=== PATIENT | female | born 2000 | race African-American/Black ===

== ENCOUNTER 2024-12-09 20:29 | Emergency (ER) | payer OTHER, SELFPAY ==
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
--- OUTSIDE RECORDS SUMMARY | 2024-12-09 20:25 | XMS_ITS | Patient Health Summary ---
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,non-owned Affiliates and Associated Physician Practices is amultiple site organization consisting of ambulatory clinics and hospital sitesin [place], [place], [place] and [place]. This disclosure is being madepursuant to the Care Everywhere program and may not contain all information available regarding this patient. Last updated 18.[facility] Allergies * Nickel(Urticaria) -Medium Criticality Medications * Be aware that medications may not be up to date on this document. Alwaysverify current medications with the patient. * albuterol HFA (PROVENTIL;VENTOLIN;PROAIR) 108 (90 BASE) MCG/ACT inhaler Inhale 2 (two) puffs by mouth every 6 hours as needed * montelukast (SINGULAIR) 10 MG tablet(Started 07/21/2019) Take 1 (one) tablet by mouth every evening 11 refills left * buPROPion XL 24hr (WELLBUTRIN-XL) 300 MG tablet(Started 05/07/2021) Take 1 (one) tablet by mouth once daily * divalproex ER 24hr (DEPAKOTE ER) 250 MG tablet(Started 05/07/2021) Take 3 (three) tablets by mouth at bedtime * medroxyPROGESTERone (DEPO-PROVERA) 150 MG/ML vial(Started 11/22/2020) Inject 1 mL into muscle Every 90 days * cyclobenzaprine (FLEXERIL) 5 MG tablet(Started 06/02/2021) TAKE 1 TABLET BY MOUTH THREE TIMES DAILY NEEDED FOR BACK PAIN. * lithium CR (Eskalith CR) 450 MG tablet(Started 08/30/2023) Take 1 (one) tablet by mouth once daily * omeprazole (PriLOSEC) 20 MG capsule(Started 02/07/2023) TAKE 1 CAPSULE BY MOUTH EVERY DAY BEFORE A MEAL * propranolol (Inderal) 10 MG tablet(Started 08/02/2023) Take 1 (one) tablet by mouth 2 times daily with morning and evening meal * vitamin D, ergocalciferol, (Drisdol) 1.25 MG (82658 UT) capsule(Started 11/21/2023) Take 1 (one) capsule by mouth every 7 days * QUEtiapine (SEROquel) 200 MG tablet(Started 11/12/2023) Take 1 (one) tablet by mouth at bedtime * meloxicam (Mobic) 15 MG tablet(Started 12/07/2023) Take 1 (one) tablet by mouth once daily 3 refills by 12/06/2024 Active Problems Problem Noted Date Diagnosed Date Arthralgia 12/26/2018 Chronic bilateral low back pain without sciatica 12/26/2018 Hypermobile joints 12/26/2018 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 Hypovitaminosis D 12/26/2018 Low TSH level 12/26/2018 Intentional lithium overdose 07/26/2018 Suicidal ideation 07/26/2018 Routine screening for STI (sexually transmitted infection) 07/18/2018 DUB (dysfunctional uterine bleeding) 12/07/2016 Social History Tobacco Use Types Packs/Day Years Used Date Smoking Tobacco: Smoker, Current Status Unknown Smokeless Tobacco: Never Tobacco Cessation:Ready to Q uit: Not Asked; Counseling Given: Not Answered Alcohol Use Standard Drinks/Week Comments Yes 0 (1 standard drink = 0.6 oz pur e alcohol) occaisional PHQ-2 Answer Date Recorded PHQ2 TOTAL SCORE 3 10/13/2021 Sex and Gender Information Value Date Recorded Sex Assigned at Not on file Gender Identity Not on file Sexual Orientation Not on file Last Filed Vital Signs Vital Sign Reading Time Taken Comments Blood Pressure 118/60 12/07/2023 3:34 PM TEST TECHNICIAN Pulse 86 12/07/2023 3:34 PM TEST TECHNICIAN Temperature 37.1 ??C (98.8 ??F) 12/07/2023 3:34 PM CS T Respiratory Rate 18 03/18/2020 4:25 PM CDT Oxygen Saturation 96% 09/20/2023 1:40 PM TEST TECHNICIAN Inhaled Oxygen Concentration - - Weight 60.2 kg (132 lb 12.8 oz) 12/07/2023 3:34 PM TEST TECHNICIAN Height 162.6 cm (5' 4 ) 12/07/2023 3:34 PM TEST TECHNICIAN Body Mass Index 22.8 12/07/2023 3:34 PM TEST TECHNICIAN Procedures * URINALYSIS REFLEX TO MICROSCOPIC NO CULTURE(Performed 09/20/2023) Performed for Arthralgia, unspecified joint * COMPLEMENT ACTIVITY TOTAL (CH50)(Performed 09/20/2023) Performed for Arthralgia, unspecified joint * SS-B (SJOGREN'S) ANTIBODY(Performed 09/20/2023) Performed for Arthralgia, unspecified joint * SS-A (SJOGREN'S) 52+60 ANTIBODIES(Performed 09/20/2023) Performed for Arthralgia, unspecified joint * THOMAS/FINGERNAIL SCULPTURER (FLACO) ANTIBODY IGG(Performed 09/20/2023) Performed for Arthralgia, unspecified joint * DNA ANTIBODY DS CRITHIDIA TITER(Performed 09/20/2023) Performed for Arthralgia, unspecified joint * DNA ANTIBODY DOUBLE STRANDED(Performed 09/20/2023) Performed for Arthralgia, unspecified joint * MAGALY BLOOD SCREEN W/REFLEX TITER(Performed 09/20/2023) Performed for Arthralgia, unspecified joint * SCLERODERMA COMPREHENSIVE AB PANEL(Performed 09/20/2023) Performed for Arthralgia, unspecified joint * MYOSITIS ANTIBODY PANEL COMPREHENSIVE(Performed 09/20/2023) Performed for Arthralgia, unspecified joint * COMPLEMENT C4(Performed 09/20/2023) Performed for Arthralgia, unspecified joint * COMPLEMENT C3(Performed 09/20/2023) Performed for Arthralgia, unspecified joint * THOMAS (SM) ANTIBODY FLACO(Performed 09/20/2023) Performed for Arthralgia, unspecified joint * VITAMIN D 25-HYDROXY(Performed 09/20/2023) Performed for Arthralgia, unspecified joint * ERYTHROCYTE SEDIMENTATION RATE(Performed 09/20/2023) Performed for Arthralgia, unspecified joint * C-REACTIVE PROTEIN(Performed 09/20/2023) Performed for Arthralgia, unspecified joint * COMPREHENSIVE METABOLIC PANEL(Performed 09/20/2023) Performed for Arthralgia, unspecified joint * CK BLOOD(Performed 09/20/2023) Performed for Arthralgia, unspecified joint * CBC W AUTO DIFFERENTIAL(Performed 09/20/2023) Performed for Arthralgia, unspecified joint * ALDOLASE(Performed 09/20/2023) Performed for Arthralgia, unspecified joint * XR SHOULDER LEFT 2VW OR MORE(Performed 09/20/2023) Performed for Hypermobile joints, Arthralgia, unspecified joint * XR KNEE LEFT 2VW OR LESS(Performed 09/20/2023) Performed for Hypermobile joints, Arthralgia, unspecified joint * XR SHOULDER RIGHT 2VW OR MORE(Performed 09/20/2023) Performed for Hypermobile joints, Arthralgia, unspecified joint * XR KNEE RIGHT 2VW OR LESS(Performed 09/20/2023) Performed for Hypermobile joints, Arthralgia, unspecified joint * MYOSITIS ANTIBODY PANEL COMPREHENSIVE(Performed 10/13/2021) Performed for Hypermobile joints * VITAMIN D 25-HYDROXY D2+D3(Performed 10/13/2021) Performed for Hypermobile joints, Encounter for therapeutic drug monitoring * URINALYSIS W/MICROSCOPIC NO CULTURE(Performed 10/13/2021) Performed for Hypermobile joints, Encounter for therapeutic drug monitoring * ERYTHROCYTE SEDIMENTATION RATE(Performed 10/13/2021) Performed for Hypermobile joints, Encounter for therapeutic drug monitoring * C-REACTIVE PROTEIN(Performed 10/13/2021) Performed for Hypermobile joints, Encounter for therapeutic drug monitoring * COMPREHENSIVE METABOLIC PANEL(Performed 10/13/2021) Performed for Hypermobile joints, Encounter for therapeutic drug monitoring * CK BLOOD(Performed 10/13/2021) Performed for Hypermobile joints, Encounter for therapeutic drug monitoring * CBC W AUTO DIFFERENTIAL(Performed 10/13/2021) Performed for Hypermobile joints, Encounter for therapeutic drug monitoring * ALDOLASE(Performed 10/13/2021) Performed for Hypermobile joints, Encounter for therapeutic drug monitoring * XR FOREARM LEFT 2VW OR MORE(Performed 10/13/2021) Performed for Closed fracture of left upper extremity, initial encounter * XR ELBOW LEFT 2VW(Performed 10/13/2021) Performed for Closed fracture of left upper extremity, initial encounter * XR HUMERUS LEFT 2VW OR MORE(Performed 10/13/2021) Performed for Closed fracture of left upper extremity, initial encounter * URINALYSIS W/MICROSCOPIC NO CULTURE(Performed 05/27/2021) Performed for Hypermobile joints, Encounter for therapeutic drug monitoring * VITAMIN D 25-HYDROXY D2+D3(Performed 05/27/2021) Performed for Hypermobile joints, Encounter for therapeutic drug monitoring * T4 FREE(Performed 05/27/2021) Performed for Hypermobile joints, Encounter for therapeutic drug monitoring * TSH(Performed 05/27/2021) Performed for Hypermobile joints, Encounter for therapeutic drug monitoring * ERYTHROCYTE SEDIMENTATION RATE(Performed 05/27/2021) Performed for Hypermobile joints, Encounter for therapeutic drug monitoring * C-REACTIVE PROTEIN(Performed 05/27/2021) Performed for Hypermobile joints, Encounter for therapeutic drug monitoring * CK BLOOD(Performed 05/27/2021) Performed for Hypermobile joints, Encounter for therapeutic drug monitoring * COMPREHENSIVE METABOLIC PANEL(Performed 05/27/2021) Performed for Hypermobile joints, Encounter for therapeutic drug monitoring * CBC W AUTO DIFFERENTIAL(Performed 05/27/2021) Performed for Hypermobile joints, Encounter for therapeutic drug monitoring * ALDOLASE(Performed 05/27/2021) Performed for Hypermobile joints, Encounter for therapeutic drug monitoring * TRICHOMONAS VAGINALIS AMPLIFIED PROBE(Performed 05/06/2020) Performed for DUB (dysfunctional uterine bleeding), Routine screening for STI (sexually transmittedinfection) * CHLAMYDIA + GC AMPLIFIED PROBE(Performed 05/06/2020) Performed for DUB (dysfunctional uterine bleeding), Routine screening for STI (sexually transmittedinfection) * XR PELVIS 1 OR 2VW(Performed 03/18/2020) Performed for Pain of right hip joint * HCG URINE QUAL POCT NOTIFICATION(Performed 03/18/2020) * HCG URINE QUALITATIVE - POCT (IP) INTERFACED(Performed 03/18/2020) * URINALYSIS W/MICROSCOPIC NO CULTURE(Performed 03/18/2020) * CHLAMYDIA + GC AMPLIFIED PROBE(Performed 03/18/2020) * BASIC METABOLIC PANEL (CALCIUM TOTAL)(Performed 03/18/2020) * C-REACTIVE PROTEIN(Performed 03/18/2020) * ERYTHROCYTE SEDIMENTATION RATE(Performed 03/18/2020) * CBC W AUTO DIFFERENTIAL(Performed 03/18/2020) * TRICHOMONAS VAGINALIS AMPLIFIED PROBE(Performed 02/22/2020) Performed for Routine screening for STI (sexually transmitted infection) * CHLAMYDIA + GC AMPLIFIED PROBE(Performed 02/22/2020) Performed for Routine screening for STI (sexually transmitted infection) * URINALYSIS W/MICROSCOPIC REFLEX TO CULTURE(Performed 01/25/2020) Performed for Hypermobile joints, Arthralgia, unspecified joint, Chronic bilateral low back pain without sciatica, Histone antibody positive, Patellar tracking disorder, unspecified laterality, Hypovitaminosis D, Low TSH level * CULTURE URINE(Performed 01/25/2020) Performed for Hypermobile joints, Arthralgia, unspecified joint, Chronic bilateral low back pain without sciatica, Histone antibody positive, Patellar tracking disorder, unspecified laterality, Hypovitaminosis D, Low TSH level * ERYTHROCYTE SEDIMENTATION RATE(Performed 01/25/2020) Performed for Hypermobile joints, Arthralgia, unspecified joint, Chronic bilateral low back pain without sciatica, Histone antibody positive, Patellar tracking disorder, unspecified laterality, Hypovitaminosis D, Low TSH level * C-REACTIVE PROTEIN(Performed 01/25/2020) Performed for Hypermobile joints, Arthralgia, unspecified joint, Chronic bilateral low back pain without sciatica, Histone antibody positive, Patellar tracking disorder, unspecified laterality, Hypovitaminosis D, Low TSH level * COMPREHENSIVE METABOLIC PANEL(Performed 01/25/2020) Performed for Hypermobile joints, Arthralgia, unspecified joint, Chronic bilateral low back pain without sciatica, Histone antibody positive, Patellar tracking disorder, unspecified laterality, Hypovitaminosis D, Low TSH level * CBC W AUTO DIFFERENTIAL(Performed 01/25/2020) Performed for Hypermobile joints, Arthralgia, unspecified joint, Chronic bilateral low back pain without sciatica, Histone antibody positive, Patellar tracking disorder, unspecified laterality, Hypovitaminosis D, Low TSH level * TRICHOMONAS VAGINALIS AMPLIFIED PROBE(Performed 12/14/2019) Performed for DUB (dysfunctional uterine bleeding) * CHLAMYDIA + GC AMPLIFIED PROBE(Performed 12/14/2019) Performed for DUB (dysfunctional uterine bleeding) * MAGALY BLOOD SCREEN W/REFLEX TITER(Performed 09/21/2019) Performed for Encounter for therapeutic drug monitoring, Arthralgia of left knee, Hypermobile joints, Hypovitaminosis D * DNA ANTIBODY DOUBLE STRANDED(Performed 09/21/2019) Performed for Encounter for therapeutic drug monitoring, Arthralgia of left knee, Hypermobile joints, Hypovitaminosis D * THOMAS (SM) ANTIBODY FLACO(Performed 09/21/2019) Performed for Encounter for therapeutic drug monitoring, Arthralgia of left knee, Hypermobile joints, Hypovitaminosis D * SS-A (SJOGREN'S) ANTIBODY(Performed 09/21/2019) Performed for Encounter for therapeutic drug monitoring, Arthralgia of left knee, Hypermobile joints, Hypovitaminosis D * SS-B (SJOGREN'S) ANTIBODY(Performed 09/21/2019) Performed for Encounter for therapeutic drug monitoring, Arthralgia of left knee, Hypermobile joints, Hypovitaminosis D * FINGERNAIL SCULPTURER ANTIBODY(Performed 09/21/2019) Performed for Encounter for therapeutic drug monitoring, Arthralgia of left knee, Hypermobile joints, Hypovitaminosis D * CHROMATIN ANTIBODY(Performed 09/21/2019) Performed for Encounter for therapeutic drug monitoring, Arthralgia of left knee, Hypermobile joints, Hypovitaminosis D * HISTONE ANTIBODY(Performed 09/21/2019) Performed for Encounter for therapeutic drug monitoring, Arthralgia of left knee, Hypermobile joints, Hypovitaminosis D * CBC W AUTO DIFFERENTIAL(Performed 09/21/2019) Performed for Encounter for therapeutic drug monitoring, Arthralgia of left knee, Hypermobile joints, Hypovitaminosis D * COMPREHENSIVE METABOLIC PANEL(Performed 09/21/2019) Performed for Encounter for therapeutic drug monitoring, Arthralgia of left knee, Hypermobile joints, Hypovitaminosis D * C-REACTIVE PROTEIN(Performed 09/21/2019) Performed for Encounter for therapeutic drug monitoring, Arthralgia of left knee, Hypermobile joints, Hypovitaminosis D * ERYTHROCYTE SEDIMENTATION RATE(Performed 09/21/2019) Performed for Encounter for therapeutic drug monitoring, Arthralgia of left knee, Hypermobile joints, Hypovitaminosis D * URINALYSIS W/MICROSCOPIC NO CULTURE(Performed 09/21/2019) Performed for Encounter for therapeutic drug monitoring, Arthralgia of left knee, Hypermobile joints, Hypovitaminosis D * ANCA VASCULITIS PANEL(Performed 09/21/2019) Performed for Encounter for therapeutic drug monitoring, Arthralgia of left knee, Hypermobile joints, Hypovitaminosis D * CHROMATIN ANTIBODY(Performed 03/02/2019) Performed for Arthralgia, unspecified joint * HISTONE ANTIBODY(Performed 03/02/2019) Performed for Arthralgia, unspecified joint * VITAMIN D 25-HYDROXY(Performed 03/02/2019) Performed for Arthralgia, unspecified joint * THYROID AB PANEL (TPO AB+THYROGLOB AB)(Performed 03/02/2019) Performed for Arthralgia, unspecified joint, Low TSH level * T4 FREE(Performed 03/02/2019) Performed for Arthralgia, unspecified joint, Low TSH level * TSH(Performed 03/02/2019) Performed for Arthralgia, unspecified joint, Low TSH level * LUPUS ANTICOAGULANT PANEL W RFLX(Performed 03/02/2019) Performed for Arthralgia, unspecified joint * ERYTHROCYTE SEDIMENTATION RATE(Performed 03/02/2019) Performed for Arthralgia, unspecified joint * C-REACTIVE PROTEIN(Performed 03/02/2019) Performed for Arthralgia, unspecified joint * ALDOLASE(Performed 03/02/2019) Performed for Arthralgia, unspecified joint * CK BLOOD(Performed 03/02/2019) Performed for Arthralgia, unspecified joint * CBC W AUTO DIFFERENTIAL(Performed 03/02/2019) Performed for Arthralgia, unspecified joint * CARDIOLIPIN ANTIBODY IGG/IGM PANEL(Performed 03/02/2019) Performed for Arthralgia, unspecified joint * BETA-2 GLYCOPROTEIN 1 ANTIBODY IGG/IGM PANEL(Performed 03/02/2019) Performed for Arthralgia, unspecified joint * ANCA VASCULITIS PANEL(Performed 03/02/2019) Performed for Arthralgia, unspecified joint * TRICHOMONAS VAGINALIS AMPLIFIED PROBE(Performed 02/13/2019) Performed for Routine screening for STI (sexually transmitted infection) * CHLAMYDIA + GC AMPLIFIED PROBE(Performed 02/13/2019) Performed for Routine screening for STI (sexually transmitted infection) * XR LUMBAR SPINE 2 OR 3VW(Performed 12/26/2018) Performed for Arthralgia, unspecified joint, Chronic bilateral low back pain without sciatica * XR SI JOINTS 3VW OR MORE(Performed 12/26/2018) Performed for Arthralgia, unspecified joint, Chronic bilateral low back pain without sciatica * XR KNEE RIGHT 3VW(Performed 12/26/2018) Performed for Arthralgia, unspecified joint, Chronic bilateral low back pain without sciatica * XR KNEE LEFT 3VW(Performed 12/26/2018) Performed for Arthralgia, unspecified joint, Chronic bilateral low back pain without sciatica * VITAMIN D 25-HYDROXY(Performed 12/26/2018) Performed for Arthralgia, unspecified joint, Chronic bilateral low back pain without sciatica * RHEUMATOID FACTOR BLOOD QUANTITATIVE(Performed 12/26/2018) Performed for Arthralgia, unspecified joint, Chronic bilateral low back pain without sciatica * CYCLIC CITRUL PEPTIDE ANTIBODY IGG/IGA (CCP)(Performed 12/26/2018) Performed for Arthralgia, unspecified joint, Chronic bilateral low back pain without sciatica * HLA TYPING B27(Performed 12/26/2018) Performed for Arthralgia, unspecified joint, Chronic bilateral low back pain without sciatica * SS-B (SJOGREN'S) ANTIBODY(Performed 12/26/2018) Performed for Arthralgia, unspecified joint, Chronic bilateral low back pain without sciatica * SS-A (SJOGREN'S) ANTIBODY(Performed 12/26/2018) Performed for Arthralgia, unspecified joint, Chronic bilateral low back pain without sciatica * MAGALY BLOOD SCREEN W/REFLEX TITER(Performed 12/26/2018) Performed for Arthralgia, unspecified joint, Chronic bilateral low back pain without sciatica * COMPLEMENT C4(Performed 12/26/2018) Performed for Arthralgia, unspecified joint, Chronic bilateral low back pain without sciatica * COMPLEMENT C3(Performed 12/26/2018) Performed for Arthralgia, unspecified joint, Chronic bilateral low back pain without sciatica * COMPLEMENT TOTAL(Performed 12/26/2018) Performed for Arthralgia, unspecified joint, Chronic bilateral low back pain without sciatica * IMMUNOGLOBULINS IGG/IGM/IGA PANEL(Performed 12/26/2018) Performed for Arthralgia, unspecified joint, Chronic bilateral low back pain without sciatica * TISSUE TRANSGLUTAMINASE AB IGA(Performed 12/26/2018) Performed for Arthralgia, unspecified joint, Chronic bilateral low back pain without sciatica * TSH(Performed 12/26/2018) Performed for Arthralgia, unspecified joint, Chronic bilateral low back pain without sciatica * ERYTHROCYTE SEDIMENTATION RATE(Performed 12/26/2018) Performed for Arthralgia, unspecified joint, Chronic bilateral low back pain without sciatica * C-REACTIVE PROTEIN(Performed 12/26/2018) Performed for Arthralgia, unspecified joint, Chronic bilateral low back pain without sciatica * COMPREHENSIVE METABOLIC PANEL(Performed 12/26/2018) Performed for Arthralgia, unspecified joint, Chronic bilateral low back pain without sciatica * CBC W AUTO DIFFERENTIAL(Performed 12/26/2018) Performed for Arthralgia, unspecified joint, Chronic bilateral low back pain without sciatica * TRICHOMONAS VAGINALIS AMPLIFIED PROBE(Performed 12/26/2018) Performed for Routine screening for STI (sexually transmitted infection) * CHLAMYDIA + GC AMPLIFIED PROBE(Performed 12/26/2018) Performed for Routine screening for STI (sexually transmitted infection) * CHLAMYDIA + GC AMPLIFIED PROBE(Performed 10/17/2018) Performed for Routine screening for STI (sexually transmitted infection) * HCG URINE QUALITATIVE - POCT (IP) INTERFACED(Performed 10/17/2018) * HCG URINE QUAL POCT NOTIFICATION(Performed 10/17/2018) Performed for DUB (dysfunctional uterine bleeding) * CARDIAC EKG ORDER(Performed 07/27/2018) * LITHIUM LEVEL(Performed 07/26/2018) * LITHIUM LEVEL(Performed 07/26/2018) * URINE DRUG SCREEN IMMUNOASSAY(Performed 07/26/2018) * BASIC METABOLIC PANEL (CALCIUM TOTAL)(Performed 07/26/2018) * LITHIUM LEVEL(Performed 07/26/2018) * CHLAMYDIA + GC AMPLIFIED PROBE(Performed 07/18/2018) Performed for Routine screening for STI (sexually transmitted infection) * HCG URINE QUALITATIVE - POCT (IP) INTERFACED(Performed 07/18/2018) * HCG URINE QUAL POCT NOTIFICATION(Performed 07/18/2018) Performed for DUB (dysfunctional uterine bleeding) * XR KNEE LEFT 4VW OR MORE(Performed 11/11/2017) Performed for Chronic pain of left knee * URINALYSIS - POCT (IP) BEAKER(Performed 07/13/2017) Performed for DUB (dysfunctional uterine bleeding), Dysmenorrhea * XR KNEE RIGHT 4VW OR MORE(Performed 10/09/2016) Performed for Right knee pain, unspecified chronicity * LAB RESULTS ORDER(Performed 08/31/2016) * TSH(Performed 08/25/2016) Performed for DUB (dysfunctional uterine bleeding) * T4 FREE(Performed 08/25/2016) Performed for DUB (dysfunctional uterine bleeding) Results * (ABNORMAL) URINALYSIS REFLEX TO MICROSCOPIC NO CULTURE (09/20/2023 3:25 PM TEST TECHNICIAN) Color UA Yellow Straw, Yellow 09/20/2023 5:[address] [facility] Clarity UA Slt Cloudy(A) Clear 09/20/2023 5:[address] [facility] Specific [place] UA 1.021 1.005 - 1.030 09/20/2023 5:[address] [facility] pH UA 6.0 5.0 - 8.0 pH 09/20/2023 5:[address] [facility] Protein UA 1+(A) Negative 09/20/2023 5:[address] [facility] Glucose UA Negative Negative 09/20/2023 5:[address] [facility] Ketone UA Negative Negative 09/20/2023 5:[address] [facility] Bilirubin UA Negative Negative 09/20/2023 5:[address] [facility] Blood UA Negative Negative 09/20/2023 5:[address] [facility] Nitrite UA Negative Negative 09/20/2023 5:[address] [facility] Leukocyte Esterase Negative Negative 09/20/2023 5:[address] [facility] Urobilinogen UA Negative Negative mg/dL 09/20/2023 5:[address] [facility] RBC UA 0-2 None Seen, 0-2, 3-5 /HPF 09/20/2023 5:[address] [facility] WBC UA 0-5 None Seen, 0-5 /HPF 09/20/2023 5:[address] [facility] Squamous Epithelial Cells UA 3-5 None Seen, 0-2, 3-5 /HPF 09/20/2023 5:[address] [facility] Mucus UA 1+ /LPF 09/20/2023 5:[address] [facility] Urine URINE SPECIMEN OBTAINED BY CLEAN CATCH PROCEDURE / Unknown Collection / Unknown 09/20/2023 3:25 PM TEST TECHNICIAN 09/20/2023 5:13 PM [facility] - 09/20/2023 5:31 PM TEST TECHNICIAN Tevin Shoemaker MD LAB - URINALYSIS ORD ERABLES [id number] [place] [address], [facility] [phone] * COMPLEMENT ACTIVITY TOTAL (CH50) (09/20/2023 3:24 PM TEST TECHNICIAN) [facility] Complement Activity Total CH50 64.0 38.7 - 89.9 U/mL 09/23/2023 3:51 AM TEST TECHNICIAN [facility] ([facility]) Comment: Normal activity in total complement functional assay (CH50) suggests normal presence and function of complement components, C1-C9. However, normal CH50 result can also occur in the presence of low levels of complement components due to excess presence of complement proteins in human serum. If clinically indicated, measurement of individual complement components is recommended. Normal CH50 result with low complement alternate pathway functional (AH50, test code [id number]) activity suggests defects in the alternate pathway. REFERENCE INTERVAL: Complement Activity Total, (CH50) ? 38.6 U/mL or less ..........Low ? 38.7-89.9 U/mL .............Normal ? 90.0 U/mL or greater .......High Performed By: [employer] [address] [place] [address] Disassembler Product: Lloyd Masterson MD, PhD CLIA Number: [id number] Blood BLOOD SPECIMEN / Unknown Lab Venipuncture / Unknown 09/20/2023 3:24 PM TEST TECHNICIAN 09/20/2023 5:13 PM TEST TECHNICIAN Tevin Shoemaker MD LAB - CHEMISTRY [place] [facility]) [address] * SCLERODERMA COMPREHENSIVE AB PANEL (09/20/2023 3:24 PM TEST TECHNICIAN) [facility] MAGALY HEp-2 IgG <1:80 <1:80 09/23/2023 7:41 PM TEST TECHNICIAN [facility] ([facility]) MAGALY Interpretive Comment See Note 09/23/2023 7:41 PM TEST TECHNICIAN [facility] ([facility]) Comment: Antinuclear antibodies by IFA negative for homogeneous, speckled, nucleolar, centromere, and nuclear dots patterns. Cytoplasmic antibodies by IFA negative for reticular/AMA, discrete/GW body-like, polar/golgi-like, rods and rings, and cytoplasmic speckled patterns. INTERPRETIVE INFORMATION: MAGALY Interpretive Comment Presence of antinuclear antibodies (MAGALY) is a hallmark feature of systemic autoimmune rheumatic diseases (SARD). However, MAGALY lacks diagnostic specificity and is associated with a variety of diseases (cancers, autoimmune, infectious, and inflammatory conditions) ??and may also occur in healthy individuals in varying prevalence. The lack of diagnostic specificity requires confirmation of positive MAGALY by more specific serologic tests. MAGALY (nuclear reactivity) positive patterns reported include centromere, homogeneous, nuclear dots, nucleolar, or speckled. MAGALY (cytoplasmic reactivity) positive patterns reported include reticular/AMA, discrete/GW body-like, polar/golgi-like, cytoplasmic speckled or rods and rings. All positive patterns are reported to endpoint titers (1:2560). Reported patterns may help guide differential diagnosis, although they may not be specific for individual antibodies or diseases. Mitotic staining patterns not reported. ??Negative results do not necessarily rule out SARD. SCL-70 Antibody 1 0 - 40 AU/mL 09/23/2023 7:41 PM [facility] [employer] ([facility]) Comment: INTERPRETIVE INFORMATION: Scleroderma (Scl-70) (FLACO) Ab, IgG ??29 AU/mL or Less ............. Negative ??30 - 40 AU/mL ................ Equivocal ??41 AU/mL or Greater .......... Positive The presence of Scl-70 antibodies (also referred to as topoisomerase I, cheyanne-I or TERESITA) is considered diagnostic for systemic sclerosis (SSc). Scl-70 antibodies alone are detected in about 20 percent of SSc patients and are associated with the diffuse form of the disease, which may include specific organ involvement and poor prognosis. Scl-70 antibodies have also been reported in a varying percentage of patients with systemic lupus erythematosus (SLE). Scl-70 (cheyanne-1) is a DNA binding protein and anti-DNA/DNA complexes in the sera of SLE patients may bind to cheyanne-I, leading to a false-positive result. The presence of Scl-70 antibody in sera may also be due to contamination of recombinant Scl-70 with DNA derived from cellular material used in immunoassays. Strong clinical correlation is recommended if both Scl-70 and dsDNA antibodies are detected. Negative results do not necessarily rule out the presence of SSc. If clinical suspicion remains, consider further testing for centromere, RNA polymerase III and U3-FINGERNAIL SCULPTURER, PM/Scl, or Th/To antibodies. RNA Polymerase 3 Antibody IgG 11 0 - 19 Units 09/23/2023 7:41 PM [facility] [employer] ([facility]) Comment: INTERPRETIVE INFORMATION: RNA Polymerase III Antibody, IgG ??19 Units or less ......Negative ??20 - 39 Units .........Weak Positive ??40 - 80 Units .........Moderate Positive ??81 Units or greater ...Strong Positive The presence of RNA polymerase III IgG antibody, when considered in conjunction with other laboratory and clinical findings, is an aid in the diagnosis of systemic sclerosis (SSc) with increased incidence of skin involvement and renal crisis with the diffuse cutaneous form of SSc. RNA polymerase III IgG antibody occur in about 11-23 percent of SSc patients, and typically in the absence of anti-centromere and anti-Scl-70 antibodies. A negative result indicates no detectable IgG antibodies to the dominant antigen of RNA polymerase III and does not rule out the possibility of SSc. False-positive results may also occur due to non-specific binding of immune complexes. Strong clinical correlation is recommended. If clinical suspicion remains, consider additional testing for other antibodies associated with SSc, including centromere, Scl-70, U3-FINGERNAIL SCULPTURER, PM/Scl, or Th/To. Thomas/FINGERNAIL SCULPTURER (FLACO) Antibody IgG 3 0 - 19 Units 09/23/2023 7:41 PM [facility] [employer] ([facility]) Comment: INTERPRETIVE INFORMATION: Thomas/FINGERNAIL SCULPTURER (FLACO) Antibody, IgG ??19 Units or Less ............. Negative ??20 to 39 Units ............... Weak Positive ??40 to 80 Units ............... Moderate Positive ??81 Units or greater .......... Strong Positive Thomas/FINGERNAIL SCULPTURER antibodies are frequently seen in patients with mixed connective tissue disease (MCTD) and are also associated with other systemic autoimmune rheumatic diseases (SARDs) such as systemic lupus erythematosus (SLE), systemic sclerosis, and myositis. Antibodies targeting the Thomas/FINGERNAIL SCULPTURER antigenic complex also recognize Thomas antigens, therefore, the Thomas antibody response must be considered when interpreting these results. PM/Scl 100 Antibody IgG Negative Negative 09/23/2023 7:41 PM [facility] ([facility]) Comment: INTERPRETIVE INFORMATION: PM/Scl-100 Antibody, IgG by ?Immunoblot The presence of PM/Scl-100 IgG antibody along with a positive MAGALY IFA nucleolar pattern is associated with connective tissue diseases such as polymyositis (PM), dermatomyositis (DM), systemic sclerosis (SSc), and polymyositis/systemic sclerosis overlap syndrome. The clinical relevance of PM/Scl-100 IgG antibody with a negative MAGALY IFA nucleolar pattern is unknown. PM/Scl-100 is the main target epitope of the PM/Scl complex, although antibodies to other targets not detected by this assay may occur. This test was developed and its performance characteristics determined by [employer]. It has not been cleared or approved by the US Food and Drug Administration. This test was performed in a CLIA certified laboratory and is intended for clinical purposes. Fibrillarin (U3 FINGERNAIL SCULPTURER) Antibody IgG Negative Negative 09/23/2023 7:41 PM [facility] ([facility]) Comment: Interpretive Information: Fibrillarin (U3 FINGERNAIL SCULPTURER) Antibody, IgG The presence of fibrillarin (U3-FINGERNAIL SCULPTURER) IgG antibodies in association with an MAGALY IFA nucleolar pattern is suggestive of systemic sclerosis (SSc). In SSc, these antibodies are associated with distinct clinical features, such as younger age at disease onset, frequent internal organ involvement (pulmonary hypertension, myositis and renal disease). Fibrillarin antibodies are detected more frequently in patients with SSc compared to other ethnic groups. Strong correlation with MAGALY IFA results is recommended. In a multi-ethnic cohort of SSc patients (n=98), U3-FINGERNAIL SCULPTURER antibodies detected by immunoblot had an agreement of 98.9 percent with the gold standard immunoprecipitation (IP) assay. Approximately 71 percent (5/7) of the borderline U3-FINGERNAIL SCULPTURER results with MAGALY nucleolar pattern in this cohort were IP negative. This test was developed and its performance characteristics determined by [employer]. It has not been cleared or approved by the US Food and Drug Administration. This test was performed in a CLIA certified laboratory and is intended for clinical purposes. Performed By: [facility] [employer] [address] [place] [address] Disassembler Product: Lloyd Masterson MD, PhD CLIA Number: [id number] Blood BLOOD SPECIMEN / Unknown Lab Venipuncture / Unknown 09/20/2023 3:24 PM TEST TECHNICIAN 09/20/2023 5:13 PM TEST TECHNICIAN Tevin Shoemaker MD LAB - SEROLOGY ORDER [facility]) [address] [place] [address], [facility] * SS-A (SJOGREN'S) 52+60 ANTIBODIES (09/20/2023 3:24 PM TEST TECHNICIAN) SS-A 52 Antibody 4 0 - 40 AU/mL 09/23/2023 1:30 PM TEST TECHNICIAN [facility] ([facility]) Comment: INTERPRETIVE INFORMATION: SSA-52 (Ro52) (FLACO) Antibody, IgG ??29 AU/mL or Less ............. Negative ??30 - 40 AU/mL ................ Equivocal ??41 AU/mL or Greater .......... Positive SSA-52 (Ro52) and/or SSA-60 (Ro60) antibodies are associated with a diagnosis of Sjogren syndrome, systemic lupus erythematosus (SLE), and systemic sclerosis. SSA-52 antibody overlaps significantly with the major SSc-related antibodies. SSA-52 (Ro52) antibody occurs frequently in patients with inflammatory myopathies, often in the presence of interstitial lung disease. SS-A 60 Antibody 6 0 - 40 AU/mL 09/23/2023 1:30 PM TEST TECHNICIAN [facility] [employer] ([facility]) Comment: REFERENCE INTERVAL: SSA-60 (Ro60) (FLACO) Antibody, IgG ??29 AU/mL or Less ............. Negative ??30 - 40 AU/mL ................ Equivocal ??41 AU/mL or Greater .......... Positive Performed By: [employer] [address] [place] [address] Disassembler Product: Lloyd Masterson MD, PhD CLIA Number: [id number] Blood BLOOD SPECIMEN / Unknown Lab Venipuncture / Unknown 09/20/2023 3:24 PM TEST TECHNICIAN 09/20/2023 5:13 PM TEST TECHNICIAN Tevin Shoemaker MD LAB - CHEMISTRY [place] [facility]) [address] [place] [address], [facility] * THOMAS/FINGERNAIL SCULPTURER (FLACO) ANTIBODY IGG (09/20/2023 3:24 PM TEST TECHNICIAN) Pathologist [facility] Thomas/FINGERNAIL SCULPTURER (FLACO) Antibody IgG 4 0 - 19 Units 09/23/2023 1:24 PM TEST TECHNICIAN [employer] ([facility]) Comment: INTERPRETIVE INFORMATION: Thomas/FINGERNAIL SCULPTURER (FLACO) Antibody, IgG ??19 Units or Less ............. Negative ??20 to 39 Units ............... Weak Positive ??40 to 80 Units ............... Moderate Positive ??81 Units or greater .......... Strong Positive Thomas/FINGERNAIL SCULPTURER antibodies are frequently seen in patients with mixed connective tissue disease (MCTD) and are also associated with other systemic autoimmune rheumatic diseases (SARDs) such as systemic lupus erythematosus (SLE), systemic sclerosis, and myositis. Antibodies targeting the Thomas/FINGERNAIL SCULPTURER antigenic complex also recognize Thomas antigens, therefore, the Thomas antibody response must be considered when interpreting these results. Performed By: [employer] [address] [place] [address] Disassembler Product: Lloyd Masterson MD, PhD CLIA Number: [id number] Blood BLOOD SPECIMEN / Unknown Lab Venipuncture / Unknown 09/20/2023 3:24 PM TEST TECHNICIAN 09/20/2023 5:13 PM TEST TECHNICIAN Tevin Shoemaker MD LAB - CHEMISTRY [place] [facility]) [address] [place] [place] [id number], [facility] * MYOSITIS ANTIBODY PANEL COMPREHENSIVE (09/20/2023 3:24 PM TEST TECHNICIAN) Only the most recent of2 resultswithin the time period is included. SAE1 (SUMO activating enzyme) Ab Negative Negative 10/01/2023 8:33 PM TEST TECHNICIAN [facility]) NXP2 (Nuclear matrix protein-2) Ab Negative Negative 10/01/2023 8:33 PM TEST TECHNICIAN [facility]) MDA5 (CADM-140) Ab Negative Negative 2022 8:33 PM TEST TECHNICIAN [facility]) TIF-1 gamma (155 kDa) Ab Negative Negative 10/01/2023 8:33 PM TEST TECHNICIAN [facility] ([facility]) Myositis Panel Interpretive Data See Note 10/01/2023 8:33 PM TEST TECHNICIAN [facility]) Comment: INTERPRETIVE INFORMATION: Extended Myositis Panel If present, myositis-specific antibodies (MSA) are specific for myositis, and may be useful in establishing diagnosis as well as prognosis. MSAs are generally regarded as mutually exclusive with rare exceptions; the occurrence of two or more MSAs should be carefully evaluated in the context of patient's clinical presentation. Myositis-associated antibodies (MAA) may be found in patients with CTD including overlap syndromes, and are generally not specific for myositis. The following table will help in identifying the association of any antibodies found as either MSAs or Flori. Antibody Specificity . . . . . . . . . . . . MSA . . . . MAA SSA 52 (Ro) (FLACO) Antibody IgG . . . . . . . . . . . . . ??X SSA 60 (Ro) (FLACO) Antibody IgG . . . . . . . . . . . . . ??X Thomas/FINGERNAIL SCULPTURER (FLACO) Ab, IgG ??. . . . . . . . . . . . . . . . ??X Kavita-1 (histidyl-tRNA synthetase) Ab, IgG ??. . ??X PL-12 (alanyl-tRNA synthetase) Antibody ??. . ??X PL-7 (threonyl-tRNA synthetase) Antibody . . ??X EJ (glycyl-tRNA synthetase) Antibody . . . . ??X OJ (isoleucyl-tRNA synthetase) Antibody ??. . ??X SRP (Signal Recognition Particle) Ab . . . . ??X Ku Antibody ??. . . . . . . . . . . . . . . . . . . . . . ??X PM/SCL 100 Antibody, IgG . . . . . . . . . . . . . . . . ??X Fibrillarin (U3 FINGERNAIL SCULPTURER) Ab, IgG . . . . . . . . . . . . . . ??X Mi-2 (nuclear helicase protein) Antibody . . ??X P155/140 Antibody ??. . . . . . . . . . . . . ??X TIF-1 gamma (155 kDa) Ab . . . . . . . . . . ??X SAE1 (SUMO activating enzyme) Ab . . . . . . ??X MDA5 (CADM-140) Ab ?? . . . . . . . . . . . . ??X NXP2 (Nuclear matrix proten-2)Ab . . . . . . ??X This test was developed and its performance characteristics determined by [employer]. It has not been cleared or approved by the US Food and Drug Administration. This test was performed in a CLIA certified laboratory and is intended for clinical purposes. Mi-2 Antibody Negative Negative 10/01/2023 8:33 PM TEST TECHNICIAN [employer] [facility]) P155/140 Antibody Negative Negative 023 8:33 PM TEST TECHNICIAN [employer] [facility]) PL-12 Antibody Negative Negative 10/01/2023 8:33 PM TEST TECHNICIAN [employer] [facility]) PL-7 Antibody Negative Negative 10/01/2023 8:33 PM TEST TECHNICIAN [employer] [facility]) OJ Antibody Negative Negative 10/01/2023 8:33 PM TEST TECHNICIAN [facility]) EJ Antibody Negative Negative 10/01/2023 8:33 PM TEST TECHNICIAN [employer] [facility]) SRP Antibody Negative Negative 10/01/2023 8:33 PM TEST TECHNICIAN [employer] [facility]) Kavita-1 Antibody IgG 1 0 - 40 AU/mL 10/01/2023 8:33 PM [facility] [employer] ([facility]) Comment: INTERPRETIVE INFORMATION: ??Kavita-1 Antibody, IgG ??29 AU/mL or less.........Negative ??30-40 AU/mL..............Equivocal ??41 AU/mL or greater......Positive Presence of Kavita-1 (antihistidyl transfer RNA [t-RNA' synthetase) antibody is associated with polymyositis and may also be seen in patients with dermatomyositis. Kavita-1 antibody is associated with pulmonary involvement (interstitial lung disease), Raynaud phenomenon, arthritis, and piano mechanic apprentice's hands (implicated in antisynthetase syndrome). KU Antibody Negative Negative 10/01/2023 8:33 PM [facility] [employer] ([facility]) Thomas/FINGERNAIL SCULPTURER (FLACO) Antibody IgG 4 0 - 19 Units 10/01/2023 8:33 PM [facility] ([facility]) Comment: INTERPRETIVE INFORMATION: Thomas/FINGERNAIL SCULPTURER (FLACO) Antibody, IgG ??19 Units or Less ............. Negative ??20 to 39 Units ............... Weak Positive ??40 to 80 Units ............... Moderate Positive ??81 Units or greater .......... Strong Positive Thomas/FINGERNAIL SCULPTURER antibodies are frequently seen in patients with mixed connective tissue disease (MCTD) and are also associated with other systemic autoimmune rheumatic diseases (SARDs) such as systemic lupus erythematosus (SLE), systemic sclerosis, and myositis. Antibodies targeting the Thomas/FINGERNAIL SCULPTURER antigenic complex also recognize Thomas antigens, therefore, the Thomas antibody response must be considered when interpreting these results. PM/Scl 100 Antibody IgG Negative Negative 10/01/2023 8:33 PM [facility] [employer] ([facility]) Comment: INTERPRETIVE INFORMATION: PM/Scl-100 Antibody, IgG by ?Immunoblot The presence of PM/Scl-100 IgG antibody along with a positive MAGALY IFA nucleolar pattern is associated with connective tissue diseases such as polymyositis (PM), dermatomyositis (DM), systemic sclerosis (SSc), and polymyositis/systemic sclerosis overlap syndrome. The clinical relevance of PM/Scl-100 IgG antibody with a negative MAGALY IFA nucleolar pattern is unknown. PM/Scl-100 is the main target epitope of the PM/Scl complex, although antibodies to other targets not detected by this assay may occur. This test was developed and its performance characteristics determined by [employer]. It has not been cleared or approved by the US Food and Drug Administration. This test was performed in a CLIA certified laboratory and is intended for clinical purposes. SS-A 52 Antibody 3 0 - 40 AU/mL 10/01/2023 8:33 PM TEST TECHNICIAN [facility] ([facility]) Comment: INTERPRETIVE INFORMATION: SSA-52 (Ro52) (FLACO) Antibody, IgG ??29 AU/mL or Less ............. Negative ??30 - 40 AU/mL ................ Equivocal ??41 AU/mL or Greater .......... Positive SSA-52 (Ro52) and/or SSA-60 (Ro60) antibodies are associated with a diagnosis of Sjogren syndrome, systemic lupus erythematosus (SLE), and systemic sclerosis. SSA-52 antibody overlaps significantly with the major SSc-related antibodies. SSA-52 (Ro52) antibody occurs frequently in patients with inflammatory myopathies, often in the presence of interstitial lung disease. SS-A 60 Antibody 6 0 - 40 AU/mL 10/01/2023 8:33 PM TEST TECHNICIAN [facility] ([facility]) Comment: REFERENCE INTERVAL: SSA-60 (Ro60) (FLACO) Antibody, IgG ??29 AU/mL or Less ............. Negative ??30 - 40 AU/mL ................ Equivocal ??41 AU/mL or Greater .......... Positive Fibrillarin (U3 FINGERNAIL SCULPTURER) Antibody IgG Negative Negative 10/01/2023 8:33 PM TEST TECHNICIAN [employer] [facility] ([facility]) Comment: Interpretive Information: Fibrillarin (U3 FINGERNAIL SCULPTURER) Antibody, IgG The presence of fibrillarin (U3-FINGERNAIL SCULPTURER) IgG antibodies in association with an MAGALY IFA nucleolar pattern is suggestive of systemic sclerosis (SSc). In SSc, these antibodies are associated with distinct clinical features, such as younger age at disease onset, frequent internal organ involvement (pulmonary hypertension, myositis and renal disease). Fibrillarin antibodies are detected more frequently in patients with SSc compared to other ethnic groups. Strong correlation with MAGALY IFA results is recommended. In a multi-ethnic cohort of SSc patients (n=98), U3-FINGERNAIL SCULPTURER antibodies detected by immunoblot had an agreement of 98.9 percent with the gold standard immunoprecipitation (IP) assay. Approximately 71 percent (5/7) of the borderline U3-FINGERNAIL SCULPTURER results with MAGALY nucleolar pattern in this cohort were IP negative. This test was developed and its performance characteristics determined by [employer]. It has not been cleared or approved by the US Food and Drug Administration. This test was performed in a CLIA certified laboratory and is intended for clinical purposes. Performed By: [facility] [employer] [address] [place] [address] Disassembler Product: Lloyd Masterson MD, PhD CLIA Number: [id number] Blood BLOOD SPECIMEN / Unknown Lab Venipuncture / Unknown 09/20/2023 3:24 PM TEST TECHNICIAN 09/20/2023 5:13 PM TEST TECHNICIAN Tevin Shoemaker MD LAB - CHEMISTRY [place] [facility] [employer] [facility]) [address] [place] [address], [facility] * DNA ANTIBODY DS CRITHIDIA TITER (09/20/2023 3:24 PM TEST TECHNICIAN) Pathologist [facility] dsDNA Antibody IgG <1:10 <1:10 2022 9:45 AM TEST TECHNICIAN [facility] ([facility]) Comment: INTERPRETIVE INFORMATION: Double-Stranded DNA (dsDNA) Antibody, IgG by IFA (using Crithidia luciliae) Positivity for anti-double stranded DNA (anti-dsDNA) IgG antibody is a diagnostic criterion of systemic lupus erythematosus (SLE). The presence of the anti-dsDNA IgG antibody is identified by IFA titer (Crithidia luciliae indirect fluorescent test [CHEYENNE'). CHEYENNE is highly specific for SLE with a sensitivity of 50-60 percent. Some patients with early or inactive SLE may be positive for anti-dsDNA IgG by GALLITO but negative by CHEYENNE. If the CHEYENNE result is negative but the patient has a positive GALLITO and clinical suspicion remains, consider antinuclear antibody (MAGALY) testing by IFA. Additional information and recommendations for testing may be found at [email or web address]. Performed By: [employer] [address] [place] [address] Disassembler Product: Lloyd Masterson MD, PhD CLIA Number: [id number] Blood BLOOD SPECIMEN / Unknown Lab Venipuncture / Unknown 09/20/2023 3:24 PM TEST TECHNICIAN 09/20/2023 5:13 PM TEST TECHNICIAN Tevin Shoemaker MD LAB - SEROLOGY ORDER [facility]) [address] [place] [address], [facility] * THOMAS (SM) ANTIBODY FLACO (09/20/2023 3:24 PM TEST TECHNICIAN) Only the most recent of2 resultswithin the time period is included. [facility] Signature Thomas (FLACO) Antibody 5 0 - 40 AU/mL 09/23/2023 1:30 PM TEST TECHNICIAN [facility] ([facility]) Comment: INTERPRETIVE INFORMATION: Thomas (FLACO) Antibody, IgG ??29 AU/mL or Less ............. Negative ??30 - 40 AU/mL ................ Equivocal ??41 AU/mL or Greater .......... Positive Thomas antibody is highly specific (greater than 90 percent) for systemic lupus erythematosus (SLE) but only occurs in 30-35 percent of SLE cases. The presence of antibodies to Thomas has variable associations with SLE clinical manifestations. Performed By: [employer] [address] [place] [address] Disassembler Product: Lloyd Masterson MD, PhD CLIA Number: [id number] Blood BLOOD SPECIMEN / Unknown Lab Venipuncture / Unknown 09/20/2023 3:24 PM TEST TECHNICIAN 09/20/2023 5:13 PM TEST TECHNICIAN Tevin Shoemaker MD LAB - CHEMISTRY [place] [facility] [employer] ([facility]) [address] * MAGALY BLOOD SCREEN W/REFLEX TITER (09/20/2023 3:24 PM TEST TECHNICIAN) Only the most recent of3 resultswithin the time period is included. MAGALY IgG None Detected None Detected 09/23/2023 7:03 AM TEST TECHNICIAN [facility] [employer] ([facility]) Comment: If suspicion of connective tissue disease is strong and MAGALY EIA is negative, consider testing for MAGALY by IFA ([id number]). INTERPRETIVE INFORMATION: Anti-Nuclear Antibodies (MAGALY), IgG by GALLITO Antinuclear Antibodies (MAGALY), IgG by GALLITO: MAGALY specimens are screened using enzyme-linked immunosorbent assay (GALLITO) methodology. All GALLITO results reported as Detected are further tested by indirect fluorescent assay (IFA) using HEp-2 substrate with an IgG-specific conjugate. The MAGALY GALLITO screen is designed to detect antibodies against dsDNA, histones, SS-A (Ro), SS-B (La), Thomas, Thomas/FINGERNAIL SCULPTURER, Scl-70, Kavita-1, centromeric proteins, other antigens extracted from the HEp-2 cell nucleus. MAGALY GALLITO assays have been reported to have lower sensitivities than MAGALY IFA for systemic autoimmune rheumatic diseases (SARD). Negative results do not necessarily rule out SARD. Performed By: [facility] [address] [place] [address] Disassembler Product: Lloyd Masterson MD, PhD CLIA Number: [id number] Blood BLOOD SPECIMEN / Unknown Lab Venipuncture / Unknown 09/20/2023 3:24 PM TEST TECHNICIAN 09/20/2023 5:13 PM TEST TECHNICIAN Tevin Shoemaker MD LAB - CHEMISTRY SHEELA [place] [facility] [employer] [facility]) [address] * SS-B (SJOGREN'S) ANTIBODY (09/20/2023 3:24 PM TEST TECHNICIAN) Only the most recent of3 resultswithin the time period is included. SS-B Antibody 4 0 - 40 AU/mL 09/23/2023 1:30 PM TEST TECHNICIAN [facility] ([facility]) Comment: INTERPRETIVE INFORMATION: SSB (La) (FLACO) Ab, IgG ??29 AU/mL or Less ............. Negative ??30 - 40 AU/mL ................ Equivocal ??41 AU/mL or Greater .......... Positive SSB (La) antibody is seen in 50-60% of Sjogren syndrome cases and is specific if it is the only FLACO antibody present. 15-25% of patients with systemic lupus erythematosus (SLE) and 5-10% of patients with progressive systemic sclerosis (PSS) also have this antibody. Performed By: [facility] [address] [place] [address] Disassembler Product: Lloyd Masterson MD, PhD CLIA Number: [id number] Blood BLOOD SPECIMEN / Unknown Lab Venipuncture / Unknown 09/20/2023 3:24 PM TEST TECHNICIAN 09/20/2023 5:13 PM TEST TECHNICIAN Tevin Shoemaker MD LAB - CHEMISTRY SHEELA [place] [facility] [employer] [facility]) [address] [place] [address], [facility] * DNA ANTIBODY DOUBLE STRANDED (09/20/2023 3:24 PM TEST TECHNICIAN) Only the most recent of2 resultswithin the time period is included. dsDNA Antibody 4 0 - 24 IU 09/23/2023 7:56 PM TEST TECHNICIAN [facility] [employer] ([facility]) Comment: INTERPRETIVE INFORMATION: Double-Stranded DNA (dsDNA) Ab IgG GALLITO ??24 IU or less........Negative ??25-30 IU.............Borderline Positive ??30-60 IU.............Low Positive ??60-200 IU............Positive ??201 IU or greater....Strong Positive Positivity for anti-double stranded DNA (anti-dsDNA) IgG antibody is a diagnostic criterion of systemic lupus erythematosus (SLE). Specimens are initially screened by enzyme-linked immunosorbent assay (GALLITO). If ordered as reflex ([id number]), positive GALLITO results (>24 IU) will be reflexed to a highly specific IFA titer (Crithidia luciliae indirect fluorescent test [CHEYENNE') for confirmation. Some patients with early or inactive SLE may be positive for anti-dsDNA IgG by GALLITO but negative by CHEYENNE. If the patient is negative by CHEYENNE but positive by GALLITO and clinical suspicion remains, consider antinuclear antibody (MAGALY) testing by IFA. Additional information and recommendations for testing may be found at [email or web address]. Performed By: [facility] [address] [place] [address] Disassembler Product: Lloyd Masterson MD, PhD CLIA Number: [id number] Blood BLOOD SPECIMEN / Unknown Lab Venipuncture / Unknown 09/20/2023 3:24 PM TEST TECHNICIAN 09/20/2023 5:14 PM TEST TECHNICIAN Tevin Shoemaker MD LAB - HEMATOLOGY ORD ERABLES [facility] ([facility]) [address] [place], [place] [address] * COMPLEMENT C4 (09/20/2023 3:24 PM TEST TECHNICIAN) Only the most recent of2 resultswithin the time period is included. Pathologist [facility] Complement C4 30 15 - 57 mg/dL 09/20/2023 5:43 PM TEST TECHNICIAN [facility] Blood BLOOD SPECIMEN / Unknown Lab Venipuncture / Unknown 09/20/2023 3:24 PM TEST TECHNICIAN 09/20/2023 5:15 PM TEST TECHNICIAN Tevin Shoemaker MD LAB - SEROLOGY ORDER APPLE [address] [address], [facility] [phone] * COMPLEMENT C3 (09/20/2023 3:24 PM TEST TECHNICIAN) Only the most recent of2 resultswithin the time period is included. Complement C3 105 82 - 193 mg/dL 09/20/2023 5:43 PM TEST TECHNICIAN [facility] Blood BLOOD SPECIMEN / Unknown Lab Venipuncture / Unknown 09/20/2023 3:24 PM TEST TECHNICIAN 09/20/2023 5:15 PM TEST TECHNICIAN Tevin Shoemaker MD LAB - CHEMISTRY SHEELA [place] [facility] [address] [place] [address], [facility] [phone] * C-REACTIVE PROTEIN (09/20/2023 3:08 PM TEST TECHNICIAN) Only the most recent of8 resultswithin the time period is included. [facility] C-Reactive Protein <0.5 <=0.5 mg/dL 09/20/2023 4:00 PM TEST TECHNICIAN [facility] Blood BLOOD SPECIMEN / Unknown Lab Venipuncture / Unknown 09/20/2023 3:08 PM TEST TECHNICIAN 09/20/2023 3:24 PM TEST TECHNICIAN Tevin Shoemaker MD LAB - CHEMISTRY SHEELA [place] Performing Organization Address City/[facility]/ZIP Co de Phone Number [facility] [address] [place] [address], [place] [phone] * (ABNORMAL) VITAMIN D 25-HYDROXY (09/20/2023 3:08 PM TEST TECHNICIAN) Only the most recent of3 resultswithin the time period is included. Pathologist [facility] Vitamin D, 25 Hydroxy 18.0(L) 30.0 - 80.0 ng/mL 09/20/2023 4:22 PM TEST TECHNICIAN [facility] Comment: The recommendations for 25-Hydroxy Vitamin D clinical decision points are as follows: ? Deficient: ? <20.0 ng/mL ? Insufficient: ? 20.0 - 29.9 ng/mL ? Sufficient: ? 30.0 - 100.0 ng/mL ? Potential Toxicity: ??>100 ng/mL Reference: The Endocrine Society Clinical Practice Guidelines. 2011 If the 25-Hydroxy Vitamin D results are inconsitent with clinical evidence, it is recommended that follow-up testing using a method such as LC/MS/MS be performed to confirm the result. ? Blood BLOOD SPECIMEN / Unknown Lab Venipuncture / Unknown 09/20/2023 3:08 PM TEST TECHNICIAN 09/20/2023 3:31 PM TEST TECHNICIAN Tevin Shoemaker MD LAB - CHEMISTRY SHEELA [place] Performing Organization Address City/[facility]/ZIP Co de Phone Number [address] [address], [facility] [phone] * ALDOLASE (09/20/2023 3:08 PM TEST TECHNICIAN) Only the most recent of4 resultswithin the time period is included. Aldolase 3.9 1.2 - 7.6 U/L 09/22/2023 7:56 PM TEST TECHNICIAN [facility] ([facility]) Comment: REFERENCE INTERVAL: Aldolase Access complete set of age- and/or gender-specific reference intervals for this test in the [facility] Test [facility] (Mo-DV). Performed By: [facility] [employer] [address] [place] [address] Disassembler Product: Lloyd Masterson MD, PhD CLIA Number: [id number] Blood BLOOD SPECIMEN / Unknown Lab Venipuncture / Unknown 09/20/2023 3:08 PM TEST TECHNICIAN 09/20/2023 3:24 PM TEST TECHNICIAN Tevin Shoemaker MD LAB - CHEMISTRY SHEELA [place] Performing Organization Address [facility]/State/ZIP Co de Phone Number [facility] [employer] [facility]) [address] [place] [address] * ERYTHROCYTE SEDIMENTATION RATE (09/20/2023 3:08 PM TEST TECHNICIAN) Only the most recent of8 resultswithin the time period is included. Erythrocyte Sedimentation Rate Westergren 5 0 - 20 MM/HR 09/20/2023 4:[address] [facility] Blood BLOOD SPECIMEN / Unknown Lab Venipuncture / Unknown 09/20/2023 3:08 PM TEST TECHNICIAN 09/20/2023 3:31 PM TEST TECHNICIAN Tevin Shoemaker MD LAB - HEMATOLOGY ORD ERABLES [facility] [address] [place] [address], [facility] [phone] * (ABNORMAL) CBC WITH DIFFERENTIAL (09/20/2023 3:08 PM TEST TECHNICIAN) Only the most recent of8 resultswithin the time period is included. Pathologist [facility] WBC 6.7 3.5 - 10.5 10? 3 /uL 09/20/2023 3:[address] [facility] RBC 4.09 3.80 - 5.20 10? 6 /uL 09/20/2023 3:[address] [facility] Hemoglobin 11.9(L) 12.0 - 15.6 g/dL 09/20/2023 3:[address] [facility] Hematocrit 35.5 35.0 - 45.0 % 09/20/2023 3:[address] [facility] MCV 86.8 80.7 - 98.3 fL 09/20/2023 3:[address] [facility] MCH 29.1 26.7 - 34.0 pg 09/20/2023 3:[address] [facility] MCHC 33.5 30.8 - 35.9 g/dL 09/20/2023 3:[address] [facility] RDW-SD 40.2 36.0 - 50.0 fL 09/20/2023 3:[address] [facility] RDW-CV 12.8 11.2 - 14.8 % 09/20/2023 3:[address] [facility] Platelet Count 226 150 - 400 10? 3 /uL 09/20/2023 3:[address] [facility] MPV 10.6 9.4 - 12.9 fL 09/20/2023 3:[address] [facility] nRBC Absolute 0.00 0 10? 3 /uL 09/20/2023 3:[address] [facility] nRBC Auto 0.0 0 /100 WBC 09/20/2023 3:[address] [facility] Neutrophils % 44.2 35.0 - 70.0 % 09/20/2023 3:[address] [facility] Lymphocytes % 46.8(H) 20.0 - 43.0 % 09/20/2023 3:[address] [facility] Monocytes % 7.2 5.0 - 13.0 % 09/20/2023 3:[address] [facility] Eosinophils % 1.1 0.0 - 6.0 % 09/20/2023 3:[address] [facility] Basophil % 0.5 0.0 - 2.0 % 09/20/2023 3:[address] [facility] Neutrophils Absolute 2.95 1.60 - 7.00 10? 3 /uL 09/20/2023 3:[address] [facility] Lymphocyte Absolute 3.12 1.10 - 3.90 10? 3 /uL 09/20/2023 3:[address] [facility] Monocytes Absolute 0.48 0.26 - 1.07 10? 3 /uL 09/20/2023 3:[address] [facility] Eosinophils Absolute 0.07 0.00 - 0.47 10? 3 /uL 09/20/2023 3:[address] [facility] Basophils Absolute 0.03 0.00 - 0.08 10? 3 /uL 09/20/2023 3:[address] [facility] Immature Granulocytes % 0.2 0.0 - 1.0 % 09/20/2023 3:[address] [facility] Immature Granulocytes Absolute 0.01 09/20/2023 3:[address] [facility] Blood BLOOD SPECIMEN / Unknown Lab Venipuncture / Unknown 09/20/2023 3:08 PM TEST TECHNICIAN 09/20/2023 3:31 PM TEST TECHNICIAN Tevin Shoemaker MD LAB - HEMATOLOGY ORD ERABLES [facility] [address] [place] [address], [facility] [phone] * (ABNORMAL) COMPREHENSIVE METABOLIC PANEL (09/20/2023 3:08 PM [facility] Only the most recent of6 resultswithin the time period is included. BUN 11 7 - 26 mg/dL 09/20/2023 4:[address] [facility] Creatinine 0.73 0.56 - 0.96 mg/dL 09/20/2023 4:[address] [facility] Sodium 138 136 - 145 mmol/L 09/20/2023 4:[address] [facility] Potassium 4.0 3.5 - 4.5 mmol/L 09/20/2023 4:[address] [facility] Chloride 107 98 - 107 mmol/L 09/20/2023 4:[address] [facility] CO2 21(L) 22 - 29 mmol/L 09/20/2023 4:[address] [facility] Glucose 91 70 - 115 mg/dL 09/20/2023 4:[address] [facility] Calcium 9.2 8.4 - 10.2 mg/dL 09/20/2023 4:[address] [facility] Protein Total 7.2 6.0 - 8.3 g/dL 09/20/2023 4:[address] [facility] Albumin 4.0 3.4 - 5.0 g/dL 09/20/2023 4:[address] [facility] Bilirubin Total 0.5 0.2 - 1.2 mg/dL 09/20/2023 4:[address] [facility] Alkaline Phosphatase 43 40 - 150 U/L 09/20/2023 4:[address] [facility] ALT 11 5 - 55 U/L 09/20/2023 4:[address] [facility] AST 15 5 - 34 U/L 09/20/2023 4:[address] [facility] Anion Gap 10 6 - 16 09/20/2023 4:[address] [facility] BUN/Creatinine Ratio 15 7 - 23 09/20/2023 4:[address] [facility] Osmolality Calculated 285 275 - 295 mOsm/kg 09/20/2023 4:[address] [facility] Albumin/Globulin Ratio 1.3 1.1 - 2.3 09/20/2023 4:[address] [facility] eGFR by CKD-EPI >90 >=90 mL/min/1.7 3 m2 09/20/2023 4:[address] [facility] Blood BLOOD SPECIMEN / Unknown Lab Venipuncture / Unknown 09/20/2023 3:08 PM TEST TECHNICIAN 09/20/2023 3:31 PM TEST TECHNICIAN Tevin Shoemaker MD LAB - CHEMISTRY SHEELA [place] Performing Organization Address City/[facility]/ZIP Co de Phone Number [facility] [address] [place] [address], [place] [phone] * CK BLOOD (09/20/2023 3:08 PM TEST TECHNICIAN) Only the most recent of4 resultswithin the time period is included. CK Total 131 30 - 200 U/L 09/20/2023 4:05 PM TEST TECHNICIAN [facility] Blood BLOOD SPECIMEN / Unknown Lab Venipuncture / Unknown 09/20/2023 3:08 PM TEST TECHNICIAN 09/20/2023 3:31 PM TEST TECHNICIAN Tevin Shoemaker MD LAB - CHEMISTRY SHEELA [place] Performing Organization Address [facility]/ZIP Co de Phone Number [address] [address], [place] [phone] * XR KNEE RIGHT 2VW OR LESS (09/20/2023 2:53 PM TEST TECHNICIAN) Anatomical Region Laterality Modality Lower Extremity Radiographic Johanna ging 09/20/2023 3:03 PM TEST TECHNICIAN Impressions 09/20/2023 3:03 PM TEST TECHNICIAN IMPRESSION: Normal. > Interpreting Provider: Rodrick Borges MD on 09/20/2023 3:03 PM Narrative 09/20/2023 3:03 PM TEST TECHNICIAN PROCEDURE: ??XR KNEE RIGHT 2VW OR LESS DATE/TIME OF EXAM: ??09/20/2023 2:53 PM CLINICAL INFORMATION: None relevant/not provided if blank. Indication: M24.9: Hypermobile joints M25.50: Arthralgia, unspecified joint Additional History: COMPARISON: None. FINDINGS: No acute fracture or dislocation is present. The joint spaces are normal. No erosions are seen. There is no effusion. ?? Procedure Note Rodrick Borges MD - 09/20/2023 PROCEDURE: XR KNEE RIGHT 2VW OR LESS DATE/TIME OF EXAM: 09/20/2023 2:53 PM CLINICAL INFORMATION: None relevant/not provided if blank. Indication: M24.9: Hypermobile joints M25.50: Arthralgia, unspecified joint Additional History: COMPARISON: None. FINDINGS: No acute fracture or dislocation is present. The joint spaces arenormal. No erosions are seen. There is no effusion. IMPRESSION: Normal. > Interpreting Provider: Rodrick Borges MD on 09/20/2023 3:03 PM Tevin Shoemaker MD DIAGNOSTIC IMAGING O RDERABLES * XR KNEE LEFT 2VW OR LESS (09/20/2023 2:53 PM TEST TECHNICIAN) Anatomical Region Laterality Modality Lower Extremity Radiographic Johanna ging 09/20/2023 3:03 PM TEST TECHNICIAN Impressions 09/20/2023 3:03 PM TEST TECHNICIAN IMPRESSION: Normal. > Interpreting Provider: Rodrick Borges MD on 09/20/2023 3:03 PM Narrative 09/20/2023 3:03 PM TEST TECHNICIAN PROCEDURE: ??XR KNEE LEFT 2VW OR LESS DATE/TIME OF EXAM: ??09/20/2023 2:53 PM CLINICAL INFORMATION: None relevant/not provided if blank. Indication: M24.9: Hypermobile joints M25.50: Arthralgia, unspecified joint Additional History: COMPARISON: None. FINDINGS: No acute fracture or dislocation is present. The joint spaces are normal. No erosions are seen. There is no effusion. ?? Procedure Note Rodrick Borges MD - 09/20/2023 PROCEDURE: XR KNEE LEFT 2VW OR LESS DATE/TIME OF EXAM: 09/20/2023 2:53 PM CLINICAL INFORMATION: None relevant/not provided if blank. Indication: M24.9: Hypermobile joints M25.50: Arthralgia, unspecified joint Additional History: COMPARISON: None. FINDINGS: No acute fracture or dislocation is present. The joint spaces arenormal. No erosions are seen. There is no effusion. IMPRESSION: Normal. > Interpreting Provider: Rodrick Borges MD on 09/20/2023 3:03 PM Tevin Shoemaker MD DIAGNOSTIC IMAGING O RDERABLES * XR SHOULDER RIGHT 2VW OR MORE (09/20/2023 2:53 PM TEST TECHNICIAN) Anatomical Region Laterality Modality Upper Extremity Radiographic Johanna ging 09/20/2023 3:03 PM TEST TECHNICIAN Impressions 09/20/2023 3:04 PM TEST TECHNICIAN IMPRESSION: Normal. > Interpreting Provider: Rodrick Borges MD on 09/20/2023 3:04 PM Narrative 09/20/2023 3:04 PM TEST TECHNICIAN PROCEDURE: ??XR SHOULDER RIGHT 2VW OR MORE DATE/TIME OF EXAM: ??09/20/2023 2:53 PM CLINICAL INFORMATION: None relevant/not provided if blank. Indication: M24.9: Hypermobile joints M25.50: Arthralgia, unspecified joint Additional History: COMPARISON: None. FINDINGS: There is no fracture or dislocation. There is no acromioclavicular or glenohumeral arthritis. There are no erosions. Procedure Note Rodrick Borges MD - 09/20/2023 PROCEDURE: XR SHOULDER RIGHT 2VW OR MORE DATE/TIME OF EXAM: 09/20/2023 2:53 PM CLINICAL INFORMATION: None relevant/not provided if blank. Indication: M24.9: Hypermobile joints M25.50: Arthralgia, unspecified joint Additional History: COMPARISON: None. FINDINGS: There is no fracture or dislocation. There is no acromioclavicular or glenohumeral arthritis. There are no erosions. IMPRESSION: Normal. > Interpreting Provider: Rodrick Borges MD on 09/20/2023 3:04 PM Tevin Shoemaker MD DIAGNOSTIC IMAGING O RDERABLES * XR SHOULDER LEFT 2VW OR MORE (09/20/2023 2:53 PM TEST TECHNICIAN) Anatomical Region Laterality Modality Upper Extremity Radiographic Johanna ging 09/20/2023 3:04 PM TEST TECHNICIAN Impressions 09/20/2023 3:04 PM TEST TECHNICIAN IMPRESSION: Normal. > Interpreting Provider: Rodrick Borges MD on 09/20/2023 3:04 PM Narrative 09/20/2023 3:04 PM TEST TECHNICIAN PROCEDURE: ??XR SHOULDER LEFT 2VW OR MORE DATE/TIME OF EXAM: ??09/20/2023 2:53 PM CLINICAL INFORMATION: None relevant/not provided if blank. Indication: M24.9: Hypermobile joints M25.50: Arthralgia, unspecified joint Additional History: COMPARISON: None FINDINGS: There is no fracture or dislocation. There is no acromioclavicular or glenohumeral arthritis. There are no erosions. Procedure Note Rodrick Borges MD - 09/20/2023 PROCEDURE: XR SHOULDER LEFT 2VW OR MORE DATE/TIME OF EXAM: 09/20/2023 2:53 PM CLINICAL INFORMATION: None relevant/not provided if blank. Indication: M24.9: Hypermobile joints M25.50: Arthralgia, unspecified joint Additional History: COMPARISON: None FINDINGS: There is no fracture or dislocation. There is no acromioclavicular or glenohumeral arthritis. There are no erosions. IMPRESSION: Normal. > Interpreting Provider: Rodrick Borges MD on 09/20/2023 3:04 PM Tevin Shoemaker MD DIAGNOSTIC IMAGING O RDERABLES * VITAMIN D 25-HYDROXY D2+D3 (10/13/2021 2:41 PM TEST TECHNICIAN) Only the most recent of2 resultswithin the time period is included. Vitamin D, 25 Hydroxy D2 and D3 Total 38.3 30.0 - 80.0 ng/mL 10/17/2021 11:32 AM TEST TECHNICIAN [employer] ([facility]) Comment: INTERPRETIVE INFORMATION: 25-HydroxyVitamin D2 and D3, Serum 1-17 years: Deficiency: less than 20 ng/mL Optimum level: greater than or equal to 20 ng/mL* *(Delong CL et al. Pediatrics 2008; 122: 1142-52.) 18 years and older: Deficiency: ??Less than 20 ng/mL Insufficiency: ??20-29 ng/mL Optimum Level: ??30-80 ng/mL Possible Toxicity: ??Greater than 150 ng/mL (Jaki CUI et al. JCEM 2011; 96:1911-30) Separate values for Vitamin D2 and D3 are reported in addition to the total. Access complete set of age- and/or gender-specific reference intervals for this test in the [facility] Test Directory (Mo-DV). This test was developed and its performance characteristics determined by [employer]. It has not been cleared or approved by the US Food and Drug Administration. This test was performed in a CLIA certified laboratory and is intended for clinical purposes. U.S. Patent No. [id number] Performed By: [facility] [address] [place] [id number] Disassembler Product: Mandi You MD Vitamin D, 25 Hydroxy D2 27.4 ng/mL 10/17/2021 11:32 AM TEST TECHNICIAN [facility] [employer] [facility]) Vitamin D, 25 Hydroxy D3 10.9 ng/mL 10/17/2021 11:32 AM TEST TECHNICIAN [facility]) Blood BLOOD SPECIMEN / Unknown Lab Venipuncture / Unknown 10/13/2021 2:41 PM TEST TECHNICIAN 10/13/2021 3:18 PM TEST TECHNICIAN Tevin Shoemaker MD LAB - CHEMISTRY SHEELA [place] [facility] Organization Address City/State/ZIP Co de Phone Number [facility] [employer] ([facility]) [address] [place] [address], [facility] * (ABNORMAL) URINALYSIS W/MICROSCOPIC NO CULTURE (10/13/2021 2:41 PM TEST TECHNICIAN) Only the most recent of4 resultswithin the time period is included. Color UA Yellow Straw, Yellow 10/13/2021 3:47 PM TEST TECHNICIAN [facility] Clarity UA Slt Cloudy(A) Clear 10/13/2021 3:47 PM TEST TECHNICIAN [facility] Specific [place] UA 1.028 1.005 - 1.030 10/13/2021 3:[address] [facility] pH UA 6.0 5.0 - 8.0 pH 10/13/2021 3:[address] [facility] Protein UA 2+(A) Negative 10/13/2021 3:[address] [facility] Glucose UA Negative Negative 10/13/2021 3:[address] [facility] Ketone UA Negative Negative 10/13/2021 3:[address] [facility] Bilirubin UA Negative Negative 10/13/2021 3:[address] [facility] Blood UA Negative Negative 10/13/2021 3:[address] [facility] Nitrite UA Negative Negative 10/13/2021 3:[address] [facility] Leukocyte Esterase Trace(A) Negative 10/13/2021 3:[address] [facility] Urobilinogen UA Negative Negative mg/dL 10/13/2021 3:[address] [facility] RBC UA 0-2 None Seen, 0-2, 3-5 /HPF 10/13/2021 3:[address] [facility] WBC UA 0-5 None Seen, 0-5 /HPF 10/13/2021 3:[address] [facility] Bacteria UA Trace(A) None /HPF 10/13/2021 3:[address] [facility] Squamous Epithelial Cells UA 6-10(A) None Seen, 0-2, 3-5 /HPF 10/13/2021 3:[address] [facility] Mucus UA 3+ /LPF 10/13/2021 3:[address] [facility] Urine URINE SPECIMEN OBTAINED BY CLEAN CATCH PROCEDURE / Unknown Collection / Unknown 10/13/2021 2:41 PM TEST TECHNICIAN 10/13/2021 3:18 PM TEST TECHNICIAN [facility] - 10/13/2021 3:47 PM TEST TECHNICIAN Tevin Shoemaker MD LAB - URINALYSIS ORD ERABLES [address] [address], [facility] [phone] * XR FOREARM LEFT 2VW (10/13/2021 2:24 PM TEST TECHNICIAN) Anatomical Region Laterality Modality Upper Extremity Radiographic Johanna ging 10/13/2021 2:45 PM TEST TECHNICIAN Impressions 10/13/2021 2:46 PM TEST TECHNICIAN IMPRESSION: Normal. This report was electronically signed by RODRICK BORGES MD ??on 10/13/2021 2:46 PM . Narrative 10/13/2021 2:46 PM TEST TECHNICIAN Exam: ??XR FOREARM LEFT 2VW History: ??S42.302A: Closed fracture of left upper extremity, initial encounter Comparison: None. Findings: No fracture of the radius or ulna is present. There is no bone erosion or periosteal reaction. The soft tissues are normal. Procedure Note Rodrick Borges MD - 10/13/2021 Exam: XR FOREARM LEFT 2VW History: S42.302A: Closed fracture of left upper extremity, initial encounter Comparison: None. Findings: No fracture of the radius or ulna is present. There is no bone erosionor periosteal reaction. The soft tissues are normal. IMPRESSION: Normal. This report was electronically signed by RODRICK BORGES MD on10/13/2021 2:46 PM . Tevin Shoemaker MD DIAGNOSTIC IMAGING O RDERABLES * XR ELBOW LEFT 2VW (10/13/2021 2:24 PM TEST TECHNICIAN) Anatomical Region Laterality Modality Upper Extremity Radiographic Johanna ging 10/13/2021 2:44 PM TEST TECHNICIAN Impressions 10/13/2021 2:45 PM TEST TECHNICIAN IMPRESSION: Normal. This report was electronically signed by RODRICK BORGES MD ??on 10/13/2021 2:45 PM . Narrative 10/13/2021 2:45 PM TEST TECHNICIAN Exam: ??XR ELBOW LEFT 2VW History: ??S42.302A: Closed fracture of left upper extremity, initial encounter Comparison: None. Findings: No acute fracture or dislocation is present. No erosions are seen. The joint spaces are normal. There is no effusion. Procedure Note Rodrick Borges MD - 10/13/2021 Exam: XR ELBOW LEFT 2VW History: S42.302A: Closed fracture of left upper extremity, initial encounter Comparison: None. Findings: No acute fracture or dislocation is present. No erosions are seen. The joint spaces are normal. There is no effusion. IMPRESSION: Normal. This report was electronically signed by RODRICK BORGES MD on10/13/2021 2:45 PM . Tevin Shoemaker MD DIAGNOSTIC IMAGING O RDERABLES * XR HUMERUS LEFT 2VW OR MORE (10/13/2021 2:24 PM TEST TECHNICIAN) Anatomical Region Laterality Modality Upper Extremity Radiographic Johanna ging 10/13/2021 2:15 PM TEST TECHNICIAN Impressions 10/13/2021 2:17 PM TEST TECHNICIAN IMPRESSION: Normal. This report was electronically signed by RODRICK BORGES MD ??on 10/13/2021 2:17 PM . Narrative 10/13/2021 2:17 PM TEST TECHNICIAN Exam: ??XR HUMERUS LEFT 2VW History: ??S42.302A: Closed fracture of left upper extremity, initial encounter Comparison: None. Findings: No fracture of the humerus is present. There is no bone erosion or periosteal reaction. The soft tissues are normal. Procedure Note Rodrick Borges MD - 10/13/2021 Exam: XR HUMERUS LEFT 2VW History: S42.302A: Closed fracture of left upper extremity, initial encounter Comparison: None. Findings: No fracture of the humerus is present. There is no bone erosion or periosteal reaction. The soft tissues are normal. IMPRESSION: Normal. This report was electronically signed by RODRICK BORGES MD on10/13/2021 2:17 PM . Tevin Shoemaker MD DIAGNOSTIC IMAGING O RDERABLES * TSH (05/27/2021 12:14 PM CDT) Only the most recent of4 resultswithin the time period is included. TSH 1.325 0.350 - 4.940 uIU/mL 05/27/2021 1:26 PM CDT [facility] Blood BLOOD SPECIMEN / Unknown Lab Venipuncture / Unknown 05/27/2021 12:14 PM CDT 05/27/2021 12:31 PM CDT Tevin Shoemaker MD LAB - CHEMISTRY [place]ELA [place] Performing Organization Address City/[facility]/ZIP Co de Phone Number [address] [address], [place] [phone] * T4 FREE (05/27/2021 12:14 PM CDT) Only the most recent of3 resultswithin the time period is included. T4 Free 1.0 0.7 - 1.5 ng/dL 05/27/2021 1:26 PM CDT [facility] Blood BLOOD SPECIMEN / Unknown Lab Venipuncture / Unknown 05/27/2021 12:14 PM CDT 05/27/2021 12:31 PM CDT Tevin Shoemaker MD LAB - CHEMISTRY SHEELA [place] Performing Organization Address [facility] Co de Phone Number [address] [address], [place] [phone] * TRICHOMONAS VAGINALIS AMPLIFIED PROBE (05/06/2020 10:45 AM CDT) Only the most recent of5 resultswithin the time period is included. Trichomonas vaginalis Amplified Probe Negative Negative 05/07/2020 11:56 AM CDT [facility] Microbiology URINE / Unknown Collection / Unknown 05/06/2020 10:45 AM CDT 05/06/2020 11:00 AM CDT Narrative [facility] - 05/07/2020 11:56 AM CDT This test was developed and its performance characteristics determined by the [facility], [facility]. Urine specimens tested by the [facility] [place] have not been cleared or approved by the U.S. Food and Drug Administration (FDA). The laboratory is regulated under the Clinical Laboratory Improvement Amendments (CLIA) as qualified to perform high-complexity testing. This test is used for clinical purposes. It should not be regarded as investigational or for research. Results based on detection/no detection of ribosomal RNA by amplified method. Neena Alejandro MD LAB - MICROBIO LOGY ORDERABLES Performing Organization Address City/[facility] Co de Phone Number [facility] [address] [place] [address], [facility] [phone] * CHLAMYDIA + GC AMPLIFIED PROBE (STL) (05/06/2020 10:45 AM CDT) Only the most recent of4 resultswithin the time period is included. Chlamydia Amplified Probe Negative Negative 05/07/2020 11:51 AM CDT [facility] GC Amplified Probe Negative Negative 05/07/2020 11:51 AM CDT [facility] Microbiology URINE / Unknown Collection / Unknown 05/06/2020 10:45 AM CDT 05/06/2020 11:00 AM CDT Narrative [facility] - 05/07/2020 11:51 AM CDT Results based on detection/no detection of ribosomal RNA by amplified method. Neena Alejandro MD LAB - MICROBIO LOGY ORDERABLES Performing Organization Address [facility] Co de Phone Number [facility] [address] [place] [address], [facility] [phone] * XR PELVIS 1 OR 2 VW (03/18/2020 2:41 PM CDT) Anatomical Region Laterality Modality Pelvis Radiographic Johanna ging 03/18/2020 2:43 PM CDT Impressions 03/18/2020 2:45 PM CDT No fracture or dislocation. *Reading Radiologist: Jarek Nugent on 03/18/2020 at 2:45 PM Narrative 03/18/2020 2:45 PM CDT INDICATION: Pain, left hip COMPARISON: SI joints from 12/26/2018 TECHNIQUE: AP and frog lateral views of the pelvis. FINDINGS: There is no fracture. 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 No hip subluxation or dislocation is seen. The sacroiliac joints are normal. No soft tissue abnormality is seen. Procedure Note Jarek Nugent, DO - 03/18/2020 INDICATION: Pain, left hip COMPARISON: SI joints from 12/26/2018 TECHNIQUE: AP and frog lateral views of the pelvis. FINDINGS: There is no fracture. 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 No hip subluxation or dislocation is seen. The sacroiliac joints are normal. No soft tissue abnormality is seen. IMPRESSION No fracture or dislocation. *Reading Radiologist: Jarek Nugent on 03/18/2020 at 2:45 PM Anthony Adams MD DIAGNOSTIC IMAGING O RDERABLES * HCG URINE QUAL POCT NOTIFICATION (03/18/2020 2:30 PM CDT) Only the most recent of3 resultswithin the time period is included. Comment Notification Label Only - See Separate Report 03/18/2020 2:30 PM CDT [facility] Urine URINE / Unknown 0 1:25 PM CDT Anthony Adams MD LAB - URINALYSIS ORD ERABLES Performing Organization Address [facility] Co de Phone Number [facility] [address] [place] [address] * HCG URINE QUALITATIVE - POCT (IP) INTERFACED (03/18/2020 2:26 PM CDT) Only the most recent of3 resultswithin the time period is included. Pathologist [facility] HCG Qual Urine Negative Negative 03/18/2020 2:37 PM CDT [facility] Urine URINE / Unknown 03/18/2020 2 :26 PM CDT 03/18/2020 2:37 PM CDT Kodi Fountain MD LAB - POINT OF CARE ORDERABLES Performing Organization Address [facility]/ZIP Co de Phone Number [facility] [address] [place] [address] * (ABNORMAL) BASIC METABOLIC PANEL (CALCIUM TOTAL) (03/18/2020 2:01 PM CDT) Only the most recent of2 resultswithin the time period is included. Pathologist [facility] Glucose 89 70 - 105 mg/dL 03/18/2020 2:26 PM CDT [facility] Sodium 138 136 - 145 mmol/L 03/18/2020 2:26 PM CDT [facility] Potassium 4.2 3.5 - 5.1 mmol/L 03/18/2020 2:26 PM CDT [facility] Chloride 111(H) 98 - 107 mmol/L 03/18/2020 2:26 PM CDT [facility] CO2 20 20 - 28 mmol/L 03/18/2020 2:26 PM CDT [facility] Calcium 9.15 9.08 - 10.48 mg/dL 03/18/2020 2:26 PM CDT [facility] Anion Gap 7 5 - 20 mmol/L 03/18/2020 2:26 PM CDT [facility] BUN 15.2 5.3 - 18.7 mg/dL 03/18/2020 2:26 PM T [facility] Creatinine 0.79 0.61 - 1.07 mg/dL 03/18/2020 2:26 PM T [facility] eGFR by MDRD >60 >60 mL/min/1.7 3m2 03/18/2020 2:26 PM T [facility] eGFR by MDRD >60 >60 mL/min/1.7 3m2 03/18/2020 2:26 PM CDT [facility] Blood BLOOD SPECIMEN / Unknown Venipuncture / Unknown 03/18/2020 2:01 PM CDT 03/18/2020 2:04 PM CDT Anthony Adams MD LAB - CHEMISTRY SHEELA [place] [facility] Organization Address City/State/[facility] Co de Phone Number [facility] [address] [place] [address] * (ABNORMAL) URINALYSIS W/MICROSCOPIC REFLEX TO CULTURE (01/25/2020 2:17 PM CDT) Color UA Yellow Straw, Yellow 01/25/2020 2:36 PM CDT [facility] Clarity UA Slt Cloudy(A) Clear 01/25/2020 2:36 PM CDT [facility] Glucose UA Negative Negative 01/25/2020 2:36 PM CDT [facility] Bilirubin UA Negative Negative 01/25/2020 2:36 PM CDT [facility] Ketone UA Trace(A) Negative 01/25/2020 2:36 PM CDT [facility] Specific [place] UA 1.028 1.005 - 1.030 01/25/2020 2:36 PM CDT [facility] Blood UA Negative Negative 01/25/2020 2:36 PM CDT [facility] pH UA 7.0 5.0 - 8.0 pH 01/25/2020 2:36 PM CDT [facility] Protein UA Negative Negative 01/25/2020 2:36 PM CDT [facility] Urobilinogen UA Negative Negative mg/dL 01/25/2020 2:36 PM CDT [facility] Nitrite UA Negative Negative 01/25/2020 2:36 PM CDT [facility] Leukocyte UA 1+(A) Negative 01/25/2020 2:36 PM CDT [facility] RBC UA 0-2 None Seen, 0-2, 3-5 # /hpf 01/25/2020 2:36 PM CDT [facility] WBC UA 0-5 None Seen, 0-5 # /hpf 01/25/2020 2:36 PM CDT [facility] Bacteria UA Trace(A) None Seen 01/25/2020 2:36 PM CDT [facility] Squamous Epithelial Cells 3-5 None Seen, 0-2, 3-5 /hpf 01/25/2020 2:36 PM CDT [facility] Mucus UA 3+ /LPF 01/25/2020 2:36 PM CDT [facility] Reflex Status Culture to follow 01/25/2020 2:36 PM CDT [facility] Urine URINE SPECIMEN OBTAINED BY CLEAN CATCH PROCEDURE / Unknown Collection / Unknown 01/25/2020 2:17 PM CDT 01/25/2020 2:23 PM CDT Narrative [facility] - 01/25/2020 2:36 PM CDT Sandy Aranda DO LAB - URINALYSIS ORD ERABLES [facility] [address] [place] [address] * CULTURE URINE (01/25/2020 2:17 PM CDT) Culture Urine 10,000-50,000 CFU/mL urogenital ava NOELLE 01/27/2020 1:24 AM CDT [facility] Urine URINE SPECIMEN OBTAINED BY CLEAN CATCH PROCEDURE / Unknown Collection / Unknown 01/25/2020 2:17 PM CDT 01/25/2020 2:23 PM CDT Sandy Aranda DO LAB - MICROBIOLOGY O RDERABLES [facility] [address] [place] [address], [facility] [phone] * CHROMATIN ANTIBODY (09/21/2019 3:32 PM TEST TECHNICIAN) Only the most recent of2 resultswithin the time period is included. Antichromatin Antibodies <0.2 0.0 - 0.9 AI 09/22/2019 10:09 AM TEST TECHNICIAN [facility] ([facility]) Blood BLOOD SPECIMEN / Unknown Lab Venipuncture / Unknown 09/21/2019 3:32 PM TEST TECHNICIAN 09/21/2019 4:11 PM TEST TECHNICIAN Narrative [facility] ([facility]) - 09/22/2019 10:09 AM TEST TECHNICIAN Performed at: ??01 - [facility] [address] ??[id number] Truck Rental Clerk: Luis Glass PhD, Phone: ??[phone] Sandy Aranda DO LAB - SEROLOGY ORDER APPLE Performing Organization Address City/[facility] Co de Phone Number [facility] ([facility]) [address] [place] [address] * ANCA VASCULITIS PANEL (09/21/2019 3:32 PM TEST TECHNICIAN) Only the most recent of2 resultswithin the time period is included. Anti-myeloperoxid ase (MPO) Antibody <9.0 0.0 - 9.0 U/mL 09/24/2019 6:07 PM TEST TECHNICIAN [facility] ([facility]) Anti-proteinase 3 (MO-3) Abs <3.5 0.0 - 3.5 U/mL 09/24/2019 6:07 PM TEST TECHNICIAN [facility] ([facility]) Cytoplasmic (C-ANCA) <1:20 Neg:<1:20 titer 09/24/2019 6:07 PM TEST TECHNICIAN [facility] ([facility]) p-ANCA Titer <1:20 Neg:<1:20 titer 09/24/2019 6:07 PM TEST TECHNICIAN [facility] ([facility]) Comment: The presence of positive fluorescence exhibiting P-ANCA or C-ANCA patterns alone is not specific for the diagnosis of Layo's Granulomatosis (WG) or microscopic polyangiitis. Decisions about treatment should not be based solely on ANCA IFA results. ??The International ANCA [employer] Consensus recommends follow up testing of positive sera with both MO-3 and MPO-ANCA enzyme immunoassays. As many as 5% serum samples are positive only by EIA. Ref. AM J Clin Pathol 1999;111:507-513. Atypical p-ANCA Titer <1:20 Neg:<1:20 titer 09/24/2019 6:07 PM [facility] Comment: The atypical pANCA pattern has been observed in a significant percentage of patients with ulcerative colitis, primary sclerosing cholangitis and autoimmune hepatitis. Blood BLOOD SPECIMEN / Unknown Lab Venipuncture / Unknown 09/21/2019 3:32 PM TEST TECHNICIAN 09/21/2019 4:11 PM TEST TECHNICIAN Narrative [facility] ([facility]) - 09/24/2019 6:07 PM TEST TECHNICIAN Performed at: ??01 - [address] ??[id number] Truck Rental Clerk: Ema Pinedo MD, Phone: ??[phone] Performed at: ??02 - [address] ??[id number] Truck Rental Clerk: Luis Glass PhD, Phone: ??[phone] Sandy rAanda DO LAB - CHEMISTRY SHEELA [place] [facility] ([facility]) [address] [place] [address] * FINGERNAIL SCULPTURER ANTIBODY (09/21/2019 3:32 PM TEST TECHNICIAN) FINGERNAIL SCULPTURER Antibody <0.2 0.0 - 0.9 AI 09/22/2019 10:09 AM TEST TECHNICIAN [facility] ([facility]) Blood BLOOD SPECIMEN / Unknown Lab Venipuncture / Unknown 09/21/2019 3:32 PM TEST TECHNICIAN 09/21/2019 4:11 PM TEST TECHNICIAN Narrative [facility] ([facility]) - 09/22/2019 10:09 AM TEST TECHNICIAN Performed at: ??01 - [facility] [address] [place], [place] ??[id number] Truck Rental Clerk: Luis Glass PhD, Phone: ??[phone] Sandy A Rosi DO LAB - CHEMISTRY SHEELA [place] Performing Organization Address [facility] Co de Phone Number [facility] ([facility]) [address] [place] [address] * (ABNORMAL) HISTONE ANTIBODY (09/21/2019 3:32 PM TEST TECHNICIAN) Only the most recent of2 resultswithin the time period is included. Anti-Histone Antibody 1.4(H) 0.0 - 0.9 Units 09/26/2019 2:09 PM TEST TECHNICIAN [facility] ([facility]) Comment: ? Negative ?<1.0 ? Weak Positive ?1.0 - 1.5 ? Moderate Positive ??1.6 - 2.5 ? Strong Positive ? >2.5 Blood BLOOD SPECIMEN / Unknown Lab Venipuncture / Unknown 09/21/2019 3:32 PM TEST TECHNICIAN 09/21/2019 4:11 PM TEST TECHNICIAN Narrative [facility] ([facility]) - 09/26/2019 2:09 PM TEST TECHNICIAN Performed at: ??01 - [address] ??[id number] Truck Rental Clerk: Ema Pinedo MD, Phone: ??[phone] Sandy Baylee Rosi RODARTE LAB - CHEMISTRY SHEELA [place] Performing Organization Address City/[facility] Co de Phone Number [facility] ([facility]) [address] [place] [address] * SS-A ANTIBODY (09/21/2019 3:32 PM TEST TECHNICIAN) Only the most recent of2 resultswithin the time period is included. Sjogren's Antibodies (SSA) <0.2 0.0 - 0.9 AI 09/22/2019 10:09 AM TEST TECHNICIAN [facility] ([facility]) Blood BLOOD SPECIMEN / Unknown Lab Venipuncture / Unknown 09/21/2019 3:32 PM TEST TECHNICIAN 09/21/2019 4:11 PM TEST TECHNICIAN Narrative [facility] ([facility]) - 09/22/2019 10:09 AM TEST TECHNICIAN Performed at: ??01 - [facility] [address] [place], [place] ??[id number] Truck Rental Clerk: Luis Glass PhD, Phone: ??[phone] Sandy Aranda DO LAB - CHEMISTRY SHEELA [place] Performing Organization Address City/State/[facility] Co de Phone Number [facility] ([facility]) [address] [place] [address] * CARDIOLIPIN ANTIBODY PANEL (03/02/2019 2:25 PM CDT) Cardiolipin Antibody IgG <9 0 - 14 GPL U/mL 03/03/2019 4:10 PM CDT [facility] ([facility]) Comment: ?Negative: ?<15 ?Indeterminate: ? 15 - 20 ?Low-Med Positive: >20 - 80 ?High Positive: ? >80 Cardiolipin Antibody IgM 9 0 - 12 MPL U/mL 03/03/2019 4:10 PM CDT [facility] ([facility]) Comment: ?Negative: ?<13 ?Indeterminate: ? 13 - 20 ?Low-Med Positive: >20 - 80 ?High Positive: ? >80 Blood BLOOD SPECIMEN / Unknown Lab Venipuncture / Unknown 03/02/2019 2:25 PM CDT 03/02/2019 3:02 PM CDT Narrative [facility] ([facility]) - 03/03/2019 4:10 PM CDT Performed at: ??01 - [facility] [address] [place], [place] ??[id number] Truck Rental Clerk: Luis Glass PhD, Phone: ??[phone] Tevin Shoemaker MD LAB - SEROLOGY ORDER AP[place] [facility] ([facility]) [address] [place] [address] * LUPUS ANTICOAGULANT PANEL (03/02/2019 2:25 PM CDT) PTT-LA 32.1 0.0 - 51.9 sec 03/03/2019 10:05 PM CDT [facility] ([facility]) dRVVT 29.7 0.0 - 47.0 sec 03/03/2019 10:05 PM CDT [facility] ([facility]) Interpretation Comment: 03/03/2019 10:05 PM CDT [facility] ([facility]) Comment:No lupus anticoagula nt was detected. Blood BLOOD SPECIMEN / Unknown Lab Venipuncture / Unknown 03/02/2019 2:25 PM CDT 03/02/2019 3:02 PM CDT Narrative [facility] ([facility]) - 03/03/2019 10:05 PM CDT Performed at: ??01 - [facility] [address] ??[id number] Truck Rental Clerk: Ema Pinedo MD, Phone: ??[phone] Tevin Shoemaker MD LAB - HEMATOLOGY ORD ERABLES Performing Organization Address City/[facility]/ZIP Co de Phone Number [facility] ([facility]) [address] [place] [address] * THYROID ANTIBODY PANEL (03/02/2019 2:25 PM CDT) Thyroid Peroxidase TPO Antibody 12 0 - 26 IU/mL 03/03/2019 1:09 PM CDT [facility] ([facility]) Thyroglobulin Antibody <1.0 0.0 - 0.9 IU/mL 03/03/2019 1:09 PM CDT [facility] ([facility]) Comment:Thyroglobulin Antibo dy measured by Jaye Rodriguez Methodology Blood BLOOD SPECIMEN / Unknown Lab Venipuncture / Unknown 03/02/2019 2:25 PM CDT 03/02/2019 3:02 PM CDT Narrative [facility] ([facility]) - 03/03/2019 1:09 PM CDT Performed at: ??01 - [facility] [place] [address] [place], [place] ??[id number] Truck Rental Clerk: Luis Glass PhD, Phone: ??[phone] Tevin Shoemaker MD LAB - CHEMISTRY SHEELA [place] Performing Organization Address City/[facility]/ZIP Co de Phone Number [facility] ([facility]) [address] [place] [address] * BETA-2 GLYCOPROTEIN 1 ANTIBODY IGG/IGM PANEL (03/02/2019 2:25 PM CDT) Beta-2 Glycoprotein I Antibody IgG <9 0 - 20 GPI IgG units 03/04/2019 3:07 PM CDT [facility] ([facility]) Comment: The reference interval reflects a 3SD or 99th percentile interval, which is thought to represent a potentially clinically significant result in accordance with the International Consensus Statement on the classification criteria for definitive antiphospholipid syndrome (APS). J Thromb Haem 2006;4:295-306. Beta-2 Glycoprotein I Antibody IgM <9 0 - 32 GPI IgM units 03/04/2019 3:07 PM CDT [facility] ([facility]) Comment: The reference interval reflects a 3SD or 99th percentile interval, which is thought to represent a potentially clinically significant result in accordance with the International Consensus Statement on the classification criteria for definitive antiphospholipid syndrome (APS). J Thromb Haem 2006;4:295-306. Blood BLOOD SPECIMEN / Unknown Lab Venipuncture / Unknown 03/02/2019 2:25 PM CDT 03/02/2019 3:02 PM CDT Narrative [facility] ([facility]) - 03/04/2019 3:07 PM CDT Performed at: ??01 - [facility] ??[id number] Truck Rental Clerk: Ema Pinedo MD, Phone: ??[phone] Tevin Shoemaker MD LAB - CHEMISTRY SHEELA [place] [facility] ([facility]) [address] [place] [address] * CHLAMYDIA + GC AMPLIFIED PROBE (02/13/2019 12:06 PM CDT) Only the most recent of4 resultswithin the time period is included. Chlamydia Amplified Probe Negative Negative 02/14/2019 7:41 AM CDT [facility] GC Amplified Probe Negative Negative 02/14/2019 7:41 AM CDT [facility] Urine URINE / Unknown Collection / Unknown 02/13/2019 12:06 PM CDT 02/13/2019 12:23 PM CDT Narrative [facility] - 02/14/2019 7:41 AM CDT Results based on detection/no detection of ribosomal RNA by amplified method. Neena Alejandro MD LAB - MICROBIO LOGY ORDERABLES [facility] [address] [place] [address], [facility] [phone] * XR LUMBAR SPINE 2 OR 3 VW (12/26/2018 1:35 PM TEST TECHNICIAN) Anatomical Region Laterality Modality Spine Radiographic Johanna ging 12/26/2018 1:38 PM TEST TECHNICIAN Impressions 12/26/2018 1:40 PM TEST TECHNICIAN No acute osseous abnormality. Reading Radiologist: Lynn Alcazar MD on 12/26/2018 at 1:40 PM Narrative 12/26/2018 1:40 PM TEST TECHNICIAN Exam: Left knee, 3 views Right knee, 3 views Sacroiliac joints, 3 views Lumbosacral spine, 2 views HISTORY: Joint pain COMPARISON: Right knee radiographs 10/11/2016, left knee radiographs 11/11/2017 FINDINGS: Left knee: The osseous structures are intact and well aligned. Minimal anterior knee soft tissue swelling is seen. There is no joint effusion or focal demineralization. Right knee: Mild anterior knee soft tissue swelling is seen. There is no joint effusion. The osseous structures are intact and well aligned. No focal demineralization is seen. Sacroiliac joints: The sacroiliac joints are symmetric in size and appearance. No cortical erosions are seen. The visible bowel gas pattern is nonobstructive. Lumbosacral spine: The spine alignment is maintained. The vertebral body heights and intervertebral disc spaces are maintained. Procedure Note Lynn Alcazar MD - 12/26/2018 Exam: Left knee, 3 views Right knee, 3 views Sacroiliac joints, 3 views Lumbosacral spine, 2 views HISTORY: Joint pain COMPARISON: Right knee radiographs 10/11/2016, left knee radiographs 11/11/2017 FINDINGS: Left knee: The osseous structures are intact and well aligned. Minimal anterior knee soft tissue swelling is seen. There is no joint effusion or focal demineralization. Right knee: Mild anterior knee soft tissue swelling is seen. There is no joint effusion. The osseous structures are intact and well aligned. No focal demineralization is seen. Sacroiliac joints: The sacroiliac joints are symmetric in size and appearance. No cortical erosions are seen. The visible bowel gas pattern is nonobstructive. Lumbosacral spine: The spine alignment is maintained. The vertebral body heights and intervertebral disc spaces are maintained. IMPRESSION No acute osseous abnormality. Reading Radiologist: Lynn Alcazar MD on 12/26/2018 at 1:40 PM Norman Byrd DO DIAGNOSTIC I MAGING ORDERABLES * XR SI JOINTS 3VW OR MORE (12/26/2018 1:33 PM TEST TECHNICIAN) Anatomical Region Laterality Modality Pelvis, Lower Extremity [facility] 12/26/2018 1:38 PM TEST TECHNICIAN Impressions 12/26/2018 1:40 PM TEST TECHNICIAN No acute osseous abnormality. Reading Radiologist: Lynn Alcazar MD on 12/26/2018 at 1:40 PM Narrative 12/26/2018 1:40 PM TEST TECHNICIAN Exam: Left knee, 3 views Right knee, 3 views Sacroiliac joints, 3 views Lumbosacral spine, 2 views HISTORY: Joint pain COMPARISON: Right knee radiographs 10/11/2016, left knee radiographs 11/11/2017 FINDINGS: Left knee: The osseous structures are intact and well aligned. Minimal anterior knee soft tissue swelling is seen. There is no joint effusion or focal demineralization. Right knee: Mild anterior knee soft tissue swelling is seen. There is no joint effusion. The osseous structures are intact and well aligned. No focal demineralization is seen. Sacroiliac joints: The sacroiliac joints are symmetric in size and appearance. No cortical erosions are seen. The visible bowel gas pattern is nonobstructive. Lumbosacral spine: The spine alignment is maintained. The vertebral body heights and intervertebral disc spaces are maintained. Procedure Note Lynn Alcazar MD - 12/26/2018 Exam: Left knee, 3 views Right knee, 3 views Sacroiliac joints, 3 views Lumbosacral spine, 2 views HISTORY: Joint pain COMPARISON: Right knee radiographs 10/11/2016, left knee radiographs 11/11/2017 FINDINGS: Left knee: The osseous structures are intact and well aligned. Minimal anterior knee soft tissue swelling is seen. There is no joint effusion or focal demineralization. Right knee: Mild anterior knee soft tissue swelling is seen. There is no joint effusion. The osseous structures are intact and well aligned. No focal demineralization is seen. Sacroiliac joints: The sacroiliac joints are symmetric in size and appearance. No cortical erosions are seen. The visible bowel gas pattern is nonobstructive. Lumbosacral spine: The spine alignment is maintained. The vertebral body heights and intervertebral disc spaces are maintained. IMPRESSION No acute osseous abnormality. Reading Radiologist: Lynn Alcazar MD on 12/26/2018 at 1:40 PM Norman Byrd DO DIAGNOSTIC I MAGING ORDERABLES * XR KNEE RIGHT 3VW (12/26/2018 1:31 PM TEST TECHNICIAN) Anatomical Region Laterality Modality Lower Extremity Radiographic Johanna ging 12/26/2018 1:38 PM TEST TECHNICIAN Impressions 12/26/2018 1:40 PM TEST TECHNICIAN No acute osseous abnormality. Reading Radiologist: Lynn Alcazar MD on 12/26/2018 at 1:40 PM Narrative 12/26/2018 1:40 PM TEST TECHNICIAN Exam: Left knee, 3 views Right knee, 3 views Sacroiliac joints, 3 views Lumbosacral spine, 2 views HISTORY: Joint pain COMPARISON: Right knee radiographs 10/11/2016, left knee radiographs 11/11/2017 FINDINGS: Left knee: The osseous structures are intact and well aligned. Minimal anterior knee soft tissue swelling is seen. There is no joint effusion or focal demineralization. Right knee: Mild anterior knee soft tissue swelling is seen. There is no joint effusion. The osseous structures are intact and well aligned. No focal demineralization is seen. Sacroiliac joints: The sacroiliac joints are symmetric in size and appearance. No cortical erosions are seen. The visible bowel gas pattern is nonobstructive. Lumbosacral spine: The spine alignment is maintained. The vertebral body heights and intervertebral disc spaces are maintained. Procedure Note Lynn Alcazar MD - 12/26/2018 Exam: Left knee, 3 views Right knee, 3 views Sacroiliac joints, 3 views Lumbosacral spine, 2 views HISTORY: Joint pain COMPARISON: Right knee radiographs 10/11/2016, left knee radiographs 11/11/2017 FINDINGS: Left knee: The osseous structures are intact and well aligned. Minimal anterior knee soft tissue swelling is seen. There is no joint effusion or focal demineralization. Right knee: Mild anterior knee soft tissue swelling is seen. There is no joint effusion. The osseous structures are intact and well aligned. No focal demineralization is seen. Sacroiliac joints: The sacroiliac joints are symmetric in size and appearance. No cortical erosions are seen. The visible bowel gas pattern is nonobstructive. Lumbosacral spine: The spine alignment is maintained. The vertebral body heights and intervertebral disc spaces are maintained. IMPRESSION No acute osseous abnormality. Reading Radiologist: Lynn Alcazar MD on 12/26/2018 at 1:40 PM Norman Byrd DO DIAGNOSTIC I MAGING ORDERABLES * XR KNEE 3 VW LEFT (12/26/2018 1:31 PM TEST TECHNICIAN) Anatomical Region Laterality Modality Lower Extremity Radiographic Johanna ging 12/26/2018 1:38 PM TEST TECHNICIAN Impressions 12/26/2018 1:40 PM TEST TECHNICIAN No acute osseous abnormality. Reading Radiologist: Lynn Alcazar MD on 12/26/2018 at 1:40 PM Narrative 12/26/2018 1:40 PM TEST TECHNICIAN Exam: Left knee, 3 views Right knee, 3 views Sacroiliac joints, 3 views Lumbosacral spine, 2 views HISTORY: Joint pain COMPARISON: Right knee radiographs 10/11/2016, left knee radiographs 11/11/2017 FINDINGS: Left knee: The osseous structures are intact and well aligned. Minimal anterior knee soft tissue swelling is seen. There is no joint effusion or focal demineralization. Right knee: Mild anterior knee soft tissue swelling is seen. There is no joint effusion. The osseous structures are intact and well aligned. No focal demineralization is seen. Sacroiliac joints: The sacroiliac joints are symmetric in size and appearance. No cortical erosions are seen. The visible bowel gas pattern is nonobstructive. Lumbosacral spine: The spine alignment is maintained. The vertebral body heights and intervertebral disc spaces are maintained. Procedure Note Lynn Alcazar MD - 12/26/2018 Exam: Left knee, 3 views Right knee, 3 views Sacroiliac joints, 3 views Lumbosacral spine, 2 views HISTORY: Joint pain COMPARISON: Right knee radiographs 10/11/2016, left knee radiographs 11/11/2017 FINDINGS: Left knee: The osseous structures are intact and well aligned. Minimal anterior knee soft tissue swelling is seen. There is no joint effusion or focal demineralization. Right knee: Mild anterior knee soft tissue swelling is seen. There is no joint effusion. The osseous structures are intact and well aligned. No focal demineralization is seen. Sacroiliac joints: The sacroiliac joints are symmetric in size and appearance. No cortical erosions are seen. The visible bowel gas pattern is nonobstructive. Lumbosacral spine: The spine alignment is maintained. The vertebral body heights and intervertebral disc spaces are maintained. IMPRESSION No acute osseous abnormality. Reading Radiologist: Lynn Alcazar MD on 12/26/2018 at 1:40 PM Norman Byrd DO DIAGNOSTIC I MAGING ORDERABLES * CYCLIC CITRUL PEPTIDE ANTIBODY IGG/IGA (CCP) (12/26/2018 1:16 PM TEST TECHNICIAN) [facility] CCP Antibodies IgG/IgA 4 0 - 19 units 12/27/2018 10:07 PM TEST TECHNICIAN [facility] ([facility]) Comment: ?Negative ? <20 ?Weak positive ?20 - 39 ?Moderate positive ??40 - 59 ?Strong positive ?>59 Blood BLOOD SPECIMEN / Unknown Lab Venipuncture / Unknown 12/26/2018 1:16 PM TEST TECHNICIAN 12/26/2018 1:32 PM TEST TECHNICIAN Narrative [facility] ([facility]) - 12/27/2018 10:07 PM TEST TECHNICIAN Performed at: ??01 - [facility] [address] ??[id number] Truck Rental Clerk: Ema Pinedo MD, Phone: ??[phone] Norman Byrd DO LAB - SEROLO GY ORDERABLES [facility] [address] [place] [address] * TISSUE TRANSGLUTAMINASE AB IGA (12/26/2018 1:16 PM TEST TECHNICIAN) Pathologist [facility] TTG Antibody IgA <2 0 - 3 U/mL 12/27/2018 2:14 PM TEST TECHNICIAN [facility] ([facility]) Comment: ?Negative ?0 - ??3 ?Weak Positive ?? 4 - 10 ?Positive ? >10 Tissue Transglutaminase (tTG) has been identified as the endomysial antigen. ??Studies have demonstr- ated that endomysial IgA antibodies have over 99% specificity for gluten sensitive enteropathy. Blood BLOOD SPECIMEN / Unknown Lab Venipuncture / Unknown 12/26/2018 1:16 PM TEST TECHNICIAN 12/26/2018 1:32 PM TEST TECHNICIAN Narrative [facility] ([facility]) - 12/27/2018 2:14 PM TEST TECHNICIAN Performed at: ??01 - [facility] [id number] [place], [place] ??[id number] Truck Rental Clerk: Luis Glass PhD, Phone: ??[phone] Norman Byrd DO LAB - SEROLO GY ORDERABLES Performing Organization Address [facility] de Phone Number [facility] [address] [place] [address] * RHEUMATOID FACTOR BLOOD QUANTITATIVE (12/26/2018 1:16 PM TEST TECHNICIAN) Rheumatoid Factor Quantitative 11 <15 IU/mL 12/26/2018 2:01 PM TEST TECHNICIAN [facility] Blood BLOOD SPECIMEN / Unknown Lab Venipuncture / Unknown 12/26/2018 1:16 PM TEST TECHNICIAN 12/26/2018 1:32 PM TEST TECHNICIAN Norman Byrd DO LAB - CHEMIS TRY ORDERABLES Performing Organization Address City/[facility] Co de Phone Number [facility] [address] [place] [address] * HLA TYPING B27 (12/26/2018 1:16 PM TEST TECHNICIAN) HLA-B27 Negative 12/30/2018 4:17 PM TEST TECHNICIAN [facility] ([facility]) Comment: HLA-B*27 Negative B27 allele interpretation for all loci based on IMGT/HLA database version 3.33.0 This test was developed and its performance characteristics determined by [facility]. ??It has not been cleared or approved by the Food and Drug Administration. [facility] CLIA ID Number [id number] This test was performed using PCR (Polymerase Chain Reaction)/SSOP (Sequence Specific Oligonucleotide Probes) technique. ??SBT (Sequence Based Typing) and/or SSP (Sequence Specific Primers) may be used as supplemental methods when necessary. ??Please contact [facility] Customer Service at if you have any questions. Director of [facility] Laboratory Dr Avelino López, PhD Blood BLOOD SPECIMEN / Unknown Lab Venipuncture / Unknown 12/26/2018 1:16 PM TEST TECHNICIAN 12/26/2018 1:32 PM TEST TECHNICIAN Narrative [facility] ([facility]) - 12/30/2018 4:17 PM TEST TECHNICIAN Performed at: ??01 - [facility] [address] [place] [address] ??[id number] Truck Rental Clerk: Avelino López PhD, Phone: ??[phone] Norman Byrd DO LAB - CHEMIS TRY ORDERABLES [facility] ([facility]) [address] [place] [address] * COMPLEMENT CH50 (12/26/2018 1:16 PM TEST TECHNICIAN) Complement Total CH50 >60 >39 U/mL 12/27/2018 3:11 PM TEST TECHNICIAN [facility] Blood BLOOD SPECIMEN / Unknown Lab Venipuncture / Unknown 12/26/2018 1:16 PM TEST TECHNICIAN 12/26/2018 1:32 PM TEST TECHNICIAN Narrative [facility] ([facility]) - 12/27/2018 3:11 PM TEST TECHNICIAN Performed at: ??01 - [facility] [id number] [place], [place] ??[id number] Truck Rental Clerk: Luis Glass PhD, Phone: ??[phone] Norman Byrd DO LAB - CHEMIS TRY ORDERABLES [facility]) [address] [place] [address] * IMMUNOGLOBULINS PANEL (inc IgA, IgG, IgM) (12/26/2018 1:16 PM TEST TECHNICIAN) IgA 137 65 - 421 mg/dL 12/26/2018 2:05 PM TEST TECHNICIAN [facility] IgG 1,181 552 - 1,631 mg/dL 12/26/2018 2:05 PM TEST TECHNICIAN [facility] IgM 131 33 - 293 mg/dL 12/26/2018 2:05 PM TEST TECHNICIAN [facility] Blood BLOOD SPECIMEN / Unknown Lab Venipuncture / Unknown 12/26/2018 1:16 PM TEST TECHNICIAN 12/26/2018 1:32 PM TEST TECHNICIAN Norman Byrd DO LAB - CHEMIS TRY ORDERABLES Performing Organization Address City/[facility]/ZIP Co de Phone Number [facility] [address] [place] [address] * CARDIAC EKG ORDER (07/27/2018 10:12 PM CDT) Narrative 07/27/2018 10:12 PM CDT Ordered by an unspecified provider. Scanned Document CARDIAC SERVICES ORD ERABLES * LITHIUM LEVEL (07/26/2018 11:22 AM CDT) Only the most recent of3 resultswithin the time period is included. Slater 1.0 0.6 - 1.2 mmol/L 07/26/2018 12:24 PM CDT [facility] Blood BLOOD SPECIMEN / Unknown Lab Venipuncture / Unknown 07/26/2018 11:22 AM CDT 07/26/2018 11:32 AM CDT Deni Rosado DO LAB - CHEMISTRY ORDE GE [facility] [address] [place] [address] * (ABNORMAL) DRUG SCREEN TOX URINE PANEL (07/26/2018 3:00 AM CDT) Amphetamines Screen Urine Not Detected Not Detected 07/26/2018 4:16 AM T [facility] Barbiturates Screen Urine Not Detected Not Detected 07/26/2018 4:16 AM T [facility] Benzodiazepines Screen Urine Not Detected Not Detected 07/26/2018 4:16 AM T [facility] Cannabinoids Screen Urine Detected(AA ) Not Detected 07/26/2018 4:16 AM T [facility] Cocaine Screen Urine Not Detected Not Detected 07/26/2018 4:16 AM T [facility] Methadone Screen Urine Not Detected Not Detected 07/26/2018 4:16 AM T [facility] Opiate Screen Urine Not Detected Not Detected 07/26/2018 4:16 AM T [facility] Phencyclidine Screen Urine Not Detected Not Detected 07/26/2018 4:16 AM T [facility] Urine URINE / Unknown Collection / Unknown 07/26/2018 3:00 AM CDT 07/26/2018 3:51 AM CDT Narrative [facility] - 07/26/2018 4:16 AM T This drug screen is designed for MEDICAL purposes only. It is not to be used for legal purposes, including but not limited to worker's comp, police investigations, occupational issues, child custody, etc. ??Any positive result is only presumptive and must be confirmed with a separate confirmatory test ordered by the physician. Drug Screening Test Cutoff Values: AMPHETAMINES ?1000 ng/mL BARBITURATES ? 200 ng/mL BENZODIAZEPINES ??200 ng/mL CANNABINOIDS(THC) 50 ng/mL COCAINE ?300 ng/mL METHADONE ?300 ng/mL OPIATES ?300 ng/mL PHENCYCLIDINE(PCP)25 ng/mL Hannah Christiansen MD LAB - URINE CHEMISTR Y ORDERABLES [facility] [address] [place] [address] * XR KNEE 4+ VW LEFT (11/11/2017 3:14 PM TEST TECHNICIAN) Anatomical Region Laterality Modality Lower Extremity Radiographic Johanna ging 11/11/2017 3:31 PM TEST TECHNICIAN Impressions 11/11/2017 3:32 PM TEST TECHNICIAN Mild infrapatellar soft tissue edema. Narrative 11/11/2017 3:32 PM TEST TECHNICIAN EXAMINATION: Left knee 4 or more views HISTORY: Knee pain. COMPARISON: Correlation is made with right knee radiographs dated 10/09/2016. FINDINGS: 4 view examination of the left knee is obtained. There is no fracture. The joint spaces and alignment appear normal. There are no focal osseous abnormalities. There is no knee joint effusion. Mild infrapatellar soft tissue edema is identified. Procedure Note Archana Ann MD - 11/11/2017 EXAMINATION: Left knee 4 or more views HISTORY: Knee pain. COMPARISON: Correlation is made with right knee radiographs dated 10/09/2016. FINDINGS: 4 view examination of the left knee is obtained. There is no fracture. The joint spaces and alignment appear normal. There are no focal osseous abnormalities. There is no knee joint effusion. Mild infrapatellar soft tissue edema is identified. IMPRESSION Mild infrapatellar soft tissue edema. Aakash Betancourt PA-C DIAGNOSTIC IMAGING O RDERABLES * URINALYSIS - POCT (IP) JOSH (07/13/2017 12:30 PM CDT) Glucose UA neg Negative [facility] POC T TESTING Bilirubin UA neg Negative [facility] P OCT TESTING Ketone UA neg Negative [facility] POCT TESTING Specific [place] UA POCT 1.010 1.000 - 1.030 [facility] POCT TESTING Blood UA neg Negative [facility] POCT TESTING pH UA 6.0 5.0 - 8.0 pH units [facility] POCT TESTING Protein UA neg Negative [facility] POC T TESTING Urobilinogen UA 0.2 0.2 - 1.0 EU/dL [facility] POCT TESTING Nitrite UA neg Negative [facility] POC T TESTING Leukocyte UA neg Negative [facility] P OCT TESTING QC Verified Yes Yes [facility] PO CT TESTING Urine URINE / Unknown 07/13/2017 1 2:30 PM CDT Neena Alejandro MD LAB - POINT OF CARE ORDERABLES [facility] POCT TESTING [address] [place] [address], [facility] [phone] * XR KNEE 4+ VW RIGHT (10/09/2016 3:31 PM TEST TECHNICIAN) Anatomical Region Laterality Modality Lower Extremity Radiographic Johanna ging 10/09/2016 3:47 PM TEST TECHNICIAN Impressions 10/09/2016 3:48 PM TEST TECHNICIAN No acute osseous abnormality. Narrative 10/09/2016 3:48 PM TEST TECHNICIAN Exam: Right knee, 4 views HISTORY: Knee pain COMPARISON: None FINDINGS: The osseous structures are intact and well aligned. No focal soft tissue swelling or demineralization is seen. ??No joint effusion is seen. Procedure Note Lynn Alcazar MD - 10/09/2016 Exam: Right knee, 4 views HISTORY: Knee pain COMPARISON: None FINDINGS: The osseous structures are intact and well aligned. No focal soft tissue swelling or demineralization is seen. No joint effusion is seen. IMPRESSION No acute osseous abnormality. Bharath Uribe MD DIAGNOSTIC IMAGING O RDERABLES * LAB RESULTS ORDER (08/31/2016 8:36 PM CDT) Narrative 08/31/2016 8:36 PM CDT Ordered by an unspecified provider. Scanned Document LAB - THERAPEUTIC DR MERCER MONITORING ORDERABLES Care Teams Portable Sawmill Operator Relationship Specialty Start Date End Date Zuleyma Martinez MD [address] [place] [phone] PCP - General Gastroenterology 10/13/21
--- OUTSIDE RECORDS SUMMARY | 2024-12-09 20:25 | XMS_ITS | Encounter Summary ---
Author Organization [facility] Address [address] [place] [address] Care Team Providers Care Import And Export Clerk Name Role Phone Betzaida Lutz MD Primary Care Provider [phone] Zuleyma Martinez MD Primary Care Provider [phone] Reason for Visit * Reason Onset Date Comments Follow-up 01/24/2020 Informed dad of visitor policy. Encounter Details Date Type Department Care Team (Late st Contact Info) Description 01/24/2020 Telephone [facility] Pediatrics - ENT [facility] [place] [address] Judy Anderson RN Follow-up (Informed dad of visitor policy. ) Social History Tobacco Use Types Packs/Day Years Used Date Smoking Tobacco: Passive Smo ke Exposure - Never Smoker Smokeless Tobacco: Never Alcohol Use Standard Drinks/Week Comments No 0 (1 standard drink = 0.6 oz pur e alcohol) Sex and Gender Information Value Date Recorded Sex Assigned at Not on file Gender Identity Not on file Sexual Orientation Not on file documented as of this encounter Functional Status Functional Status Response Date of Assess ment Is person deaf or have serious hearing difficult y? No 07/26/2018 Is person blind or have serious difficulty seein g? No 07/26/2018 Does person have serious dif ficulty walking/climbing stairs? No 07/26/2018 Does person have difficulty dressing/bathing? No 07/26/2018 Does person have difficulty doing errands alone? No 07/26/2018 Cognitive Status Response Date of Assessm ent Does person have difficulty concentrating/remembering/making decisions? No 07/26/2018 documented as of this encounter Plan of Treatment Not on file documented as of this encounter Visit Diagnoses Not on filedocumented in this encounter Care Teams Import And Export Clerk Relationship Specialty Start Date End Date Betzaida Lutz MD [address] [place] [address] PCP - General Pediatrics 11/11/17 10/12/21 [place] [address] [place] [id number] PCP - General Gastroenterology 10/13/21 documented as of this encounter
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
--- OUTSIDE RECORDS SUMMARY | 2024-12-09 20:26 | XMS_ITS | Encounter Summary ---
Author Organization [facility] Address [address] [place] [address] Care Team Providers Care Antique Refinisher Name Role Phone Betzaida Lutz MD Primary Care Provider [phone] Zuleyma Martinez MD Primary Care Provider [phone] Reason for Visit * Reason Onset Date Comments Follow-up 01/24/2020 message left wit h visitor information Encounter Details Date Type Department Care Team (Late st Contact Info) Description 01/24/2020 Telephone [facility] Pediatrics - ENT [address] [place] [phone] Judy Anderson RN Follow-up (message left with visitor information) Social History Tobacco Use Types Packs/Day Years [...] on filedocumented in this encounter Care Teams Antique Refinisher Relationship Specialty Start Date End Date Betzaida Lutz MD [address] [place] [address] PCP - General Pediatrics 11/11/17 10/12/21 [place] [address] [place] [phone] PCP - General Gastroenterology 10/13/21 documented as of this encounter
--- OUTSIDE RECORDS SUMMARY | 2024-12-09 20:26 | XMS_ITS | Referral Summary ---
Author Organization [facility] Address [address] [facility] [place] [address] Care Team Providers Care Continuing Education Specialist Name Role Phone Zuleyma Martinez MD Primary Care Provider Source Comments [facility],non-owned Affiliates and Associated Physician Practices is amultiple site organization consisting of ambulatory clinics and hospital sitesin [place], [place], [place] and [place]. This disclosure is being madepursuant to the Care Everywhere program and may not contain all information available regarding this patient. Last updated 18.[facility] Allergies Active Allergy Reactions Criticality Noted Date [...] Active vitamin D, ergocalciferol, (Drisdol) 1.25 MG (50334 UT) capsule Take 1 (one) capsule by [...] be different from the original. 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 female with history [...] Plan (07/26/2018 5:43 AM CDT): Assessment: Keily Adams is a 18 y.o. female with history [...] Dr. Lemus -Toxicology consulted, appreciated recs -Repeat [place] level at 7 AM -1.5 times MIVFs [...] 12/07/2016 Assessment & Plan (12/07/2016 9:55 AM DIESEL TECHNOLOGY INSTRUCTOR): On progesterone only mini pill since Aug [...] side effects with patient and her mother. Social History Tobacco Use Types Packs/Day Years [...] Comments Blood Pressure 118/60 12/07/2023 3:34 PM DIESEL TECHNOLOGY INSTRUCTOR Pulse 86 12/07/2023 3:34 PM DIESEL TECHNOLOGY INSTRUCTOR Temperature 37.1 ??C (98.8 ??F) 12/07/2023 3:34 PM CS T Respiratory Rate 18 03/18/2020 4:25 PM CDT Oxygen Saturation 96% 09/20/2023 1:40 PM DIESEL TECHNOLOGY INSTRUCTOR Inhaled Oxygen Concentration - - Weight 60.2 kg (132 lb 12.8 oz) 12/07/2023 3:34 PM DIESEL TECHNOLOGY INSTRUCTOR Height 162.6 cm (5' 4 ) 12/07/2023 3:34 PM DIESEL TECHNOLOGY INSTRUCTOR Body Mass Index 22.8 12/07/2023 3:34 PM DIESEL TECHNOLOGY INSTRUCTOR Functional Status Functional Status Response Date of [...] person have difficulty concentrating/remembering/making decisions? No 07/26/2018 Plan of Treatment Not on file Procedures Procedure Name Priority Date/Time Associated Diagnosis Comments CHLAMYDIA + GC AMPLIFIED PROBE Routine 05/06/2020 10:45 AM CDT DUB (dysfunctional uterine bleeding) Routine screening for STI (sexually transmitted infection) from Last 3 Months or Most Recently Relevant to Health Maintenance Results * CHLAMYDIA + GC AMPLIFIED PROBE (STL) (05/06/2020 10:45 AM CDT) Chlamydia Amplified Probe Negative Negative 05/07/2020 11:51 AM CDT [facility] GC Amplified Probe Negative Negative 05/07/2020 11:51 AM CDT [facility] Microbiology URINE / Unknown Collection / Unknown 05/06/2020 10:45 AM CDT 05/06/2020 11:00 AM CDT Narrative [facility] - 05/07/2020 11:51 AM CDT Results based on detection/no detection of ribosomal RNA by amplified method. Neena Alejandro MD LAB - MICROBIO LOGY ORDERABLES [facility] [address] [place] [address], [facility] [phone] from Last 3 Months or Most Recently Relevant to Health Maintenance Advance Directives * Full Code (Latest Code Status on File) Date Activated Date Inactivated Comments 07/26/2018 5:22 AM 07/26/2018 11:22 PM Care Teams Continuing Education Specialist Relationship Specialty Start Date End Date Zuleyma Martinez MD [address] [place] [phone] PCP - General Gastroenterology 10/13/21
[2024-12-09 20:30] VITALS: BP 122/61; PULSE 99; RESP 18; TEMP 36.8; O2SAT 100
--- OUTSIDE RECORDS SUMMARY | 2024-12-09 22:28 | XMS_ITS | Referral Summary ---
Author Organization [facility] Address [address] [place] [address] Care Team Providers Care Tile Finisher Name Role Phone Zuleyma Martinez MD Primary Care Provider Source Comments [facility],non-owned Affiliates and Associated Physician Practices is amultiple site organization consisting of ambulatory clinics and hospital sitesin [place], [place], [place] and [place]. This disclosure is being madepursuant to the Care Everywhere program and may not contain all information available regarding this patient. Last updated 18.[facility] Allergies Active Allergy Reactions Criticality Noted [...] Active vitamin D, ergocalciferol, (Drisdol) 1.25 MG (53677 UT) capsule Take 1 (one) capsule by [...] be different from the original. Keily'chantelle phone: [phone] Problem Noted Date Diagnosed Date Arthralgia 12/26/2018 [...] Dr. Lemus -Toxicology consulted, appreciated recs -Repeat [place] level at 7 AM -1.5 times MIVFs [...] 12/07/2016 Assessment & Plan (12/07/2016 9:55 AM FLEET SALES ASSOCIATE): On progesterone only mini pill since Aug [...] Comments Blood Pressure 118/60 12/07/2023 3:34 PM FLEET SALES ASSOCIATE Pulse 86 12/07/2023 3:34 PM FLEET SALES ASSOCIATE Temperature 37.1 ??C (98.8 ??F) 12/07/2023 3:34 PM CS T Respiratory Rate 18 03/18/2020 4:25 PM CDT Oxygen Saturation 96% 09/20/2023 1:40 PM FLEET SALES ASSOCIATE Inhaled Oxygen Concentration - - Weight 60.2 kg (132 lb 12.8 oz) 12/07/2023 3:34 PM FLEET SALES ASSOCIATE Height 162.6 cm (5' 4 ) 12/07/2023 3:34 PM FLEET SALES ASSOCIATE Body Mass Index 22.8 12/07/2023 3:34 PM FLEET SALES ASSOCIATE Functional Status Functional Status Response Date of [...] Probe Negative Negative 05/07/2020 11:51 AM CDT [facility] GC Amplified Probe Negative Negative 05/07/2020 11:51 AM CDT [facility] Microbiology URINE / Unknown Collection / Unknown 05/06/2020 10:45 AM CDT 05/06/2020 11:00 AM CDT Narrative [facility] - 05/07/2020 11:51 AM CDT Results based on detection/no detection of ribosomal RNA by amplified method. Neena Alejandro MD LAB - MICROBIO LOGY ORDERABLES [facility] [address] [place] [address], [facility] [phone] from Last 3 Months or Most Recently Relevant to Health Maintenance Advance Directives * Full Code (Latest Code Status on File) Date Activated Date Inactivated Comments 07/26/2018 5:22 AM 07/26/2018 11:22 PM Care Teams Tile Finisher Relationship Specialty Start Date End Date Zuleyma Martinez MD [address] [place] [phone] PCP - General Gastroenterology 10/13/21
--- OUTSIDE RECORDS SUMMARY | 2024-12-09 22:28 | XMS_ITS | Clinical Summary ---
Author Organization [facility] Address [address] [facility] [place] [address] Care Team Providers Care Health Information Administrator Name Role Phone Zuleyma Martinez MD Primary Care Provider [phone] Source Comments [facility],non-owned Affiliates and Associated Physician Practices is amultiple site organization consisting of ambulatory clinics and hospital sitesin [place], [place], [place]. This disclosure is being madepursuant to the Care Everywhere program and may not contain all information available regarding this patient. Last updated 18.[facility] Allergies Active Allergy Reactions Criticality Noted Date [...] Active vitamin D, ergocalciferol, (Drisdol) 1.25 MG (54884 UT) capsule Take 1 (one) capsule by [...] be different from the original. Keily'chantelle phone: [phone] Problem Noted Date Diagnosed Date Arthralgia 12/26/2018 [...] Dr. Lemus -Toxicology consulted, appreciated recs -Repeat [place] level at 7 AM -1.5 times MIVFs [...] 12/07/2016 Assessment & Plan (12/07/2016 9:55 AM CLEAN OUT DRILLER HELPER): On progesterone only mini pill since Aug [...] Comments Blood Pressure 118/60 12/07/2023 3:34 PM CLEAN OUT DRILLER HELPER Pulse 86 12/07/2023 3:34 PM CLEAN OUT DRILLER HELPER Temperature 37.1 ??C (98.8 ??F) 12/07/2023 3:34 PM CS T Respiratory Rate 18 03/18/2020 4:25 PM CDT Oxygen Saturation 96% 09/20/2023 1:40 PM CLEAN OUT DRILLER HELPER Inhaled Oxygen Concentration - - Weight 60.2 kg (132 lb 12.8 oz) 12/07/2023 3:34 PM CLEAN OUT DRILLER HELPER Height 162.6 cm (5' 4 ) 12/07/2023 3:34 PM CLEAN OUT DRILLER HELPER Body Mass Index 22.8 12/07/2023 3:34 PM CLEAN OUT DRILLER HELPER Plan of Treatment Health Maintenance Due Date [...] Probe Negative Negative 05/07/2020 11:51 AM CDT [facility] GC Amplified Probe Negative Negative 05/07/2020 11:51 AM CDT [facility] Microbiology URINE / Unknown Collection / Unknown 05/06/2020 10:45 AM CDT 05/06/2020 11:00 AM CDT Narrative [facility] - 05/07/2020 11:51 AM CDT Results based on detection/no detection of ribosomal RNA by amplified method. Neena Alejandro MD LAB - MICROBIO LOGY ORDERABLES [facility] [address] [place] [address], [facility] [phone] from Last 3 Months or Most Recently Relevant to Health Maintenance Advance Directives * Full Code (Latest Code Status on File) Date Activated Date Inactivated Comments 07/26/2018 5:22 AM 07/26/2018 11:22 PM Care Teams Health Information Administrator Relationship Specialty Start Date End Date Zuleyma Martinez MD [address] [place] [phone] PCP - General Gastroenterology 10/13/21
--- OUTSIDE RECORDS SUMMARY | 2024-12-09 22:28 | XMS_ITS | Encounter Summary ---
Author Organization [facility] Address [address] [place] [address] Care Team Providers Care Hydrodynamicist Name Role Phone Betzaida Lutz MD Primary Care Provider [phone] Zuleyma Martinez MD Primary Care Provider [phone] Reason for Visit * Reason Onset Date Comments Follow-up 01/24/2020 message left wit h visitor information Encounter Details Date Type Department Care Team (Late st Contact Info) Description 01/24/2020 Telephone [facility] Pediatrics - ENT [address] [place] [phone] Judy Anderson RN Follow-up (message left with [...] on filedocumented in this encounter Care Teams Hydrodynamicist Relationship Specialty Start Date End Date Betzaida Lutz MD [address] [place] [address] PCP - General Pediatrics 11/11/17 10/12/21 [place] [address] [place] [phone] PCP - General Gastroenterology 10/13/21 documented as of this encounter
--- OUTSIDE RECORDS SUMMARY | 2024-12-09 22:28 | XMS_ITS | Encounter Summary ---
Author Organization [facility] Address [address] [facility] [place] [address] Care Team Providers Care Storage Center Manager Name Role Phone Betzaida Lutz MD Primary Care Provider [phone] Zuleyma Martinez MD Primary Care Provider [phone] Reason for Visit * Reason Onset Date Comments Follow-up 01/24/2020 Informed dad of visitor policy. Encounter Details Date Type Department Care Team (Late st Contact Info) Description 01/24/2020 Telephone [facility] Pediatrics - ENT [facility] [place] [address] Judy Anderson RN Follow-up (Informed dad of [...] on filedocumented in this encounter Care Teams Storage Center Manager Relationship Specialty Start Date End Date Betzaida Lutz MD [address] [place] [address] PCP - General Pediatrics 11/11/17 10/12/21 [place] [address] [place] [phone] PCP - General Gastroenterology 10/13/21 documented as of this encounter
--- OUTSIDE RECORDS SUMMARY | 2024-12-09 22:28 | XMS_ITS | Patient Health Summary ---
Author Organization [facility] Address [address] [facility] [place] [address] Care Team Providers Care Child Nutrition Manager Name Role Phone Zuleyma Martinez MD Primary Care Provider [phone] Note from [facility],non-owned Affiliates and Associated Physician Practices is amultiple site organization consisting of ambulatory clinics and hospital sitesin [place], [place], [place] and [place]. This disclosure is being madepursuant to the Care Everywhere program and may not contain all information available regarding this patient. Last updated 18.[facility] Allergies * Nickel(Urticaria) -Medium Criticality Medications * [...] * vitamin D, ergocalciferol, (Drisdol) 1.25 MG (64904 UT) capsule(Started 11/21/2023) Take 1 (one) capsule [...] Comments Blood Pressure 118/60 12/07/2023 3:34 PM DRYING EQUIPMENT OPERATOR Pulse 86 12/07/2023 3:34 PM DRYING EQUIPMENT OPERATOR Temperature 37.1 ??C (98.8 ??F) 12/07/2023 3:34 PM CS T Respiratory Rate 18 03/18/2020 4:25 PM CDT Oxygen Saturation 96% 09/20/2023 1:40 PM DRYING EQUIPMENT OPERATOR Inhaled Oxygen Concentration - - Weight 60.2 kg (132 lb 12.8 oz) 12/07/2023 3:34 PM DRYING EQUIPMENT OPERATOR Height 162.6 cm (5' 4 ) 12/07/2023 3:34 PM DRYING EQUIPMENT OPERATOR Body Mass Index 22.8 12/07/2023 3:34 PM DRYING EQUIPMENT OPERATOR Procedures * URINALYSIS REFLEX TO MICROSCOPIC NO CULTURE(Performed 09/20/2023) Performed for Arthralgia, unspecified joint * COMPLEMENT ACTIVITY TOTAL (CH50)(Performed 09/20/2023) Performed for Arthralgia, unspecified joint * SS-B (SJOGREN'S) ANTIBODY(Performed 09/20/2023) Performed for Arthralgia, unspecified joint * SS-A (SJOGREN'S) 52+60 ANTIBODIES(Performed 09/20/2023) Performed for Arthralgia, unspecified joint * THOMAS/CAN PUSHER (FLACO) ANTIBODY IGG(Performed 09/20/2023) Performed for Arthralgia, [...] left knee, Hypermobile joints, Hypovitaminosis D * CAN PUSHER ANTIBODY(Performed 09/21/2019) Performed for Encounter for therapeutic [...] TO MICROSCOPIC NO CULTURE (09/20/2023 3:25 PM DRYING EQUIPMENT OPERATOR) Color UA Yellow Straw, Yellow 09/20/2023 5:31 PM [facility] Clarity UA Slt Cloudy(A) Clear 09/20/2023 5:31 PM [facility] Specific [place] UA 1.021 1.005 - 1.030 09/20/2023 5:31 PM [facility] pH UA 6.0 5.0 - 8.0 pH 09/20/2023 5:31 PM [facility] Protein UA 1+(A) Negative 09/20/2023 5:31 PM [facility] Glucose UA Negative Negative 09/20/2023 5:31 PM [facility] Ketone UA Negative Negative 09/20/2023 5:31 PM [facility] Bilirubin UA Negative Negative 09/20/2023 5:31 PM [facility] Blood UA Negative Negative 09/20/2023 5:31 PM [facility] Nitrite UA Negative Negative 09/20/2023 5:31 PM [facility] Leukocyte Esterase Negative Negative 09/20/2023 5:31 PM [facility] Urobilinogen UA Negative Negative mg/dL 09/20/2023 5:31 PM [facility] RBC UA 0-2 None Seen, 0-2, 3-5 /HPF 09/20/2023 5:31 PM [facility] WBC UA 0-5 None Seen, 0-5 /HPF 09/20/2023 5:31 PM [facility] Squamous Epithelial Cells UA 3-5 None Seen, 0-2, 3-5 /HPF 09/20/2023 5:31 PM [facility] Mucus UA 1+ /LPF 09/20/2023 5:31 PM [facility] Urine URINE SPECIMEN OBTAINED BY CLEAN CATCH PROCEDURE / Unknown Collection / Unknown 09/20/2023 3:25 PM DRYING EQUIPMENT OPERATOR 09/20/2023 5:13 PM [facility] - 09/20/2023 5:31 PM DRYING EQUIPMENT OPERATOR Tevin Shoemaker MD LAB - URINALYSIS ORD ERABLES [address] [place] [address], [facility] [phone] * COMPLEMENT ACTIVITY TOTAL (CH50) (09/20/2023 3:24 PM DRYING EQUIPMENT OPERATOR) [facility] Complement Activity Total CH50 64.0 38.7 - 89.9 U/mL 09/23/2023 3:51 AM DRYING EQUIPMENT OPERATOR [facility] ([facility]) Comment: Normal activity in total complement functional [...] complement alternate pathway functional (AH50, test code 2381504) activity suggests defects in the alternate pathway. REFERENCE INTERVAL: Complement Activity Total, (CH50) ? 38.6 U/mL or less ..........Low ? 38.7-89.9 U/mL .............Normal ? 90.0 U/mL or greater .......High Performed By: [facility] [address] [place] [address] Finisher Screwdown: Lloyd Masterson MD, PhD CLIA Number: [id number] Blood BLOOD SPECIMEN / Unknown Lab Venipuncture / Unknown 09/20/2023 3:24 PM DRYING EQUIPMENT OPERATOR 09/20/2023 5:13 PM DRYING EQUIPMENT OPERATOR Tevin Shoemaker MD LAB - CHEMISTRY SHEELA CAROLINA [facility]) [address] * SCLERODERMA COMPREHENSIVE AB PANEL (09/20/2023 3:24 PM DRYING EQUIPMENT OPERATOR) [facility] MAGALY HEp-2 IgG <1:80 <1:80 09/23/2023 7:41 PM DRYING EQUIPMENT OPERATOR [facility] ([facility]) MAGALY Interpretive Comment See Note 09/23/2023 7:41 PM DRYING EQUIPMENT OPERATOR [facility] ([facility]) Comment: Antinuclear antibodies by IFA negative for [...] 0 - 40 AU/mL 09/23/2023 7:41 PM [facility] [employer] ([facility]) Comment: INTERPRETIVE INFORMATION: Scleroderma (Scl-70) (FLACO) Ab, [...] testing for centromere, RNA polymerase III and U3-CAN PUSHER, PM/Scl, or Th/To antibodies. RNA Polymerase 3 Antibody IgG 11 0 - 19 Units 09/23/2023 7:41 PM [facility] ([facility]) Comment: INTERPRETIVE INFORMATION: RNA Polymerase III Antibody, [...] antibodies associated with SSc, including centromere, Scl-70, U3-CAN PUSHER, PM/Scl, or Th/To. Thomas/CAN PUSHER (FLACO) Antibody IgG 3 0 - 19 Units 09/23/2023 7:41 PM [facility] [employer] ([facility]) Comment: INTERPRETIVE INFORMATION: Thomas/CAN PUSHER (FLACO) Antibody, IgG ??19 Units or Less ............. Negative ??20 to 39 Units ............... Weak Positive ??40 to 80 Units ............... Moderate Positive ??81 Units or greater .......... Strong Positive Thomas/CAN PUSHER antibodies are frequently seen in patients with mixed connective tissue disease (MCTD) and are also associated with other systemic autoimmune rheumatic diseases (SARDs) such as systemic lupus erythematosus (SLE), systemic sclerosis, and myositis. Antibodies targeting the Thomas/CAN PUSHER antigenic complex also recognize Thomas antigens, therefore, the Thomas antibody response must be considered when interpreting these results. PM/Scl 100 Antibody IgG Negative Negative 09/23/2023 7:41 PM [facility] ([facility]) Comment: INTERPRETIVE INFORMATION: PM/Scl-100 Antibody, IgG by [...] developed and its performance characteristics determined by [facility]. It has not been cleared or approved by the US Food and Drug Administration. This test was performed in a CLIA certified laboratory and is intended for clinical purposes. Fibrillarin (U3 CAN PUSHER) Antibody IgG Negative Negative 09/23/2023 7:41 PM [facility] ([facility]) Comment: Interpretive Information: Fibrillarin (U3 CAN PUSHER) Antibody, IgG The presence of fibrillarin (U3-CAN PUSHER) IgG antibodies in association with an MAGALY [...] a multi-ethnic cohort of SSc patients (n=98), U3-CAN PUSHER antibodies detected by immunoblot had an agreement of 98.9 percent with the gold standard immunoprecipitation (IP) assay. Approximately 71 percent (5/7) of the borderline U3-CAN PUSHER results with MAGALY nucleolar pattern in this cohort were IP negative. This test was developed and its performance characteristics determined by [facility]. It has not been cleared or approved by the US Food and Drug Administration. This test was performed in a CLIA certified laboratory and is intended for clinical purposes. Performed By: [facility] [employer] [address] [place] [address] Finisher Screwdown: Lloyd Masterson MD, PhD CLIA Number: [id number] Blood BLOOD SPECIMEN / Unknown Lab Venipuncture / Unknown 09/20/2023 3:24 PM DRYING EQUIPMENT OPERATOR 09/20/2023 5:13 PM DRYING EQUIPMENT OPERATOR Tevin Shoemaker MD LAB - SEROLOGY ORDER [place] [facility]) [address] [place] [address], [facility] * SS-A (SJOGREN'S) 52+60 ANTIBODIES (09/20/2023 3:24 PM DRYING EQUIPMENT OPERATOR) SS-A 52 Antibody 4 0 - 40 AU/mL 09/23/2023 1:30 PM DRYING EQUIPMENT OPERATOR [facility] ([facility]) Comment: INTERPRETIVE INFORMATION: SSA-52 (Ro52) (FLACO) Antibody, [...] 0 - 40 AU/mL 09/23/2023 1:30 PM DRYING EQUIPMENT OPERATOR [facility] ([facility]) Comment: REFERENCE INTERVAL: SSA-60 (Ro60) (FLACO) Antibody, IgG ??29 AU/mL or Less ............. Negative ??30 - 40 AU/mL ................ Equivocal ??41 AU/mL or Greater .......... Positive Performed By: [facility] [address] [place] [address] Finisher Screwdown: Lloyd Masterson MD, PhD CLIA Number: [id number] Blood BLOOD SPECIMEN / Unknown Lab Venipuncture / Unknown 09/20/2023 3:24 PM DRYING EQUIPMENT OPERATOR 09/20/2023 5:13 PM DRYING EQUIPMENT OPERATOR Tevin Shoemaker MD LAB - CHEMISTRY SHEELA CAR[place]INA [facility]) [address] [place] [address], [facility] * THOMAS/CAN PUSHER (FLACO) ANTIBODY IGG (09/20/2023 3:24 PM DRYING EQUIPMENT OPERATOR) Pathologist [facility] Thomas/CAN PUSHER (FLACO) Antibody IgG 4 0 - 19 Units 09/23/2023 1:24 PM DRYING EQUIPMENT OPERATOR [employer] ([facility]) Comment: INTERPRETIVE INFORMATION: Thomas/CAN PUSHER (FLACO) Antibody, IgG ??19 Units or Less ............. Negative ??20 to 39 Units ............... Weak Positive ??40 to 80 Units ............... Moderate Positive ??81 Units or greater .......... Strong Positive Thomas/CAN PUSHER antibodies are frequently seen in patients with mixed connective tissue disease (MCTD) and are also associated with other systemic autoimmune rheumatic diseases (SARDs) such as systemic lupus erythematosus (SLE), systemic sclerosis, and myositis. Antibodies targeting the Thomas/CAN PUSHER antigenic complex also recognize Thomas antigens, therefore, the Thomas antibody response must be considered when interpreting these results. Performed By: [facility] [address] [place] [address] Finisher Screwdown: Lloyd Masterson MD, PhD CLIA Number: [id number] Blood BLOOD SPECIMEN / Unknown Lab Venipuncture / Unknown 09/20/2023 3:24 PM DRYING EQUIPMENT OPERATOR 09/20/2023 5:13 PM DRYING EQUIPMENT OPERATOR Tevin Shoemaker MD LAB - CHEMISTRY SHEELA CAR[place]INA [facility]) [address] [place] [id number], [facility] * MYOSITIS ANTIBODY PANEL COMPREHENSIVE (09/20/2023 3:24 PM DRYING EQUIPMENT OPERATOR) Only the most recent of2 resultswithin the time period is included. SAE1 (SUMO activating enzyme) Ab Negative Negative 10/01/2023 8:33 PM DRYING EQUIPMENT OPERATOR [facility]) NXP2 (Nuclear matrix protein-2) Ab Negative Negative 10/01/2023 8:33 PM DRYING EQUIPMENT OPERATOR [facility]) MDA5 (CADM-140) Ab Negative Negative 2022 8:33 PM DRYING EQUIPMENT OPERATOR [facility]) TIF-1 gamma (155 kDa) Ab Negative Negative 10/01/2023 8:33 PM DRYING EQUIPMENT OPERATOR [facility] ([facility]) Myositis Panel Interpretive Data See Note 10/01/2023 8:33 PM DRYING EQUIPMENT OPERATOR [facility]) Comment: INTERPRETIVE INFORMATION: Extended Myositis Panel If [...] . . . . . . ??X Thomas/CAN PUSHER (FLACO) Ab, IgG ??. . . . [...] . . . . ??X Fibrillarin (U3 CAN PUSHER) Ab, IgG . . . . . [...] developed and its performance characteristics determined by [facility]. It has not been cleared or approved by the US Food and Drug Administration. This test was performed in a CLIA certified laboratory and is intended for clinical purposes. Mi-2 Antibody Negative Negative 10/01/2023 8:33 PM DRYING EQUIPMENT OPERATOR [employer] [facility]) P155/140 Antibody Negative Negative 023 8:33 PM DRYING EQUIPMENT OPERATOR [employer] [facility]) PL-12 Antibody Negative Negative 10/01/2023 8:33 PM DRYING EQUIPMENT OPERATOR [employer] [facility]) PL-7 Antibody Negative Negative 10/01/2023 8:33 PM DRYING EQUIPMENT OPERATOR [employer] [facility]) OJ Antibody Negative Negative 10/01/2023 8:33 PM DRYING EQUIPMENT OPERATOR [employer] [facility]) EJ Antibody Negative Negative 10/01/2023 8:33 PM DRYING EQUIPMENT OPERATOR [employer] [facility]) SRP Antibody Negative Negative 10/01/2023 8:33 PM DRYING EQUIPMENT OPERATOR [employer] [facility]) Kavita-1 Antibody IgG 1 0 - 40 AU/mL 10/01/2023 8:33 PM [facility] [employer] ([facility]) Comment: INTERPRETIVE INFORMATION: ??Kavita-1 Antibody, IgG ??29 AU/mL or less.........Negative ??30-40 AU/mL..............Equivocal ??41 AU/mL or greater......Positive Presence of Kavita-1 (antihistidyl transfer RNA [t-RNA' synthetase) antibody is associated with polymyositis and may also be seen in patients with dermatomyositis. Kavita-1 antibody is associated with pulmonary involvement (interstitial lung disease), Raynaud phenomenon, arthritis, and wind turbine mechanical engineer's hands (implicated in antisynthetase syndrome). KU Antibody Negative Negative 10/01/2023 8:33 PM [facility] [employer] [facility] ([facility]) Thomas/CAN PUSHER (FLACO) Antibody IgG 4 0 - 19 Units 10/01/2023 8:33 PM [facility] ([facility]) Comment: INTERPRETIVE INFORMATION: Thomas/CAN PUSHER (FLACO) Antibody, IgG ??19 Units or Less ............. Negative ??20 to 39 Units ............... Weak Positive ??40 to 80 Units ............... Moderate Positive ??81 Units or greater .......... Strong Positive Thomas/CAN PUSHER antibodies are frequently seen in patients with mixed connective tissue disease (MCTD) and are also associated with other systemic autoimmune rheumatic diseases (SARDs) such as systemic lupus erythematosus (SLE), systemic sclerosis, and myositis. Antibodies targeting the Thomas/CAN PUSHER antigenic complex also recognize Thomas antigens, therefore, the Thomas antibody response must be considered when interpreting these results. PM/Scl 100 Antibody IgG Negative Negative 10/01/2023 8:33 PM [facility] [employer] ([facility]) Comment: INTERPRETIVE INFORMATION: PM/Scl-100 Antibody, IgG by [...] developed and its performance characteristics determined by [facility]. It has not been cleared or approved by the US Food and Drug Administration. This test was performed in a CLIA certified laboratory and is intended for clinical purposes. SS-A 52 Antibody 3 0 - 40 AU/mL 10/01/2023 8:33 PM DRYING EQUIPMENT OPERATOR [facility] ([facility]) Comment: INTERPRETIVE INFORMATION: SSA-52 (Ro52) (FLACO) Antibody, [...] 0 - 40 AU/mL 10/01/2023 8:33 PM DRYING EQUIPMENT OPERATOR [facility] ([facility]) Comment: REFERENCE INTERVAL: SSA-60 (Ro60) (FLACO) Antibody, IgG ??29 AU/mL or Less ............. Negative ??30 - 40 AU/mL ................ Equivocal ??41 AU/mL or Greater .......... Positive Fibrillarin (U3 CAN PUSHER) Antibody IgG Negative Negative 10/01/2023 8:33 PM DRYING EQUIPMENT OPERATOR [employer] [facility] ([facility]) Comment: Interpretive Information: Fibrillarin (U3 CAN PUSHER) Antibody, IgG The presence of fibrillarin (U3-CAN PUSHER) IgG antibodies in association with an MAGALY [...] a multi-ethnic cohort of SSc patients (n=98), U3-CAN PUSHER antibodies detected by immunoblot had an agreement of 98.9 percent with the gold standard immunoprecipitation (IP) assay. Approximately 71 percent (5/7) of the borderline U3-CAN PUSHER results with MAGALY nucleolar pattern in this cohort were IP negative. This test was developed and its performance characteristics determined by [facility]. It has not been cleared or approved by the US Food and Drug Administration. This test was performed in a CLIA certified laboratory and is intended for clinical purposes. Performed By: [facility] [employer] [address] [place] [address] Finisher Screwdown: Lloyd Masterson MD, PhD CLIA Number: [id number] Blood BLOOD SPECIMEN / Unknown Lab Venipuncture / Unknown 09/20/2023 3:24 PM DRYING EQUIPMENT OPERATOR 09/20/2023 5:13 PM DRYING EQUIPMENT OPERATOR Tevin Shoemaker MD LAB - CHEMISTRY SHEELA CAROLINA [facility] [employer]) [address] [place] [address], [facility] * DNA ANTIBODY DS CRITHIDIA TITER (09/20/2023 3:24 PM DRYING EQUIPMENT OPERATOR) Pathologist [facility] dsDNA Antibody IgG <1:10 <1:10 2022 9:45 AM DRYING EQUIPMENT OPERATOR [facility] ([facility]) Comment: INTERPRETIVE INFORMATION: Double-Stranded DNA (dsDNA) Antibody, [...] recommendations for testing may be found at [email or web address]. Performed By: [facility] [address] [place] [address] Finisher Screwdown: Lloyd Masterson MD, PhD CLIA Number: [id number] Blood BLOOD SPECIMEN / Unknown Lab Venipuncture / Unknown 09/20/2023 3:24 PM DRYING EQUIPMENT OPERATOR 09/20/2023 5:13 PM DRYING EQUIPMENT OPERATOR Tevin Shoemaker MD LAB - SEROLOGY ORDER APPLE [facility]) [address] [place] [address], [facility] * THOMAS (SM) ANTIBODY FLACO (09/20/2023 3:24 PM DRYING EQUIPMENT OPERATOR) Only the most recent of2 resultswithin the time period is included. [facility] Signature Thomas (FLACO) Antibody 5 0 - 40 AU/mL 09/23/2023 1:30 PM DRYING EQUIPMENT OPERATOR [facility] ([facility]) Comment: INTERPRETIVE INFORMATION: Thomas (FLACO) Antibody, IgG ??29 AU/mL or Less ............. Negative ??30 - 40 AU/mL ................ Equivocal ??41 AU/mL or Greater .......... Positive Thomas antibody is highly specific (greater than 90 percent) for systemic lupus erythematosus (SLE) but only occurs in 30-35 percent of SLE cases. The presence of antibodies to Thomas has variable associations with SLE clinical manifestations. Performed By: [facility] [address] [place] [address] Finisher Screwdown: Lloyd Masterson MD, PhD CLIA Number: [id number] Blood BLOOD SPECIMEN / Unknown Lab Venipuncture / Unknown 09/20/2023 3:24 PM DRYING EQUIPMENT OPERATOR 09/20/2023 5:13 PM DRYING EQUIPMENT OPERATOR Tevin Shoemaker MD LAB - CHEMISTRY SHEELA CAROLINA [facility] ([facility]) [address] * MAGALY BLOOD SCREEN W/REFLEX TITER (09/20/2023 3:24 PM DRYING EQUIPMENT OPERATOR) Only the most recent of3 resultswithin the time period is included. MAGALY IgG None Detected None Detected 09/23/2023 7:03 AM DRYING EQUIPMENT OPERATOR [facility] ([facility]) Comment: If suspicion of connective tissue disease is strong and MAGALY EIA is negative, consider testing for MAGALY by IFA ([id number]). INTERPRETIVE INFORMATION: Anti-Nuclear Antibodies (MAGALY), IgG by GALLITO Antinuclear Antibodies (MAGALY), IgG by GALLITO: MAGALY specimens are screened using enzyme-linked immunosorbent assay (GALLITO) methodology. All GALLITO results reported as Detected are further tested by indirect fluorescent assay (IFA) using HEp-2 substrate with an IgG-specific conjugate. The MAGALY GALLITO screen is designed to detect antibodies against dsDNA, histones, SS-A (Ro), SS-B (La), Thomas, Thomas/CAN PUSHER, Scl-70, Kavita-1, centromeric proteins, other antigens extracted from the HEp-2 cell nucleus. MAGALY GALLITO assays have been reported to have lower sensitivities than MAGALY IFA for systemic autoimmune rheumatic diseases (SARD). Negative results do not necessarily rule out SARD. Performed By: [facility] [address] [place] [address] Finisher Screwdown: Lloyd Masterson MD, PhD CLIA Number: [id number] Blood BLOOD SPECIMEN / Unknown Lab Venipuncture / Unknown 09/20/2023 3:24 PM DRYING EQUIPMENT OPERATOR 09/20/2023 5:13 PM DRYING EQUIPMENT OPERATOR Tevin Shoemaker MD LAB - CHEMISTRY SHEELA CAR[place]INA [facility] [employer] [facility]) [address] * SS-B (SJOGREN'S) ANTIBODY (09/20/2023 3:24 PM DRYING EQUIPMENT OPERATOR) Only the most recent of3 resultswithin the time period is included. SS-B Antibody 4 0 - 40 AU/mL 09/23/2023 1:30 PM DRYING EQUIPMENT OPERATOR [employer] ([facility]) Comment: INTERPRETIVE INFORMATION: SSB (La) (FLACO) Ab, [...] (PSS) also have this antibody. Performed By: [facility] [address] [place] [address] Finisher Screwdown: Lloyd Masterson MD, PhD CLIA Number: [id number] Blood BLOOD SPECIMEN / Unknown Lab Venipuncture / Unknown 09/20/2023 3:24 PM DRYING EQUIPMENT OPERATOR 09/20/2023 5:13 PM DRYING EQUIPMENT OPERATOR Tevin Shoemaker MD LAB - CHEMISTRY SHEELA CAROLINA [facility] [employer] [facility]) [address] [place] [address], [facility] * DNA ANTIBODY DOUBLE STRANDED (09/20/2023 3:24 PM DRYING EQUIPMENT OPERATOR) Only the most recent of2 resultswithin the time period is included. dsDNA Antibody 4 0 - 24 IU 09/23/2023 7:56 PM DRYING EQUIPMENT OPERATOR [facility] [employer] ([facility]) Comment: INTERPRETIVE INFORMATION: Double-Stranded DNA (dsDNA) Ab IgG GALLITO ??24 IU or less........Negative ??25-30 IU.............Borderline Positive ??30-60 IU.............Low Positive ??60-200 IU............Positive ??201 IU or greater....Strong Positive Positivity for anti-double stranded DNA (anti-dsDNA) IgG antibody is a diagnostic criterion of systemic lupus erythematosus (SLE). Specimens are initially screened by enzyme-linked immunosorbent assay (GALLITO). If ordered as reflex ([id number]), positive GALLITO results (>24 IU) will be [...] recommendations for testing may be found at [email or web address]. Performed By: [facility] [address] [place] [address] Finisher Screwdown: Lloyd Masterson MD, PhD CLIA Number: [id number] Blood BLOOD SPECIMEN / Unknown Lab Venipuncture / Unknown 09/20/2023 3:24 PM DRYING EQUIPMENT OPERATOR 09/20/2023 5:14 PM DRYING EQUIPMENT OPERATOR Tevin Shoemaker MD LAB - HEMATOLOGY ORD ERABLES [facility] ([facility]) [address] [place], [place] [address] * COMPLEMENT C4 (09/20/2023 3:24 PM DRYING EQUIPMENT OPERATOR) Only the most recent of2 resultswithin the time period is included. Pathologist [facility] Complement C4 30 15 - 57 mg/dL 09/20/2023 5:43 PM DRYING EQUIPMENT OPERATOR [facility] Blood BLOOD SPECIMEN / Unknown Lab Venipuncture / Unknown 09/20/2023 3:24 PM DRYING EQUIPMENT OPERATOR 09/20/2023 5:15 PM DRYING EQUIPMENT OPERATOR Tevin Shoemaker MD LAB - SEROLOGY ORDER APPLE [address] [address], [facility] [phone] * COMPLEMENT C3 (09/20/2023 3:24 PM DRYING EQUIPMENT OPERATOR) Only the most recent of2 resultswithin the time period is included. Complement C3 105 82 - 193 mg/dL 09/20/2023 5:43 PM DRYING EQUIPMENT OPERATOR [facility] Blood BLOOD SPECIMEN / Unknown Lab Venipuncture / Unknown 09/20/2023 3:24 PM DRYING EQUIPMENT OPERATOR 09/20/2023 5:15 PM DRYING EQUIPMENT OPERATOR Tevin Shoemaker MD LAB - CHEMISTRY SHEELA [place] [facility] [address] [place] [address], [facility] [phone] * C-REACTIVE PROTEIN (09/20/2023 3:08 PM DRYING EQUIPMENT OPERATOR) Only the most recent of8 resultswithin the time period is included. [facility] C-Reactive Protein <0.5 <=0.5 mg/dL 09/20/2023 4:00 PM DRYING EQUIPMENT OPERATOR [facility] Blood BLOOD SPECIMEN / Unknown Lab Venipuncture / Unknown 09/20/2023 3:08 PM DRYING EQUIPMENT OPERATOR 09/20/2023 3:24 PM DRYING EQUIPMENT OPERATOR Tevin Shoemaker MD LAB - CHEMISTRY [place] Performing Organization Address City/[facility]/ZIP Co de Phone Number [facility] [address] [place] [address], [place] [phone] * (ABNORMAL) VITAMIN D 25-HYDROXY (09/20/2023 3:08 PM DRYING EQUIPMENT OPERATOR) Only the most recent of3 resultswithin the time period is included. Pathologist [facility] Vitamin D, 25 Hydroxy 18.0(L) 30.0 - 80.0 ng/mL 09/20/2023 4:22 PM DRYING EQUIPMENT OPERATOR [facility] Comment: The recommendations for 25-Hydroxy Vitamin [...] Lab Venipuncture / Unknown 09/20/2023 3:08 PM DRYING EQUIPMENT OPERATOR 09/20/2023 3:31 PM DRYING EQUIPMENT OPERATOR Tevin Shoemaker MD LAB - CHEMISTRY [place] Performing Organization Address City/[facility]/ZIP Co de Phone Number [address] [address], [facility] [phone] * ALDOLASE (09/20/2023 3:08 PM DRYING EQUIPMENT OPERATOR) Only the most recent of4 resultswithin the time period is included. Aldolase 3.9 1.2 - 7.6 U/L 09/22/2023 7:56 PM DRYING EQUIPMENT OPERATOR [employer] ([facility]) Comment: REFERENCE INTERVAL: Aldolase Access complete set of age- and/or gender-specific reference intervals for this test in the [facility] Test Directory (viaCycle). Performed By: [facility] [address] [place] [address] Finisher Screwdown: Lloyd Masterson MD, PhD CLIA Number: [id number] Blood BLOOD SPECIMEN / Unknown Lab Venipuncture / Unknown 09/20/2023 3:08 PM DRYING EQUIPMENT OPERATOR 09/20/2023 3:24 PM DRYING EQUIPMENT OPERATOR Tevin Shoemaker MD LAB - CHEMISTRY [place] Performing Organization Address [facility]/State/ZIP Co de Phone Number [facility] [employer] [facility]) [address] [place] [address] * ERYTHROCYTE SEDIMENTATION RATE (09/20/2023 3:08 PM DRYING EQUIPMENT OPERATOR) Only the most recent of8 resultswithin the time period is included. Erythrocyte Sedimentation Rate Westergren 5 0 - 20 MM/HR 09/20/2023 4:17 PM [facility] Blood BLOOD SPECIMEN / Unknown Lab Venipuncture / Unknown 09/20/2023 3:08 PM DRYING EQUIPMENT OPERATOR 09/20/2023 3:31 PM DRYING EQUIPMENT OPERATOR Tevin Shoemaker MD LAB - HEMATOLOGY ORD ERABLES [facility] [address] [place] [address], [facility] [phone] * (ABNORMAL) CBC WITH DIFFERENTIAL (09/20/2023 3:08 PM DRYING EQUIPMENT OPERATOR) Only the most recent of8 resultswithin the time period is included. Pathologist [facility] WBC 6.7 3.5 - 10.5 10? 3 /uL 09/20/2023 3:51 PM [facility] RBC 4.09 3.80 - 5.20 10? 6 /uL 09/20/2023 3:51 PM [facility] Hemoglobin 11.9(L) 12.0 - 15.6 g/dL 09/20/2023 3:51 PM [facility] Hematocrit 35.5 35.0 - 45.0 % 09/20/2023 3:51 PM [facility] MCV 86.8 80.7 - 98.3 fL 09/20/2023 3:51 PM [facility] MCH 29.1 26.7 - 34.0 pg 09/20/2023 3:51 PM [facility] MCHC 33.5 30.8 - 35.9 g/dL 09/20/2023 3:51 PM [facility] RDW-SD 40.2 36.0 - 50.0 fL 09/20/2023 3:51 PM [facility] RDW-CV 12.8 11.2 - 14.8 % 09/20/2023 3:51 PM [facility] Platelet Count 226 150 - 400 10? 3 /uL 09/20/2023 3:51 PM [facility] MPV 10.6 9.4 - 12.9 fL 09/20/2023 3:51 PM [facility] nRBC Absolute 0.00 0 10? 3 /uL 09/20/2023 3:51 PM [facility] nRBC Auto 0.0 0 /100 WBC 09/20/2023 3:51 PM [facility] Neutrophils % 44.2 35.0 - 70.0 % 09/20/2023 3:51 PM [facility] Lymphocytes % 46.8(H) 20.0 - 43.0 % 09/20/2023 3:51 PM [facility] Monocytes % 7.2 5.0 - 13.0 % 09/20/2023 3:51 PM [facility] Eosinophils % 1.1 0.0 - 6.0 % 09/20/2023 3:51 PM [facility] Basophil % 0.5 0.0 - 2.0 % 09/20/2023 3:51 PM [facility] Neutrophils Absolute 2.95 1.60 - 7.00 10? 3 /uL 09/20/2023 3:51 PM [facility] Lymphocyte Absolute 3.12 1.10 - 3.90 10? 3 /uL 09/20/2023 3:51 PM [facility] Monocytes Absolute 0.48 0.26 - 1.07 10? 3 /uL 09/20/2023 3:51 PM [facility] Eosinophils Absolute 0.07 0.00 - 0.47 10? 3 /uL 09/20/2023 3:51 PM [facility] Basophils Absolute 0.03 0.00 - 0.08 10? 3 /uL 09/20/2023 3:51 PM [facility] Immature Granulocytes % 0.2 0.0 - 1.0 % 09/20/2023 3:51 PM [facility] Immature Granulocytes Absolute 0.01 09/20/2023 3:51 PM [facility] Blood BLOOD SPECIMEN / Unknown Lab Venipuncture / Unknown 09/20/2023 3:08 PM DRYING EQUIPMENT OPERATOR 09/20/2023 3:31 PM DRYING EQUIPMENT OPERATOR Tevin Shoemaker MD LAB - HEMATOLOGY ORD ERABLES [facility] [address] [place] [address], [facility] [phone] * (ABNORMAL) COMPREHENSIVE METABOLIC PANEL (09/20/2023 3:08 PM [facility]) Only the most recent of6 resultswithin the time period is included. BUN 11 7 - 26 mg/dL 09/20/2023 4:05 PM [facility] Creatinine 0.73 0.56 - 0.96 mg/dL 09/20/2023 4:05 PM [facility] Sodium 138 136 - 145 mmol/L 09/20/2023 4:05 PM [facility] Potassium 4.0 3.5 - 4.5 mmol/L 09/20/2023 4:05 PM [facility] Chloride 107 98 - 107 mmol/L 09/20/2023 4:05 PM [facility] CO2 21(L) 22 - 29 mmol/L 09/20/2023 4:05 PM [facility] Glucose 91 70 - 115 mg/dL 09/20/2023 4:05 PM [facility] Calcium 9.2 8.4 - 10.2 mg/dL 09/20/2023 4:05 PM [facility] Protein Total 7.2 6.0 - 8.3 g/dL 09/20/2023 4:05 PM [facility] Albumin 4.0 3.4 - 5.0 g/dL 09/20/2023 4:05 PM [facility] Bilirubin Total 0.5 0.2 - 1.2 mg/dL 09/20/2023 4:05 PM [facility] Alkaline Phosphatase 43 40 - 150 U/L 09/20/2023 4:05 PM [facility] ALT 11 5 - 55 U/L 09/20/2023 4:05 PM [facility] AST 15 5 - 34 U/L 09/20/2023 4:05 PM [facility] Anion Gap 10 6 - 16 09/20/2023 4:05 PM [facility] BUN/Creatinine Ratio 15 7 - 23 09/20/2023 4:05 PM [facility] Osmolality Calculated 285 275 - 295 mOsm/kg 09/20/2023 4:05 PM [facility] Albumin/Globulin Ratio 1.3 1.1 - 2.3 09/20/2023 4:05 PM [facility] eGFR by CKD-EPI >90 >=90 mL/min/1.7 3 m2 09/20/2023 4:05 PM [facility] Blood BLOOD SPECIMEN / Unknown Lab Venipuncture / Unknown 09/20/2023 3:08 PM DRYING EQUIPMENT OPERATOR 09/20/2023 3:31 PM DRYING EQUIPMENT OPERATOR Tevin Shoemaker MD LAB - CHEMISTRY [place] Performing Organization Address City/[facility]/ZIP Co de Phone Number [facility] [address] [place] [phone], [place] [phone] * CK BLOOD (09/20/2023 3:08 PM DRYING EQUIPMENT OPERATOR) Only the most recent of4 resultswithin the time period is included. CK Total 131 30 - 200 U/L 09/20/2023 4:05 PM DRYING EQUIPMENT OPERATOR [facility] Blood BLOOD SPECIMEN / Unknown Lab Venipuncture / Unknown 09/20/2023 3:08 PM DRYING EQUIPMENT OPERATOR 09/20/2023 3:31 PM DRYING EQUIPMENT OPERATOR Tevin Shoemaker MD LAB - CHEMISTRY [place] Performing Organization Address [facility]/ZIP Co de Phone Number [address] [address], [place] [phone] * XR KNEE RIGHT 2VW OR LESS (09/20/2023 2:53 PM DRYING EQUIPMENT OPERATOR) Anatomical Region Laterality Modality Lower Extremity Radiographic Johanna ging 09/20/2023 3:03 PM DRYING EQUIPMENT OPERATOR Impressions 09/20/2023 3:03 PM DRYING EQUIPMENT OPERATOR IMPRESSION: Normal. > Interpreting Provider: Rodrick Borges MD on 09/20/2023 3:03 PM Narrative 09/20/2023 3:03 PM DRYING EQUIPMENT OPERATOR PROCEDURE: ??XR KNEE RIGHT 2VW OR LESS [...] LEFT 2VW OR LESS (09/20/2023 2:53 PM DRYING EQUIPMENT OPERATOR) Anatomical Region Laterality Modality Lower Extremity Radiographic Johanna ging 09/20/2023 3:03 PM DRYING EQUIPMENT OPERATOR Impressions 09/20/2023 3:03 PM DRYING EQUIPMENT OPERATOR IMPRESSION: Normal. > Interpreting Provider: Rodrick Borges MD on 09/20/2023 3:03 PM Narrative 09/20/2023 3:03 PM DRYING EQUIPMENT OPERATOR PROCEDURE: ??XR KNEE LEFT 2VW OR LESS [...] RIGHT 2VW OR MORE (09/20/2023 2:53 PM DRYING EQUIPMENT OPERATOR) Anatomical Region Laterality Modality Upper Extremity Radiographic Johanna ging 09/20/2023 3:03 PM DRYING EQUIPMENT OPERATOR Impressions 09/20/2023 3:04 PM DRYING EQUIPMENT OPERATOR IMPRESSION: Normal. > Interpreting Provider: Rodrick Borges MD on 09/20/2023 3:04 PM Narrative 09/20/2023 3:04 PM DRYING EQUIPMENT OPERATOR PROCEDURE: ??XR SHOULDER RIGHT 2VW OR MORE [...] LEFT 2VW OR MORE (09/20/2023 2:53 PM DRYING EQUIPMENT OPERATOR) Anatomical Region Laterality Modality Upper Extremity Radiographic Johanna ging 09/20/2023 3:04 PM DRYING EQUIPMENT OPERATOR Impressions 09/20/2023 3:04 PM DRYING EQUIPMENT OPERATOR IMPRESSION: Normal. > Interpreting Provider: Rodrick Borges MD on 09/20/2023 3:04 PM Narrative 09/20/2023 3:04 PM DRYING EQUIPMENT OPERATOR PROCEDURE: ??XR SHOULDER LEFT 2VW OR MORE DATE/TIME OF EXAM: ??09/20/2023 2:53 PM CLINICAL INFORMATION: None relevant/not provided if blank. Indication: M24.9: Hypermobile joints M25.50: Arthralgia, unspecified joint Additional History: COMPARISON: None FINDINGS: There is no fracture or dislocation. There is no acromioclavicular or glenohumeral arthritis. There are no erosions. Procedure Note Rdorick Borges MD - 09/20/2023 PROCEDURE: XR SHOULDER [...] VITAMIN D 25-HYDROXY D2+D3 (10/13/2021 2:41 PM DRYING EQUIPMENT OPERATOR) Only the most recent of2 resultswithin the time period is included. Vitamin D, 25 Hydroxy D2 and D3 Total 38.3 30.0 - 80.0 ng/mL 10/17/2021 11:32 AM DRYING EQUIPMENT OPERATOR [employer] ([facility]) Comment: INTERPRETIVE INFORMATION: 25-HydroxyVitamin D2 and D3, [...] reference intervals for this test in the [facility] Test Directory ([facility]Cycle). This test was developed and its performance characteristics determined by [facility]. It has not been cleared or approved by the US Food and Drug Administration. This test was performed in a CLIA certified laboratory and is intended for clinical purposes. U.S. Patent No. [id number] Performed By: [facility] [address] [place] [id number] Finisher Screwdown: Mandi You MD Vitamin D, 25 Hydroxy D2 27.4 ng/mL 10/17/2021 11:32 AM DRYING EQUIPMENT OPERATOR [facility] [employer] [facility]) Vitamin D, 25 Hydroxy D3 10.9 ng/mL 10/17/2021 11:32 AM DRYING EQUIPMENT OPERATOR [facility]) Blood BLOOD SPECIMEN / Unknown Lab Venipuncture / Unknown 10/13/2021 2:41 PM DRYING EQUIPMENT OPERATOR 10/13/2021 3:18 PM DRYING EQUIPMENT OPERATOR Tevin Shoemaker MD LAB - CHEMISTRY [place] Organization Address City/State/ZIP Co de Phone Number [facility] [employer] ([facility]) [address] [place] [address], [facility] * (ABNORMAL) URINALYSIS W/MICROSCOPIC NO CULTURE (10/13/2021 2:41 PM DRYING EQUIPMENT OPERATOR) Only the most recent of4 resultswithin the time period is included. Color UA Yellow Straw, Yellow 10/13/2021 3:47 PM DRYING EQUIPMENT OPERATOR [facility] Clarity UA Slt Cloudy(A) Clear 10/13/2021 3:47 PM DRYING EQUIPMENT OPERATOR [facility] Specific [place] UA 1.028 1.005 - 1.030 10/13/2021 3:47 PM [facility] pH UA 6.0 5.0 - 8.0 pH 10/13/2021 3:47 PM [facility] Protein UA 2+(A) Negative 10/13/2021 3:47 PM [facility] Glucose UA Negative Negative 10/13/2021 3:47 PM [facility] Ketone UA Negative Negative 10/13/2021 3:47 PM [facility] Bilirubin UA Negative Negative 10/13/2021 3:47 PM [facility] Blood UA Negative Negative 10/13/2021 3:47 PM [facility] Nitrite UA Negative Negative 10/13/2021 3:47 PM [facility] Leukocyte Esterase Trace(A) Negative 10/13/2021 3:47 PM [facility] Urobilinogen UA Negative Negative mg/dL 10/13/2021 3:47 PM [facility] RBC UA 0-2 None Seen, 0-2, 3-5 /HPF 10/13/2021 3:47 PM [facility] WBC UA 0-5 None Seen, 0-5 /HPF 10/13/2021 3:47 PM [facility] Bacteria UA Trace(A) None /HPF 10/13/2021 3:47 PM [facility] Squamous Epithelial Cells UA 6-10(A) None Seen, 0-2, 3-5 /HPF 10/13/2021 3:47 PM [facility] Mucus UA 3+ /LPF 10/13/2021 3:47 PM [facility] Urine URINE SPECIMEN OBTAINED BY CLEAN CATCH PROCEDURE / Unknown Collection / Unknown 10/13/2021 2:41 PM DRYING EQUIPMENT OPERATOR 10/13/2021 3:18 PM DRYING EQUIPMENT OPERATOR [facility] - 10/13/2021 3:47 PM DRYING EQUIPMENT OPERATOR Tevin Shoemaker MD LAB - URINALYSIS ORD ERABLES [address] [address], [facility] [phone] * XR FOREARM LEFT 2VW (10/13/2021 2:24 PM DRYING EQUIPMENT OPERATOR) Anatomical Region Laterality Modality Upper Extremity Radiographic Johanna ging 10/13/2021 2:45 PM DRYING EQUIPMENT OPERATOR Impressions 10/13/2021 2:46 PM DRYING EQUIPMENT OPERATOR IMPRESSION: Normal. This report was electronically signed by RODRICK BORGES MD ??on 10/13/2021 2:46 PM . Narrative 10/13/2021 2:46 PM DRYING EQUIPMENT OPERATOR Exam: ??XR FOREARM LEFT 2VW History: ??S42.302A: [...] XR ELBOW LEFT 2VW (10/13/2021 2:24 PM DRYING EQUIPMENT OPERATOR) Anatomical Region Laterality Modality Upper Extremity Radiographic Johanna ging 10/13/2021 2:44 PM DRYING EQUIPMENT OPERATOR Impressions 10/13/2021 2:45 PM DRYING EQUIPMENT OPERATOR IMPRESSION: Normal. This report was electronically signed by RODRICK BORGES MD ??on 10/13/2021 2:45 PM . Narrative 10/13/2021 2:45 PM DRYING EQUIPMENT OPERATOR Exam: ??XR ELBOW LEFT 2VW History: ??S42.302A: [...] LEFT 2VW OR MORE (10/13/2021 2:24 PM DRYING EQUIPMENT OPERATOR) Anatomical Region Laterality Modality Upper Extremity Radiographic Johanna ging 10/13/2021 2:15 PM DRYING EQUIPMENT OPERATOR Impressions 10/13/2021 2:17 PM DRYING EQUIPMENT OPERATOR IMPRESSION: Normal. This report was electronically signed by RODRICK BORGES MD ??on 10/13/2021 2:17 PM . Narrative 10/13/2021 2:17 PM DRYING EQUIPMENT OPERATOR Exam: ??XR HUMERUS LEFT 2VW History: ??S42.302A: [...] - 4.940 uIU/mL 05/27/2021 1:26 PM CDT [facility] Blood BLOOD SPECIMEN / Unknown Lab Venipuncture / Unknown 05/27/2021 12:14 PM CDT 05/27/2021 12:31 PM CDT Tevin Shoemaker MD LAB - CHEMISTRY [place] Performing Organization Address City/[facility]/ZIP Co de Phone Number [address] [address], [place] [phone] * T4 FREE (05/27/2021 12:14 PM CDT) Only the most recent of3 resultswithin the time period is included. T4 Free 1.0 0.7 - 1.5 ng/dL 05/27/2021 1:26 PM CDT [facility] Blood BLOOD SPECIMEN / Unknown Lab Venipuncture / Unknown 05/27/2021 12:14 PM CDT 05/27/2021 12:31 PM CDT Tevin Shoemaker MD LAB - CHEMISTRY [place] Performing Organization Address [facility] Co de Phone Number [address] [address], [place] [phone] * TRICHOMONAS VAGINALIS AMPLIFIED PROBE (05/06/2020 10:45 AM CDT) Only the most recent of5 resultswithin the time period is included. Trichomonas vaginalis Amplified Probe Negative Negative 05/07/2020 11:56 AM CDT [facility] Microbiology URINE / Unknown Collection / Unknown 05/06/2020 10:45 AM CDT 05/06/2020 11:00 AM CDT Narrative [facility] MICROBIOLOGY - 05/07/2020 11:56 AM CDT This test was developed and its performance characteristics determined by the [facility], [facility]. Urine specimens tested by the [facility] [place] have not been cleared or approved by [...] - MICROBIO LOGY ORDERABLES Performing Organization Address City/[facility] Co de Phone Number [facility] MICROBIOLOGY [address] [place] [address], [facility] [phone] * CHLAMYDIA + GC AMPLIFIED PROBE (STL) (05/06/2020 10:45 AM CDT) Only the most recent of4 resultswithin the time period is included. Chlamydia Amplified Probe Negative Negative 05/07/2020 11:51 AM CDT [facility] MICROBIOLOGY GC Amplified Probe Negative Negative 05/07/2020 11:51 AM CDT [facility] MICRO[facility]OLOGY Microbiology URINE / Unknown Collection / Unknown 05/06/2020 10:45 AM CDT 05/06/2020 11:00 AM CDT Narrative [facility] MICROBIOLOGY - 05/07/2020 11:51 AM CDT Results based on detection/no detection of ribosomal RNA by amplified method. Neena Alejandro MD LAB - MICROBIO LOGY ORDERABLES Performing Organization Address [facility] Co de Phone Number [facility] MICROBIOLOGY [address] [place] [address], [facility] [phone] * XR PELVIS 1 OR 2 VW [...] See Separate Report 03/18/2020 2:30 PM CDT [facility] Urine URINE / Unknown 0 1:25 PM CDT Anthony Adams MD LAB - URINALYSIS ORD ERABLES Performing Organization Address [facility] Co de Phone Number [facility] [address] [place] [address] * HCG URINE QUALITATIVE - POCT (IP) INTERFACED (03/18/2020 2:26 PM CDT) Only the most recent of3 resultswithin the time period is included. Pathologist [facility] HCG Qual Urine Negative Negative 03/18/2020 2:37 PM CDT [facility] Urine URINE / Unknown 03/18/2020 2 :26 PM CDT 03/18/2020 2:37 PM CDT Kodi Fountain MD LAB - POINT OF CARE ORDERABLES Performing Organization Address [facility]/ZIP Co de Phone Number [facility] [address] [place] [phone] * (ABNORMAL) BASIC METABOLIC PANEL (CALCIUM TOTAL) (03/18/2020 2:01 PM CDT) Only the most recent of2 resultswithin the time period is included. Pathologist [facility] Glucose 89 70 - 105 mg/dL 03/18/2020 2:26 PM CDT [facility] Sodium 138 136 - 145 mmol/L 03/18/2020 2:26 PM CDT [facility] Potassium 4.2 3.5 - 5.1 mmol/L 03/18/2020 2:26 PM CDT [facility] Chloride 111(H) 98 - 107 mmol/L 03/18/2020 2:26 PM CDT [facility] CO2 20 20 - 28 mmol/L 03/18/2020 2:26 PM CDT [facility] Calcium 9.15 9.08 - 10.48 mg/dL 03/18/2020 2:26 PM CDT [facility] Anion Gap 7 5 - 20 mmol/L 03/18/2020 2:26 PM CDT [facility] BUN 15.2 5.3 - 18.7 mg/dL 03/18/2020 2:26 PM T [facility] Creatinine 0.79 0.61 - 1.07 mg/dL 03/18/2020 2:26 PM T [facility] eGFR by MDRD >60 >60 mL/min/1.7 3m2 03/18/2020 2:26 PM T [facility] eGFR by MDRD >60 >60 mL/min/1.7 3m2 03/18/2020 2:26 PM CDT [facility] Blood BLOOD SPECIMEN / Unknown Venipuncture / Unknown 03/18/2020 2:01 PM CDT 03/18/2020 2:04 PM CDT Anthony Adams MD LAB - CHEMISTRY [facility] Organization Address City/State/[facility] Co de Phone Number [facility] [address] [place] [phone] * (ABNORMAL) URINALYSIS W/MICROSCOPIC REFLEX TO CULTURE (01/25/2020 2:17 PM CDT) Color UA Yellow Straw, Yellow 01/25/2020 2:36 PM CDT [facility] Clarity UA Slt Cloudy(A) Clear 01/25/2020 2:36 PM CDT [facility] Glucose UA Negative Negative 01/25/2020 2:36 PM CDT [facility] Bilirubin UA Negative Negative 01/25/2020 2:36 PM CDT [facility] Ketone UA Trace(A) Negative 01/25/2020 2:36 PM CDT [facility] Specific [place] UA 1.028 1.005 - 1.030 01/25/2020 2:36 PM CDT [facility] Blood UA Negative Negative 01/25/2020 2:36 PM CDT [facility] pH UA 7.0 5.0 - 8.0 pH 01/25/2020 2:36 PM CDT [facility] Protein UA Negative Negative 01/25/2020 2:36 PM CDT [facility] Urobilinogen UA Negative Negative mg/dL 01/25/2020 2:36 PM CDT [facility] Nitrite UA Negative Negative 01/25/2020 2:36 PM CDT [facility] Leukocyte UA 1+(A) Negative 01/25/2020 2:36 PM CDT [facility] RBC UA 0-2 None Seen, 0-2, 3-5 # /hpf 01/25/2020 2:36 PM CDT [facility] WBC UA 0-5 None Seen, 0-5 # /hpf 01/25/2020 2:36 PM CDT [facility] Bacteria UA Trace(A) None Seen 01/25/2020 2:36 PM CDT [facility] Squamous Epithelial Cells 3-5 None Seen, 0-2, 3-5 /hpf 01/25/2020 2:36 PM CDT [facility] Mucus UA 3+ /LPF 01/25/2020 2:36 PM CDT [facility] Reflex Status Culture to follow 01/25/2020 2:36 PM CDT [facility] Urine URINE SPECIMEN OBTAINED BY CLEAN CATCH PROCEDURE / Unknown Collection / Unknown 01/25/2020 2:17 PM CDT 01/25/2020 2:23 PM CDT Narrative [facility] - 01/25/2020 2:36 PM CDT Sandy Aranda DO LAB - URINALYSIS ORD ERABLES [facility] [address] [place] [id number] * CULTURE URINE (01/25/2020 2:17 PM CDT) Culture Urine 10,000-50,000 CFU/mL urogenital ava NOELLE 01/27/2020 1:24 AM CDT [facility] Urine URINE SPECIMEN OBTAINED BY CLEAN CATCH PROCEDURE / Unknown Collection / Unknown 01/25/2020 2:17 PM CDT 01/25/2020 2:23 PM CDT Sandy Aranda DO LAB - MICROBIOLOGY O RDERABLES [facility]CRO[facility] [address] [place] [address], [facility] [phone] * CHROMATIN ANTIBODY (09/21/2019 3:32 PM DRYING EQUIPMENT OPERATOR) Only the most recent of2 resultswithin the time period is included. Antichromatin Antibodies <0.2 0.0 - 0.9 AI 09/22/2019 10:09 AM DRYING EQUIPMENT OPERATOR [facility] ([facility]) Blood BLOOD SPECIMEN / Unknown Lab Venipuncture / Unknown 09/21/2019 3:32 PM DRYING EQUIPMENT OPERATOR 09/21/2019 4:11 PM DRYING EQUIPMENT OPERATOR Narrative [facility] ([facility]) - 09/22/2019 10:09 AM DRYING EQUIPMENT OPERATOR Performed at: ??01 - [facility] [address] ??[id number] Radiological Engineer: Luis Glass PhD, Phone: ??[phone] Sandy Aranda DO LAB - SEROLOGY ORDER APPLE Performing Organization Address City/[facility] Co de Phone Number [facility] ([facility]) [address] [place] [address] * ANCA VASCULITIS PANEL (09/21/2019 3:32 PM DRYING EQUIPMENT OPERATOR) Only the most recent of2 resultswithin the time period is included. Anti-myeloperoxid ase (MPO) Antibody <9.0 0.0 - 9.0 U/mL 09/24/2019 6:07 PM DRYING EQUIPMENT OPERATOR [facility] ([facility]) Anti-proteinase 3 (MO-3) Abs <3.5 0.0 - 3.5 U/mL 09/24/2019 6:07 PM DRYING EQUIPMENT OPERATOR [facility] ([facility]) Cytoplasmic (C-ANCA) <1:20 Neg:<1:20 titer 09/24/2019 6:07 PM DRYING EQUIPMENT OPERATOR [facility] ([facility]) p-ANCA Titer <1:20 Neg:<1:20 titer 09/24/2019 6:07 PM DRYING EQUIPMENT OPERATOR [facility] ([facility]) Comment: The presence of positive fluorescence exhibiting [...] Titer <1:20 Neg:<1:20 titer 09/24/2019 6:07 PM [facility] ([facility]) Comment: The atypical pANCA pattern has been observed in a significant percentage of patients with ulcerative colitis, primary sclerosing cholangitis and autoimmune hepatitis. Blood BLOOD SPECIMEN / Unknown Lab Venipuncture / Unknown 09/21/2019 3:32 PM DRYING EQUIPMENT OPERATOR 09/21/2019 4:11 PM DRYING EQUIPMENT OPERATOR Narrative [facility] ([facility]) - 09/24/2019 6:07 PM DRYING EQUIPMENT OPERATOR Performed at: ??01 - [address] ??[id number] Radiological Engineer: Ema Pinedo MD, Phone: ??[phone] Performed at: ??02 - Lab[address] ??[id number] Radiological Engineer: Luis Glass PhD, Phone: ??[phone] Sandy Aranda DO LAB - CHEMISTRY SHE[place] [facility] ([facility]) [address] [place] [address] * CAN PUSHER ANTIBODY (09/21/2019 3:32 PM DRYING EQUIPMENT OPERATOR) CAN PUSHER Antibody <0.2 0.0 - 0.9 AI 09/22/2019 10:09 AM DRYING EQUIPMENT OPERATOR [facility] ([facility]) Blood BLOOD SPECIMEN / Unknown Lab Venipuncture / Unknown 09/21/2019 3:32 PM DRYING EQUIPMENT OPERATOR 09/21/2019 4:11 PM DRYING EQUIPMENT OPERATOR Narrative [facility] ([facility]) - 09/22/2019 10:09 AM DRYING EQUIPMENT OPERATOR Performed at: ??01 - [facility] [address] [place], [place] ??[id number] Radiological Engineer: Luis Glass PhD, Phone: ??[phone] Sandy A Rosi DO LAB - CHEMISTRY [place] Performing Organization Address [facility] Co de Phone Number [facility] ([facility]) [address] [place] [address] * (ABNORMAL) HISTONE ANTIBODY (09/21/2019 3:32 PM DRYING EQUIPMENT OPERATOR) Only the most recent of2 resultswithin the time period is included. Anti-Histone Antibody 1.4(H) 0.0 - 0.9 Units 09/26/2019 2:09 PM DRYING EQUIPMENT OPERATOR [facility] ([facility]) Comment: ? Negative ?<1.0 ? Weak Positive ?1.0 - 1.5 ? Moderate Positive ??1.6 - 2.5 ? Strong Positive ? >2.5 Blood BLOOD SPECIMEN / Unknown Lab Venipuncture / Unknown 09/21/2019 3:32 PM DRYING EQUIPMENT OPERATOR 09/21/2019 4:11 PM DRYING EQUIPMENT OPERATOR Narrative [facility] ([facility]) - 09/26/2019 2:09 PM DRYING EQUIPMENT OPERATOR Performed at: ??01 - [address] ??[id number] Radiological Engineer: Ema Pinedo MD, Phone: ??[phone] Sandy Baylee Rosi RODARTE LAB - CHEMISTRY [place]A [place] Performing Organization Address City/[facility] Co de Phone Number [facility] ([facility]) [address] [place] [address] * SS-A ANTIBODY (09/21/2019 3:32 PM DRYING EQUIPMENT OPERATOR) Only the most recent of2 resultswithin the time period is included. Sjogren's Antibodies (SSA) <0.2 0.0 - 0.9 AI 09/22/2019 10:09 AM DRYING EQUIPMENT OPERATOR [facility] ([facility]) Blood BLOOD SPECIMEN / Unknown Lab Venipuncture / Unknown 09/21/2019 3:32 PM DRYING EQUIPMENT OPERATOR 09/21/2019 4:11 PM DRYING EQUIPMENT OPERATOR Narrative [facility] ([facility]) - 09/22/2019 10:09 AM DRYING EQUIPMENT OPERATOR Performed at: ??01 - [facility] [address] [place], [place] ??[id number] Radiological Engineer: Luis Glass PhD, Phone: ??[phone] Sandy Aranda DO LAB - CHEMISTRY SHE[place] Performing Organization Address City/State/[facility] Co de Phone Number [facility] ([facility]) [address] [place] [address] * CARDIOLIPIN ANTIBODY PANEL (03/02/2019 2:25 PM CDT) Cardiolipin Antibody IgG <9 0 - 14 GPL U/mL 03/03/2019 4:10 PM CDT [facility] ([facility]) Comment: ?Negative: ?<15 ?Indeterminate: ? 15 - 20 ?Low-Med Positive: >20 - 80 ?High Positive: ? >80 Cardiolipin Antibody IgM 9 0 - 12 MPL U/mL 03/03/2019 4:10 PM CDT [facility] ([facility]) Comment: ?Negative: ?<13 ?Indeterminate: ? 13 - 20 ?Low-Med Positive: >20 - 80 ?High Positive: ? >80 Blood BLOOD SPECIMEN / Unknown Lab Venipuncture / Unknown 03/02/2019 2:25 PM CDT 03/02/2019 3:02 PM CDT Narrative [facility] ([facility]) - 03/03/2019 4:10 PM CDT Performed at: ??01 - [facility] [address] [place], [place] ??[id number] Radiological Engineer: Luis Glass PhD, Phone: ??[phone] Tevin Shoemaker MD LAB - SEROLOGY ORDER [place] [facility] ([facility]) [address] [place] [address] * LUPUS ANTICOAGULANT PANEL (03/02/2019 2:25 PM CDT) PTT-LA 32.1 0.0 - 51.9 sec 03/03/2019 10:05 PM CDT [facility] ([facility]) dRVVT 29.7 0.0 - 47.0 sec 03/03/2019 10:05 PM CDT [facility] ([facility]) Interpretation Comment: 03/03/2019 10:05 PM CDT [facility] ([facility]) Comment:No lupus anticoagula nt was detected. Blood BLOOD SPECIMEN / Unknown Lab Venipuncture / Unknown 03/02/2019 2:25 PM CDT 03/02/2019 3:02 PM CDT Narrative [facility] ([facility]) - 03/03/2019 10:05 PM CDT Performed at: ??01 - [facility] [address] ??[id number] Radiological Engineer: Ema Pinedo MD, Phone: ??[phone] Tevin Shoemaker MD LAB - HEMATOLOGY ORD ERABLES Performing Organization Address City/[facility]/ZIP Co de Phone Number [facility] ([facility]) [address] [place] [address] * THYROID ANTIBODY PANEL (03/02/2019 2:25 PM CDT) Thyroid Peroxidase TPO Antibody 12 0 - 26 IU/mL 03/03/2019 1:09 PM CDT [facility] ([facility]) Thyroglobulin Antibody <1.0 0.0 - 0.9 IU/mL 03/03/2019 1:09 PM CDT [facility] ([facility]) Comment:Thyroglobulin Antibo dy measured by Jaye Rodriguez Methodology Blood BLOOD SPECIMEN / Unknown Lab Venipuncture / Unknown 03/02/2019 2:25 PM CDT 03/02/2019 3:02 PM CDT Narrative [facility] ([facility]) - 03/03/2019 1:09 PM CDT Performed at: ??01 - [facility] [place] [address] [place], [place] ??[id number] Radiological Engineer: Lius Glass PhD, Phone: ??[phone] Tevin Shoemaker MD LAB - CHEMISTRY [place] Performing Organization Address City/[facility]/ZIP Co de Phone Number [facility] ([facility]) [address] [place] [address] * BETA-2 GLYCOPROTEIN 1 ANTIBODY IGG/IGM PANEL (03/02/2019 2:25 PM CDT) Beta-2 Glycoprotein I Antibody IgG <9 0 - 20 GPI IgG units 03/04/2019 3:07 PM CDT [facility] ([facility]) Comment: The reference interval reflects a 3SD or 99th percentile interval, which is thought to represent a potentially clinically significant result in accordance with the International Consensus Statement on the classification criteria for definitive antiphospholipid syndrome (APS). J Thromb Haem 2006;4:295-306. Beta-2 Glycoprotein I Antibody IgM <9 0 - 32 GPI IgM units 03/04/2019 3:07 PM CDT [facility] ([facility]) Comment: The reference interval reflects a 3SD or 99th percentile interval, which is thought to represent a potentially clinically significant result in accordance with the International Consensus Statement on the classification criteria for definitive antiphospholipid syndrome (APS). J Thromb Haem 2006;4:295-306. Blood BLOOD SPECIMEN / Unknown Lab Venipuncture / Unknown 03/02/2019 2:25 PM CDT 03/02/2019 3:02 PM CDT Narrative [facility] ([facility]) - 03/04/2019 3:07 PM CDT Performed at: ??01 - [facility] ??[id number] Radiological Engineer: Ema Pinedo MD, Phone: ??[phone] Tevin Shoemaker MD LAB - CHEMISTRY SHEEL[place] [facility] ([facility]) [address] [place] [address] * CHLAMYDIA + GC AMPLIFIED PROBE (02/13/2019 12:06 PM CDT) Only the most recent of4 resultswithin the time period is included. Chlamydia Amplified Probe Negative Negative 02/14/2019 7:41 AM CDT [facility] MICROBIOLOGY GC Amplified Probe Negative Negative 02/14/2019 7:41 AM CDT [facility] MICROBIOLOGY Urine URINE / Unknown Collection / Unknown 02/13/2019 12:06 PM CDT 02/13/2019 12:23 PM CDT Narrative [facility] MICROBIOLOGY - 02/14/2019 7:41 AM CDT Results based on detection/no detection of ribosomal RNA by amplified method. Neena Alejandro MD LAB - MICROBIO LOGY ORDERABLES [facility] MICROBIOLOGY [address] [place] [address], [facility] [phone] * XR LUMBAR SPINE 2 OR 3 VW (12/26/2018 1:35 PM DRYING EQUIPMENT OPERATOR) Anatomical Region Laterality Modality Spine Radiographic Johanna ging 12/26/2018 1:38 PM DRYING EQUIPMENT OPERATOR Impressions 12/26/2018 1:40 PM DRYING EQUIPMENT OPERATOR No acute osseous abnormality. Reading Radiologist: Lynn Alcazar MD on 12/26/2018 at 1:40 PM Narrative 12/26/2018 1:40 PM DRYING EQUIPMENT OPERATOR Exam: Left knee, 3 views Right knee, [...] JOINTS 3VW OR MORE (12/26/2018 1:33 PM DRYING EQUIPMENT OPERATOR) Anatomical Region Laterality Modality Pelvis, Lower Extremity [facility] 12/26/2018 1:38 PM DRYING EQUIPMENT OPERATOR Impressions 12/26/2018 1:40 PM DRYING EQUIPMENT OPERATOR No acute osseous abnormality. Reading Radiologist: Lynn Alcazar MD on 12/26/2018 at 1:40 PM Narrative 12/26/2018 1:40 PM DRYING EQUIPMENT OPERATOR Exam: Left knee, 3 views Right knee, [...] XR KNEE RIGHT 3VW (12/26/2018 1:31 PM DRYING EQUIPMENT OPERATOR) Anatomical Region Laterality Modality Lower Extremity Radiographic Johanna ging 12/26/2018 1:38 PM DRYING EQUIPMENT OPERATOR Impressions 12/26/2018 1:40 PM DRYING EQUIPMENT OPERATOR No acute osseous abnormality. Reading Radiologist: Lynn Alcazar MD on 12/26/2018 at 1:40 PM Narrative 12/26/2018 1:40 PM DRYING EQUIPMENT OPERATOR Exam: Left knee, 3 views Right knee, [...] KNEE 3 VW LEFT (12/26/2018 1:31 PM DRYING EQUIPMENT OPERATOR) Anatomical Region Laterality Modality Lower Extremity Radiographic Johanna ging 12/26/2018 1:38 PM DRYING EQUIPMENT OPERATOR Impressions 12/26/2018 1:40 PM DRYING EQUIPMENT OPERATOR No acute osseous abnormality. Reading Radiologist: Lynn Alcazar MD on 12/26/2018 at 1:40 PM Narrative 12/26/2018 1:40 PM DRYING EQUIPMENT OPERATOR Exam: Left knee, 3 views Right knee, [...] PEPTIDE ANTIBODY IGG/IGA (CCP) (12/26/2018 1:16 PM DRYING EQUIPMENT OPERATOR) [facility]CP Antibodies IgG/IgA 4 0 - 19 units 12/27/2018 10:07 PM DRYING EQUIPMENT OPERATOR [facility] ([facility]) Comment: ?Negative ? <20 ?Weak positive ?20 - 39 ?Moderate positive ??40 - 59 ?Strong positive ?>59 Blood BLOOD SPECIMEN / Unknown Lab Venipuncture / Unknown 12/26/2018 1:16 PM DRYING EQUIPMENT OPERATOR 12/26/2018 1:32 PM DRYING EQUIPMENT OPERATOR Narrative [facility] ([facility]) - 12/27/2018 10:07 PM DRYING EQUIPMENT OPERATOR Performed at: ??01 - [facility] [address] ??[id number] Radiological Engineer: Ema Pinedo MD, Phone: ??[phone] Norman Byrd DO LAB - SEROLO GY ORDERABLES [facility] ([facility]) [address] [place] [address] * TISSUE TRANSGLUTAMINASE AB IGA (12/26/2018 1:16 PM DRYING EQUIPMENT OPERATOR) Pathologist [facility] TTG Antibody IgA <2 0 - 3 U/mL 12/27/2018 2:14 PM DRYING EQUIPMENT OPERATOR [facility] ([facility]) Comment: ?Negative ?0 - ??3 ?Weak Positive ?? 4 - 10 ?Positive ? >10 Tissue Transglutaminase (tTG) has been identified as the endomysial antigen. ??Studies have demonstr- ated that endomysial IgA antibodies have over 99% specificity for gluten sensitive enteropathy. Blood BLOOD SPECIMEN / Unknown Lab Venipuncture / Unknown 12/26/2018 1:16 PM DRYING EQUIPMENT OPERATOR 12/26/2018 1:32 PM DRYING EQUIPMENT OPERATOR Narrative [facility] ([facility]) - 12/27/2018 2:14 PM DRYING EQUIPMENT OPERATOR Performed at: ??01 - [facility] [place] [id number] [place], [place] ??[id number] Radiological Engineer: Luis Glass PhD, Phone: ??[phone] Norman Byrd DO LAB - SEROLO GY ORDERABLES Performing Organization Address [facility] de Phone Number [facility] ([facility]) [address] [place] [address] * RHEUMATOID FACTOR BLOOD QUANTITATIVE (12/26/2018 1:16 PM DRYING EQUIPMENT OPERATOR) Rheumatoid Factor Quantitative 11 <15 IU/mL 12/26/2018 2:01 PM DRYING EQUIPMENT OPERATOR [facility] Blood BLOOD SPECIMEN / Unknown Lab Venipuncture / Unknown 12/26/2018 1:16 PM DRYING EQUIPMENT OPERATOR 12/26/2018 1:32 PM DRYING EQUIPMENT OPERATOR Norman Byrd DO LAB - CHEMIS TRY ORDERABLES Performing Organization Address City/[facility] Co de Phone Number [facility] [address] [place] [address] * HLA TYPING B27 (12/26/2018 1:16 PM DRYING EQUIPMENT OPERATOR) HLA-B27 Negative 12/30/2018 4:17 PM DRYING EQUIPMENT OPERATOR [facility] ([facility]) Comment: HLA-B*27 Negative B27 allele interpretation for all loci based on IMGT/HLA database version 3.33.0 This test was developed and its performance characteristics determined by [facility]. ??It has not been cleared or approved by the Food and Drug Administration. [facility] CLIA ID Number [id number] This test was performed using PCR (Polymerase Chain Reaction)/SSOP (Sequence Specific Oligonucleotide Probes) technique. ??SBT (Sequence Based Typing) and/or SSP (Sequence Specific Primers) may be used as supplemental methods when necessary. ??Please contact [facility] Customer Service at if you have any questions. Director of [facility] Laboratory Dr Avelino López, PhD Blood BLOOD SPECIMEN / Unknown Lab Venipuncture / Unknown 12/26/2018 1:16 PM DRYING EQUIPMENT OPERATOR 12/26/2018 1:32 PM DRYING EQUIPMENT OPERATOR Narrative [facility] ([facility]) - 12/30/2018 4:17 PM DRYING EQUIPMENT OPERATOR Performed at: ??01 - [facility] [address] [place] [address] ??[id number] Radiological Engineer: Avelino López PhD, Phone: ??[phone] Norman Byrd DO LAB - CHEMIS TRY ORDERABLES [facility] ([facility]) [address] [place] [address] * COMPLEMENT CH50 (12/26/2018 1:16 PM DRYING EQUIPMENT OPERATOR) Complement Total CH50 >60 >39 U/mL 12/27/2018 3:11 PM DRYING EQUIPMENT OPERATOR [facility] ([facility]) Blood BLOOD SPECIMEN / Unknown Lab Venipuncture / Unknown 12/26/2018 1:16 PM DRYING EQUIPMENT OPERATOR 12/26/2018 1:32 PM DRYING EQUIPMENT OPERATOR Narrative [facility] ([facility]) - 12/27/2018 3:11 PM DRYING EQUIPMENT OPERATOR Performed at: ??01 - [facility] [id number] [place], [place] ??[id number] Radiological Engineer: Luis Glass PhD, Phone: ??[phone] Norman Byrd DO LAB - CHEMIS TRY ORDERABLES [facility]) [address] [place] [address] * IMMUNOGLOBULINS PANEL (inc IgA, IgG, IgM) (12/26/2018 1:16 PM DRYING EQUIPMENT OPERATOR) IgA 137 65 - 421 mg/dL 12/26/2018 2:05 PM DRYING EQUIPMENT OPERATOR [facility] IgG 1,181 552 - 1,631 mg/dL 12/26/2018 2:05 PM DRYING EQUIPMENT OPERATOR [facility] IgM 131 33 - 293 mg/dL 12/26/2018 2:05 PM DRYING EQUIPMENT OPERATOR [facility] Blood BLOOD SPECIMEN / Unknown Lab Venipuncture / Unknown 12/26/2018 1:16 PM DRYING EQUIPMENT OPERATOR 12/26/2018 1:32 PM DRYING EQUIPMENT OPERATOR Norman Byrd DO LAB - CHEMIS TRY ORDERABLES Performing Organization Address City/[facility]/ZIP Co de Phone Number [facility] [address] [place] [address] * CARDIAC EKG ORDER (07/27/2018 10:12 PM CDT) Narrative 07/27/2018 10:12 PM CDT Ordered by an unspecified provider. Scanned Document CARDIAC SERVICES ORD ERABLES * LITHIUM LEVEL (07/26/2018 11:22 AM CDT) Only the most recent of3 resultswithin the time period is included. [place] 1.0 0.6 - 1.2 mmol/L 07/26/2018 12:24 PM CDT [facility] Blood BLOOD SPECIMEN / Unknown Lab Venipuncture / Unknown 07/26/2018 11:22 AM CDT 07/26/2018 11:32 AM CDT Deni Rosado DO LAB - CHEMISTRY ORDE GE [facility] [address] [place] [address] * (ABNORMAL) DRUG SCREEN TOX URINE PANEL (07/26/2018 3:00 AM CDT) Amphetamines Screen Urine Not Detected Not Detected 07/26/2018 4:16 AM T [facility] Barbiturates Screen Urine Not Detected Not Detected 07/26/2018 4:16 AM T [facility] Benzodiazepines Screen Urine Not Detected Not Detected 07/26/2018 4:16 AM T [facility] Cannabinoids Screen Urine Detected(AA ) Not Detected 07/26/2018 4:16 AM T [facility] Cocaine Screen Urine Not Detected Not Detected 07/26/2018 4:16 AM T [facility] Methadone Screen Urine Not Detected Not Detected 07/26/2018 4:16 AM T [facility] Opiate Screen Urine Not Detected Not Detected 07/26/2018 4:16 AM T [facility] Phencyclidine Screen Urine Not Detected Not Detected 07/26/2018 4:16 AM T [facility] Urine URINE / Unknown Collection / Unknown 07/26/2018 3:00 AM CDT 07/26/2018 3:51 AM CDT Narrative [facility] - 07/26/2018 4:16 AM T This [...] MD LAB - URINE CHEMISTR Y ORDERABLES [facility] [address] [place] [address] * XR KNEE 4+ VW LEFT (11/11/2017 3:14 PM DRYING EQUIPMENT OPERATOR) Anatomical Region Laterality Modality Lower Extremity Radiographic Johanna ging 11/11/2017 3:31 PM DRYING EQUIPMENT OPERATOR Impressions 11/11/2017 3:32 PM DRYING EQUIPMENT OPERATOR Mild infrapatellar soft tissue edema. Narrative 11/11/2017 3:32 PM DRYING EQUIPMENT OPERATOR EXAMINATION: Left knee 4 or more views [...] IMPRESSION Mild infrapatellar soft tissue edema. Aakash Betancuort PA-C DIAGNOSTIC IMAGING O RDERABLES * URINALYSIS - POCT (IP) JOSH (07/13/2017 12:30 PM CDT) Glucose UA neg Negative [facility] POC T TESTING Bilirubin UA neg Negative [facility] P OCT TESTING Ketone UA neg Negative [facility] POCT TESTING Specific [place] UA POCT 1.010 1.000 - 1.030 [facility] POCT TESTING Blood UA neg Negative [facility] POCT TESTING pH UA 6.0 5.0 - 8.0 pH units [facility] POCT TESTING Protein UA neg Negative [facility] POC T TESTING Urobilinogen UA 0.2 0.2 - 1.0 EU/dL [facility] POCT TESTING Nitrite UA neg Negative [facility] POC T TESTING Leukocyte UA neg Negative [facility] P OCT TESTING QC Verified Yes Yes [facility] PO CT TESTING Urine URINE / Unknown 07/13/2017 1 2:30 PM CDT Neena Alejandro MD LAB - POINT OF CARE ORDERABLES [facility] POCT TESTING [address] [place] [address], [facility] [phone] * XR KNEE 4+ VW RIGHT (10/09/2016 3:31 PM DRYING EQUIPMENT OPERATOR) Anatomical Region Laterality Modality Lower Extremity Radiographic Johanna ging 10/09/2016 3:47 PM DRYING EQUIPMENT OPERATOR Impressions 10/09/2016 3:48 PM DRYING EQUIPMENT OPERATOR No acute osseous abnormality. Narrative 10/09/2016 3:48 PM DRYING EQUIPMENT OPERATOR Exam: Right knee, 4 views HISTORY: Knee [...] THERAPEUTIC DR MERCER MONITORING ORDERABLES Care Teams Child Nutrition Manager Relationship Specialty Start Date End Date Zuleyma Martinez MD [address] [place] [phone] PCP - General Gastroenterology 10/13/21
[2024-12-09 23:27] LABS: Basophils Percent Auto 0.3 % (0.2-1.2); Eosinophils Percent Auto 0.2 % (0-4.4); Hematocrit 32.4 % (37.0-47.0); Immature Granulocyte Absolute 0.04 K/mm3 (0.00-0.031); Immature Granulocyte Percent A 0.3 % (0-0.5); Lymphocytes Absolute Auto 2.28 K/mm3 (0.9-3.2); Lymphocytes Percent Auto 17.5 % (18.3-44.2); Mean Corpuscular Hemoglobin 29.7 pg (26-34); Mean Corpuscular Volume 87.6 fl (80-100); Mean Platelet Volume 10.5 fl (7.4-10.4); Monocytes Absolute Auto 0.8 K/mm3 (0.1-0.6); Monocytes Percent Auto 5.7 % (2.6-8.5); Neutrophils Absolute Auto 9.9 K/mm3 (1.3-6.7); Platelet Count Result 224 k/mm3 (150-375); Red Cell Distribution Width 13.2 % (11.5-14.5); White Blood Count 13.1 K/mm3 (4.5-10.0)
[2024-12-09 23:36] LABS: Add Urine Microscopic? YES; Appearance Urine Turbid (Clear); Bacteria Urine 4+ /hpf; Bilirubin Urine Negative (Negative); Blood Urine Negative (Negative); Color Urine Yellow (Yellow); Glucose Urine UA 1+ mg/dL (Negative); Ketones Urine 1+ mg/dL (Negative); Leukocyte Esterase Ur Negative LEU/UL (Negative); Need Manual Microscopic Reviewed; Nitrate Urine Negative (Negative); Non Pathogenic Casts 0-2; Protein Urine 2+ mg/dL (Negative); Specific Grav Ur 1.035 (1.001-1.035); Squamous Epithelial Cell Urine Moderate /hpf (Few); pH Urine 6.5 (5.0-9.0)
[2024-12-09 23:38] LABS: Alanine Aminotransferase 10 U/L (6-35); Albumin Level 3.9 g/dL (3.5-5.1); Alkaline Phosphatase 46 U/L (38-126); Anion Gap 9 mmol/L (4-12); Aspartate Amino Transferase 19 U/L (14-36); Bilirubin,Total 0.3 mg/dL (0.2-1.3); Blood Urea Nitrogen 11 mg/dL (7-17); Calcium 9.3 mg/dL (8.4-10.2); Carbon Dioxide 19 mmol/L (22-30); Chloride 106 mmol/L (98-107); Estimated CRCL calculation 125 ml/min; Estimated Glomerular Filt Rate > 60; Glucose 87 mg/dL (65-110); Potassium 3.9 mmol/L (3.4-5.0); Sodium 134 mmol/L (137-145)
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
== END 2024-12-10 01:30 | disposition home or self-care (01) ==
PROVIDERS: Emergency Provider Emergency Medicine; PCP Obstetrics & Gynecology
DX: O9A.311 Physical abuse complicating pregnancy, first trimester (principal); Z3A.11 11 weeks gestation of pregnancy; S40.021A Contusion of right upper arm, initial encounter; S80.01XA Contusion of right knee, initial encounter; Y04.2XXA Assault by strike against or bumped into by another person, initial encounter
CPT/HCPCS: 36415; 73060; 73562; 80053; 81001; 85025; 85461; 86850; 86900; 86901; 99284

== ENCOUNTER 2025-01-18 11:14 | Observation (INO) | payer OTHER, SELFPAY ==
[2025-01-18] MEDS: DEXTROSE 5%/LACTATED RINGERS 1,000 ML 999 ML IV CONT (12:01)
[2025-01-18] MEDS: ONDANSETRON INJ 4 MG/2 ML VIAL IV PUSH (12:04)
[2025-01-18] MEDS: FAMOTIDINE 20 MG/2 ML VIAL IV PUSH (12:06)
[2025-01-18 12:18] LABS: Basophils Percent Auto 0.1 % (0.2-1.2); Hemoglobin 11.2 g/dL (12.0-15.0); Immature Granulocyte Absolute 0.06 K/mm3 (0.00-0.031); Immature Granulocyte Percent A 0.4 % (0-0.5); Lymphocytes Absolute Auto 1.41 K/mm3 (0.9-3.2); Lymphocytes Percent Auto 9.7 % (18.3-44.2); Mean Corpuscular HGB Conc 33.9 g/dl (32-36); Mean Corpuscular Hemoglobin 29.6 pg (26-34); Mean Corpuscular Volume 87.3 fl (80-100); Mean Platelet Volume 11.1 fl (7.4-10.4); Monocytes Absolute Auto 0.4 K/mm3 (0.1-0.6); Monocytes Percent Auto 2.8 % (2.6-8.5); Neutrophils Absolute Auto 12.6 K/mm3 (1.3-6.7); Platelet Count Result 246 k/mm3 (150-375); Red Blood Count 3.78 M/mm3 (4.2-5.4); Red Cell Distribution Width 13.3 % (11.5-14.5); White Blood Count 14.5 K/mm3 (4.5-10.0)
[2025-01-18 12:30] LABS: Alanine Aminotransferase 16 U/L (6-35); Albumin Level 4.4 g/dL (3.5-5.1); Alkaline Phosphatase 60 U/L (38-126); Anion Gap 15 mmol/L (4-12); Aspartate Amino Transferase 25 U/L (14-36); Bilirubin,Total 0.5 mg/dL (0.2-1.3); Blood Urea Nitrogen 10 mg/dL (7-17); Calcium 9.8 mg/dL (8.4-10.2); Carbon Dioxide 16 mmol/L (22-30); Chloride 107 mmol/L (98-107); Estimated Glomerular Filt Rate > 60; Glucose 110 mg/dL (65-110); Potassium 3.9 mmol/L (3.4-5.0); Sodium 138 mmol/L (137-145)
[2025-01-18 13:06] VITALS: BP 128/52; PULSE 83; PULSE 93; O2SAT 100
[2025-01-18 13:07] VITALS: BMI 23.8
[2025-01-18] MEDS: DEXTROSE 5%/LACTATED RINGERS 1,000 ML 200 ML IV CONT (13:12)
--- OUTSIDE RECORDS SUMMARY | 2025-01-18 13:20 | XMS_ITS | Referral Summary ---
Author Organization [facility] Address [address] [place] [address] Care Team Providers Care Secondary Connector Armature Name Role Phone Zuleyma Martinez MD Primary Care Provider [phone] Source Comments [facility],non-owned Affiliates and Associated Physician Practices is amultiple site organization consisting of ambulatory clinics and hospital sitesin [place], [place], [place] and [place]. This disclosure is being madepursuant to the Care Everywhere program and may not contain all information available regarding this patient. 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 - 01/02/2025 11:59 PM [employer]ET SELLER Hospital Encounter [facility] [address] [place] [id number] Kishan Mendoza MD Discharge Disposition: Home or Self Care 01/02/2025 10:27 AM [employer] SELLER - 01/02/2025 11:59 PM [employer] SELLER Hospital Encounter [facility] [address] [place] [id number] Kishan Mendoza MD Discharge Disposition: Home or Self Care from Last 3 Months Allergies Active Allergy Reactions Criticality Noted Date Comments Nickel Urticaria Medium 03/02/2019 Medications * Be aware that medications may not be up to date on this document. Alwaysverify current medications with the patient. Medication Sig Dispensed Refills Start Date End Date Status albuterol HFA (PROVENTIL;VENTOL IN;PROAIR) 108 (90 BASE) MCG/ACT inhaler Inhale 2 (two) puffs by mouth every 6 hours as needed Active ondansetron (Zofran) 4 MG tabletIndications :Nausea and/or Vomiting in Take 1 (one) tablet by mouth every 4 hours Reasons: Nausea and Vomiting in Active MV & Min w/FA-DHA ( ADULT GUMMY/DHA/FA PO) Take 2 Each by mouth once daily Active pantoprazole EC (Protonix) 20 MG tablet Take 1 (one) tablet by mouth once daily Active montelukast (SINGULAIR) 10 MG tablet Take 1 (one) tablet by mouth every evening 11 07/21/2019 01/02/2025 Discontinued (Tx Complete) buPROPion XL 24hr (WELLBUTRIN-XL) 300 MG tablet Take 1 (one) tablet by mouth once daily 05/07/2021 01/02/2025 Discontinued (Tx Complete) divalproex ER 24hr (DEPAKOTE ER) 250 MG tablet Take 3 (three) tablets by mouth at bedtime 05/07/2021 01/02/2025 Discontinued (List Clean-Up) medroxyPROGESTERo ne (DEPO-PROVERA) 150 MG/ML vial Inject 1 mL into muscle Every 90 days 11/22/2020 01/02/2025 Discontinued (Tx Complete) cyclobenzaprine (FLEXERIL) 5 MG tablet TAKE 1 TABLET BY MOUTH THREE TIMES DAILY NEEDED FOR BACK PAIN. 30 tablet 06/02/2021 01/02/2025 Discontinued (List Clean-Up) lithium CR (Eskalith CR) 450 MG tablet Take 1 (one) tablet by mouth once daily 08/30/2023 01/02/2025 Discontinued (List Clean-Up) omeprazole (PriLOSEC) 20 MG capsule TAKE 1 CAPSULE BY MOUTH EVERY DAY BEFORE A MEAL 02/07/2023 01/02/2025 Discontinued (List Clean-Up) propranolol (Inderal) 10 MG tablet Take 1 (one) tablet by mouth 2 times daily with morning and evening meal 08/02/2023 01/02/2025 Discontinued (Tx Complete) vitamin D, ergocalciferol, (Drisdol) 1.25 MG (04087 UT) capsule Take 1 (one) capsule by mouth every 7 days 11/21/2023 01/02/2025 Discontinued (Tx Complete) QUEtiapine (SEROquel) 200 MG tablet Take 1 (one) tablet by mouth at bedtime 11/12/2023 01/02/2025 Discontinued (List Clean-Up) meloxicam (Mobic) 15 MG tablet Take 1 (one) tablet by mouth once daily 30 tablet 3 12/07/2023 01/02/2025 Discontinued (List Clean-Up) Active Problems Patient Care Coordination No te Formatting of this note migh t be different from the original. Keily's phone: [phone] Problem Noted Date Diagnosed Date Arthralgia 12/26/2018 [...] Dr. 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 Estimated Date of Delivery Comme nts Yes 06/27/2025 Based on last me nstrual period of 09/20/2024 Social History Tobacco Use Types Packs/Day Years Used Date Smoking Tobacco: Never Smokeless Tobacco: Never Tobacco Cessation:Counseling Given: Not Answered Alcohol Use Standard Drinks/Week Comments Not Currently 0 (1 standard drink = 0.6 oz pur e alcohol) occaisional PHQ-2 Answer Date Recorded PHQ2 TOTAL SCORE 3 10/13/2021 [place] Depression Scale Answer Date Recorded [place] Depression Scale Total 7 01/02/2025 The thought of harming myself has occurred to me . Never 01/02/2025 Estimated Date of Delivery Comme nts Yes 06/27/2025 Based on last me nstrual period of 09/20/2024 Sex and Gender Information Value Date Recorded Sex Assigned at Not on file Gender Identity Not on file Sexual Orientation Not on file Last Filed Vital Signs Vital Sign Reading Time Taken Comments Blood Pressure 117/53 01/02/2025 10:58 AM [employer] SE[employer]ER Pulse 80 01/02/2025 10:58 AM [employer] SELLER Temperature 37.1 C (98.8 F) 12/07/2023 3:34 PM [employer] SELLER Respiratory Rate 18 03/18/2020 4:25 PM CDT Oxygen Saturation 96% 09/20/2023 1:40 PM [employer] SELLER Inhaled Oxygen Concentration - - Weight 64.8 kg (142 lb 12.8 oz) 025 10:58 AM [employer] SELLER Height 162.6 cm (5' 4 ) 01/02/2025 10:5 8 AM [employer] MARKET SELLER Body Mass Index 24.51 01/02/2025 10:58 AM [employer] SELLER Functional Status Functional Status Response Date of [...] concentrating/remembering/making decisions? No 07/26/2018 Plan of Treatment Upcoming Encounters Date Type Department Care Team (Late st Contact Info) Description 02/14/2025 9:45 AM CDT Appointment [facility] [address] [place] [address] Procedures Procedure Name Priority Date/Time Associated Diagnosis Comments SONOGRAM - COMPLETE Routine 01/02/2025 1 0:25 AM [employer]LE[employer] MARKET SELLER Mixed anxiety and depressive disorder History of asthma Hypermobile joints Encounter for ultrasound (HCC) CHLAMYDIA + GC AMPLIFIED PROBE Routine 05/06/2020 10:45 AM CDT DUB (dysfunctional uterine bleeding) Routine screening for STI (sexually transmitted infection) from Last 3 Months or Most Recently Relevant to Health Maintenance Results * SONOGRAM - COMPLETE (01/02/2025 10:25 AM F[employer] SELLER) Linked Results Indication ======== Bipolar Disorder Nonspecific Autoimmune Disorder Periconception Medication Exposure History ====== OB History 1 Lab Tests Test Date Result NIPT Low risk, Female Maternal Assessment Physical Exam Height 173 cm, 5 ft 8 in. Weight 64 kg, 142 lb. Initial weight 65 kg, 143 lb. BMI 21.59 kg/m . Initial BMI 21.74 kg/m . Weight gain 0 kg, -1 lb Method ====== Transabdominal ultrasound. View: Good view ========= Ann . Number of fetuses: 1 Dating ====== Date Details Gest. age DAVE LMP 09/20/2024 14 w + 6 d 06/27/2025 U/S 01/02/2025 based upon AC, BPD, Femur, HC 14 w + 6 d 06/27/2025 Assigned dating based on the LMP, selected on 01/02/2025 14 w + 6 d 06/27/2025 General Evaluation Cardiac activity present. FHR 154 bpm. Presentation: cephalic Placenta: Placental site: anterior Amniotic fluid: Amount of AF: normal. MVP 4.6 cm Biometry BPD 26.5 mm 14w 5d 30% Hadlock HC 100.3 mm 14w 5d 20% Hadlock AC 86.8 mm 15w 0d 58% Hadlock Femur 17.5 mm 15w 1d 59% Hadlock HC / AC 1.16 20w 3d 15% Hadlock Weight Calculation: EFW 113 g 48% Hadlock EFW (lb,oz) 0 lb 4 oz EFW by Hadlock ([id number]) appropriate Growth Overview Exam date GA BPD (mm) HC (mm) AC (mm) FL (mm) HL (mm) EFW (g) 01/02/2025 14w 6d 26.5 30% 100.3 20% 86.8 58% 17.5 59% 113 48% Anatomy The following structures appear normal: Head / Neck Cranium. Face Profile. Abdomen Cord insertion. Stomach. Bladder. Extremities / Skeleton Arms. Legs. The following structures could not be adequately visualized: Head / Neck Lateral ventricles. Choroid plexus. Cerebellum. Cisterna magna. Abdomen Kidneys. Spine Cervical spine. Thoracic spine. Lumbar spine. Sacral spine. Maternal Structures Right Ovary Not visualized Left Ovary Not visualized Adnexa's appear normal Impression ========= * Ann IUP at 14 weeks of gestation by stated EDC from LMP & early U/S * Referred to MFM for obstetrical U/S & request for consult secondary to: Bipolar disorder Non-specific autoimmune disorder * Today's ultrasound (U/S) findings: Living ann intrauterine fetus growth is in the normal range Amniotic fluid volume appears normal Placenta location appears normal Basic anatomic survey appears normal, but is incomplete PAST MEDICAL & OBSTETRICAL HISTORY * Medications: vitamins & see PMH below * Past Medical History (PMH): No CHTN, no DM, no thyroidopathy, no VTE, no SLE Suspected autoimmune disease, no specific diagnosis Rheumatology consult Nov-2023 noted hypermobility arthralgias, no CTD or imflammation She stopped Meloxicam early Oct-2024 Anxiety & bipolar depression Currently she is on no meds Early Oct-2024 stopped Wellbutrin, Seroquel, lithium, Depakote, propranolol Today her [place] Depression Scale (EPDS) score is 7 & states stable mood Asthma, on PRN albuterol inhaler, last used months ago Nausea & vomiting of , on PRN Zofran & pantoprazole * Past Surgical History: 0 * Past Gynecologic History: no conization, no LEEP, no D&C * Past Obstetrical History: G1 Current , low-risk cf-DNA * Family history of anomalies, syndromes or developmental delay: FOB's sister T21 * Social History: Regular cannabis use * Physical Examination: BP = 117/53 mmHg, P = 80 bpm, Wt = 142# * Laboratory data: I did review available laboratory results COUNSELING & RECOMMENDATIONS (PLEASE SEE FULL CONSULT IN EPIC) * In my best medical opinion, I would advise: Multi-disciplinary care (continue co-management or new consultation) with: Fha Underwriter, for primary obstetrical care & delivery Maternal- Medicine (MFM) follow-up consult at 20 weeks with our Nurse Practitioner Psychiatry for ongoing primary management of mental health counseling & medications Smoking (cannabis) risks were discussed & cessation was encouraged Start low-dose aspirin (162 mg/day) preeclampsia prophylaxis Laboratory evaluation Multiple marker screen (MMS) or MS-AFP to screen for neural tube defect @ 15-18 weeks Maternal limited carrier screening for genetic conditions (if not previously done) Cystic fibrosis (CF) should be offered to all women Spinal muscular atrophy (SMA) should be offered to all women Hemoglobinopathy testing should be offered to all women Follow-up assessment: Comprehensive anatomic survey & cervical length screening with MFM at 20 weeks Then U/S for growth & amniotic fluid volume & development every 4-6 weeks echocardiogram (for medication exposure) by Pediatric Cardiology at 24 weeks testing (e.g. NST+BPP or NST+NITISH) to be determined Delivery planning (timing, mode, location): too early to determine at present Follow-up ======== at 20 weeks Coding ====== Procedures [id number]: US Preg Uterus >14 weeks [facility] [place] PACS Anatomical Region Laterality Modality Other 01/02/2025 10:2 5 AM FLEA MARKET SELLER Tom Nguyễn MD [facility] ORDERABLES * CHLAMYDIA + GC AMPLIFIED PROBE (STL) (05/06/2020 10:45 AM CDT) Chlamydia Amplified Probe Negative Negative 05/07/2020 11:51 AM CDT [facility] GC Amplified Probe Negative Negative 05/07/2020 11:51 AM CDT [facility] Microbiology URINE / Unknown Collection / Unknown 05/06/2020 10:45 AM CDT 05/06/2020 11:00 AM CDT Narrative [facility] - 05/07/2020 11:51 AM CDT Results based on detection/no detection of ribosomal RNA by amplified method. Neena Alejandro MD LAB - MICROBIO LOGY ORDERABLES [facility] [address] [place], [place] [address], [place] [phone] from Last 3 Months or Most Recently Relevant to Health Maintenance Advance Directives * Full Code (Latest Code Status on File) Date Activated Date Inactivated Comments 07/26/2018 5:22 AM 07/26/2018 11:22 PM Care Teams Secondary Connector Armature Relationship Specialty Start Date End Date Zuleyma Martinez MD [address] [place] [address] PCP - General Gastroenterology 10/13/21
--- OUTSIDE RECORDS SUMMARY | 2025-01-18 13:20 | XMS_ITS | Clinical Summary ---
Author Organization [facility] Address [address] [place] [address] Care Team Providers Care Regulatory Specialist Name Role Phone Zuleyma Martinez MD Primary Care Provider Source Comments [facility],non-owned Affiliates and Associated Physician Practices is amultiple site organization consisting of ambulatory clinics and hospital sitesin [place], [place], [place] and [place]. This disclosure is being madepursuant to the Care Everywhere program and may not contain all information available regarding this patient. Last updated 18.[facility] Allergies Active Allergy Reactions Criticality [...] Complete) vitamin D, ergocalciferol, (Drisdol) 1.25 MG (14381 UT) capsule Take 1 (one) capsule by [...] be different from the original. Keily's phone: [phone] Problem Noted Date Diagnosed Date Arthralgia 12/26/2018 [...] Dr. 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): On progesterone only mini pill since Aug [...] on last me nstrual period of 09/20/2024 Encounters Date Type Department Care Team Description 01/02/2025 10:27 AM 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 - 01/02/2025 11:59 PM [facility] Hospital Encounter [facility] [address] [place] [phone] Kishan Mendoza MD Discharge Disposition: Home or Self Care 01/02/2025 10:27 AM 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 - 01/02/2025 11:59 PM [facility] Hospital Encounter [facility] [address] [place] [phone] Kishan Mendoza MD Discharge Disposition: Home or Self Care from Last 3 Months Family History Medical History Relation Name Comments [...] Date Recorded PHQ2 TOTAL SCORE 3 10/13/2021 [place] Depression Scale Answer Date Recorded [place] Depression Scale Total 7 01/02/2025 The thought [...] Comments Blood Pressure 117/53 01/02/2025 10:58 AM 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 Pulse 80 01/02/2025 10:58 AM 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 Temperature 37.1 C (98.8 F) 12/07/2023 3:34 PM 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 Respiratory Rate 18 03/18/2020 4:25 PM CDT Oxygen Saturation 96% 09/20/2023 1:40 PM 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 Inhaled Oxygen Concentration - - Weight 64.8 kg (142 lb 12.8 oz) 025 10:58 AM 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 Height 162.6 cm (5' 4 ) 01/02/2025 10:5 8 AM 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 Body Mass Index 24.51 01/02/2025 10:58 AM 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 Plan of Treatment Upcoming Encounters Date Type Department Care Team (Late st Contact Info) Description 02/14/2025 9:45 AM CDT Appointment [facility] Maternal & Care [address] [place], [place] [id number] Health Maintenance Due Date Last Done Comments PAP SMEAR 2002 HIV SCREENING 2017 HPV VACCINE (1 - 3-dose series) 2017 MENINGOCOCCAL (Group B) VACCINE SHARED DECISION-MAKING (1 of 2 - Standard) 2018 HEPATITIS C SCREENING 01/08/2020 DTAP/TDAP/TD VACCINES (1 - Tdap) 2021 HEPATITIS B VACCINE (1 of 3 - 19+ 3-dose series) 2021 CHLAMYDIA/GONORRHEA SCREENING 05/06/2021 05/06/2020, 03/18/2020, 02/22/2020, Additional history exists COVID-19 VACCINE ( - 2023- season) 2024 INFLUENZA VACCINE (#1) 2024 ZOSTER VACCINE (1 of 2) 01/13/2052 DEPRESSION SCREENING Completed 01/02/2025 HIB VACCINE Aged Out No longer eligi ble based on patient's age to complete this topic MENINGOCOCCAL GROUPS A/C/Y/W VACCINE Aged Out No longer eligible based on patient's age to complete this topic PNEUMOCOCCAL VACCINE Aged Out No long er eligible based on patient's age to complete this topic Respiratory Syncytial Virus (RSV) Vaccine Pt: or over 60 yrs (No Doses Required) Completed Procedures Procedure Name Priority Date/Time Associated Diagnosis Comments SONOGRAM - COMPLETE Routine 01/02/2025 1 0:25 AM 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 Mixed anxiety and depressive disorder History of asthma Hypermobile joints Encounter for ultrasound (HCC) CHLAMYDIA + GC AMPLIFIED PROBE Routine 05/06/2020 10:45 AM CDT DUB (dysfunctional uterine bleeding) Routine screening for STI (sexually transmitted infection) from Last 3 Months or Most Recently Relevant to Health Maintenance Results * SONOGRAM - COMPLETE (01/02/2025 10:25 AM 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) Linked Results Indication ======== Bipolar Disorder Nonspecific [...] 0 lb 4 oz EFW by [place] ([id number]) appropriate Growth Overview Exam date GA BPD [...] LMP & early U/S * Referred to [facility] for obstetrical U/S & request for consult [...] Currently she is on no meds Early Dec-2024 stopped Wellbutrin, Seroquel, lithium, Depakote, propranolol Today her [place] Depression Scale (EPDS) score is 7 & [...] care (continue co-management or new consultation) with: [facility], for primary obstetrical care & delivery Maternal- [...] ======== at 20 weeks Coding ====== Procedures 71637: US Preg Uterus >14 weeks [facility] [employer] PACS Anatomical Region Laterality Modality Other 01/02/2025 10:2 5 AM 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 Tom Nguyễn MD [facility] ORDERABLES * CHLAMYDIA + GC AMPLIFIED PROBE (STL) (05/06/2020 10:45 AM CDT) Chlamydia Amplified Probe Negative Negative 05/07/2020 11:51 AM CDT [facility] GC Amplified Probe Negative Negative 05/07/2020 11:51 AM CDT [facility] Microbiology URINE / Unknown Collection / Unknown 05/06/2020 10:45 AM CDT 05/06/2020 11:00 AM CDT Narrative [facility] - 05/07/2020 11:51 AM CDT Results based on detection/no detection of ribosomal RNA by amplified method. Neena Alejandro MD LAB - MICROBIO LOGY ORDERABLES [facility] [address] [place] [address], [facility] [phone] from Last 3 Months or Most Recently Relevant to Health Maintenance Advance Directives * Full Code (Latest Code Status on File) Date Activated Date Inactivated Comments 07/26/2018 5:22 AM 07/26/2018 11:22 PM Care Teams Regulatory Specialist Relationship Specialty Start Date End Date Zuleyma Martinez MD [address] [place] [phone] PCP - General Gastroenterology 10/13/21
--- OUTSIDE RECORDS SUMMARY | 2025-01-18 13:20 | XMS_ITS | Encounter Summary ---
Author Organization [facility] Address [address] [place] [address] Care Team Providers Care Certified Surgical Technician Name Role Phone Betzaida Lutz MD Primary Care Provider [phone] Zuleyma Martinez MD Primary Care Provider [phone] Reason for Visit * Reason Onset Date Comments Follow-up 01/24/2020 message left wit h visitor information Encounter Details Date Type Department Care Team (Late st Contact Info) Description 01/24/[address] [facility] - ENT [address] [place] [phone] Judy Anderson, RN Follow-up (message left with visitor information) [...] as of this encounter Plan of Treatment Upcoming Encounters Date Type Department Care Team (Late st Contact Info) Description 02/14/2025 9:45 AM CDT Appointment [facility] Maternal & Care [address] [place] [phone] documented as of this encounter Visit Diagnoses Not on filedocumented in this encounter Care Teams Certified Surgical Technician Relationship Specialty Start Date End Date Betzaida Lutz MD [address] [place] [phone] PCP - General Pediatrics 11/11/17 10/12/21 [place] [address] [place] [phone] PCP - General Gastroenterology 10/13/21 documented as of this encounter
--- OUTSIDE RECORDS SUMMARY | 2025-01-18 13:20 | XMS_ITS | Patient Health Summary ---
Author Organization [facility] Address [address] [place] [address] Care Team Providers Care Substance Abuse Nurse Name Role Phone Zuleyma Martinez MD Primary Care Provider Note from [facility],non-owned Affiliates and Associated Physician Practices is amultiple site organization consisting of ambulatory clinics and hospital sitesin [place] and [place]. This disclosure is being madepursuant to the Care Everywhere program and may not contain all information available regarding this patient. Last updated 18.[facility] Allergies * Nickel(Urticaria) -Medium Criticality Medications * Be aware that medications may not be up to date on this document. Alwaysverify current medications with the patient. * albuterol HFA (PROVENTIL;VENTOLIN;PROAIR) 108 (90 BASE) MCG/ACT inhaler Inhale 2 (two) puffs by mouth every 6 hours as needed * ondansetron (Zofran) 4 MG tablet Take 1 (one) tablet by mouth every 4 hours Reasons: Nausea and Vomiting in * MV & Min w/FA-DHA ( ADULT GUMMY/DHA/FA PO) Take 2 Each by mouth once daily * pantoprazole EC (Protonix) 20 MG tablet Take 1 (one) tablet by mouth once daily Ended Medications* montelukast (SINGULAIR) 10 MG tablet(Started 07/21/2019) (Discontinued) Take 1 (one) tablet by mouth every evening 11 refills left * buPROPion XL 24hr (WELLBUTRIN-XL) 300 MG tablet(Started 05/07/2021) (Discontinued) Take 1 (one) tablet by mouth once daily * divalproex ER 24hr (DEPAKOTE ER) 250 MG tablet(Started 05/07/2021) (Discontinued) Take 3 (three) tablets by mouth at bedtime * medroxyPROGESTERone (DEPO-PROVERA) 150 MG/ML vial(Started 11/22/2020) (Discontinued) Inject 1 mL into muscle Every 90 days * cyclobenzaprine (FLEXERIL) 5 MG tablet(Started 06/02/2021)(Discontinued) TAKE 1 TABLET BY MOUTH THREE TIMES DAILY NEEDED FOR BACK PAIN. * lithium CR (Eskalith CR) 450 MG tablet(Started 08/30/2023)(Discontinued) Take 1 (one) tablet by mouth once daily * omeprazole (PriLOSEC) 20 MG capsule(Started 02/07/2023)(Discontinued) TAKE 1 CAPSULE BY MOUTH EVERY DAY BEFORE A MEAL * propranolol (Inderal) 10 MG tablet(Started 08/02/2023)(Discontinued) Take 1 (one) tablet by mouth 2 times daily with morning and evening meal * vitamin D, ergocalciferol, (Drisdol) 1.25 MG (57809 UT) capsule(Started 11/21/2023)(Discontinued) Take 1 (one) capsule by mouth every 7 days * QUEtiapine (SEROquel) 200 MG tablet(Started 11/12/2023)(Discontinued) Take 1 (one) tablet by mouth at bedtime * meloxicam (Mobic) 15 MG tablet(Started 12/07/2023)(Discontinued) Take 1 (one) tablet by mouth once [...] Date Recorded PHQ2 TOTAL SCORE 3 10/13/2021 Frisco Depression Scale Answer Date Recorded Frisco Depression Scale Total 7 01/02/2025 The thought [...] Comments Blood Pressure 117/53 01/02/2025 10:58 AM MEDICAL CODING SPECIALIST Pulse 80 01/02/2025 10:58 AM MEDICAL CODING SPECIALIST Temperature 37.1 C (98.8 F) 12/07/2023 3:34 PM MEDICAL CODING SPECIALIST Respiratory Rate 18 03/18/2020 4:25 PM CDT Oxygen Saturation 96% 09/20/2023 1:40 PM MEDICAL CODING SPECIALIST Inhaled Oxygen Concentration - - Weight 64.8 kg (142 lb 12.8 oz) 025 10:58 AM MEDICAL CODING SPECIALIST Height 162.6 cm (5' 4 ) 01/02/2025 10:5 8 AM MEDICAL CODING SPECIALIST Body Mass Index 24.51 01/02/2025 10:58 AM MEDICAL CODING SPECIALIST Procedures * SONOGRAM - COMPLETE(Performed 01/02/2025) Performed for Mixed anxiety and depressive disorder, History of asthma, Hypermobile joints, Encounter for ultrasound (HCC) * URINALYSIS REFLEX TO MICROSCOPIC NO CULTURE(Performed 09/20/2023) Performed for Arthralgia, unspecified joint * COMPLEMENT ACTIVITY TOTAL (CH50)(Performed 09/20/2023) Performed for Arthralgia, unspecified joint * SS-B (SJOGREN'S) ANTIBODY(Performed 09/20/2023) Performed for Arthralgia, unspecified joint * SS-A (SJOGREN'S) 52+60 ANTIBODIES(Performed 09/20/2023) Performed for Arthralgia, unspecified joint * THOMAS/RELEASE OF INFORMATION CLERK (FLACO) ANTIBODY IGG(Performed 09/20/2023) Performed for Arthralgia, [...] left knee, Hypermobile joints, Hypovitaminosis D * RELEASE OF INFORMATION CLERK ANTIBODY(Performed 09/21/2019) Performed for Encounter for therapeutic [...] for DUB (dysfunctional uterine bleeding) Results * SONOGRAM - COMPLETE (01/02/2025 10:25 AM MEDICAL CODING SPECIALIST) Linked Results Indication ======== Bipolar Disorder Nonspecific [...] 0 lb 4 oz EFW by Hadlock ([id number]) appropriate Growth Overview Exam date GA BPD [...] LMP & early U/S * Referred to [facility] for obstetrical U/S & request for consult [...] Wellbutrin, Seroquel, lithium, Depakote, propranolol Today her Frisco Depression Scale (EPDS) score is 7 & [...] care (continue co-management or new consultation) with: International Account Representative, for primary obstetrical care & delivery Maternal- [...] ======== at 20 weeks Coding ====== Procedures 16902: [facility] >14 [facility] Laterality Modality Other 01/02/2025 10:2 5 AM MEDICAL CODING SPECIALIST R Bharath Nguyễn MD [facility] ORDERABLES * (ABNORMAL) URINALYSIS REFLEX TO MICROSCOPIC NO CULTURE (09/20/2023 3:25 PM MEDICAL CODING SPECIALIST) Color UA Yellow Straw, Yellow 09/20/2023 5:31 PM [facility] Clarity UA Slt Cloudy(A) Clear 09/20/2023 5:31 PM [facility] Specific Dahinda UA 1.021 1.005 - 1.030 09/20/2023 5:31 PM [facility] pH UA 6.0 5.0 - 8.0 pH 09/20/2023 5:31 PM [facility] Protein UA 1+(A) Negative 09/20/2023 5:31 PM [facility] Glucose UA Negative Negative 09/20/2023 5:31 PM [facility] Ketone UA Negative Negative 09/20/2023 5:31 PM [facility] Bilirubin UA Negative Negative 09/20/2023 5:31 PM [facility] Blood UA Negative Negative 09/20/2023 5:31 PM [facility] Nitrite UA Negative Negative 09/20/2023 5:31 PM [facility] Leukocyte Esterase Negative Negative 09/20/2023 5:31 PM [facility] Urobilinogen UA Negative Negative mg/dL 09/20/2023 5:31 PM [facility] RBC UA 0-2 None Seen, 0-2, 3-5 /HPF 09/20/2023 5:31 PM [facility] WBC UA 0-5 None Seen, 0-5 /HPF 09/20/2023 5:31 PM [facility] Squamous Epithelial Cells UA 3-5 None Seen, 0-2, 3-5 /HPF 09/20/2023 5:31 PM [facility] Mucus UA 1+ /LPF 09/20/2023 5:31 PM MEDICAL CODING SPECIALIST [facility] Urine URINE SPECIMEN OBTAINED BY CLEAN CATCH PROCEDURE / Unknown Collection / Unknown 09/20/2023 3:25 PM MEDICAL CODING SPECIALIST 09/20/2023 5:13 PM MEDICAL CODING SPECIALIST Narrative [facility] - 09/20/2023 5:31 PM MEDICAL CODING SPECIALIST Tevin Shoemaker MD LAB - URINALYSIS ORD [facility] [address] [place] [address], [facility] [phone] * COMPLEMENT ACTIVITY TOTAL (CH50) (09/20/2023 3:24 PM MEDICAL CODING SPECIALIST) Pathologist [facility] Complement Activity Total CH50 64.0 38.7 - 89.9 U/mL 09/23/2023 3:51 AM MEDICAL CODING SPECIALIST [facility] ([facility]) Comment: Normal activity in total complement functional [...] complement alternate pathway functional (AH50, test code [id number]) activity suggests defects in the alternate pathway. REFERENCE INTERVAL: Complement Activity Total, (CH50) 38.6 U/mL or less ..........Low 38.7-89.9 U/mL .............Normal 90.0 U/mL or greater .......High Performed By: [facility] [address] [place] [address] Perfusionist: Lloyd Masterson MD, PhD CLIA Number: [id number] Blood BLOOD SPECIMEN / Unknown Lab Venipuncture / Unknown 09/20/2023 3:24 PM MEDICAL CODING SPECIALIST 09/20/2023 5:13 PM MEDICAL CODING SPECIALIST Tevin Shoemaker MD LAB - CHEMISTRY SHEELA CAROLINA [facility] ([facility]) [address] * SCLERODERMA COMPREHENSIVE AB PANEL (09/20/2023 3:24 PM MEDICAL CODING SPECIALIST) MAGALY HEp-2 IgG <1:80 <1:80 09/23/2023 7:41 PM [facility] ([facility]) MAGALY Interpretive Comment See Note 09/23/2023 7:41 PM [facility] ([facility]) Comment: Antinuclear antibodies by IFA negative for [...] diseases (cancers, autoimmune, infectious, and inflammatory conditions) and may also occur in healthy individuals in [...] or diseases. Mitotic staining patterns not reported. Negative results do not necessarily rule out SARD. SCL-70 Antibody 1 0 - 40 AU/mL 09/23/2023 7:41 PM [facility] ([facility]) Comment: INTERPRETIVE INFORMATION: Scleroderma (Scl-70) (FLACO) Ab, IgG 29 AU/mL or Less ............. Negative 30 - 40 AU/mL ................ Equivocal 41 AU/mL or Greater .......... Positive The presence [...] testing for centromere, RNA polymerase III and U3-RELEASE OF INFORMATION CLERK, PM/Scl, or Th/To antibodies. RNA Polymerase 3 Antibody IgG 11 0 - 19 Units 09/23/2023 7:41 PM [facility] ([facility]) Comment: INTERPRETIVE INFORMATION: RNA Polymerase III Antibody, IgG 19 Units or less ......Negative 20 - 39 Units .........Weak Positive 40 - 80 Units .........Moderate Positive 81 Units or greater ...Strong Positive The presence [...] antibodies associated with SSc, including centromere, Scl-70, U3-RELEASE OF INFORMATION CLERK, PM/Scl, or Th/To. Thomas/RELEASE OF INFORMATION CLERK (FLACO) Antibody IgG 3 0 - 19 Units 09/23/2023 7:41 PM [facility] ([facility]) Comment: INTERPRETIVE INFORMATION: Thomas/RELEASE OF INFORMATION CLERK (FLACO) Antibody, IgG 19 Units or Less ............. Negative 20 to 39 Units ............... Weak Positive 40 to 80 Units ............... Moderate Positive 81 Units or greater .......... Strong Positive Thomas/RELEASE OF INFORMATION CLERK antibodies are frequently seen in patients with mixed connective tissue disease (MCTD) and are also associated with other systemic autoimmune rheumatic diseases (SARDs) such as systemic lupus erythematosus (SLE), systemic sclerosis, and myositis. Antibodies targeting the Thomas/RELEASE OF INFORMATION CLERK antigenic complex also recognize Thomas antigens, therefore, the Thomas antibody response must be considered when interpreting these results. PM/Scl 100 Antibody IgG Negative Negative 09/23/2023 7:41 PM [facility] ([facility]) Comment: INTERPRETIVE INFORMATION: PM/Scl-100 Antibody, IgG by Immunoblot The presence of PM/Scl-100 IgG antibody along [...] developed and its performance characteristics determined by [facility]. It has not been cleared or approved by the US Food and Drug Administration. This test was performed in a CLIA certified laboratory and is intended for clinical purposes. Fibrillarin (U3 RELEASE OF INFORMATION CLERK) Antibody IgG Negative Negative 09/23/2023 7:41 PM [facility] ([facility]) Comment: Interpretive Information: Fibrillarin (U3 RELEASE OF INFORMATION CLERK) Antibody, IgG The presence of fibrillarin (U3-RELEASE OF INFORMATION CLERK) IgG antibodies in association with an MAGALY [...] a multi-ethnic cohort of SSc patients (n=98), U3-RELEASE OF INFORMATION CLERK antibodies detected by immunoblot had an agreement of 98.9 percent with the gold standard immunoprecipitation (IP) assay. Approximately 71 percent (5/7) of the borderline U3-RELEASE OF INFORMATION CLERK results with MAGALY nucleolar pattern in this cohort were IP negative. This test was developed and its performance characteristics determined by [facility] [employer]. It has not been cleared or approved by the US Food and Drug Administration. This test was performed in a CLIA certified laboratory and is intended for clinical purposes. Performed By: [facility] [address] [phone] Perfusionist: Lloyd Masterson MD, PhD CLIA Number: [id number] Blood BLOOD SPECIMEN / Unknown Lab Venipuncture / Unknown 09/20/2023 3:24 PM MEDICAL CODING SPECIALIST 09/20/2023 5:13 PM MEDICAL CODING SPECIALIST Tevin Shoemaker MD LAB - SEROLOGY ORDER APPLE [facility] [employer] [facility]) [address] [place], [place] [id number], [facility] * SS-A (SJOGREN'S) 52+60 ANTIBODIES (09/20/2023 3:24 PM MEDICAL CODING SPECIALIST) SS-A 52 Antibody 4 0 - 40 AU/mL 09/23/2023 1:30 PM MEDICAL CODING SPECIALIST [facility] ([facility]) Comment: INTERPRETIVE INFORMATION: SSA-52 (Ro52) (FLACO) Antibody, IgG 29 AU/mL or Less ............. Negative 30 - 40 AU/mL ................ Equivocal 41 AU/mL or Greater .......... Positive SSA-52 (Ro52) [...] 0 - 40 AU/mL 09/23/2023 1:30 PM MEDICAL CODING SPECIALIST [facility] ([facility]) Comment: REFERENCE INTERVAL: SSA-60 (Ro60) (FLACO) Antibody, IgG 29 AU/mL or Less ............. Negative 30 - 40 AU/mL ................ Equivocal 41 AU/mL or Greater .......... Positive Performed By: [facility] [address] [place] [address] Perfusionist: Lloyd Masterson MD, PhD CLIA Number: [id number] Blood BLOOD SPECIMEN / Unknown Lab Venipuncture / Unknown 09/20/2023 3:24 PM MEDICAL CODING SPECIALIST 09/20/2023 5:13 PM MEDICAL CODING SPECIALIST Tevin Shoemaker MD LAB - CHEMISTRY SHEELA CAROLINA [employer] [facility]) [address] [place] [address] * THOMAS/RELEASE OF INFORMATION CLERK (FLACO) ANTIBODY IGG (09/20/2023 3:24 PM MEDICAL CODING SPECIALIST) Pathologist [facility] Thomas/RELEASE OF INFORMATION CLERK (FLACO) Antibody IgG 4 0 - 19 Units 09/23/2023 1:24 PM MEDICAL CODING SPECIALIST [employer] ([facility]) Comment: INTERPRETIVE INFORMATION: Thomas/RELEASE OF INFORMATION CLERK (FLACO) Antibody, IgG 19 Units or Less ............. Negative 20 to 39 Units ............... Weak Positive 40 to 80 Units ............... Moderate Positive 81 Units or greater .......... Strong Positive Thomas/RELEASE OF INFORMATION CLERK antibodies are frequently seen in patients with mixed connective tissue disease (MCTD) and are also associated with other systemic autoimmune rheumatic diseases (SARDs) such as systemic lupus erythematosus (SLE), systemic sclerosis, and myositis. Antibodies targeting the Thomas/RELEASE OF INFORMATION CLERK antigenic complex also recognize Thomas antigens, therefore, the Thomas antibody response must be considered when interpreting these results. Performed By: [facility] [address] [place] [address] Perfusionist: Lloyd Masterson MD, PhD CLIA Number: [id number] Blood BLOOD SPECIMEN / Unknown Lab Venipuncture / Unknown 09/20/2023 3:24 PM MEDICAL CODING SPECIALIST 09/20/2023 5:13 PM MEDICAL CODING SPECIALIST Tevin Shoemaker MD LAB - CHEMISTRY SHEELA CAROLINA [facility]) [address] [place] [address], [facility] * MYOSITIS ANTIBODY PANEL COMPREHENSIVE (09/20/2023 3:24 PM MEDICAL CODING SPECIALIST) Only the most recent of2 resultswithin the time period is included. SAE1 (SUMO activating enzyme) Ab Negative Negative 10/01/2023 8:33 PM MEDICAL CODING SPECIALIST [facility]) NXP2 (Nuclear matrix protein-2) Ab Negative Negative 10/01/2023 8:33 PM MEDICAL CODING SPECIALIST [facility]) MDA5 (CADM-140) Ab Negative Negative 2022 8:33 PM MEDICAL CODING SPECIALIST [facility]) TIF-1 gamma (155 kDa) Ab Negative Negative 10/01/2023 8:33 PM MEDICAL CODING SPECIALIST [facility] ([facility]) Myositis Panel Interpretive Data See Note 10/01/2023 8:33 PM MEDICAL CODING SPECIALIST [facility]) Comment: INTERPRETIVE INFORMATION: Extended Myositis Panel If [...] . . . . . . . X SSA 60 (Ro) (FLACO) Antibody IgG . . . . . . . . . . . . . X Thomas/RELEASE OF INFORMATION CLERK (FLACO) Ab, IgG . . . . . . . . . . . . . . . . X Kavita-1 (histidyl-tRNA synthetase) Ab, IgG . . X PL-12 (alanyl-tRNA synthetase) Antibody . . X PL-7 (threonyl-tRNA synthetase) Antibody . . X EJ (glycyl-tRNA synthetase) Antibody . . . . X OJ (isoleucyl-tRNA synthetase) Antibody . . X SRP (Signal Recognition Particle) Ab . . . . X Ku Antibody . . . . . . . . . . . . . . . . . . . . . . X PM/SCL 100 Antibody, IgG . . . . . . . . . . . . . . . . X Fibrillarin (U3 RELEASE OF INFORMATION CLERK) Ab, IgG . . . . . . . . . . . . . . X Mi-2 (nuclear helicase protein) Antibody . . X P155/140 Antibody . . . . . . . . . . . . . X TIF-1 gamma (155 kDa) Ab . . . . . . . . . . X SAE1 (SUMO activating enzyme) Ab . . . . . . X MDA5 (CADM-140) Ab . . . . . . . . . . . . X NXP2 (Nuclear matrix proten-2)Ab . . . . . . X This test was developed and its performance characteristics determined by [facility]. It has not been cleared or approved by the US Food and Drug Administration. This test was performed in a CLIA certified laboratory and is intended for clinical purposes. Mi-2 Antibody Negative Negative 10/01/2023 8:33 PM MEDICAL CODING SPECIALIST [facility]) P155/140 Antibody Negative Negative 023 8:33 PM MEDICAL CODING SPECIALIST [facility]) PL-12 Antibody Negative Negative 10/01/2023 8:33 PM MEDICAL CODING SPECIALIST [facility]) PL-7 Antibody Negative Negative 10/01/2023 8:33 PM MEDICAL CODING SPECIALIST [facility]) OJ Antibody Negative Negative 10/01/2023 8:33 PM MEDICAL CODING SPECIALIST [facility]) EJ Antibody Negative Negative 10/01/2023 8:33 PM MEDICAL CODING SPECIALIST [facility]) SRP Antibody Negative Negative 10/01/2023 8:33 PM MEDICAL CODING SPECIALIST [facility]) Kavita-1 Antibody IgG 1 0 - 40 AU/mL 10/01/2023 8:33 PM MEDICAL CODING SPECIALIST [facility]) Comment: INTERPRETIVE INFORMATION: Kavita-1 Antibody, IgG 29 AU/mL or less.........Negative 30-40 AU/mL..............Equivocal 41 AU/mL or greater......Positive Presence of Kavita-1 (antihistidyl transfer RNA [t-RNA' synthetase) antibody is associated with polymyositis and may also be seen in patients with dermatomyositis. Kavita-1 antibody is associated with pulmonary involvement (interstitial lung disease), Raynaud phenomenon, arthritis, and chassis mechanic's hands (implicated in antisynthetase syndrome). KU Antibody Negative Negative 10/01/2023 8:33 PM MEDICAL CODING SPECIALIST [facility] ([facility]) Thomas/RELEASE OF INFORMATION CLERK (FLACO) Antibody IgG 4 0 - 19 Units 10/01/2023 8:33 PM [facility] ([facility]) Comment: INTERPRETIVE INFORMATION: Thomas/RELEASE OF INFORMATION CLERK (FLACO) Antibody, IgG 19 Units or Less ............. Negative 20 to 39 Units ............... Weak Positive 40 to 80 Units ............... Moderate Positive 81 Units or greater .......... Strong Positive Thomas/RELEASE OF INFORMATION CLERK antibodies are frequently seen in patients with mixed connective tissue disease (MCTD) and are also associated with other systemic autoimmune rheumatic diseases (SARDs) such as systemic lupus erythematosus (SLE), systemic sclerosis, and myositis. Antibodies targeting the Thomas/RELEASE OF INFORMATION CLERK antigenic complex also recognize Thomas antigens, therefore, the Thomas antibody response must be considered when interpreting these results. PM/Scl 100 Antibody IgG Negative Negative 10/01/2023 8:33 PM [facility] ([facility]) Comment: INTERPRETIVE INFORMATION: PM/Scl-100 Antibody, IgG by Immunoblot The presence of PM/Scl-100 IgG antibody along [...] developed and its performance characteristics determined by [facility]. It has not been cleared or approved by the US Food and Drug Administration. This test was performed in a CLIA certified laboratory and is intended for clinical purposes. SS-A 52 Antibody 3 0 - 40 AU/mL 10/01/2023 8:33 PM [facility] ([facility]) Comment: INTERPRETIVE INFORMATION: SSA-52 (Ro52) (FLACO) Antibody, IgG 29 AU/mL or Less ............. Negative 30 - 40 AU/mL ................ Equivocal 41 AU/mL or Greater .......... Positive SSA-52 (Ro52) [...] 0 - 40 AU/mL 10/01/2023 8:33 PM [facility] [employer] [facility] ([facility]) Comment: REFERENCE INTERVAL: SSA-60 (Ro60) (FLACO) Antibody, IgG 29 AU/mL or Less ............. Negative 30 - 40 AU/mL ................ Equivocal 41 AU/mL or Greater .......... Positive Fibrillarin (U3 RELEASE OF INFORMATION CLERK) Antibody IgG Negative Negative 10/01/2023 8:33 PM [facility] ([facility]) Comment: Interpretive Information: Fibrillarin (U3 RELEASE OF INFORMATION CLERK) Antibody, IgG The presence of fibrillarin (U3-RELEASE OF INFORMATION CLERK) IgG antibodies in association with an MAGALY [...] a multi-ethnic cohort of SSc patients (n=98), U3-RELEASE OF INFORMATION CLERK antibodies detected by immunoblot had an agreement of 98.9 percent with the gold standard immunoprecipitation (IP) assay. Approximately 71 percent (5/7) of the borderline U3-RELEASE OF INFORMATION CLERK results with MAGALY nucleolar pattern in this cohort were IP negative. This test was developed and its performance characteristics determined by [employer]. It has not been cleared or approved by the US Food and Drug Administration. This test was performed in a CLIA certified laboratory and is intended for clinical purposes. Performed By: [facility] [employer] [address] [place] [address] Perfusionist: Lloyd Masterson MD, PhD CLIA Number: [id number] Blood BLOOD SPECIMEN / Unknown Lab Venipuncture / Unknown 09/20/2023 3:24 PM MEDICAL CODING SPECIALIST 09/20/2023 5:13 PM MEDICAL CODING SPECIALIST Tevin Sohemaker MD LAB - CHEMISTRY SHEELA CAROLINA [facility]) [address] [place] [address], [facility] * DNA ANTIBODY DS CRITHIDIA TITER (09/20/2023 3:24 PM MEDICAL CODING SPECIALIST) Pathologist [facility] dsDNA Antibody IgG <1:10 <1:10 2022 9:45 AM MEDICAL CODING SPECIALIST [facility] ([facility]) Comment: INTERPRETIVE INFORMATION: Double-Stranded DNA (dsDNA) Antibody, [...] recommendations for testing may be found at [email or web address]. Performed By: [facility] [address] [place] [address] Perfusionist: Lloyd Masterson MD, PhD CLIA Number: [id number] Blood BLOOD SPECIMEN / Unknown Lab Venipuncture / Unknown 09/20/2023 3:24 PM MEDICAL CODING SPECIALIST 09/20/2023 5:13 PM MEDICAL CODING SPECIALIST Tevin Shoemaker MD LAB - SEROLOGY ORDER APPLE Performing Organization Address City/[facility]/ZIP Co de Phone Number [facility] [employer] [facility]) [address] [place] [address] * THOMAS (SM) ANTIBODY FLACO (09/20/2023 3:24 PM MEDICAL CODING SPECIALIST) Only the most recent of2 resultswithin the time period is included. Thomas (FLACO) Antibody 5 0 - 40 AU/mL 09/23/2023 1:30 PM MEDICAL CODING SPECIALIST [employer] ([facility]) Comment: INTERPRETIVE INFORMATION: Thomas (FLACO) Antibody, IgG 29 AU/mL or Less ............. Negative 30 - 40 AU/mL ................ Equivocal 41 AU/mL or Greater .......... Positive Thomas antibody is highly specific (greater than 90 percent) for systemic lupus erythematosus (SLE) but only occurs in 30-35 percent of SLE cases. The presence of antibodies to Thomas has variable associations with SLE clinical manifestations. Performed By: [facility] [address] [place] [address] Perfusionist: Lloyd Masterson MD, PhD CLIA Number: [id number] Blood BLOOD SPECIMEN / Unknown Lab Venipuncture / Unknown 09/20/2023 3:24 PM MEDICAL CODING SPECIALIST 09/20/2023 5:13 PM MEDICAL CODING SPECIALIST Tevin Shoemaker MD LAB - CHEMISTRY ORDE RABSHOBHA Performing Organization Address City/[facility]/ZIP Co de Phone Number [facility]) [address] [place] [address] * MAGALY BLOOD SCREEN W/REFLEX TITER (09/20/2023 3:24 PM MEDICAL CODING SPECIALIST) Only the most recent of3 resultswithin the time period is included. MAGALY IgG None Detected None Detected 09/23/2023 7:03 AM MEDICAL CODING SPECIALIST [facility] ([facility]) Comment: If suspicion of connective tissue disease is strong and MAGALY EIA is negative, consider testing for MAGALY by IFA ([id number]). INTERPRETIVE INFORMATION: Anti-Nuclear Antibodies (MAGALY), IgG by GALLITO Antinuclear Antibodies (MAGALY), IgG by GALLITO: MAGALY specimens are screened using enzyme-linked immunosorbent assay (GALLITO) methodology. All GALLITO results reported as Detected are further tested by indirect fluorescent assay (IFA) using HEp-2 substrate with an IgG-specific conjugate. The MAGALY GALLITO screen is designed to detect antibodies against dsDNA, histones, SS-A (Ro), SS-B (La), Thomas, Thomas/RELEASE OF INFORMATION CLERK, Scl-70, Kavita-1, centromeric proteins, other antigens extracted from the HEp-2 cell nucleus. MAGALY GALLITO assays have been reported to have lower sensitivities than MAGALY IFA for systemic autoimmune rheumatic diseases (SARD). Negative results do not necessarily rule out SARD. Performed By: [facility] [address] [place] [address] Perfusionist: Lloyd Masterson MD, PhD CLIA Number: [id number] Blood BLOOD SPECIMEN / Unknown Lab Venipuncture / Unknown 09/20/2023 3:24 PM MEDICAL CODING SPECIALIST 09/20/2023 5:13 PM MEDICAL CODING SPECIALIST Tevin Shoemaker MD LAB - CHEMISTRY SHEELA [place] [facility] Organization Address City/State/ZIP Co de Phone Number [employer] [facility]) [address] [place] [address], [facility] * SS-B (SJOGREN'S) ANTIBODY (09/20/2023 3:24 PM MEDICAL CODING SPECIALIST) Only the most recent of3 resultswithin the time period is included. SS-B Antibody 4 0 - 40 AU/mL 09/23/2023 1:30 PM MEDICAL CODING SPECIALIST [employer] ([facility]) Comment: INTERPRETIVE INFORMATION: SSB (La) (FLACO) Ab, IgG 29 AU/mL or Less ............. Negative 30 - 40 AU/mL ................ Equivocal 41 AU/mL or Greater .......... Positive SSB (La) antibody is seen in 50-60% of Sjogren syndrome cases and is specific if it is the only FLACO antibody present. 15-25% of patients with systemic lupus erythematosus (SLE) and 5-10% of patients with progressive systemic sclerosis (PSS) also have this antibody. Performed By: [facility] [address] [place] [address] Perfusionist: Lloyd Masterson MD, PhD CLIA Number: [id number] Blood BLOOD SPECIMEN / Unknown Lab Venipuncture / Unknown 09/20/2023 3:24 PM MEDICAL CODING SPECIALIST 09/20/2023 5:13 PM MEDICAL CODING SPECIALIST Tevin Shoemaker MD LAB - CHEMISTRY ORDEduardo [place] [employer] [facility]) [address] [place] [address], [facility] * DNA ANTIBODY DOUBLE STRANDED (09/20/2023 3:24 PM MEDICAL CODING SPECIALIST) Only the most recent of2 resultswithin the time period is included. Pathologist [facility] dsDNA Antibody 4 0 - 24 IU 09/23/2023 7:56 PM MEDICAL CODING SPECIALIST [facility] ([facility]) Comment: INTERPRETIVE INFORMATION: Double-Stranded DNA (dsDNA) Ab IgG GALLITO 24 IU or less........Negative 25-30 IU.............Borderline Positive 30-60 IU.............Low Positive 60-200 IU............Positive 201 IU or greater....Strong Positive Positivity for anti-double stranded DNA (anti-dsDNA) IgG antibody is a diagnostic criterion of systemic lupus erythematosus (SLE). Specimens are initially screened by enzyme-linked immunosorbent assay (GALLITO). If ordered as reflex ([id number]), positive GALLITO results (>24 IU) will be [...] recommendations for testing may be found at [email or web address]. Performed By: [facility] [address] [place] [address] Perfusionist: Lloyd Masterson MD, PhD CLIA Number: [id number] Blood BLOOD SPECIMEN / Unknown Lab Venipuncture / Unknown 09/20/2023 3:24 PM MEDICAL CODING SPECIALIST 09/20/2023 5:14 PM MEDICAL CODING SPECIALIST Tevin Shoemaker MD LAB - HEMATOLOGY ORD ERABLES [facility] ([facility]) [address] [place] [address], [facility] * COMPLEMENT C4 (09/20/2023 3:24 PM MEDICAL CODING SPECIALIST) Only the most recent of2 resultswithin the time period is included. Complement C4 30 15 - 57 mg/dL 09/20/2023 5:43 PM MEDICAL CODING SPECIALIST [facility] Blood BLOOD SPECIMEN / Unknown Lab Venipuncture / Unknown 09/20/2023 3:24 PM MEDICAL CODING SPECIALIST 09/20/2023 5:15 PM MEDICAL CODING SPECIALIST Tevin Shoemaker MD LAB - SEROLOGY ORDER APPLE Performing Organization Address [facility]/ZIP Co de Phone Number [address] [address], [place] [phone] * COMPLEMENT C3 (09/20/2023 3:24 PM MEDICAL CODING SPECIALIST) Only the most recent of2 resultswithin the time period is included. Complement C3 105 82 - 193 mg/dL 09/20/2023 5:43 PM MEDICAL CODING SPECIALIST [facility] Blood BLOOD SPECIMEN / Unknown Lab Venipuncture / Unknown 09/20/2023 3:24 PM MEDICAL CODING SPECIALIST 09/20/2023 5:15 PM MEDICAL CODING SPECIALIST Tevin Shoemaker MD LAB - CHEMISTRY ORDE RABLES [address] [address], [place] [phone] * C-REACTIVE PROTEIN (09/20/2023 3:08 PM MEDICAL CODING SPECIALIST) Only the most recent of8 resultswithin the time period is included. C-Reactive Protein <0.5 <=0.5 mg/dL 09/20/2023 4:00 PM MEDICAL CODING SPECIALIST [facility] Blood BLOOD SPECIMEN / Unknown Lab Venipuncture / Unknown 09/20/2023 3:08 PM MEDICAL CODING SPECIALIST 09/20/2023 3:24 PM MEDICAL CODING SPECIALIST Tevin Shoemaker MD LAB - CHEMISTRY SHEELA [place] [facility] [address] [place] [address], [facility] [phone] * (ABNORMAL) VITAMIN D 25-HYDROXY (09/20/2023 3:08 PM MEDICAL CODING SPECIALIST) Only the most recent of3 resultswithin the time period is included. Pathologist [facility] Vitamin D, 25 Hydroxy 18.0(L) 30.0 - 80.0 ng/mL 09/20/2023 4:22 PM MEDICAL CODING SPECIALIST [facility] Comment: The recommendations for 25-Hydroxy Vitamin D clinical decision points are as follows: Deficient: <20.0 ng/mL Insufficient: 20.0 - 29.9 ng/mL Sufficient: 30.0 - 100.0 ng/mL Potential Toxicity: >100 ng/mL Reference: The Endocrine Society Clinical Practice Guidelines. 2011 If the 25-Hydroxy Vitamin D results are inconsitent with clinical evidence, it is recommended that follow-up testing using a method such as LC/MS/MS be performed to confirm the result. Blood BLOOD SPECIMEN / Unknown Lab Venipuncture / Unknown 09/20/2023 3:08 PM MEDICAL CODING SPECIALIST 09/20/2023 3:31 PM MEDICAL CODING SPECIALIST Tevin Shoemaker MD LAB - CHEMISTRY SHEELA [place] [facility] [address] [place] [address], [place] [phone] * ALDOLASE (09/20/2023 3:08 PM MEDICAL CODING SPECIALIST) Only the most recent of4 resultswithin the time period is included. Pathologist [facility] Aldolase 3.9 1.2 - 7.6 U/L 09/22/2023 7:56 PM MEDICAL CODING SPECIALIST [facility] ([facility]) Comment: REFERENCE INTERVAL: Aldolase Access complete set of age- and/or gender-specific reference intervals for this test in the [facility] Laboratory Test Directory ([facility]endio). Performed By: [place] [address] Perfusionist: Lloyd Masterson MD, PhD CLIA Number: [id number] Blood BLOOD SPECIMEN / Unknown Lab Venipuncture / Unknown 09/20/2023 3:08 PM MEDICAL CODING SPECIALIST 09/20/2023 3:24 PM MEDICAL CODING SPECIALIST Tevin Shoemaker MD LAB - CHEMISTRY ORDE EG Performing Organization Address City/[facility]/ZIP Co de Phone Number [address] * ERYTHROCYTE SEDIMENTATION RATE (09/20/2023 3:08 PM MEDICAL CODING SPECIALIST) Only the most recent of8 resultswithin the time period is included. [facility] Erythrocyte Sedimentation Rate Westergren 5 0 - 20 MM/HR 09/20/2023 4:17 PM MEDICAL CODING SPECIALIST [facility] Blood BLOOD SPECIMEN / Unknown Lab Venipuncture / Unknown 09/20/2023 3:08 PM MEDICAL CODING SPECIALIST 09/20/2023 3:31 PM MEDICAL CODING SPECIALIST Tevin Shoemaker MD LAB - HEMATOLOGY ORD ERAPHAM [facility] [address] [place] [address], [facility] [phone] * (ABNORMAL) CBC WITH DIFFERENTIAL (09/20/2023 3:08 PM MEDICAL CODING SPECIALIST) Only the most recent of8 resultswithin the time period is included. [facility] WBC 6.7 3.5 - 10.5 10 3/uL 09/20/2023 3:51 PM MEDICAL CODING SPECIALIST [facility] RBC 4.09 3.80 - 5.20 10 6/uL 09/20/2023 3:[address] [facility] Hemoglobin 11.9(L) 12.0 - 15.6 g/dL 09/20/2023 3:51 PM [facility] Hematocrit 35.5 35.0 - 45.0 % 09/20/2023 3:51 PM [facility] MCV 86.8 80.7 - 98.3 fL 09/20/2023 3:51 PM [facility] MCH 29.1 26.7 - 34.0 pg 09/20/2023 3:51 PM [facility] MCHC 33.5 30.8 - 35.9 g/dL 09/20/2023 3:51 PM [facility] RDW-SD 40.2 36.0 - 50.0 fL 09/20/2023 3:51 PM [facility] RDW-CV 12.8 11.2 - 14.8 % 09/20/2023 3:51 PM [facility] Platelet Count 226 150 - 400 10 3/uL 09/20/2023 3:51 PM [facility] MPV 10.6 9.4 - 12.9 fL 09/20/2023 3:51 PM [facility] nRBC Absolute 0.00 0 10 3/uL 09/20/2023 3:51 PM [facility] nRBC Auto 0.0 0 /100 WBC 09/20/2023 3:51 PM [facility] Neutrophils % 44.2 35.0 - 70.0 % 09/20/2023 3:51 PM [facility] Lymphocytes % 46.8(H) 20.0 - 43.0 % 09/20/2023 3:51 PM [facility] Monocytes % 7.2 5.0 - 13.0 % 09/20/2023 3:51 PM [facility] Eosinophils % 1.1 0.0 - 6.0 % 09/20/2023 3:51 PM [facility] Basophil % 0.5 0.0 - 2.0 % 09/20/2023 3:51 PM [facility] Neutrophils Absolute 2.95 1.60 - 7.00 10 3/uL 09/20/2023 3:51 PM [facility] Lymphocyte Absolute 3.12 1.10 - 3.90 10 3/uL 09/20/2023 3:51 PM [facility] Monocytes Absolute 0.48 0.26 - 1.07 10 3/uL 09/20/2023 3:51 PM [facility] Eosinophils Absolute 0.07 0.00 - 0.47 10 3/uL 09/20/2023 3:51 PM [facility] Basophils Absolute 0.03 0.00 - 0.08 10 3/uL 09/20/2023 3:51 PM [facility] Immature Granulocytes % 0.2 0.0 - 1.0 % 09/20/2023 3:51 PM [facility] Immature Granulocytes Absolute 0.01 09/20/2023 3:51 PM [facility] Blood BLOOD SPECIMEN / Unknown Lab Venipuncture / Unknown 09/20/2023 3:08 PM MEDICAL CODING SPECIALIST 09/20/2023 3:31 PM MEDICAL CODING SPECIALIST Tevin Shoemaker MD LAB - HEMATOLOGY ORD ERABLES [facility] [address] [place] [address], [facility] [phone] * (ABNORMAL) COMPREHENSIVE METABOLIC PANEL (09/20/2023 3:08 PM MEDICAL CODING SPECIALIST) Only the most recent of6 resultswithin the time period is included. BUN 11 7 - 26 mg/dL 09/20/2023 4:05 PM [facility] Creatinine 0.73 0.56 - 0.96 mg/dL 09/20/2023 4:05 PM [facility] Sodium 138 136 - 145 mmol/L 09/20/2023 4:05 PM [facility] Potassium 4.0 3.5 - 4.5 mmol/L 09/20/2023 4:05 PM [facility] Chloride 107 98 - 107 mmol/L 09/20/2023 4:05 PM [facility] CO2 21(L) 22 - 29 mmol/L 09/20/2023 4:05 PM [facility] Glucose 91 70 - 115 mg/dL 09/20/2023 4:05 PM [facility] Calcium 9.2 8.4 - 10.2 mg/dL 09/20/2023 4:05 PM [facility] Protein Total 7.2 6.0 - 8.3 g/dL 09/20/2023 4:05 PM [facility] Albumin 4.0 3.4 - 5.0 g/dL 09/20/2023 4:05 PM [facility] Bilirubin Total 0.5 0.2 - 1.2 mg/dL 09/20/2023 4:05 PM [facility] Alkaline Phosphatase 43 40 - 150 U/L 09/20/2023 4:05 PM [facility] ALT 11 5 - 55 U/L 09/20/2023 4:05 PM [facility] AST 15 5 - 34 U/L 09/20/2023 4:05 PM [facility] Anion Gap 10 6 - 16 09/20/2023 4:05 PM [facility] BUN/Creatinine Ratio 15 7 - 23 09/20/2023 4:05 PM [facility] Osmolality Calculated 285 275 - 295 mOsm/kg 09/20/2023 4:05 PM [facility] Albumin/Globulin Ratio 1.3 1.1 - 2.3 09/20/2023 4:05 PM [facility] eGFR by CKD-EPI >90 >=90 mL/min/1.7 3 m2 09/20/2023 4:05 PM [facility] Blood BLOOD SPECIMEN / Unknown Lab Venipuncture / Unknown 09/20/2023 3:08 PM MEDICAL CODING SPECIALIST 09/20/2023 3:31 PM [facility] Tevin Shoemaker MD LAB - CHEMISTRY SHEELA [place] [facility] Organization Address City/State/ZIP Co de Phone Number [facility] [address] [place] [address], [facility] [phone] * CK BLOOD (09/20/2023 3:08 PM MEDICAL CODING SPECIALIST) Only the most recent of4 resultswithin the time period is included. CK Total 131 30 - 200 U/L 09/20/2023 4:05 PM [facility] Blood BLOOD SPECIMEN / Unknown Lab Venipuncture / Unknown 09/20/2023 3:08 PM MEDICAL CODING SPECIALIST 09/20/2023 3:31 PM MEDICAL CODING SPECIALIST Tevin Shoemaker MD LAB - CHEMISTRY HARRISONEduardo [place] [facility] Organization Address City/State/ZIP Co de Phone Number [place] [phone] [place] [address], [facility] [phone] * XR KNEE RIGHT 2VW OR LESS (09/20/2023 2:53 PM MEDICAL CODING SPECIALIST) Anatomical Region Laterality Modality Lower Extremity Radiographic Johanna ging 09/20/2023 3:03 PM MEDICAL CODING SPECIALIST Impressions 09/20/2023 3:03 PM MEDICAL CODING SPECIALIST IMPRESSION: Normal. > Interpreting Provider: Rodrick Mckay MD on 09/20/2023 3:03 PM Narrative 09/20/2023 3:03 PM MEDICAL CODING SPECIALIST PROCEDURE: XR KNEE RIGHT 2VW OR LESS DATE/TIME OF EXAM: 09/20/2023 2:53 PM CLINICAL INFORMATION: None relevant/not provided if blank. Indication: M24.9: Hypermobile joints M25.50: Arthralgia, unspecified joint Additional History: COMPARISON: None. FINDINGS: No acute fracture or dislocation is present. The joint spaces are normal. No erosions are seen. There is no effusion. Procedure Note Rodrick Mckay MD - 09/20/2023 PROCEDURE: XR KNEE RIGHT 2VW OR LESS DATE/TIME OF EXAM: 09/20/2023 2:53 PM CLINICAL INFORMATION: None relevant/not provided if blank. Indication: M24.9: Hypermobile joints M25.50: Arthralgia, unspecified joint Additional History: COMPARISON: None. FINDINGS: No acute fracture or dislocation is present. The joint spaces arenormal. No erosions are seen. There is no effusion. IMPRESSION: Normal. > Interpreting Provider: Rodrick Mckay MD on 09/20/2023 3:03 PM Tevin Shoemaker MD DIAGNOSTIC IMAGING O RDERABLES * XR KNEE LEFT 2VW OR LESS (09/20/2023 2:53 PM MEDICAL CODING SPECIALIST) Anatomical Region Laterality Modality Lower Extremity Radiographic Johanna ging 09/20/2023 3:03 PM MEDICAL CODING SPECIALIST Impressions 09/20/2023 3:03 PM MEDICAL CODING SPECIALIST IMPRESSION: Normal. > Interpreting Provider: Rodrick Mckay MD on 09/20/2023 3:03 PM Narrative 09/20/2023 3:03 PM MEDICAL CODING SPECIALIST PROCEDURE: XR KNEE LEFT 2VW OR LESS DATE/TIME OF EXAM: 09/20/2023 2:53 PM CLINICAL INFORMATION: None relevant/not provided if blank. Indication: M24.9: Hypermobile joints M25.50: Arthralgia, unspecified joint Additional History: COMPARISON: None. FINDINGS: No acute fracture or dislocation is present. The joint spaces are normal. No erosions are seen. There is no effusion. Procedure Note Rodrick Mckay MD - 09/20/2023 PROCEDURE: XR KNEE LEFT 2VW OR LESS DATE/TIME OF EXAM: 09/20/2023 2:53 PM CLINICAL INFORMATION: None relevant/not provided if blank. Indication: M24.9: Hypermobile joints M25.50: Arthralgia, unspecified joint Additional History: COMPARISON: None. FINDINGS: No acute fracture or dislocation is present. The joint spaces arenormal. No erosions are seen. There is no effusion. IMPRESSION: Normal. > Interpreting Provider: Rodrick Mckay MD on 09/20/2023 3:03 PM Tevin Shoemaker MD DIAGNOSTIC IMAGING O RDERABLES * XR SHOULDER RIGHT 2VW OR MORE (09/20/2023 2:53 PM MEDICAL CODING SPECIALIST) Anatomical Region Laterality Modality Upper Extremity Radiographic Johanna ging 09/20/2023 3:03 PM MEDICAL CODING SPECIALIST Impressions 09/20/2023 3:04 PM MEDICAL CODING SPECIALIST IMPRESSION: Normal. > Interpreting Provider: Rodrick Mckay MD on 09/20/2023 3:04 PM Narrative 09/20/2023 3:04 PM MEDICAL CODING SPECIALIST PROCEDURE: XR SHOULDER RIGHT 2VW OR MORE DATE/TIME OF EXAM: 09/20/2023 2:53 PM CLINICAL INFORMATION: None relevant/not provided if blank. Indication: M24.9: Hypermobile joints M25.50: Arthralgia, unspecified joint Additional History: COMPARISON: None. FINDINGS: There is no fracture or dislocation. There is no acromioclavicular or glenohumeral arthritis. There are no erosions. Procedure Note Rodrick Mckay MD - 09/20/2023 PROCEDURE: XR SHOULDER RIGHT 2VW OR MORE DATE/TIME OF EXAM: 09/20/2023 2:53 PM CLINICAL INFORMATION: None relevant/not provided if blank. Indication: M24.9: Hypermobile joints M25.50: Arthralgia, unspecified joint Additional History: COMPARISON: None. FINDINGS: There is no fracture or dislocation. There is no acromioclavicular or glenohumeral arthritis. There are no erosions. IMPRESSION: Normal. > Interpreting Provider: Rodrick Mckay MD on 09/20/2023 3:04 PM Tevin Shoemaker MD DIAGNOSTIC IMAGING O RDERABLES * XR SHOULDER LEFT 2VW OR MORE (09/20/2023 2:53 PM MEDICAL CODING SPECIALIST) Anatomical Region Laterality Modality Upper Extremity Radiographic Johanna ging 09/20/2023 3:04 PM MEDICAL CODING SPECIALIST Impressions 09/20/2023 3:04 PM MEDICAL CODING SPECIALIST IMPRESSION: Normal. > Interpreting Provider: Rodrick Mckay MD on 09/20/2023 3:04 PM Narrative 09/20/2023 3:04 PM MEDICAL CODING SPECIALIST PROCEDURE: XR SHOULDER LEFT 2VW OR MORE DATE/TIME OF EXAM: 09/20/2023 2:53 PM CLINICAL INFORMATION: None relevant/not provided if blank. Indication: M24.9: Hypermobile joints M25.50: Arthralgia, unspecified joint Additional History: COMPARISON: None FINDINGS: There is no fracture or dislocation. There is no acromioclavicular or glenohumeral arthritis. There are no erosions. Procedure Note Rodrick Mckay MD - 09/20/2023 PROCEDURE: XR SHOULDER LEFT 2VW OR MORE DATE/TIME OF EXAM: 09/20/2023 2:53 PM CLINICAL INFORMATION: None relevant/not provided if blank. Indication: M24.9: Hypermobile joints M25.50: Arthralgia, unspecified joint Additional History: COMPARISON: None FINDINGS: There is no fracture or dislocation. There is no acromioclavicular or glenohumeral arthritis. There are no erosions. IMPRESSION: Normal. > Interpreting Provider: Rodrick Mckay MD on 09/20/2023 3:04 PM Tevin Shoemaker MD DIAGNOSTIC IMAGING O RDERABLES * VITAMIN D 25-HYDROXY D2+D3 (10/13/2021 2:41 PM MEDICAL CODING SPECIALIST) Only the most recent of2 resultswithin the time period is included. Vitamin D, 25 Hydroxy D2 and D3 Total 38.3 30.0 - 80.0 ng/mL 10/17/2021 11:32 AM MEDICAL CODING SPECIALIST [facility] ([facility]) Comment: INTERPRETIVE INFORMATION: 25-HydroxyVitamin D2 and D3, Serum 1-17 years: Deficiency: less than 20 ng/mL Optimum level: greater than or equal to 20 ng/mL* *(Delong CL et al. Pediatrics 2008; 122: 1142-52.) 18 years and older: Deficiency: Less than 20 ng/mL Insufficiency: 20-29 ng/mL Optimum Level: 30-80 ng/mL Possible Toxicity: Greater than 150 ng/mL (Jaki MF et al. JCEM 2011; 96:1911-30) Separate values for Vitamin D2 and D3 are reported in addition to the total. Access complete set of age- and/or gender-specific reference intervals for this test in the [facility] Test Directory ([facility]). This test was developed and its performance characteristics determined by [facility]. It has not been cleared or approved by the US Food and Drug Administration. This test was performed in a CLIA certified laboratory and is intended for clinical purposes. U.S. Patent No. [id number] Performed By: [facility] [address] [place] [id number] Perfusionist: Mandi You MD Vitamin D, 25 Hydroxy D2 27.4 ng/mL 10/17/2021 11:32 AM MEDICAL CODING SPECIALIST [facility]) Vitamin D, 25 Hydroxy D3 10.9 ng/mL 10/17/2021 11:32 AM MEDICAL CODING SPECIALIST [facility]) Blood BLOOD SPECIMEN / Unknown Lab Venipuncture / Unknown 10/13/2021 2:41 PM MEDICAL CODING SPECIALIST 10/13/2021 3:18 PM MEDICAL CODING SPECIALIST Tevin Shoemaker MD LAB - CHEMISTRY SHEELA [place] [facility] ([facility]) [address] [place] [address], [facility] * (ABNORMAL) URINALYSIS W/MICROSCOPIC NO CULTURE (10/13/2021 2:41 PM MEDICAL CODING SPECIALIST) Only the most recent of4 resultswithin the time period is included. Color UA Yellow Straw, Yellow 10/13/2021 3:47 PM [facility] Clarity UA Slt Cloudy(A) Clear 10/13/2021 3:47 PM [facility] Specific Dahinda UA 1.028 1.005 - 1.030 10/13/2021 3:47 PM [facility] pH UA 6.0 5.0 - 8.0 pH 10/13/2021 3:47 PM [facility] Protein UA 2+(A) Negative 10/13/2021 3:47 PM [facility] Glucose UA Negative Negative 10/13/2021 3:47 PM [facility] Ketone UA Negative Negative 10/13/2021 3:47 PM [facility] Bilirubin UA Negative Negative 10/13/2021 3:47 PM [facility] Blood UA Negative Negative 10/13/2021 3:47 PM [facility] Nitrite UA Negative Negative 10/13/2021 3:47 PM [facility] Leukocyte Esterase Trace(A) Negative 10/13/2021 3:47 PM [facility] Urobilinogen UA Negative Negative mg/dL 10/13/2021 3:47 PM [facility] RBC UA 0-2 None Seen, 0-2, 3-5 /HPF 10/13/2021 3:47 PM [facility] WBC UA 0-5 None Seen, 0-5 /HPF 10/13/2021 3:47 PM [facility] Bacteria UA Trace(A) None /HPF 10/13/2021 3:47 PM [facility] Squamous Epithelial Cells UA 6-10(A) None Seen, 0-2, 3-5 /HPF 10/13/2021 3:47 PM MEDICAL CODING SPECIALIST [facility] Mucus UA 3+ /LPF 10/13/2021 3:47 PM MEDICAL CODING SPECIALIST [facility] Urine URINE SPECIMEN OBTAINED BY CLEAN CATCH PROCEDURE / Unknown Collection / Unknown 10/13/2021 2:41 PM MEDICAL CODING SPECIALIST 10/13/2021 3:18 PM MEDICAL CODING SPECIALIST Narrative [facility] - 10/13/2021 3:47 PM MEDICAL CODING SPECIALIST Tevin Shoemaker MD LAB - URINALYSIS ORD ERABLES [facility] [address] [place] [address], [facility] [phone] * XR FOREARM LEFT 2VW (10/13/2021 2:24 PM MEDICAL CODING SPECIALIST) Anatomical Region Laterality Modality Upper Extremity Radiographic Johanna ging 10/13/2021 2:45 PM MEDICAL CODING SPECIALIST Impressions 10/13/2021 2:46 PM MEDICAL CODING SPECIALIST IMPRESSION: Normal. This report was electronically signed by RODRICK MCKAY MD on 10/13/2021 2:46 PM . Narrative 10/13/2021 2:46 PM MEDICAL CODING SPECIALIST Exam: XR FOREARM LEFT 2VW History: S42.302A: Closed fracture of left upper extremity, initial encounter Comparison: None. Findings: No fracture of the radius or ulna is present. There is no bone erosion or periosteal reaction. The soft tissues are normal. Procedure Note Rodrick Mckay MD - 10/13/2021 Exam: XR FOREARM LEFT 2VW History: S42.302A: Closed fracture of left upper extremity, initial encounter Comparison: None. Findings: No fracture of the radius or ulna is present. There is no bone erosionor periosteal reaction. The soft tissues are normal. IMPRESSION: Normal. This report was electronically signed by RODRICK MCKAY MD on10/13/2021 2:46 PM . Tevin Shoemaker MD DIAGNOSTIC IMAGING O RDERABLES * XR ELBOW LEFT 2VW (10/13/2021 2:24 PM MEDICAL CODING SPECIALIST) Anatomical Region Laterality Modality Upper Extremity Radiographic Johanna ging 10/13/2021 2:44 PM MEDICAL CODING SPECIALIST Impressions 10/13/2021 2:45 PM MEDICAL CODING SPECIALIST IMPRESSION: Normal. This report was electronically signed by RODRICK MCKAY MD on 10/13/2021 2:45 PM . Narrative 10/13/2021 2:45 PM MEDICAL CODING SPECIALIST Exam: XR ELBOW LEFT 2VW History: S42.302A: Closed fracture of left upper extremity, initial encounter Comparison: None. Findings: No acute fracture or dislocation is present. No erosions are seen. The joint spaces are normal. There is no effusion. Procedure Note Rodrick Mckay MD - 10/13/2021 Exam: XR ELBOW LEFT 2VW History: S42.302A: Closed fracture of left upper extremity, initial encounter Comparison: None. Findings: No acute fracture or dislocation is present. No erosions are seen. The joint spaces are normal. There is no effusion. IMPRESSION: Normal. This report was electronically signed by RODRICK MCKAY MD on10/13/2021 2:45 PM . Tevin Shoemaker MD DIAGNOSTIC IMAGING O RDERABLES * XR HUMERUS LEFT 2VW OR MORE (10/13/2021 2:24 PM MEDICAL CODING SPECIALIST) Anatomical Region Laterality Modality Upper Extremity Radiographic Johanna ging 10/13/2021 2:15 PM MEDICAL CODING SPECIALIST Impressions 10/13/2021 2:17 PM MEDICAL CODING SPECIALIST IMPRESSION: Normal. This report was electronically signed by RODRICK MCKAY MD on 10/13/2021 2:17 PM . Narrative 10/13/2021 2:17 PM MEDICAL CODING SPECIALIST Exam: XR HUMERUS LEFT 2VW History: S42.302A: Closed fracture of left upper extremity, initial encounter Comparison: None. Findings: No fracture of the humerus is present. There is no bone erosion or periosteal reaction. The soft tissues are normal. Procedure Note Rodrick Mckay MD - 10/13/2021 Exam: XR HUMERUS LEFT 2VW History: S42.302A: Closed fracture of left upper extremity, initial encounter Comparison: None. Findings: No fracture of the humerus is present. There is no bone erosion or periosteal reaction. The soft tissues are normal. IMPRESSION: Normal. This report was electronically signed by RODRICK MCKAY MD on10/13/2021 2:17 PM . Tevin Shoemaker MD DIAGNOSTIC IMAGING O RDERABLES * TSH (05/27/2021 12:14 PM CDT) Only the most recent of4 resultswithin the time period is included. Pathologist [facility] TSH 1.325 0.350 - 4.940 uIU/mL 05/27/2021 1:26 PM CDT [facility] Blood BLOOD SPECIMEN / Unknown Lab Venipuncture / Unknown 05/27/2021 12:14 PM CDT 05/27/2021 12:31 PM CDT Tevin Shoemaker MD LAB - CHEMISTRY SHEELA [place] Performing Organization Address [facility]/ZIP Co de Phone Number [address] [address], [facility] [phone] * T4 FREE (05/27/2021 12:14 PM CDT) Only the most recent of3 resultswithin the time period is included. [facility] T4 Free 1.0 0.7 - 1.5 ng/dL 05/27/2021 1:26 PM CDT [facility] Blood BLOOD SPECIMEN / Unknown Lab Venipuncture / Unknown 05/27/2021 12:14 PM CDT 05/27/2021 12:31 PM CDT Tevin Shoemaker MD LAB - CHEMISTRY [place] [address] [address], [facility] [phone] * TRICHOMONAS VAGINALIS AMPLIFIED PROBE (05/06/2020 10:45 AM CDT) Only the most recent of5 resultswithin the time period is included. [facility] Trichomonas vaginalis Amplified Probe Negative Negative 05/07/2020 11:56 AM CDT [facility] Microbiology URINE / Unknown Collection / Unknown 05/06/2020 10:45 AM CDT 05/06/2020 11:00 AM CDT Narrative [facility] - 05/07/2020 11:56 AM CDT This test was developed and its performance characteristics determined by the [facility] Microbiology Laboratory, [facility]. Urine specimens tested by the [facility] [place] have not been cleared or approved by [...] Alejandro MD LAB - MICROBIO LOGY ORDERABLES [facility] [address] [place] [address], [facility] [phone] * CHLAMYDIA + GC AMPLIFIED PROBE (STL) (05/06/2020 10:45 AM CDT) Only the most recent of4 resultswithin the time period is included. Chlamydia Amplified Probe Negative Negative 05/07/2020 11:51 AM CDT [facility] GC Amplified Probe Negative Negative 05/07/2020 11:51 AM CDT [facility]CRO[facility] Microbiology URINE / Unknown Collection / Unknown 05/06/2020 10:45 AM CDT 05/06/2020 11:00 AM CDT Narrative [facility] - 05/07/2020 11:51 AM CDT Results based on detection/no detection of ribosomal RNA by amplified method. Neena Alejandro MD LAB - MICROBIO LOGY ORDERABLES [facility] [address] [place] [address], [facility] [phone] * XR PELVIS 1 OR 2 VW [...] Separate Report 03/18/2020 2:30 PM CDT [facility] Urine URINE / Unknown 0 1:25 PM CDT Anthony Adams MD LAB - URINALYSIS ORD ERABLES [facility] [place] [address] * HCG URINE QUALITATIVE - POCT (IP) INTERFACED (03/18/2020 2:26 PM CDT) Only the most recent of3 resultswithin the time period is included. HCG Qual Urine Negative Negative 03/18/2020 2:37 PM CDT [facility] Urine URINE / Unknown 03/18/2020 2 :26 PM CDT 03/18/2020 2:37 PM CDT Kodi Fountain MD LAB - POINT OF CARE ORDERABLES [facility] [place] [address] * (ABNORMAL) BASIC METABOLIC PANEL (CALCIUM TOTAL) (03/18/2020 2:01 PM CDT) Only the most recent of2 resultswithin the time period is included. Glucose 89 70 - 105 mg/dL 03/18/2020 2:26 PM CDT [facility] Sodium 138 136 - 145 mmol/L 03/18/2020 2:26 PM T [facility] Potassium 4.2 3.5 - 5.1 mmol/L 03/18/2020 2:26 PM T [facility] Chloride 111(H) 98 - 107 mmol/L 03/18/2020 2:26 PM T [facility] CO2 20 20 - 28 mmol/L 03/18/2020 2:26 PM T [facility] Calcium 9.15 9.08 - 10.48 mg/dL 03/18/2020 2:26 PM T [facility] Anion Gap 7 5 - 20 mmol/L 03/18/2020 2:26 PM T [facility] BUN 15.2 5.3 - 18.7 mg/dL 03/18/2020 2:26 PM T [facility] Creatinine 0.79 0.61 - 1.07 mg/dL 03/18/2020 2:26 PM T [facility] eGFR by MDRD >60 >60 mL/min/1.7 3m2 03/18/2020 2:26 PM T [facility] eGFR by MDRD >60 >60 mL/min/1.7 3m2 03/18/2020 2:26 PM T [facility] Blood BLOOD SPECIMEN / Unknown Venipuncture / Unknown 03/18/2020 2:01 PM CDT 03/18/2020 2:04 PM CDT Anthony Adams MD LAB - CHEMISTRY SHEELA [place] [facility] [place] [address] * (ABNORMAL) URINALYSIS W/MICROSCOPIC REFLEX TO CULTURE (01/25/2020 2:17 PM CDT) Color UA Yellow Straw, Yellow 01/25/2020 2:36 PM CDT [facility] Clarity UA Slt Cloudy(A) Clear 01/25/2020 2:36 PM CDT [facility] Glucose UA Negative Negative 01/25/2020 2:36 PM CDT [facility] Bilirubin UA Negative Negative 01/25/2020 2:36 PM CDT [facility] Ketone UA Trace(A) Negative 01/25/2020 2:36 PM CDT [facility] Specific Dahinda UA 1.028 1.005 - 1.030 01/25/2020 2:36 PM CDT [facility] Blood UA Negative Negative 01/25/2020 2:36 PM CDT [facility] pH UA 7.0 5.0 - 8.0 pH 01/25/2020 2:36 PM CDT [facility] Protein UA Negative Negative 01/25/2020 2:36 PM CDT [facility] Urobilinogen UA Negative Negative mg/dL 01/25/2020 2:36 PM CDT [facility] Nitrite UA Negative Negative 01/25/2020 2:36 PM CDT [facility] Leukocyte UA 1+(A) Negative 01/25/2020 2:36 PM CDT [facility] RBC UA 0-2 None Seen, 0-2, 3-5 # /hpf 01/25/2020 2:36 PM CDT [facility] WBC UA 0-5 None Seen, 0-5 # /hpf 01/25/2020 2:36 PM CDT [facility] Bacteria UA Trace(A) None Seen 01/25/2020 2:36 PM CDT [facility] Squamous Epithelial Cells 3-5 None Seen, 0-2, 3-5 /hpf 01/25/2020 2:36 PM CDT [facility] Mucus UA 3+ /LPF 01/25/2020 2:36 PM CDT [facility] Reflex Status Culture to follow 01/25/2020 2:36 PM CDT [facility] Urine URINE SPECIMEN OBTAINED BY CLEAN CATCH PROCEDURE / Unknown Collection / Unknown 01/25/2020 2:17 PM CDT 01/25/2020 2:23 PM CDT Narrative [facility] - 01/25/2020 2:36 PM CDT Sandy Aranda DO LAB - URINALYSIS ORD ERABLES [facility] [place] [address] * CULTURE URINE (01/25/2020 2:17 PM CDT) Culture Urine 10,000-50,000 CFU/mL urogenital ava NOELLE 01/27/2020 1:24 AM CDT [facility] Urine URINE SPECIMEN OBTAINED BY CLEAN CATCH PROCEDURE / Unknown Collection / Unknown 01/25/2020 2:17 PM CDT 01/25/2020 2:23 PM CDT Sandy Aranda DO LAB - MICROBIOLOGY O RDERABLES Performing Organization Address City/[facility] Co de Phone Number [facility] [address] [place] [address], [facility] [phone] * CHROMATIN ANTIBODY (09/21/2019 3:32 PM MEDICAL CODING SPECIALIST) Only the most recent of2 resultswithin the time period is included. Antichromatin Antibodies <0.2 0.0 - 0.9 AI 09/22/2019 10:09 AM MEDICAL CODING SPECIALIST [facility] ([facility]) Blood BLOOD SPECIMEN / Unknown Lab Venipuncture / Unknown 09/21/2019 3:32 PM MEDICAL CODING SPECIALIST 09/21/2019 4:11 PM MEDICAL CODING SPECIALIST Narrative [facility] ([facility]) - 09/22/2019 10:09 AM MEDICAL CODING SPECIALIST Performed at: 01 - [facility] [address] [place] [id number] Grain Distributor: Luis Glass PhD, Phone: [phone] Sandy Aranda DO LAB - SEROLOGY ORDER APPLE [facility] ([facility]) [address] [place] [address] * ANCA VASCULITIS PANEL (09/21/2019 3:32 PM MEDICAL CODING SPECIALIST) Only the most recent of2 resultswithin the time period is included. Anti-myeloperoxid ase (MPO) Antibody <9.0 0.0 - 9.0 U/mL 09/24/2019 6:07 PM MEDICAL CODING SPECIALIST [facility] ([facility]) Anti-proteinase 3 (IA-3) Abs <3.5 0.0 - 3.5 U/mL 09/24/2019 6:07 PM MEDICAL CODING SPECIALIST [facility] ([facility]) Cytoplasmic (C-ANCA) <1:20 Neg:<1:20 titer 09/24/2019 6:07 PM MEDICAL CODING SPECIALIST [facility] ([facility]) p-ANCA Titer <1:20 Neg:<1:20 titer 09/24/2019 6:07 PM MEDICAL CODING SPECIALIST [facility] ([facility]) Comment: The presence of positive fluorescence exhibiting P-ANCA or C-ANCA patterns alone is not specific for the diagnosis of Layo's Granulomatosis (WG) or microscopic polyangiitis. Decisions about treatment should not be based solely on ANCA IFA results. The International ANCA [employer] Consensus recommends follow up testing of positive sera with both IA-3 and MPO-ANCA enzyme immunoassays. As many as 5% serum samples are positive only by EIA. Ref. AM J Clin Pathol 1999;111:507-513. Atypical p-ANCA Titer <1:20 Neg:<1:20 titer 09/24/2019 6:07 PM MEDICAL CODING SPECIALIST [facility] Comment: The atypical pANCA pattern has been observed in a significant percentage of patients with ulcerative colitis, primary sclerosing cholangitis and autoimmune hepatitis. Blood BLOOD SPECIMEN / Unknown Lab Venipuncture / Unknown 09/21/2019 3:32 PM MEDICAL CODING SPECIALIST 09/21/2019 4:11 PM MEDICAL CODING SPECIALIST Narrative [facility] ([facility]) - 09/24/2019 6:07 PM MEDICAL CODING SPECIALIST Performed at: [address] [id number] Grain Distributor: Ema Pinedo MD, Phone: [phone] Performed at: [facility] [address] [place], [place] [id number] Grain Distributor: Luis Glass PhD, Phone: [phone] Sandy Aranda LAB - CHEMISTRY SHEELA [place] Performing Organization Address [facility]/ZIP Co de Phone Number [facility]) [address] [place] [address] * RELEASE OF INFORMATION CLERK ANTIBODY (09/21/2019 3:32 PM MEDICAL CODING SPECIALIST) RELEASE OF INFORMATION CLERK Antibody <0.2 0.0 - 0.9 AI 09/22/2019 10:09 AM MEDICAL CODING SPECIALIST [facility] ([facility]) Blood BLOOD SPECIMEN / Unknown Lab Venipuncture / Unknown 09/21/2019 3:32 PM MEDICAL CODING SPECIALIST 09/21/2019 4:11 PM MEDICAL CODING SPECIALIST Narrative [facility] ([facility]) - 09/22/2019 10:09 AM MEDICAL CODING SPECIALIST Performed at: [address] [id number] Grain Distributor: Luis Glass PhD, Phone: [phone] Sandy A Rosi RODARTE LAB - CHEMISTRY SHEELA [place] Performing Organization Address [facility] Co de Phone Number [facility]) [address] [place] [address] * (ABNORMAL) HISTONE ANTIBODY (09/21/2019 3:32 PM MEDICAL CODING SPECIALIST) Only the most recent of2 resultswithin the time period is included. Anti-Histone Antibody 1.4(H) 0.0 - 0.9 Units 09/26/2019 2:09 PM MEDICAL CODING SPECIALIST [facility] ([facility]) Comment: Negative <1.0 Weak Positive 1.0 - 1.5 Moderate Positive 1.6 - 2.5 Strong Positive >2.5 Blood BLOOD SPECIMEN / Unknown Lab Venipuncture / Unknown 09/21/2019 3:32 PM MEDICAL CODING SPECIALIST 09/21/2019 4:11 PM MEDICAL CODING SPECIALIST Narrative [facility] ([facility]) - 09/26/2019 2:09 PM MEDICAL CODING SPECIALIST Performed at: [address] [id number] Grain Distributor: Ema Pinedo MD, Phone: [phone] Sandy Aranda DO LAB - CHEMISTRY ORDEduardo [place] Performing Organization Address [facility] Co de Phone Number [facility]) [address] [place] [address] * SS-A ANTIBODY (09/21/2019 3:32 PM MEDICAL CODING SPECIALIST) Only the most recent of2 resultswithin the time period is included. Sjogren's Antibodies (SSA) <0.2 0.0 - 0.9 AI 09/22/2019 10:09 AM MEDICAL CODING SPECIALIST [facility] ([facility]) Blood BLOOD SPECIMEN / Unknown Lab Venipuncture / Unknown 09/21/2019 3:32 PM MEDICAL CODING SPECIALIST 09/21/2019 4:11 PM MEDICAL CODING SPECIALIST Narrative [facility] ([facility]) - 09/22/2019 10:09 AM MEDICAL CODING SPECIALIST Performed at: [address] [place] [id number] Grain Distributor: Luis Glass PhD, Phone: [phone] Sandy Aranda DO LAB - CHEMISTRY SHEELA [place] Performing Organization Address [facility] Co de Phone Number [facility]) [address] [place] [address] * CARDIOLIPIN ANTIBODY PANEL (03/02/2019 2:25 PM CDT) Cardiolipin Antibody IgG <9 0 - 14 GPL U/mL 03/03/2019 4:10 PM CDT [facility] ([facility]) Comment: Negative: <15 Indeterminate: 15 - 20 Low-Med Positive: >20 - 80 High Positive: >80 Cardiolipin Antibody IgM 9 0 - 12 MPL U/mL 03/03/2019 4:10 PM CDT [facility] ([facility]) Comment: Negative: <13 Indeterminate: 13 - 20 Low-Med Positive: >20 - 80 High Positive: >80 Blood BLOOD SPECIMEN / Unknown Lab Venipuncture / Unknown 03/02/2019 2:25 PM CDT 03/02/2019 3:02 PM CDT Narrative [facility] ([facility]) - 03/03/2019 4:10 PM CDT Performed at: [address] [place], [place] [address], [place], [place] [id number] Grain Distributor: Luis Glass PhD, Phone: [phone] Tevin Shoemaker MD LAB - SEROLOGY ORDER APPLE Performing Organization Address City/[facility] Co de Phone Number [facility]) [address] [place] [address] * LUPUS ANTICOAGULANT PANEL (03/02/2019 2:25 PM CDT) Pathologist [facility] PTT-LA 32.1 0.0 - 51.9 sec 03/03/2019 10:05 PM CDT [facility] ([facility]) dRVVT 29.7 0.0 - 47.0 sec 03/03/2019 10:05 PM CDT [facility] ([facility]) Interpretation Comment: 03/03/2019 10:05 PM CDT [facility] ([facility]) Comment:No lupus anticoagula nt was detected. Blood BLOOD SPECIMEN / Unknown Lab Venipuncture / Unknown 03/02/2019 2:25 PM CDT 03/02/2019 3:02 PM CDT Narrative [facility] ([facility]) - 03/03/2019 10:05 PM CDT Performed at: [address] [place] [id number] Grain Distributor: Ema Pinedo MD, Phone: [phone] Tevin Shoemaker MD LAB - HEMATOLOGY ORD ERABLES Performing Organization Address City/[facility] Co de Phone Number [facility] ([facility]) [address] [place] [address] * THYROID ANTIBODY PANEL (03/02/2019 2:25 PM CDT) Thyroid Peroxidase TPO Antibody 12 0 - 26 IU/mL 03/03/2019 1:09 PM CDT [facility] ([facility]) Thyroglobulin Antibody <1.0 0.0 - 0.9 IU/mL 03/03/2019 1:09 PM CDT [facility] ([facility]) Comment:Thyroglobulin Antibo dy measured by [facility] [place] [facility] Blood BLOOD SPECIMEN / Unknown Lab Venipuncture / Unknown 03/02/2019 2:25 PM CDT 03/02/2019 3:02 PM CDT Narrative [facility] ([facility]) - 03/03/2019 1:09 PM CDT Performed at: [address] [id number] Grain Distributor: Luis Glass PhD, Phone: [phone] Tevin Shoemaker MD LAB - CHEMISTRY ABSECONEduardo [place] Performing Organization Address [facility]/ZIP Co de Phone Number [facility] ([facility]) [address] [place] [address] * BETA-2 GLYCOPROTEIN 1 ANTIBODY IGG/IGM PANEL (03/02/2019 2:25 PM CDT) [facility] Beta-2 Glycoprotein I Antibody IgG <9 0 - 20 GPI IgG units 03/04/2019 3:07 PM CDT [facility] ([facility]) Comment: The reference interval reflects a 3SD or 99th percentile interval, which is thought to represent a potentially clinically significant result in accordance with the International Consensus Statement on the classification criteria for definitive antiphospholipid syndrome (APS). J Thromb Haem 2006;4:295-306. Beta-2 Glycoprotein I Antibody IgM <9 0 - 32 GPI IgM units 03/04/2019 3:07 PM CDT [facility] ([facility]) Comment: The reference interval reflects a 3SD or 99th percentile interval, which is thought to represent a potentially clinically significant result in accordance with the International Consensus Statement on the classification criteria for definitive antiphospholipid syndrome (APS). J Thromb Haem 2006;4:295-306. Blood BLOOD SPECIMEN / Unknown Lab Venipuncture / Unknown 03/02/2019 2:25 PM CDT 03/02/2019 3:02 PM CDT Narrative [facility] ([facility]) - 03/04/2019 3:07 PM CDT Performed at: [address] [id number] Grain Distributor: Ema Pinedo MD, Phone: [phone] Tevin Shoemaker MD LAB - CHEMISTRY SHEELA [place] Performing Organization Address City/[facility]/ZIP Co de Phone Number [facility] ([facility]) [address] [place] [address] * CHLAMYDIA + GC AMPLIFIED PROBE (02/13/2019 12:06 PM CDT) Only the most recent of4 resultswithin the time period is included. Chlamydia Amplified Probe Negative Negative 02/14/2019 7:41 AM CDT [facility] GC Amplified Probe Negative Negative 02/14/2019 7:41 AM CDT [facility] Urine URINE / Unknown Collection / Unknown 02/13/2019 12:06 PM CDT 02/13/2019 12:23 PM CDT Narrative [facility] - 02/14/2019 7:41 AM CDT Results based on detection/no detection of ribosomal RNA by amplified method. Neena Alejandro MD LAB - MICROBIO LOGY ORDERABLES [facility] [address] [place] [address], [facility] [phone] * XR LUMBAR SPINE 2 OR 3 VW (12/26/2018 1:35 PM MEDICAL CODING SPECIALIST) Anatomical Region Laterality Modality Spine Radiographic Johanna ging 12/26/2018 1:38 PM MEDICAL CODING SPECIALIST Impressions 12/26/2018 1:40 PM MEDICAL CODING SPECIALIST No acute osseous abnormality. Reading Radiologist: Lynn Alcazar MD on 12/26/2018 at 1:40 PM Narrative 12/26/2018 1:40 PM MEDICAL CODING SPECIALIST Exam: Left knee, 3 views Right knee, [...] MD on 12/26/2018 at 1:40 PM Norman Perezrymple DO DIAGNOSTIC I MAGING ORDERABLES * XR SI JOINTS 3VW OR MORE (12/26/2018 1:33 PM MEDICAL CODING SPECIALIST) Anatomical Region Laterality Modality Pelvis, Lower Extremity Radiogra [facility] 12/26/2018 1:38 PM MEDICAL CODING SPECIALIST Impressions 12/26/2018 1:40 PM MEDICAL CODING SPECIALIST No acute osseous abnormality. Reading Radiologist: Lynn Alcazar MD on 12/26/2018 at 1:40 PM Narrative 12/26/2018 1:40 PM MEDICAL CODING SPECIALIST Exam: Left knee, 3 views Right knee, [...] No acute osseous abnormality. Reading Radiologist: Lynn Alczaar MD on 12/26/2018 at 1:40 PM Norman Byrd DO DIAGNOSTIC I MAGING ORDERABLES * XR KNEE RIGHT 3VW (12/26/2018 1:31 PM MEDICAL CODING SPECIALIST) Anatomical Region Laterality Modality Lower Extremity Radiographic Johanna ging 12/26/2018 1:38 PM MEDICAL CODING SPECIALIST Impressions 12/26/2018 1:40 PM MEDICAL CODING SPECIALIST No acute osseous abnormality. Reading Radiologist: Lynn Alcazar MD on 12/26/2018 at 1:40 PM Narrative 12/26/2018 1:40 PM MEDICAL CODING SPECIALIST Exam: Left knee, 3 views Right knee, [...] MD on 12/26/2018 at 1:40 PM Norman Geovani Byrd DIAGNOSTIC I MAGING ORDERABLES * XR KNEE 3 VW LEFT (12/26/2018 1:31 PM MEDICAL CODING SPECIALIST) Anatomical Region Laterality Modality Lower Extremity Radiographic Johanna ging 12/26/2018 1:38 PM MEDICAL CODING SPECIALIST Impressions 12/26/2018 1:40 PM MEDICAL CODING SPECIALIST No acute osseous abnormality. Reading Radiologist: Lynn Alcazar MD on 12/26/2018 at 1:40 PM Narrative 12/26/2018 1:40 PM MEDICAL CODING SPECIALIST Exam: Left knee, 3 views Right knee, [...] PEPTIDE ANTIBODY IGG/IGA (CCP) (12/26/2018 1:16 PM MEDICAL CODING SPECIALIST) Pathologist [facility] CCP Antibodies IgG/IgA 4 0 - 19 units 12/27/2018 10:07 PM MEDICAL CODING SPECIALIST [facility] ([facility]) Comment: Negative <20 Weak positive 20 - 39 Moderate positive 40 - 59 Strong positive >59 Blood BLOOD SPECIMEN / Unknown Lab Venipuncture / Unknown 12/26/2018 1:16 PM MEDICAL CODING SPECIALIST 12/26/2018 1:32 PM MEDICAL CODING SPECIALIST Narrative [facility] ([facility]) - 12/27/2018 10:07 PM MEDICAL CODING SPECIALIST Performed at: [address] [place] [id number] Grain Distributor: Ema Pinedo MD, Phone: [phone] Norman Byrd DO LAB - SEROLO GY ORDERABLES Performing Organization Address City/[facility]/ZIP Co de Phone Number [facility] [address] [place] [address] * TISSUE TRANSGLUTAMINASE AB IGA (12/26/2018 1:16 PM MEDICAL CODING SPECIALIST) TTG Antibody IgA <2 0 - 3 U/mL 12/27/2018 2:14 PM MEDICAL CODING SPECIALIST [facility] ([facility]) Comment: Negative 0 - 3 Weak Positive 4 - 10 Positive >10 Tissue Transglutaminase (tTG) has been identified as the endomysial antigen. Studies have demonstr- ated that endomysial IgA antibodies have over 99% specificity for gluten sensitive enteropathy. Blood BLOOD SPECIMEN / Unknown Lab Venipuncture / Unknown 12/26/2018 1:16 PM MEDICAL CODING SPECIALIST 12/26/2018 1:32 PM MEDICAL CODING SPECIALIST Narrative [facility] ([facility]) - 12/27/2018 2:14 PM MEDICAL CODING SPECIALIST Performed at: 01 - [facility] [id number] Grain Distributor: Luis Glass PhD, Phone: [phone] Norman Wallacechrissy RODARTE LAB - SEROLO GY ORDERABLES Performing Organization Address [facility] Co de Phone Number [facility]) [address] [place] [address] * RHEUMATOID FACTOR BLOOD QUANTITATIVE (12/26/2018 1:16 PM MEDICAL CODING SPECIALIST) Pathologist [facility] Rheumatoid Factor Quantitative 11 <15 IU/mL 12/26/2018 2:01 PM MEDICAL CODING SPECIALIST [facility] Blood BLOOD SPECIMEN / Unknown Lab Venipuncture / Unknown 12/26/2018 1:16 PM MEDICAL CODING SPECIALIST 12/26/2018 1:32 PM MEDICAL CODING SPECIALIST Norman Geovani Rochelle RODARTE LAB - CHEMIS TRY ORDERABLES Performing Organization Address City/[facility]/ZIP Co de Phone Number [facility] [address] [place] [address] * HLA TYPING B27 (12/26/2018 1:16 PM MEDICAL CODING SPECIALIST) HLA-B27 Negative 12/30/2018 4:17 PM MEDICAL CODING SPECIALIST [facility] ([facility]) Comment: HLA-B*27 Negative B27 allele interpretation for all loci based on IMGT/HLA database version 3.33.0 This test was developed and its performance characteristics determined by [facility]. It has not been cleared or approved by the Food and Drug Administration. [facility] CLIA ID Number [id number] This test was performed using PCR (Polymerase Chain Reaction)/SSOP (Sequence Specific Oligonucleotide Probes) technique. SBT (Sequence Based Typing) and/or SSP (Sequence Specific Primers) may be used as supplemental methods when necessary. Please contact [facility] Customer Service at if you have any questions. Director of [facility] Dr Avelino López, PhD Blood BLOOD SPECIMEN / Unknown Lab Venipuncture / Unknown 12/26/2018 1:16 PM MEDICAL CODING SPECIALIST 12/26/2018 1:32 PM MEDICAL CODING SPECIALIST Narrative [facility] ([facility]) - 12/30/2018 4:17 PM MEDICAL CODING SPECIALIST Performed at: [address] [id number] Grain Distributor: Avelino López PhD, Phone: [phone] Norman Byrd DO LAB - CHEMIS TRY ORDERABLES [facility] ([facility]) [address] [place] [address] * COMPLEMENT CH50 (12/26/2018 1:16 PM MEDICAL CODING SPECIALIST) Pathologist [facility] Complement Total CH50 >60 >39 U/mL 12/27/2018 3:11 PM MEDICAL CODING SPECIALIST [facility] Blood BLOOD SPECIMEN / Unknown Lab Venipuncture / Unknown 12/26/2018 1:16 PM MEDICAL CODING SPECIALIST 12/26/2018 1:32 PM MEDICAL CODING SPECIALIST Narrative [facility] ([facility]) - 12/27/2018 3:11 PM MEDICAL CODING SPECIALIST Performed at: [address] [place] [id number] Grain Distributor: Luis Glass PhD, Phone: [phone] Norman Byrd DO LAB - CHEMIS TRY ORDERABLES [facility]) [address] [place] [address] * IMMUNOGLOBULINS PANEL (inc IgA, IgG, IgM) (12/26/2018 1:16 PM MEDICAL CODING SPECIALIST) IgA 137 65 - 421 mg/dL 12/26/2018 2:05 PM MEDICAL CODING SPECIALIST [facility] IgG 1,181 552 - 1,631 mg/dL 12/26/2018 2:05 PM MEDICAL CODING SPECIALIST [facility] IgM 131 33 - 293 mg/dL 12/26/2018 2:05 PM MEDICAL CODING SPECIALIST [facility] Blood BLOOD SPECIMEN / Unknown Lab Venipuncture / Unknown 12/26/2018 1:16 PM MEDICAL CODING SPECIALIST 12/26/2018 1:32 PM MEDICAL CODING SPECIALIST Norman Byrd DO LAB - CHEMIS TRY ORDERABLES Performing Organization Address City/[facility]/ZIP Co de Phone Number [facility] [address] [place] [address] * CARDIAC EKG ORDER (07/27/2018 10:12 PM CDT) Narrative 07/27/2018 10:12 PM CDT Ordered by an unspecified provider. Scanned Document CARDIAC SERVICES ORD ERABLES * LITHIUM LEVEL (07/26/2018 11:22 AM CDT) Only the most recent of3 resultswithin the time period is included. Doran 1.0 0.6 - 1.2 mmol/L 07/26/2018 12:24 PM CDT [facility] Blood BLOOD SPECIMEN / Unknown Lab Venipuncture / Unknown 07/26/2018 11:22 AM CDT 07/26/2018 11:32 AM CDT Deni Rosado DO LAB - CHEMISTRY ORDE RABSHOBHA Performing Organization Address City/[facility]/ZIP Co de Phone Number [facility] [address] [place] [address] * (ABNORMAL) DRUG SCREEN TOX URINE PANEL (07/26/2018 3:00 AM CDT) Amphetamines Screen Urine Not Detected Not Detected 07/26/2018 4:16 AM CDT [facility] Barbiturates Screen Urine Not Detected Not Detected 07/26/2018 4:16 AM T [facility] Benzodiazepines Screen Urine Not Detected Not Detected 07/26/2018 4:16 AM T [facility] Cannabinoids Screen Urine Detected(AA ) Not Detected 07/26/2018 4:16 AM T [facility] Cocaine Screen Urine Not Detected Not Detected 07/26/2018 4:16 AM T [facility] Methadone Screen Urine Not Detected Not Detected 07/26/2018 4:16 AM T [facility] Opiate Screen Urine Not Detected Not Detected 07/26/2018 4:16 AM T [facility] Phencyclidine Screen Urine Not Detected Not Detected 07/26/2018 4:16 AM T [facility] Urine URINE / Unknown Collection / Unknown 07/26/2018 3:00 AM CDT 07/26/2018 3:51 AM CDT Narrative [facility] - 07/26/2018 4:16 AM CDT This drug screen is designed for MEDICAL purposes only. It is not to be used for legal purposes, including but not limited to worker's comp, police investigations, occupational issues, child custody, etc. Any positive result is only presumptive and must be confirmed with a separate confirmatory test ordered by the physician. Drug Screening Test Cutoff Values: AMPHETAMINES 1000 ng/mL BARBITURATES 200 ng/mL BENZODIAZEPINES 200 ng/mL CANNABINOIDS(THC) 50 ng/mL COCAINE 300 ng/mL METHADONE 300 ng/mL OPIATES 300 ng/mL PHENCYCLIDINE(PCP)25 ng/mL Hannah Christiansen MD LAB - URINE CHEMISTR Y ORDERABLES [facility] [address] [place] [address] * XR KNEE 4+ VW LEFT (11/11/2017 3:14 PM MEDICAL CODING SPECIALIST) Anatomical Region Laterality Modality Lower Extremity Radiographic Johanna ging 11/11/2017 3:31 PM MEDICAL CODING SPECIALIST Impressions 11/11/2017 3:32 PM MEDICAL CODING SPECIALIST Mild infrapatellar soft tissue edema. Narrative 11/11/2017 3:32 PM MEDICAL CODING SPECIALIST EXAMINATION: Left knee 4 or more views [...] O RDERABLES * URINALYSIS - POCT (IP) RENNYCHRISTOPHER (07/13/2017 12:30 PM CDT) Glucose UA neg Negative [facility] POC T TESTING Bilirubin UA neg Negative [facility] P OCT TESTING Ketone UA neg Negative [facility] POCT TEST[facility] Specific Dahinda UA POCT 1.010 1.000 - 1.030 [facility] PO[facility] Blood UA neg Negative [facility] pH UA 6.0 5.0 - 8.0 pH units [facility] PO[facility] TEST[facility] Protein UA neg Negative [facility] P[facility] T TESTING Urobilinogen UA 0.2 0.2 - 1.0 EU/dL [facility] PO[facility] TEST[facility] Nitrite UA neg Negative [facility] POC T TESTING Leukocyte UA neg Negative [facility] P OCT TESTING QC Verified Yes Yes [facility] PO CT TESTING Urine URINE / Unknown 07/13/2017 1 2:30 PM CDT Neena Alejandro MD LAB - POINT OF CARE ORDERABLES [facility] POCT TESTING [address] [place] [address], [facility] [phone] * XR KNEE 4+ VW RIGHT (10/09/2016 3:31 PM MEDICAL CODING SPECIALIST) Anatomical Region Laterality Modality Lower Extremity Radiographic Johanna ging 10/09/2016 3:47 PM MEDICAL CODING SPECIALIST Impressions 10/09/2016 3:48 PM MEDICAL CODING SPECIALIST No acute osseous abnormality. Narrative 10/09/2016 3:48 PM MEDICAL CODING SPECIALIST Exam: Right knee, 4 views HISTORY: Knee pain COMPARISON: None FINDINGS: The osseous structures are intact and well aligned. No focal soft tissue swelling or demineralization is seen. No joint effusion is seen. Procedure Note Lynn [...] THERAPEUTIC DR MERCER MONITORING ORDERABLES Care Teams Substance Abuse Nurse Relationship Specialty [place] [address] [place] [phone] PCP - General Gastroenterology 10/13/21
--- OUTSIDE RECORDS SUMMARY | 2025-01-18 13:20 | XMS_ITS | Encounter Summary ---
Author Organization [facility] Address [address] [place] [address] Care Team Providers Care Automation Qtp Tester Name Role Phone Betzaida Lutz MD Primary Care Provider [phone] Zuleyma Martinez MD Primary Care Provider [phone] Reason for Visit * Reason Onset Date Comments Follow-up 01/24/2020 Informed dad of visitor policy. Encounter Details Date Type Department Care Team (Late st Contact Info) Description 01/24/2020 Telephone [facility] Pediatrics - ENT [facility] [place] [address] Judy Anderson RN Follow-up (Informed dad of [...] Info) Description 02/14/2025 9:45 AM CDT Appointment [facility] [address] [place] [id number] documented as of this encounter Visit Diagnoses Not on filedocumented in this encounter Care Teams Automation Qtp Tester Relationship Specialty Start Date End Date Betzaida Lutz MD [address] [place] [phone] PCP - General Pediatrics 11/11/17 10/12/21 [place] [address] [place] [phone] PCP - General Gastroenterology 10/13/21 documented as of this encounter
--- NOTE | 2025-01-18 13:23 | OBADM ---
This patient, Keily Aly, admitted to the OB room 112 for observation. Patient/family oriented to hospital policies and general routines including ID bracelet, bed and alarms, visiting hours, pain management, procedures, bathroom and other care routines, personal items, smoking policy, room service/diet, and visiting hours. Patient/Family are encouraged to report perceived risks to care and to ask questions if they do not understand what they are told or what they should do.
[2025-01-18 13:44] LABS: Add Urine Microscopic? YES; Appearance Urine Clear (Clear); Bilirubin Urine Negative (Negative); Blood Urine Negative (Negative); Color Urine Yellow (Yellow); Glucose Urine UA 3+ mg/dL (Negative); Ketones Urine 4+ mg/dL (Negative); Leukocyte Esterase Ur Negative LEU/UL (Negative); Nitrate Urine Negative (Negative); Protein Urine Trace mg/dL (Negative); Specific Grav Ur 1.033 (1.001-1.035); Urobilinogen Urine 0.2 mg/dL (<2.0)
--- NOTE | 2025-01-18 14:00 | PC.NURSE ---
Pt has tolerated ice chips and a popcicle. Jello given and pt given menu with [place] options to order.
[2025-01-18 14:14] LABS: RBC Urine 0-2 /hpf (0-2)
[2025-01-18 14:15] LABS: Bacteria Urine Trace /hpf; Mucus Urine Few /lpf; Squamous Epithelial Cell Urine Few /hpf (Few); WBC Urine 0-3 /hpf (0-3)
--- NOTE | 2025-01-18 15:00 | PC.NURSE ---
Pt ate part of a jello and had return of some nausea, but no emesis. Pt given apple juice, white soda, and alfreda crackers to try.
--- NOTE | 2025-01-18 16:27 | PC.NURSE ---
Dr. Nguyễn informed of lab results. Pt c/o worsening nausea with trying to drink some of the apple juice and white soda. Orders received.
[2025-01-18] MEDS: METOCLOPRAMIDE HCL INJ 10 MG/2 ML VIAL IV PUSH (16:42)
--- NOTE | 2025-01-18 18:15 | PC.NURSE ---
Pt states she is feeling much better since she had the Reglan and is ready to go home. Pt has drank more of her apple juice, soda, and nibbled on some alfreda crackers.
--- NOTE | 2025-01-18 18:36 | PC.NURSE ---
Dr. Nguyễn informed pt is feeling better and requesting to go home. Pt is out of her Zofran at home and insurance won't refill yet. Pt requesting antiemetics for at home. also informed WBC was 14.5 , but no signs of UTI on UA. Orders for discharge and to send RX for Reglan for pt.
--- NOTE | 2025-02-14 09:42 | P.PNOB_ITS ---
OB - Triage/Final Diagnosis Visit Information Comments/Additional reasons for admission: I have assessed the risk for this patient, Keily Aly, and determined that she would benefit from observation care. Evaluation Laboratory results: Laboratory Tests 01/18/25 01/18/25 12:08 12:59 WBC 14.5 H RBC 3.78 L Hgb 11.2 L Hct 33.0 L MCV 87.3 MCH 29.6 MCHC 33.9 RDW 13.3 Plt Count 246 MPV 11.1 H Immature Gran % (Auto) 0.4 Neut % (Auto) 87.0 H Lymph % (Auto) 9.7 L Alexander % (Auto) 2.8 Eos % (Auto) 0.0 Baso % (Auto) 0.1 L Lymph # (Auto) 1.41 Alexander # (Auto) 0.4 Eos # (Auto) 0.0 Baso # (Auto) 0.0 Abs Immat Gran (auto) 0.06 H Absolute Neuts (auto) 12.6 H Absolute Nucleated RBC 0.000 Nucleated RBC % 0.0 Sodium 138 Potassium 3.9 Chloride 107 Carbon Dioxide 16 L Anion Gap 15 H BUN 10 Creatinine 0.58 L Estim Creat Clear Calc Not Reportable Estimated GFR > 60 Glucose 110 Calcium 9.8 Total Bilirubin 0.5 AST 25 ALT 16 Alkaline Phosphatase 60 Total Protein 8.0 Albumin 4.4 Urine Color Yellow Urine Appearance Clear Urine pH 7.0 Ur Specific [place] 1.033 Urine Protein Trace Urine Glucose (UA) 3+ H Urine Ketones 4+ H Ur Blood (Man) Negative Urine Nitrate Negative Urine Bilirubin Negative Urine Urobilinogen 0.2 Leukocyte Esterase Rfl Negative Urine RBC 0-2 Urine WBC 0-3 Ur Squamous Epith Cells Few Urine Bacteria Trace Urine Mucus Few H Final Diagnosis (1) Nausea and vomiting: Code(s): R11.2 - Nausea with vomiting, unspecified Status: Acute
== END 2025-01-18 19:00 | disposition home or self-care (01) ==
PROVIDERS: Admitting Provider Obstetrics & Gynecology; Visit Provider Obstetrics & Gynecology
DX: O21.0 Mild hyperemesis gravidarum (principal); Z3A.17 17 weeks gestation of pregnancy
CPT/HCPCS: 36415; 80053; 81001; 85025; 96361; 96374; 96375; G0378; G0379; J2405; J2765; J7121

== ENCOUNTER 2025-03-17 14:43 | Observation (INO) | payer OTHER, SELFPAY ==
[2025-03-17 13:50] VITALS: BMI 25.5
--- OUTSIDE RECORDS SUMMARY | 2025-03-17 14:45 | XMS_ITS | Clinical Summary ---
Author Organization [facility] Address [address] [place] [address] Care Team Providers Care Drop Forger Name Role Phone Zuleyma Martinez MD Primary Care Provider Source Comments [facility],non-owned Affiliates and Associated Physician Practices is amultiple site organization consisting of ambulatory clinics and hospital sitesin [place], [place], [place] and [place]. This disclosure is being madepursuant to the Care Everywhere program and may not contain all information available regarding this patient. Last updated 18.[facility] Allergies Active Allergy Reactions Criticality Noted Date Comments Nickel Urticaria Medium 03/02/2019 Medications * This document contains information received from the source organization and may not represent a complete record from that organization. * Be aware that medications may not be up to date on this document. Alwaysverify current medications with the patient. albuterol HFA (PROVENTIL;VENT KARLI;PROAIR) 108 (90 BASE) MCG/ACT inhaler Inhale 2 (two) puffs by mouth every 6 hours as needed Active ondansetron (Zofran) 4 MG tabletIndicatio ns:Nausea and/or Vomiting in Take 1 (one) tablet by mouth every 4 hours Reasons: Nausea and Vomiting in Active MV & Min w/FA-DHA ( ADULT GUMMY/DHA/FA PO) Take 2 Each by mouth once daily Active pantoprazole EC (Protonix) 20 MG tablet Take 1 (one) tablet by mouth once daily Active Active Problems Patient Care Coordination No te Formatting of this note migh t be different from the original. Clarence phone: [phone] Problem Noted Date Diagnosed Date Mixed anxiety and depressive disorder 02/14/2025 History of asthma 02/14/2025 Arthralgia 12/26/2018 Chronic bilateral low back pain [...] Dr. Lemus -Toxicology consulted, appreciated recs -Repeat Refton level at 7 AM -1.5 times MIVFs [...] and likely transfer to inpatient psychiatric facility Estimated Date of Delivery Comme nts Yes 06/27/2025 Based on last me nstrual period of 09/20/2024 Resolved Problems Problem Noted Date Diagnosed Date Resolved Date Routine screening for STI (s exually transmitted infection) 07/18/2018 02/14/2025 DUB (dysfunctional uterine bleeding) 12/07/2016 02/14/2025 Assessment & Plan (12/07/2016 9:55 AM CHIEF UNDERWRITER): On progesterone only mini pill since Aug [...] side effects with patient and her mother. Encounters Date Type Department Care Team Description 03/06/2025 1:00 PM CDT Hospital Encounter [facility] [address] [address] Edna Stevenson MD Discharge Disposition: Home or Self Care 03/06/2025 1:00 PM CDT Hospital Encounter [address] [address] Tonia Lemon MD Peterson, Renuka E., MD Discharge Disposition: Home or Self Care 02/14/2025 9:31 AM CDT - 02/14/2025 11:59 PM CDT Hospital Encounter [facility] [address] [place] [address] Tonia Lemon MD Discharge Disposition: Home or Self Care 01/02/2025 10:27 AM CHIEF UNDERWRITER - 01/02/2025 11:59 PM CHIEF UNDERWRITER Hospital Encounter [facility] [address] [place] [address] Kishan Mendoza MD Discharge Disposition: Home or Self Care 01/02/2025 10:27 AM CHIEF UNDERWRITER - 01/02/2025 11:59 PM CHIEF UNDERWRITER Hospital Encounter [facility] [address] [id number] Kishan Mendoza MD Discharge Disposition: Home or [...] Date Recorded PHQ2 TOTAL SCORE 3 10/13/2021 Romance Depression Scale Answer Date Recorded Romance Depression Scale Total 7 01/02/2025 The thought of harming myself has occurred to me . Never 01/02/2025 Estimated Date of Delivery Comme nts Yes 06/27/2025 Based on last me nstrual period of 09/20/2024 Sex and Gender Information Value Date Recorded Sex Assigned at Not on file Legal Sex Female 10:14 AM CDT Gender Identity Not on file Sexual Orientation Not on file Last Filed Vital Signs Vital Sign Reading Time Taken Comments Blood Pressure 117/53 01/02/2025 10:58 AM CHIEF UNDERWRITER Pulse 80 01/02/2025 10:58 AM CHIEF UNDERWRITER Temperature 37.1 C (98.8 F) 12/07/2023 3:34 PM CHIEF UNDERWRITER Respiratory Rate 18 03/18/2020 4:25 PM CDT Oxygen Saturation 96% 09/20/2023 1:40 PM CHIEF UNDERWRITER Inhaled Oxygen Concentration - - Weight 66.5 kg (146 lb 9.6 oz) 02/14/2025 11:11 AM CDT Height 162.6 cm (5' 4) 01/02/2025 10:58 AM CHIEF UNDERWRITER Body Mass Index 25.16 01/02/2025 10:58 AM CHIEF UNDERWRITER Plan of Treatment Health Maintenance Due Date Last Done Comments PAP SMEAR 2002 HPV VACCINE (1 - 3-dose series) 2017 MENINGOCOCCAL (Group B) VACCINE SHARED DECISION-MAKING (1 of 2 - Standard) 2018 HEPATITIS C SCREENING 01/08/2020 DTAP/TDAP/TD VACCINES (1 - Tdap) 2021 HEPATITIS B VACCINE (1 of 3 - 19+ 3-dose series) 2021 COVID-19 VACCINE (1 - season) 2024 OB-ONE HOUR GLUCOSE 03/21/2025 OB-RHOGAM INJECTION 04/04/2025 INFLUENZA VACCINE (Season Ended) 2025 CHLAMYDIA/GONORRHEA SCREENING 11/20/2025 11/20/2024, 11/20/2024, 10/08/2021, Additional history exists ZOSTER VACCINE (1 of 2) 01/13/2052 HIV SCREENING Completed 12/18/2024 DEPRESSION SCREENING Completed 01/02/2025 HIB VACCINE Aged [...] Procedure Name Priority Date/Time Associated Diagnosis Comments ECHO COMPLETE CG Routine 03/06/2025 1:45 PM CDT Medication exposure during first trimester of (HCC) SONOGRAM - COMPLETE Routine 02/14/2025 9 :51 AM CDT Mixed anxiety and depressive disorder History of asthma Hypermobile joints Encounter for anatomic survey (HCC) SONOGRAM - COMPLETE Routine 01/02/2025 1 0:25 AM CHIEF UNDERWRITER Mixed anxiety and depressive disorder History of asthma Hypermobile joints Encounter for ultrasound CHLAMYDIA + GC AMPLIFIED PROBE Routine 05/06/2020 10:45 AM CDT DUB (dysfunctional uterine bleeding) Routine screening for STI (sexually transmitted infection) from Last 3 Months or Most Recently Relevant to Health Maintenance Results * ECHO COMPLETE CG (03/06/2025 1:45 PM CDT) MV E pk alivia 31.8 cm/s [facility] CV F UJI PACS MV A pk alivia 41.44 cm/s [facility] CV F UJI PACS Anatomical Region Laterality Modality Ultrasound 03/06/2025 1:23 PM CDT Narrative 03/06/2025 4:38 PM CDT Name: Keily Adams Patient Exam Info Gender: Female Patient Status: O/P : 2000 Admit Date: 03/06/2025 Exam Date/Time: 03/06/2025 1:23 PM Site: [facility] Current Location: CARE EStudy Quality: Diagnostic quality Staff Ordering Provider: Tonia Lemon Interpreting Physician: Edna Stevenson MD Load Checker: Jarod Broderick [facility] Study Info Procedure: ECHO COMPLETE CG Indications: O09.891 - Medication exposure during first trimester of (HCC) Maternal Gestational Status GA by EDC: 23 wks , 6 days Count: 1 EDC: 06/27/2025 Type: Begum Age: 25 yrs Lie: Breech Summary * The echocardiogram was within normal limits. * Small atrial and ventricular septal defects and persistent ductus arteriosus cannot be excluded as findings. Anatomic Relationships Left sided cardiac apex (levocardia). There is normal visceral-cardiac situs, and normal segmental cardiac anatomical relationship. Systemic Veins There is normal systemic venous return. Pulmonary Veins The visualized pulmonary veins drain normally to the left atrium. Right Atrium The right atrial size is normal. Left Atrium The left atrial size is normal. Atrial Septum Patent foramen ovale with open foramen flap. Color flow is right to left. Right Ventricle The right ventricular cavity size is normal. The right ventricular wall thickness is normal. The right ventricular systolic function is normal. RV Outflow Tract The right ventricular outflow tract is normal. Left Ventricle The left ventricular cavity size is normal. The left ventricular wall thickness is normal. The left ventricular systolic function is normal. Ventricular Septum There is no ventricular septal defect with no shunting. LV Outflow Tract The left ventricular outflow tract is normal. Tricuspid Valve The tricuspid valve is structurally normal. The tricuspid inflow pattern is normal. Tricuspid velocity is within the normal range. There is no tricuspid regurgitation. Mitral Valve The mitral valve is structurally normal. The mitral inflow pattern is normal. Mitral velocity is within the normal range. There is no mitral regurgitation. Aorta aortic arch visualized and is without obstruction by 2D, color flow and Doppler. Pulmonary Arteries The main pulmonary artery is normal, with confluent branch pulmonary arteries. Ductus Arteriosus The antegrade flow velocity and pattern in the ductal arch is normal. A normal ductus arteriosus is appreciated. Doppler Flow in the ductus venosus is normal. The umbilical vein flow pattern is normal. The umbilical artery flow pattern is normal. Hydrops Assessment No pericardial effusion. No ascites present. No pleural effusion(s). Rhythm The rhythm is normal. There is 1:1 AV conduction. Pulmonary Valve The pulmonic valve is normal-sized. The transpulmonic velocity is within normal range. There is no pulmonic regurgitation. Aortic Valve The aortic valve is normal-sized. The transaortic velocity is within normal range. There is no aortic regurgitation. Doppler Measurements (Fetus A) Atrioventricular Valves Name Value Normal Z-Score Percentile Atrioventricular Valves Doppler TV E Peak Velocity 0.2 m/s TV A Peak Velocity 0.3 m/s MV E Peak Velocity 0.3 m/s MV A Peak Velocity 0.4 m/s (Fetus A) Semilunar Valves Name Value Normal Z-Score Percentile Semilunar Valves Doppler PV Peak Velocity. 0.5 m/s AV Peak Velocity () 0.6 m/s (Fetus A) Heart Rate Name Value Normal Z-Score Percentile Heart Rate HR 149 bpm Report Signatures Finalized by Edna Stevenson MD on 03/06/2025 04:38 PM Procedure Note Edna Stevenson MD - 03/06/2025 Name: Keily Adams Patient Exam Info Gender: Female Patient Status: O/P : 2000 Admit Date: 03/06/2025 Exam Date/Time: 03/06/2025 1:23 PM Site: [facility] Current Location: CARE EStudy Quality: Diagnostic quality Staff Ordering Provider: Tonia Lemon Interpreting Physician: Edna Stevenson MD Load Checker: Jarod Broderick [facility] Study Info Procedure: ECHO COMPLETE CG Indications: O09.891 - Medication exposure during first trimester of (HCC) Maternal Gestational Status GA by EDC: 23 wks , 6 days Count: 1 EDC: 06/27/2025 Type: Begum Age: 25 yrs Lie: Breech Summary * The echocardiogram was within normal limits. * Small atrial and ventricular septal defects and persistent ductus arteriosus cannot be excluded as findings. Anatomic Relationships Left sided cardiac apex (levocardia). There is normal visceral-cardiac situs, and normal segmental cardiac anatomical relationship. Systemic Veins There is normal systemic venous return. Pulmonary Veins The visualized pulmonary veins drain normally to the left atrium. Right Atrium The right atrial size is normal. Left Atrium The left atrial size is normal. Atrial Septum Patent foramen ovale with open foramen flap. Color flow is right toleft. Right Ventricle The right ventricular cavity size is normal. The right ventricularwall thickness is normal. The right ventricular systolic function is normal. RV Outflow Tract The right ventricular outflow tract is normal. Left Ventricle The left ventricular cavity size is normal. The left ventricular wall thickness is normal. The left ventricular systolic function is normal. Ventricular Septum There is no ventricular septal defect with no shunting. LV Outflow Tract The left ventricular outflow tract is normal. Tricuspid Valve The tricuspid valve is structurally normal. The tricuspid inflow patternis normal. Tricuspid velocity is within the normal range. There is notricuspid regurgitation. Mitral Valve The mitral valve is structurally normal. The mitral inflow pattern is normal. Mitral velocity is within the normal range. There is no mitral regurgitation. Aorta aortic arch visualized and is without obstruction by 2D, colorflow and Doppler. Pulmonary Arteries The main pulmonary artery is normal, with confluent branch pulmonary arteries. Ductus Arteriosus The antegrade flow velocity and pattern in the ductal arch is normal.A normal ductus arteriosus is appreciated. Doppler Flow in the ductus venosus is normal. The umbilical vein flow patternis normal. The umbilical artery flow pattern is normal. Hydrops Assessment No pericardial effusion. No ascites present. No pleural effusion(s). Rhythm The rhythm is normal. There is 1:1 AV conduction. Pulmonary Valve The pulmonic valve is normal-sized. The transpulmonic velocity iswithin normal range. There is no pulmonic regurgitation. Aortic Valve The aortic valve is normal-sized. The transaortic velocity is withinnormal range. There is no aortic regurgitation. Doppler Measurements (Fetus A) Atrioventricular Valves Name Value Normal Z-ScorePercentile Atrioventricular Valves Doppler TV E Peak Velocity 0.2 m/s TV A Peak Velocity 0.3 m/s MV E Peak Velocity 0.3 m/s MV A Peak Velocity 0.4 m/s (Fetus A) Semilunar Valves Name Value Normal Z-ScorePercentile Semilunar Valves Doppler PV Peak Velocity. 0.5 m/s AV Peak Velocity () 0.6 m/s (Fetus A) Heart Rate Name Value Normal Z-ScorePercentile Heart Rate HR 149 bpm Report Signatures Finalized by Edna Stevenson MD on 03/06/2025 04:38 PM Tonia Lemon MD ECHO [facility] Final Result * SONOGRAM - COMPLETE (02/14/2025 9:51 AM CDT) Only the most recent of2 resultswithin the time period is included. Linked Results Indication ======== Anatomy Screen Bipolar Disorder Nonspecific Autoimmune Disorder Periconception Medication Exposure History ====== OB History 1 Lab Tests Test Date Result NIPT Low risk, Female Maternal Assessment Physical Exam Height 173 cm, 5 ft 8 in. Weight 66 kg, 146 lb. Initial weight 65 kg, 143 lb. BMI 22.20 kg/m . Initial BMI 21.74 kg/m . Weight gain 1 kg, 3 lb Method ====== Transabdominal and transvaginal ultrasound. View: Good view ========= Begum . Number of fetuses: 1 Dating ====== Date Details Gest. age DAVE LMP 09/20/2024 21 w + 0 d 06/27/2025 U/S 02/14/2025 based upon AC, BPD, Femur, HC 20 w + 4 d 06/30/2025 Assigned dating based on the LMP, selected on 01/02/2025 21 w + 0 d 06/27/2025 General Evaluation Cardiac activity present. FHR 148 bpm. Presentation: cephalic Placenta: Placental site: anterior. No previa seen Umbilical cord: Cord vessels: 3 vessel cord. Insertion site: normal insertion Amniotic fluid: Amount of AF: normal. MVP 6.3 cm Biometry BPD 48.2 mm 20w 4d 31% Hadlock HC 177.6 mm 20w 2d 12% Hadlock Cerebellum tr 21.9 mm 61% [place] Nuchal fold 4.7 mm AC 150.8 mm 20w 2d 22% Hadlock Femur 35.8 mm 21w 2d 53% Hadlock Humerus 35.8 mm 22w 3d 88% Raymond HC / AC 1.18 18w 3d 68% Hadlock Weight Calculation: EFW 373 g 31% Hadlock EFW (lb,oz) 0 lb 13 oz EFW by Hadlock ([id number]) appropriate Growth Overview Exam date GA BPD (mm) HC (mm) AC (mm) FL (mm) HL (mm) EFW (g) 01/02/2025 14w 6d 26.5 30% 100.3 20% 86.8 58% 17.5 59% 113 48% 02/14/2025 21w 0d 48.2 31% 177.6 12% 150.8 22% 35.8 53% 35.8 88% 373 31% Anatomy Face Profile: nasal bone present. The following structures appear normal: Head / Neck Cranium. Lateral ventricles. Choroid plexus. Midline falx. Cavum septi pellucidi. Cerebellum. Cisterna magna. Thalami. Nuchal fold. Face Lips. Nose. Orbits. Heart / Thorax 4-chamber view. RVOT view. LVOT view. 3-vessel view. 1-zqspfy-hvifufu view. Situs. Aortic arch view. Bicaval view. Ductal arch view. Interventricular septum. Great vessels. Right lung. Left lung. Diaphragm. Abdomen Cord insertion. Stomach. Kidneys. Bladder. Genitals. Spine Cervical spine. Thoracic spine. Lumbar spine. Sacral spine. Extremities / Skeleton Arms. Hands. Legs. Feet. sex: female. Maternal Structures Cervix reassuring Approach - Transvaginal: Cervical length 4.60 cm Right Ovary Not visualized Appearance: Adnexa appears normal Left Ovary Not visualized Appearance: Adnexa appears normal No previa seen Impression ========= Single live intrauterine at 21w 0d The size is appropriate. The amniotic fluid volume is normal. The transvaginal cervical length is reassuring. Anterior placenta, not a previa. No major malformations were seen within the limitations of ultrasound. SUPERVISOR [employer]PERATIONS consult today Follow-up ======== Growth US in 4-6 weeks. ECHO as previously recommended. Coding ====== Procedures 34165: US Preg Uterus Detailed [id number]: US Preg Uterus Transvaginal [facility] PACS Anatomical Region Laterality Modality Other 02/14/2025 9:51 AM CDT Tom Nguyễn MD [facility] ORDERABLES Edited Result - Final * CHLAMYDIA + GC AMPLIFIED PROBE (STL) (05/06/2020 10:45 AM CDT) Chlamydia Amplified Probe Negative Negative 05/07/2020 11:51 AM CDT [facility] GC Amplified Probe Negative Negative 05/07/2020 11:51 AM CDT [facility] Microbiology URINE / Unknown Collection / Unknown 05/06/2020 10:45 AM CDT 05/06/2020 11:00 AM CDT Narrative [facility] - 05/07/2020 11:51 AM CDT Results based on detection/no detection of ribosomal RNA by amplified method. Neena Alejandro MD LAB - MICROBIOLOGY ORD ERABLES Final Result [facility] [address] [place] [address], [facility] [phone] from Last 3 Months or Most Recently Relevant to Health Maintenance Insurance [facility] [employer] Advance Directives * Full Code (Latest Code Status on File) Date Activated Date Inactivated Comments 07/26/2018 5:22 AM 07/26/2018 11:22 PM Care Teams Drop Forger Relationship Specialty Start Date End Date Zuleyma Martinez MD [address] [place] [address] PCP - General Gastroenterology 10/13/21
--- OUTSIDE RECORDS SUMMARY | 2025-03-17 14:45 | XMS_ITS | Encounter Summary ---
Author Organization [facility] Address [address] [place] [address] Care Team Providers Care Automobile Insurance Claim Examiner Name Role Phone Betzaida Lutz MD Primary Care Provider [phone] Zuleyma Martinez MD Primary Care Provider [phone] Reason for Visit * Reason Onset Date Comments Follow-up 01/24/2020 message left wit h visitor information Encounter Details Date Type Department Care Team (Late st Contact Info) Description 01/24/2020 Telephone [facility] Pediatrics - ENT [facility] [place] [address] Judy Anderson RN Follow-up (message left with visitor information) Social History Tobacco Use Types Packs/Day Years Used Date Smoking Tobacco: Passive Smo ke Exposure - Never Smoker Smokeless Tobacco: Never Alcohol Use Standard Drinks/Week Comments No 0 (1 standard drink = 0.6 oz pur e alcohol) Comments No Sex and Gender Information Value Date Recorded Sex Assigned at Not on file Legal Sex Female 10:14 AM CDT Gender Identity Not on file Sexual Orientation Not on file documented as of this encounter Functional Status * Is person deaf or have serious hearing difficulty? Answer Date of Assessment Author No 07/26/2018 5:30 AM CDT Lili Mccoy RN * Is person blind or have serious difficulty seeing? Answer Date of Assessment Author No 07/26/2018 5:30 AM CDT Lili Mccoy RN * Does person have serious difficulty walking/climbing stairs? Answer Date of Assessment Author No 07/26/2018 5:30 AM Lili Rodriguez RN * Does person have difficulty dressing/bathing? Answer Date of Assessment Author No 07/26/2018 5:30 AM Lili Rodriguez RN * Does person have difficulty doing errands alone? Answer Date of Assessment Author No 07/26/2018 5:30 AM Lili Rodriguez RN documented as of this encounter Mental Status * Does person have difficulty concentrating/remembering/making decisions? Answer Entry Date Author No 07/26/2018 5:30 AM Lili Rodriguez RN documented in this encounter Plan of Treatment Not on file documented as of this encounter Visit Diagnoses Not on filedocumented in this encounter Care Teams Automobile Insurance Claim Examiner Relationship Specialty Start Date End Date Betzaida Lutz MD [address] [place] [address] PCP - General Pediatrics 11/11/17 10/12/21 Zuleyma Martinez MD [address] [place] [address] PCP - General Gastroenterology 10/13/21 documented as of this encounter
--- OUTSIDE RECORDS SUMMARY | 2025-03-17 14:45 | XMS_ITS | Encounter Summary ---
Author Organization [facility] Address [address] [place] [address] Care Team Providers Care Adobe Layer Helper Name Role Phone Betzaida Lutz MD Primary Care Provider [phone] Zuleyma Martinez MD Primary Care Provider [phone] Reason for Visit * Reason Onset Date Comments Follow-up 01/24/2020 Informed dad of visitor policy. Encounter Details Date Type Department Care Team (Late st Contact Info) Description 01/24/2020 Telephone [facility] Pediatrics - ENT [facility] [place] [address] Judy Anderson RN Follow-up (Informed dad of [...] on filedocumented in this encounter Care Teams Adobe Layer Helper Relationship Specialty Start Date End Date Betzaida Lutz MD [address] [place] [address] PCP - General Pediatrics 11/11/17 10/12/21 Zuleyma Martinez MD [address] [place] [address] PCP - General Gastroenterology 10/13/21 documented as of this encounter
[2025-03-17 15:03] LABS: Add Urine Microscopic? YES; Appearance Urine Clear (Clear); Bacteria Urine Rare /hpf; Bilirubin Urine Negative (Negative); Blood Urine Negative (Negative); Color Urine Yellow (Yellow); Glucose Urine UA Trace mg/dL (Negative); Ketones Urine 3+ mg/dL (Negative); Leukocyte Esterase Ur Trace LEU/UL (Negative); Nitrate Urine Negative (Negative); Non Pathogenic Casts 0-2; Protein Urine Negative (Negative); RBC Urine 0-2 /hpf (0-2); Squamous Epithelial Cell Urine Occasional /hpf (Few); pH Urine 7.5 (5.0-9.0)
[2025-03-17] MEDS: ACETAMINOPHEN 500 MG TABLET 1000 MG PO (16:20)
[2025-03-17] MEDS: ONDANSETRON HCL ODT 4 MG TABLET PO (16:22)
--- NOTE | 2025-03-17 17:24 | OBADM ---
This patient, Keily Aly, admitted to the OB room OB Post 115 for observation. Patient/family oriented to hospital policies and general routines including ID bracelet, bed and alarms, visiting hours, pain management, procedures, bathroom and other care routines, personal items, smoking policy, room service/diet, and visiting hours. Patient/Family are encouraged to report perceived risks to care and to ask questions if they do not understand what they are told or what they should do.
--- NOTE | 2025-04-16 21:30 | PM.OBTRLD ---
OB - Triage/Final Diagnosis Visit Information Comments/Additional reasons for admission: I have assessed the risk for this patient, Keily Aly, and determined that she would benefit from observation care. Evaluation Laboratory results: Laboratory Tests 03/17/25 14:50 Urine Color Yellow Urine Appearance Clear Urine pH 7.5 Ur Specific [place] 1.020 Urine Protein Negative Urine Glucose (UA) Trace H Urine Ketones 3+ H Ur Blood (Man) Negative Urine Nitrate Negative Urine Bilirubin Negative Urine Urobilinogen 1.0 Leukocyte Esterase Rfl Trace H Urine RBC 0-2 Urine WBC 6-10 H Ur Squamous Epith Cells Occasional Urine Bacteria Rare Urine Casts 0-2 Final Diagnosis (1) False labor: Code(s): O47.9 - False labor, unspecified Status: Acute
--- NOTE | 2025-04-16 21:32 | PM.OBTRLD ---
OB - Triage/Final Diagnosis Visit Information Comments/Additional reasons for admission: I have assessed the risk for this patient, Keily Aly, and determined that she would benefit from observation care. Evaluation Laboratory results: Laboratory Tests 03/17/25 14:50 Urine Color Yellow Urine Appearance Clear Urine pH 7.5 Ur Specific [place] 1.020 Urine Protein Negative Urine Glucose (UA) Trace H Urine Ketones 3+ H Ur Blood (Man) Negative Urine Nitrate Negative Urine Bilirubin Negative Urine Urobilinogen 1.0 Leukocyte Esterase Rfl Trace H Urine RBC 0-2 Urine WBC 6-10 H Ur Squamous Epith Cells Occasional Urine Bacteria Rare Urine Casts 0-2 Final Diagnosis (1) False labor: Code(s): O47.9 - False labor, unspecified Status: Acute
== END 2025-03-17 17:00 | disposition home or self-care (01) ==
LOC: ANHOBOP 14:43 → ANHOBPP 14:44
PROVIDERS: Admitting Provider Obstetrics & Gynecology; Visit Provider Obstetrics & Gynecology
DX: O47.02 False labor before 37 completed weeks of gestation, second trimester (principal); Z3A.25 25 weeks gestation of pregnancy
CPT/HCPCS: 81001; 87086; A9270; G0378; G0379

== ENCOUNTER 2025-03-19 10:04 | Observation (INO) | payer OTHER, SELFPAY ==
--- NOTE | ~2025-03-19 | US_ITS ---
EXAMINATION: US OB limited, US OB transvaginal DATE: 03/19/2025 11:10 INDICATION: Assess cervical length. contractions during late second trimester . TECHNIQUE: Real-time ultrasound of the pelvis was performed utilizing both transabdominal and transva ginal probes. The interpreting radiologist was not present for the study. COMPARISON: None. FINDINGS: There is a single living fetus in vertex presentation. The placenta is anterior and not low-lying. F etal heart rate is 154 beats per minute (bpm). Cervical length of 2.9 cm without evident funneling. T he endocervical canal appears anechoic likely fluid-filled and measuring 5 mm in internal diameter. T he amniotic fluid longest subjectively normal with normal deepest vertical pocket measurement of 5.8 cm. IMPRESSION: 1. Single living fetus in vertex presentation with heart rate of 154 bpm. 2. Cervical length of 2.9 cm which is slightly below normal limits and with dilation of the endocervi dara canal which appears fluid-filled and measures up to 5 mm diameter but without evident funneling a t the internal cervical os. 3. Subjectively normal amniotic fluid volume with normal deepest vertical pocket measurement of 5.8 c m. Reviewed, dictated and finalized at location A. IMPRESSION: 1. Single living fetus in vertex presentation with heart rate of 154 bpm . 2. Cervical length of 2.9 cm which is slightly below normal limits and with dil ation of the endocervical canal which appears fluid-filled and measures up to 5 mm diameter but without evident funneling at the internal cervical os. 3. Subjectively normal amniotic fluid volume with normal deepest vertical pocke t measurement of 5.8 cm.
[2025-03-19 10:06] VITALS: BMI 25.7
--- OUTSIDE RECORDS SUMMARY | 2025-03-19 10:09 | XMS_ITS | Encounter Summary ---
Author Organization [facility] Address [address] [place] [address] Care Team Providers Care Comic Illustrator Name Role Phone Betzaida Lutz MD Primary Care Provider [phone] Zuleyma Martinez MD Primary Care Provider [phone] Reason for Visit * Reason Onset Date Comments Follow-up 01/24/2020 Informed dad of visitor policy. Encounter Details Date Type Department Care Team (Late st Contact Info) Description 01/24/2020 Telephone [facility] Pediatrics - ENT [facility] [place] [address] Judy Anderson RN Follow-up (Informed dad of [...] on filedocumented in this encounter Care Teams Comic Illustrator Relationship Specialty Start Date End Date Betzaida Lutz MD [address] [place] [address] PCP - General Pediatrics 11/11/17 10/12/21 Zuleyma Martinez MD [address] [place] [address] PCP - General Gastroenterology 10/13/21 documented as of this encounter
--- OUTSIDE RECORDS SUMMARY | 2025-03-19 10:10 | XMS_ITS | Clinical Summary ---
Author Organization [facility] Address [address] [place] [address] Care Team Providers Care Career Development Engineer Name Role Phone Zuleyma Martinez MD Primary Care Provider Source Comments [facility],non-owned Affiliates and Associated Physician Practices is amultiple site organization consisting of ambulatory clinics and hospital sitesin [place], [place], [place] and [place]. This disclosure is being madepursuant to the Care Everywhere program and may not contain all information available regarding this patient. Last updated 18.[facility] Allergies Active Allergy Reactions Criticality Noted [...] be different from the original. Clarence phone: [phone] Problem Noted Date Diagnosed Date Mixed anxiety [...] Dr. Lemus -Toxicology consulted, appreciated recs -Repeat Kountze level at 7 AM -1.5 times MIVFs [...] 02/14/2025 Assessment & Plan (12/07/2016 9:55 AM PIT HAND): On progesterone only mini pill since Aug [...] Description 03/06/2025 1:00 PM CDT Hospital Encounter [facility] [address] [address] Edna Stevenson MD Discharge Disposition: Home or Self Care 03/06/2025 1:00 PM CDT Hospital Encounter [address] [address] Tonia Lemon MD Peterson, Renuka E., MD Discharge Disposition: Home or Self Care 02/14/2025 9:31 AM CDT - 02/14/2025 11:59 PM CDT Hospital Encounter [facility] [address] [place] [id number] Tonia Lemon MD Discharge Disposition: Home or Self Care 01/02/2025 10:27 AM PIT HAND - 01/02/2025 11:59 PM PIT HAND Hospital Encounter [facility] [address] [place] [id number] Kishan Mendoza MD Discharge Disposition: Home or Self Care 01/02/2025 10:27 AM PIT HAND - 01/02/2025 11:59 PM PIT HAND Hospital Encounter [facility] [address] [id number] Kishan Mendoza MD Discharge Disposition: Home or [...] Date Recorded PHQ2 TOTAL SCORE 3 10/13/2021 Clear Depression Scale Answer Date Recorded Clear Depression Scale Total 7 01/02/2025 The thought [...] Comments Blood Pressure 117/53 01/02/2025 10:58 AM PIT HAND Pulse 80 01/02/2025 10:58 AM PIT HAND Temperature 37.1 C (98.8 F) 12/07/2023 3:34 PM PIT HAND Respiratory Rate 18 03/18/2020 4:25 PM CDT Oxygen Saturation 96% 09/20/2023 1:40 PM PIT HAND Inhaled Oxygen Concentration - - Weight 66.5 kg (146 lb 9.6 oz) 02/14/2025 11:11 AM CDT Height 162.6 cm (5' 4) 01/02/2025 10:58 AM PIT HAND Body Mass Index 25.16 01/02/2025 10:58 AM PIT HAND Plan of Treatment Health Maintenance Due Date Last Done Comments PAP SMEAR 2002 HPV VACCINE (1 - 3-dose series) 2017 MENINGOCOCCAL (Group B) VACCINE SHARED DECISION-MAKING (1 of 2 - Standard) 2018 HEPATITIS C SCREENING 01/08/2020 DTAP/TDAP/TD VACCINES (1 - Tdap) 2021 HEPATITIS B VACCINE (1 of 3 - 19+ 3-dose series) 2021 COVID-19 VACCINE (1 - season) 2024 OB-ONE HOUR GLUCOSE 03/21/2025 OB-TDAP CURRENT 03/28/2025 OB-RHOGAM INJECTION 04/04/2025 INFLUENZA VACCINE (Season Ended) [...] - COMPLETE Routine 01/02/2025 1 0:25 AM PIT HAND Mixed anxiety and depressive disorder History of [...] 03/06/2025 Exam Date/Time: 03/06/2025 1:23 PM Site: [facility] Current Location: CARE EStudy Quality: Diagnostic quality Staff Ordering Provider: Tonia Lemon Interpreting Physician: Edna Stevenson MD [place] Department Supervisor: Jarod Broderick [facility] Study Info Procedure: ECHO COMPLETE CG Indications: [...] 03/06/2025 Exam Date/Time: 03/06/2025 1:23 PM Site: [facility] Current Location: CARE EStudy Quality: Diagnostic quality Staff Ordering Provider: Tonia eLmon Interpreting Physician: Edna Stevenson MD [place] Department Supervisor: Jarod Broderick [facility] Study Info Procedure: ECHO COMPLETE CG Indications: [...] 03/06/2025 04:38 PM Tonia Lemon MD ECHO CUPID Final Result * SONOGRAM - COMPLETE (02/14/2025 [...] 0 lb 13 oz EFW by Hadlock ([id number]) appropriate Growth Overview Exam date [place] BPD [...] view. RVOT view. LVOT view. 3-vessel view. 8-[id number]-[id number] view. Situs. Aortic arch view. Bicaval view. [...] were seen within the limitations of ultrasound. SETTER MOLDING AND COREMAKING MACHINES consult today Follow-up ======== Growth US in 4-6 weeks. ECHO as previously recommended. Coding ====== Procedures 98919: US Preg Uterus Detailed 43501: US Preg Uterus Transvaginal [facility] PACS Anatomical Region Laterality Modality Other 02/14/2025 9:51 AM CDT Tom Nguyễn MD [facility] ORDERABLES Edited Result - Final * CHLAMYDIA + GC AMPLIFIED PROBE (STL) (05/06/2020 10:45 AM CDT) Chlamydia Amplified Probe Negative Negative 05/07/2020 11:51 AM CDT [facility] GC Amplified Probe Negative Negative 05/07/2020 11:51 AM CDT [facility] Microbiology URINE / Unknown Collection / Unknown 05/06/2020 10:45 AM CDT 05/06/2020 11:00 AM CDT Narrative [facility] - 05/07/2020 11:51 AM CDT Results based on detection/no detection of ribosomal RNA by amplified method. Neena Alejandro MD LAB - MICROBIOLOGY ORD ERABLES Final Result [facility] [address] [place] [address], [facility] [phone] from Last 3 Months or Most Recently Relevant to Health Maintenance Insurance [facility] [address] Advance Directives * Full Code (Latest Code Status on File) Date Activated Date Inactivated Comments 07/26/2018 5:22 AM 07/26/2018 11:22 PM Care Teams Career Development Engineer Relationship Specialty Start Date End Date Zuleyma Martinez MD [address] [place] [address] PCP - General Gastroenterology 10/13/21
--- OUTSIDE RECORDS SUMMARY | 2025-03-19 10:10 | XMS_ITS | Encounter Summary ---
Author Organization [facility] Address [address] [place] [address] Care Team Providers Care Shovel Operator Name Role Phone Betzaida Lutz MD Primary Care Provider [phone] Zuleyma Martinez MD Primary Care Provider [phone] Reason for Visit * Reason Onset Date Comments Follow-up 01/24/2020 message left wit h visitor information Encounter Details Date Type Department Care Team (Late st Contact Info) Description 01/24/2020 Telephone [facility] Pediatrics - ENT [facility] [place] [address] Judy Anderson RN Follow-up (message left with [...] Assessment Author No 07/26/2018 5:30 AM CDT iLli Mccoy RN * Does person have serious [...] on filedocumented in this encounter Care Teams Shovel Operator Relationship Specialty Start Date End Date Betzaida Lutz MD [address] [place] [address] PCP - General Pediatrics 11/11/17 10/12/21 Zuleyma Martinez MD [address] [place] [address] PCP - General Gastroenterology 10/13/21 documented as of this encounter
[2025-03-19] MEDS: DEXTROSE 5%/LACTATED RINGERS 1,000 ML 999 ML IV CONT ×2 (10:31→12:18)
[2025-03-19] MEDS: METOCLOPRAMIDE HCL INJ 10 MG/2 ML VIAL IV PUSH (10:33)
[2025-03-19 10:54] LABS: Add Urine Microscopic? YES; Appearance Urine Cloudy (Clear); Bacteria Urine 3+ /hpf; Bilirubin Urine Negative (Negative); Blood Urine Negative (Negative); Color Urine Yellow (Yellow); Glucose Urine UA Trace mg/dL (Negative); Ketones Urine 3+ mg/dL (Negative); Leukocyte Esterase Ur 2+ LEU/UL (Negative); Need Manual Microscopic Reviewed; Nitrate Urine Negative (Negative); Non Pathogenic Casts 0-2; Protein Urine Negative (Negative); RBC Urine 0-2 /hpf (0-2); Specific Grav Ur 1.021 (1.001-1.035); Squamous Epithelial Cell Urine Moderate /hpf (Few); WBC Urine 21-50 /hpf (0-3)
[2025-03-19 11:48] VITALS: BP 122/55; PULSE 89
[2025-03-19] MEDS: NITROFURANTOIN MONOHYD MACROCR 100 MG CAP PO (12:51)
--- NOTE | 2025-04-27 07:29 | PM.OBTRLD ---
OB - Triage/Final Diagnosis Visit Information Comments/Additional reasons for admission: I have assessed the risk for this patient, Keily Aly, and determined that she would benefit from observation care. Evaluation Laboratory results: Laboratory Tests 03/19/25 10:24 Urine Color Yellow Urine Appearance Cloudy H Urine pH 7.0 Ur Specific [place] 1.021 Urine Protein Negative Urine Glucose (UA) Trace H Urine Ketones 3+ H Ur Blood (Man) Negative Urine Nitrate Negative Urine Bilirubin Negative Urine Urobilinogen 1.0 Add Ur Microanalysis Reviewed Leukocyte Esterase Rfl 2+ H Urine RBC 0-2 Urine WBC 21-50 H Ur Squamous Epith Cells Moderate Urine Bacteria 3+ H Urine Casts 0-2 Final Diagnosis (1) False labor: Code(s): O47.9 - False labor, unspecified Status: Acute
== END 2025-03-19 13:50 | disposition home or self-care (01) ==
PROVIDERS: Admitting Provider Obstetrics & Gynecology; Visit Provider Obstetrics & Gynecology
DX: O47.02 False labor before 37 completed weeks of gestation, second trimester (principal); Z3A.25 25 weeks gestation of pregnancy
CPT/HCPCS: 76815; 76817; 81001; A9270; G0378; G0379; J2765; J7121

== ENCOUNTER 2025-05-11 09:34 | Outpatient (RCR) | payer OTHER, SELFPAY ==
[2025-05-11 10:12] VITALS: BP 125/73; PULSE 60
== END 2025-06-16 10:54 | disposition home or self-care (01) ==
LOC: ANHOBOP 09:34
PROVIDERS: Visit Provider Obstetrics & Gynecology
DX: O36.5930 Maternal care for other known or suspected poor fetal growth, third trimester, not applicable or unspecified (principal); Z3A.33 33 weeks gestation of pregnancy
CPT/HCPCS: 59025

== ENCOUNTER 2025-06-06 06:00 | Inpatient (IN) | payer OTHER, SELFPAY ==
[2025-06-06] VITALS (157 sets, daily range): BP systolic 84–155; BP diastolic 32–108; PULSE 60–151; RESP 16; TEMP 36.9–37.9; O2SAT 79–100; BMI 28.0
--- NOTE | 2025-06-06 06:00 | LDADM ---
This patient, Keily Aly, was admitted to Labor/Delivery/Recovery 107 on 06/06/25 at 06:00. Plans for labor, pain management and were discussed with patient. Patient/family oriented to hospital policies and general routines including ID bracelet, bed and alarms, visiting hours, pain management, procedures, bathroom and other care routines, personal items, smoking policy, room service/diet and guest tray routines, infant security routines, and visiting hours. Patient/Family are encouraged to report perceived risks to care and to ask questions if they do not understand what they are told or what they should do. See OBIX for further documentation.
--- OUTSIDE RECORDS SUMMARY | 2025-06-06 06:04 | XMS_ITS | Encounter Summary ---
Author Organization [facility] Address [address] [place] [address] Care Team Providers Care Reliability Engineer Name Role Phone Betzaida Lutz MD Primary Care Provider [phone] Zuleyma Martinez MD Primary Care Provider [phone] Reason for Visit * Reason Onset Date Comments Follow-up 01/24/2020 message left wit h visitor information Encounter Details Date Type Department Care Team (Late st Contact Info) Description 01/24/2020 Telephone [facility] Pediatrics - ENT [address] [place] [id number] Judy Anderson RN Follow-up (message left with [...] Lili Rodriguez RN * Does person have serious difficulty [...] on filedocumented in this encounter Care Teams Reliability Engineer Relationship Specialty Start Date End Date Betzaida Lutz MD [address] [place] [address] PCP - General Pediatrics 11/11/17 10/12/21 Zuleyma Martinez MD [address] [place] [address] PCP - General Gastroenterology 10/13/21 documented as of this encounter
--- OUTSIDE RECORDS SUMMARY | 2025-06-06 06:04 | XMS_ITS | Clinical Summary ---
Author Organization [facility] Address [address] [place] [address] Care Team Providers Care Hospice Rn Name Role Phone Zuleyma Martinez MD Primary Care Provider Source Comments [facility],non-owned Affiliates and Associated Physician Practices is amultiple site organization consisting of ambulatory clinics and hospital sitesin [place], [place], [place] and [place]. This disclosure is being madepursuant to the Care Everywhere program and may not contain all information available regarding this patient. Last updated 18.[facility] Allergies Active Allergy Reactions Criticality Noted Date [...] (one) tablet by mouth once daily Active ferrous sulfate 325 (65 FE) MG tablet Take 1 (one) tablet by mouth once daily Active Active Problems Patient Care Coordination No te Formatting of this note migh t be different from the original. Clarence phone: [phone] [employer] form completed. Diapers given. 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 She discontinued these medications in October 2024. Asthma affecting in second trimester 0 03/21/2025 Medication exposure during first trimester of pr egnancy 03/21/2025 Overview (03/21/2025): Patient had been on multiple medications for bipolar, including lithium, which she discontinued in October. No cardiac defects on her ultrasound and echo is normal. 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 Lemus -Toxicology consulted, appreciated recs -Repeat [place] level at 7 AM -1.5 times MIVFs [...] Problem Noted Date Diagnosed Date Resolved Date Low TSH level 12/26/2018 03/26/2025 Routine screening for STI (s exually transmitted infection) 07/18/2018 02/14/2025 DUB (dysfunctional uterine bleeding) 12/07/2016 02/14/2025 Assessment & Plan (12/07/2016 9:55 AM SLITTER AND REWINDER): On progesterone only mini pill since Aug [...] Encounters Date Type Department Care Team Description 06/05/2025 9:45 AM CDT - 06/05/2025 11:59 PM CDT Hospital Encounter [facility] [address] [place] [address] Mandi Rosales MD Discharge Disposition: Home or Self Care 06/01/2025 10:26 AM CDT - 06/01/2025 11:59 PM CDT Hospital Encounter [facility] [address] [place] [address] Kishan Mendoza MD Discharge Disposition: Home or Self Care 05/29/2025 12:46 PM CDT - 05/29/2025 11:59 PM CDT Hospital Encounter [facility] [address] [place], [place] [id number] Tonia Lemon MD Discharge Disposition: Home or Self Care 05/25/2025 8:46 AM CDT - 05/25/2025 11:59 PM CDT Hospital Encounter [facility] [address] [place] [id number] Kishan Mendoza MD Discharge Disposition: Home or Self Care 05/22/2025 12:48 PM CDT - 05/22/2025 11:59 PM CDT Hospital Encounter [facility] [address] [place] [id number] Kishan Mendoza MD Discharge Disposition: Home or Self Care 05/18/2025 12:47 PM CDT - 05/18/2025 11:59 PM CDT Hospital Encounter [facility] [address] [place], [place] [id number] Trixie Vo MD [employer] Discharge Disposition: Home or Self Care 05/15/2025 12:46 PM CDT - 05/15/2025 11:59 PM CDT Hospital Encounter [facility] [address] [place] [id number] Darci Hay MD Discharge Disposition: Home or Self Care 05/09/2025 2:18 PM CDT - 05/09/2025 11:59 PM CDT Hospital Encounter [facility] [address] [place] [id number] Kishan Mendoza MD Discharge Disposition: Home or Self Care 05/09/2025 1:24 PM CDT - 05/09/2025 2:17 PM CDT Hospital Encounter [facility] [address] [place] [address] Kishan Mendoza MD Discharge Disposition: Home or Self Care 05/09/2025 1:24 PM CDT - 05/09/2025 2:17 PM CDT Hospital Encounter [facility] [address] [place] [id number] Kishan Mendoza MD Discharge Disposition: Home or Self Care 05/04/2025 [facility] [address] [place] [id number] Nina Reyes RN Question (Bridget from Dr. Nguyễn's office called asking if patient can have follow up appts at our [facility] location from now on. ) 05/02/2025 12:51 PM CDT - 05/02/2025 11:59 PM CDT Hospital Encounter [facility] MATERNAL/ EVALUATION UNIT [facility] [address] [place] [address] Darci Hay MD Discharge Disposition: Home or Self Care 05/02/2025 12:51 PM CDT - 05/02/2025 11:59 PM CDT Hospital Encounter [facility]ERNAL/ EVALUATION UNIT [address] [place] [address] Madhu Rain MD Discharge Disposition: Home or Self Care 05/02/2025 12:51 PM CDT - 05/02/2025 11:59 PM CDT Hospital Encounter [facility] MATERNAL/ EVALUATION UNIT [facility] [address] [place] [address] Madhu Rain MD Discharge Disposition: Home or Self Care 05/02/2025 Travel 04/25/2025 1:15 PM CDT - 04/25/2025 11:59 PM CDT Hospital Encounter [facility] MATERNAL/ EVALUATION UNIT [address] [place] [address] Madhu Rain MD Discharge Disposition: Home or Self Care 04/25/2025 1:14 PM CDT Hospital Encounter [facility] MATERNAL/ EVALUATION UNIT [address] [place] [address] Madhu Rain MD Discharge Disposition: Home or Self Care 04/25/2025 Travel 04/18/2025 1:19 PM CDT - 04/18/2025 11:59 PM CDT Hospital Encounter [facility] MATERNAL/ EVALUATION UNIT [address] [place] [address] Mary Lopez APRN-DIE FORGER Discharge Disposition: Home or Self Care 04/18/2025 1:19 PM CDT - 04/18/2025 11:59 PM CDT Hospital Encounter [facility] MATERNAL/ EVALUATION UNIT [address] [place] [address] Madhu Rain MD Discharge Disposition: Home or Self Care 04/18/2025 1:00 PM CDT - 04/18/2025 1:18 PM CDT Hospital Encounter [facility] MATERNAL/ EVALUATION UNIT [address] [place] [address] Madhu Rain MD Discharge Disposition: Home or Self Care 04/18/2025 Travel 04/11/2025 12:37 PM CDT - 04/11/2025 11:59 PM CDT Hospital Encounter [facility] MATERNAL/ EVALUATION UNIT [address] [place] [address] Maria Guadalupe Acevedo MD Discharge Disposition: Home or Self Care 04/11/2025 12:36 PM CDT Hospital Encounter [facility] MATERNAL/ EVALUATION UNIT [address] [place] [address] Maria Guadalupe Acevedo MD Discharge Disposition: Home or Self Care 04/11/2025 Travel 04/05/2025 Telephone [facility] MATERNAL/ EVALUATION UNIT [address] [place] [address] Domenic Roa Appointment 04/04/2025 2:30 PM CDT - 04/04/2025 11:59 PM CDT Hospital Encounter [facility] MATERNAL/ EVALUATION UNIT [address] [place] [address] Darci Hay MD Discharge Disposition: Home or Self Care 04/04/2025 1:46 PM CDT - 04/04/2025 2:29 PM CDT Hospital Encounter [facility] MATERNAL/ EVALUATION UNIT [facility] [address] [place] [address] Jada Atkinson, DIRECTOR FEDERAL-DIE FORGER Discharge Disposition: Home or Self Care 04/04/2025 1:30 PM CDT - 04/04/2025 1:45 PM CDT Hospital Encounter [facility] MATERNAL/ EVALUATION UNIT [facility] [address] [place] [address] Jada Atkinson, DIRECTOR FEDERAL-DIE FORGER Discharge Disposition: Home or Self Care 04/04/2025 Travel 03/21/2025 1:33 PM CDT - 03/21/2025 11:59 PM CDT Hospital Encounter [facility] MATERNAL/ EVALUATION UNIT [facility] [address] [place] [address] Ken Reyes MD Childress, Katherine M Scolari, MD Discharge Disposition: Home or Self Care 03/21/2025 1:30 PM CDT - 03/21/2025 1:32 PM CDT Hospital Encounter [facility] MATERNAL/ EVALUATION UNIT [facility] [address] [place] [address] Ken Reyes MD Discharge Disposition: Home or Self Care [...] = 0.6 oz pur e alcohol) occaisional AUDIT-C Answer Date Recorded Q1: How often do you have a drink containing alcohol? Never 04/04/2025 Q2: How many drinks containi ng alcohol do you have on a typical day when you are drinking? Patient does not drink Q3: How often do you have si x or more drinks on one occasion? Never 04/04/2025 Overall Financial Resource Strain (CARDIA) Answe r Date Recorded How hard is it for you to pa y for the very basics like food, housing, medical care, and heating? Not hard at all 04/04/2025 PHQ-2 Answer Date Recorded PHQ2 TOTAL SCORE 3 10/13/2021 [facility] - Occupational Stress Questionnaire Answer Date Recorded Do you feel stress - tense, restless, nervous, or anxious, or unable to sleep at night because your mind is troubled all the time - these days? To some extent 04/04/2025 Hunger Vital Sign Answer Date Recorded Within the past 12 months, y ou worried that your food would run out before you got the money to buy more. Never true 04/04/20 25 Within the past 12 months, t he food you bought just didn't last and you didn't have money to get more. Never true 04/04/2025 PRAPARE - Transportation Answer Date Re corded In the past 12 months, has l ack of transportation kept you from medical appointments or from getting medications? No 03/09 In the past 12 months, has l ack of transportation kept you from meetings, work, or from getting things needed for daily living? No 04/04/2025 Laurel Depression Scale Answer Date Recorded Laurel Depression Scale Total 11 03/21/2025 The thought of harming myself has occurred to me . Never 03/21/2025 Housing Stability Vital Sign Answer Dayo e Recorded In the last 12 months, was t here a time when you were not able to pay the mortgage or rent on time? No 04/04/2025 In the past 12 months, how m any times have you moved where you were living? 1 04/04/2025 At any time in the past 12 m [facility], were you homeless or living in a retirement (including now)? No 04/04/2025 Estimated Date of Delivery Comme nts Yes 06/27/2025 Based on last me nstrual period of 09/20/2024 Sex and Gender Information Value Date Recorded Sex Assigned at Not on file Legal Sex Female 10:14 AM CDT Gender Identity Not on file Sexual Orientation Not on file Last Filed Vital Signs Vital Sign Reading Time Taken Comments Blood Pressure 125/80 06/05/2025 10:46 AM CDT Pulse 93 06/05/2025 10:46 AM CDT Temperature 37.1 C (98.8 F) 12/07/2023 3:34 PM SLITTER AND REWINDER Respiratory Rate 16 05/09/2025 2:12 PM CDT Oxygen Saturation 96% 09/20/2023 1:40 PM SLITTER AND REWINDER Inhaled Oxygen Concentration - - Weight 71.2 kg (157 lb) 05/09/2025 2:12 PM CDT Height 162.6 cm (5' 4) 05/09/2025 2:12 PM CDT Body Mass Index 26.95 05/09/2025 2:12 PM CDT Plan of Treatment Health Maintenance Due Date Last Done Comments HPV VACCINE (1 - 3-dose series) 2017 MENINGOCOCCAL (Group B) VACCINE SHARED DECISION-MAKING (1 of 2 - Standard) 2018 HEPATITIS C SCREENING 01/08/2020 DTAP/TDAP/TD VACCINES (1 - Tdap) 2021 HEPATITIS B VACCINE (1 of 3 - 19+ 3-dose series) 2021 PNEUMOCOCCAL VACCINE (1 of 2 - PCV) 2021 COVID-19 VACCINE (1 - 2024-25 season) 2024 OB-TDAP CURRENT 03/28/2025 OB-RHOGAM INJECTION 04/04/2025 INFLUENZA VACCINE (#1) 2025 CHLAMYDIA/GONORRHEA SCREENING 11/20/2025 11/20/2024, 10/08/2021, 05/06/2020, Additional history exists PAP SMEAR 11/20/2027 11/20/2024 ZOSTER VACCINE (1 of 2) 01/13/2052 HIV SCREENING Completed 04/03/2025, 12/18/2024 OB-ONE HOUR GLUCOSE Completed 04/03/2025 OB-GROUP B STREP SCREEN Completed 06/01/2025 HIB VACCINE Aged Out No longer eligi ble based on patient's age to complete this topic MENINGOCOCCAL GROUPS A/C/Y/W VACCINE Aged Out No longer eligible based on patient's age to complete this topic Respiratory Syncytial Virus (RSV) Vaccine Pt: or over 60 yrs (No Doses Required) Completed Procedures Procedure Name Priority Date/Time Associated Diagnosis Comments BIOPHYSICAL PROFILE W T Routine 06/01/2025 11:59 AM CDT Poor growth complicating , antepartum, first trimester, not applicable or unspecified fetus (HCC) Medication exposure during first trimester of (HCC) BIOPHYSICAL PROFILE W T Routine 05/25/2025 9:15 AM CDT Poor growth complicating , antepartum, first trimester, not applicable or unspecified fetus (HCC) Medication exposure during first trimester of (HCC) BIOPHYSICAL PROFILE W T Routine 05/18/2025 12:57 PM CDT Poor growth complicating , antepartum, first trimester, not applicable or unspecified fetus (HCC) Medication exposure during first trimester of (HCC) BIOPHYSICAL PROFILE W NST Routine 05/09/2025 1:43 PM CDT Poor growth affecting management of mother in third trimester, single or unspecified fetus (HCC) Medication exposure during first trimester of (HCC) URINALYSIS - POCT (IP) BEAKER INTERFACE Routine 05/02/2025 2:24 PM CDT BIOPHYSICAL PROFILE W NST Routine 05/02/2025 1:31 PM CDT Poor growth complicating , antepartum, first trimester, not applicable or unspecified fetus (HCC) Medication exposure during first trimester of (HCC) BIOPHYSICAL PROFILE W NST Routine 04/25/2025 1:30 PM CDT Poor growth complicating , antepartum, first trimester, not applicable or unspecified fetus (HCC) Medication exposure during first trimester of (HCC) BIOPHYSICAL PROFILE W NST Routine 04/18/2025 1:58 PM CDT Poor growth complicating , antepartum, first trimester, not applicable or unspecified fetus (HCC) Medication exposure during first trimester of (HCC) URINALYSIS - POCT (IP) BEAKER INTERFACE Routine 04/18/2025 1:27 PM CDT BIOPHYSICAL PROFILE W NST Routine 04/11/2025 12:53 PM CDT URINALYSIS - POCT (IP) BEAKER INTERFACE Routine 04/04/2025 2:57 PM CDT SONOGRAM - COMPLETE Routine 04/04/2025 2 :04 PM CDT SONOGRAM - COMPLETE Routine 03/21/2025 2 :15 PM CDT Encounter for ultrasound to assess growth (HCC) CHLAMYDIA + GC AMPLIFIED PROBE Routine 05/06/2020 10:45 AM CDT DUB (dysfunctional uterine bleeding) Routine screening for STI (sexually transmitted infection) from Last 3 Months or Most Recently Relevant to Health Maintenance Results * BIOPHYSICAL PROFILE W NST (06/01/2025 11:59 AM CDT) Only the most recent of8 resultswithin the time period is included. Linked Results Indication ======== Small for dates Abnormal Doppler(Maternal care for other specified problems) Bipolar disease complicating Asthma complicating Autoimmune disease, not elsewhere classified History ====== OB History 1 Lab Tests Test Date Result NIPT Low risk, Female Maternal Assessment = Physical Exam Height 173 cm, 5 ft 8 in. Weight 74 kg, 163 lb. Initial weight 65 kg, 143 lb. BMI 24.78 kg/m . Initial BMI 21.74 kg/m . Weight gain 9 kg, 20 lb Method ====== Transabdominal ultrasound. View: Sufficient ========= Begum . Number of fetuses: 1 Dating ====== Date Details Gest. age DAVE LMP 09/20/2024 36 w + 2 d 06/27/2025 Stated DAVE 36 w + 2 d 06/27/2025 Assigned dating based on the LMP, selected on 04/25/2025 36 w + 2 d 06/27/2025 General Evaluation Cardiac activity present. FHR 167 bpm. Presentation: cephalic Placenta: Placental site: anterior Amniotic Fluid Assessment ===== Amount of AF: normal MVP 5.4 cm. NITISH 16.6 cm. Q1 5.3 cm, Q2 5.4 cm, Q3 3.8 cm, Q4 2.0 cm Biophysical Profile 2: breathing movements 2: Gross body movements 2: tone 2: Amniotic fluid volume NST: reactive /10 Biophysical profile score Non Stress Test NST interpretation: reactive. Baseline FHR 140 bpm. Baseline variability: moderate. Accelerations: present Growth Overview = Exam date GA BPD (mm) HC (mm) AC (mm) FL (mm) HL (mm) EFW (g) 01/02/2025 14w 6d 26.5 30% 100.3 20% 86.8 58% 17.5 59% 113 48% 02/14/2025 21w 0d 48.2 31% 177.6 12% 150.8 22% 35.8 53% 35.8 88% 373 31% 03/21/2025 26w 0d 62.9 23% 237.7 20% 196.4 5% 48.9 50% 44.3 55% 794 16% 04/04/2025 28w 0d 64.5 2% 250.3 6% 216.4 4% 52.3 31% 47.5 42% 990 9% 04/18/2025 30w 0d 71.7 9% 264 2% 231.2 2% 56.8 30% 48.8 18% 1234 6% 05/09/2025 33w 0d 78.9 11% 283.4 <1% 248.3 <1% 61.1 11% 1552 2% 05/25/2025 35w 2d 85.7 32% 298.6 <1% 277.6 <1% 64.9 7% 60.2 60% 2025 4% Anatomy The following structures appear normal: Abdomen Stomach. Kidneys. Bladder. sex: female. Doppler Umbilical Artery: abnormal, elevated PI 1.44 >99% Sowmya S / D 4.51 >99% Sowmya Mid Cerebral Artery: normal PI 1.82 49% Ebbing PS 48.98 cm/s PS 0.90 MoM CPR PI 1.26 1% Ebbing Impression ========= Single, live, intrauterine at 36w 2d The amniotic fluid volume is normal The biophysical profile is 10/10 The umbilical artery Doppler is abnormal The MCA Doppler is normal Follow-up ======== Continue 2x-weekly NST and 1x-weekly BPP with Dopplers Deliver at 37w0d Coding ====== Diagnoses O36.8930: Maternal care for other specified problems O99.513, J45.909: Diseases of the respiratory system complicating , Asthma D89.89: Other specified disorders involving the immune mechanism, not elsewhere classified O99.343, F31.9: Other mental disorders complicating , Bipolar disease O36.5930: Maternal care for other known or suspected poor growth O99.513, J45.909: Diseases of the respiratory system complicating , Asthma O99.343, F31.9: Other mental disorders complicating , Bipolar disease O36.8930: Maternal care for other specified problems O36.5930: Maternal care for other known or suspected poor growth O99.513, J45.909: Diseases of the respiratory system complicating , Asthma O99.343, F31.9: Other mental disorders complicating , Bipolar disease O36.8930: Maternal care for other specified problems O36.5930: Maternal care for other known or suspected poor growth Procedures 07451: [place] Uterus Limited 13597: Biophysical Profile W NST 60740: Umbilical Doppler 59925: MCA Doppler [facility] [employer] PACS Anatomical Region Laterality Modality Other 06/01/2025 11:5 9 AM CDT us R Bharath Nguyễn MD [facility] ORDERABLES Edited Result - Final * (ABNORMAL) URINALYSIS - POCT (IP) BEAKER INTERFACE (05/02/2025 2:24 PM CDT) Only the most recent of3 resultswithin the time period is included. Color UA POCT Holly(A) Straw, Yellow, Dark Yellow, Light Yellow 05/02/2025 2:26 PM CDT [facility] Clarity UA POCT Clear Clear 2:26 PM CDT [facility] Specific [place] UA POCT 1.020 1.005 - 1.030 05/02/2025 2:26 PM CDT [facility] pH UA POCT 7.5 5.0 - 8.0 pH 05/02/2025 2:26 PM CDT [facility] Protein UA POCT Trace(A) Negative 2:26 PM CDT [facility] Blood UA POCT Negative Negative 05/02/2025 2:26 PM CDT [facility] Leukocyte UA POCT Negative Negative 05/02/2025 2:26 PM CDT [facility] Nitrite UA POCT Negative Negative 2:26 PM CDT [facility] Glucose UA POCT Trace(A) Negative 2:26 PM CDT [facility] Ketone UA POCT Negative Negative 05/02/2025 2:26 PM CDT [facility] Bilirubin UA POCT Negative Negative 05/02/2025 2:26 PM CDT [facility] Urobilinogen UA POCT 0.2 0.1 - 1.0 EU/dL 05/02/2025 2:26 PM CDT [facility] Urine URINE / Unknown 05/02/2025 2 :24 PM CDT 05/02/2025 2:26 PM CDT us Madhu Rain MD LAB - POINT OF CARE OR DERABLES Final Result Performing Organization Address City/State/[facility] Co de Phone Number [facility] [address] [place] [address] * SONOGRAM - COMPLETE (04/04/2025 2:04 PM CDT) Only the most recent of2 resultswithin the time period is included. Linked Results Indication ======== Small for gestational age (outside scan) Bipolar Disorder Nonspecific Autoimmune Disorder Gricelda-conception Medication Exposure History ====== OB History 1 Lab Tests Test Date Result NIPT Low risk, Female Maternal Assessment Physical Exam Height 173 cm, 5 ft 8 in. Weight 68 kg, 151 lb. Initial weight 65 kg, 143 lb. BMI 22.96 kg/m . Initial BMI 21.74 kg/m . Weight gain 4 kg, 8 lb Method ====== Transabdominal ultrasound. View: Sufficient ========= Begum . Number of fetuses: 1 Dating ====== Date Details Gest. age DAVE LMP 09/20/2024 28 w + 0 d 06/27/2025 Stated DAVE 28 w + 0 d 06/27/2025 U/S 04/04/2025 based upon AC, BPD, Femur, HC 26 w + 6 d 07/05/2025 Assigned dating based on the LMP, selected on 01/02/2025 28 w + 0 d 06/27/2025 General Evaluation Cardiac activity present. FHR 153 bpm. Presentation: breech Placenta: Placental site: anterior Amniotic fluid: Amount of AF: normal. MVP 5.3 cm. NITISH 20.5 cm. Q1 6.4 cm, Q2 3.6 cm, Q3 5.2 cm, Q4 5.3 cm Biometry BPD 64.5 mm 26w 1d 2% Hadlock HC 250.3 mm 27w 1d 6% Hadlock AC 216.4 mm 26w 1d 4% Hadlock Femur 52.3 mm 27w 6d 31% Hadlock Humerus 47.5 mm 28w 0d 42% Raymond HC / AC 1.16 Weight Calculation: EFW 990 g 9% Hadlock EFW (lb,oz) 2 lb 3 oz EFW by Hadlock (BMP-NU-MU-FL) SGA Growth Overview Exam date GA BPD (mm) HC (mm) AC (mm) FL (mm) HL (mm) EFW (g) 01/02/2025 14w 6d 26.5 30% 100.3 20% 86.8 58% 17.5 59% 113 48% 02/14/2025 21w 0d 48.2 31% 177.6 12% 150.8 22% 35.8 53% 35.8 88% 373 31% 03/21/2025 26w 0d 62.9 23% 237.7 20% 196.4 5% 48.9 50% 44.3 55% 794 16% 04/04/2025 28w 0d 64.5 2% 250.3 6% 216.4 4% 52.3 31% 47.5 42% 990 9% Anatomy The following structures appear normal: Abdomen Stomach. Kidneys. Bladder. sex: female. Biophysical Profile 2: breathing movements 2: Gross body movements 2: tone 2: Amniotic fluid volume NST: reactive 10/10 Biophysical profile score Non Stress Test NST interpretation: reactive Doppler Umbilical Artery: abnormal, elevated. Sampling site: midcord PI 1.46 98% Sowmya S / D 5.09 >99% Sowmya Mid Cerebral Artery: normal PI 1.87 23% Ebbing PS 42.33 cm/s PS 1.15 MoM CPR PI 1.28 2% Ebbing Impression ========= Single, live intrauterine at 28w0d The size is SGA The amniotic fluid volume is normal The umbilical artery Doppler is mildly abnormal The MCA Doppler is normal The biophysical profile is 10/10 Comment ======== ultrasound alone cannot detect all structural, genetic, or functional , placental, or maternal abnormalities Follow-up ======== Continue with weekly BPP/Doppler studies Reassess size in 2 weeks Coding ====== Procedures 56807: [place] [address]: Umbilical Doppler 66477: MCA Doppler 93772: Biophysical Profile W NST [facility] [employer] PACS Anatomical Region Laterality Modality Other 04/04/2025 2:04 PM CDT R Bharath Nguyễn MD [facility] ORDERABLES Edited Result - Final * CHLAMYDIA + GC AMPLIFIED PROBE (STL) (05/06/2020 10:45 AM CDT) Chlamydia Amplified Probe Negative Negative 05/07/2020 11:51 AM CDT [facility] MICROBIOLOGY GC Amplified Probe Negative Negative 05/07/2020 11:51 AM CDT [facility]CRO[facility] Microbiology URINE / Unknown Collection / Unknown 05/06/2020 10:45 AM CDT 05/06/2020 11:00 AM CDT Narrative [facility] MICROBIOLOGY - 05/07/2020 11:51 AM CDT Results based on detection/no detection of ribosomal RNA by amplified method. us Neena Alejandro MD LAB - MICROBIOLOGY ORD ERABLES Final Result [facility] [address] [place] [address], [facility] [phone] from Last 3 Months or Most Recently Relevant to Health Maintenance Insurance [facility] Advance Directives * Full Code (Latest Code Status on File) Date Activated Date Inactivated Comments 07/26/2018 5:22 AM 07/26/2018 11:22 PM Care Teams Hospice Rn Relationship Specialty Start Date End Date Zuleyma Martinez MD [address] [place] [address] PCP - General Gastroenterology 10/13/21
--- OUTSIDE RECORDS SUMMARY | 2025-06-06 06:04 | XMS_ITS | Encounter Summary ---
Author Organization [facility] Address [address] [place] [address] Care Team Providers Care Ceramic Coater Machine Name Role Phone Betzaida Lutz MD Primary Care Provider [phone] Zuleyma Martinez MD Primary Care Provider [phone] Reason for Visit * Reason Onset Date Comments Follow-up 01/24/2020 Informed dad of visitor policy. Encounter Details Date Type Department Care Team (Late st Contact Info) Description 01/24/2020 Telephone [facility] Pediatrics - ENT [facility] [place] [address] Judy Anderson RN Follow-up (Informed dad of [...] on filedocumented in this encounter Care Teams Ceramic Coater Machine Relationship Specialty Start Date End Date Betzaida Lutz MD [address] [place] [address] PCP - General Pediatrics 11/11/17 10/12/21 Zuleyma Martinez MD [address] [place] [address] PCP - General Gastroenterology 10/13/21 documented as of this encounter
--- OUTSIDE RECORDS SUMMARY | 2025-06-06 06:04 | XMS_ITS | Encounter Summary ---
Author Organization [facility] Address [address] [place] [address] Care Team Providers Care Radiology Administrator Name Role Phone Zuleyma Martinez MD Primary Care Provider Reason for Visit * Reason Comments Non-stress Test Encounter Details Date Type Department Care Team (Latest Contact Info) Description 06/05/2025 9:45 AM CDT - 06/05/2025 11:59 PM T Hospital Encounter [facility] [address] [place], [place] [id number] Mandi Rosales MD [address] [id number] Discharge Disposition: Home or Self Care Social History Tobacco Use Types Packs/Day Years Used Date Smoking Tobacco: Never Smokeless Tobacco: Never Alcohol Use Standard Drinks/Week Comments Not Currently [...] Date Recorded PHQ2 TOTAL SCORE 3 10/13/2021 [facility] - Occupational Stress [...] things needed for daily living? No 04/04/2025 Hydro Depression Scale Answer Date Recorded Hydro Depression Scale Total 11 03/21/2025 The thought [...] any time in the past 12 m [facility], were you homeless or living in a long-term (including now)? No 04/04/2025 Estimated Date of Delivery Comme nts Yes 06/27/2025 Based on last me nstrual period of 09/20/2024 Sex and Gender Information Value Date Recorded Sex Assigned at Not on file Legal Sex Female 10:14 AM CDT Gender Identity Not on file Sexual Orientation Not on file documented as of this encounter Last Filed Vital Signs Vital Sign Reading Time Taken Comments Blood Pressure 125/80 06/05/2025 10:46 AM CDT Pulse 93 06/05/2025 10:46 AM CDT Temperature - - Respiratory Rate - - Oxygen Saturation - - Inhaled Oxygen Concentration - - Weight - - Height - - Body Mass Index - - documented in this encounter Functional Status * Is person [...] Lili Mccoy RN * Does person have difficulty dressing/bathing? Answer Date of Assessment Author No 07/26/2018 5:30 AM CDT Lili Mccoy RN * Does person have difficulty doing errands alone? Answer Date of Assessment Author No 07/26/2018 5:30 AM GISELLT Lili Mccoy RN documented as of this encounter Mental Status * Does person have difficulty concentrating/remembering/making decisions? Answer Entry Date Author No 07/26/2018 5:30 AM Lili Rodriguez RN documented in this encounter Medications at Time of Discharge albuterol HFA (PROVENTIL;PATRICIO HELIO;PROAIR) 108 (90 BASE) MCG/ACT inhaler Inhale 2 (two) puffs by mouth every 6 hours as needed ferrous sulfate 325 (65 FE) MG tablet Take 1 (one) tablet by mouth once daily ondansetron (Zofran) 4 MG tabletIndication s:Nausea and/or Vomiting in Take 1 (one) tablet by mouth every 4 hours Reasons: Nausea and Vomiting in pantoprazole EC (Protonix) 20 MG tablet Take 1 (one) tablet by mouth once daily MV & Min w/FA-DHA ( ADULT GUMMY/DHA/FA PO) Take 2 Each by mouth once daily documented as of this encounter Progress Notes * Nina Reyes RN - 06/05/2025 10:49 AM CDT Name: Keily Aly Date of : 2000 Today's Date: 06/05/2025 36w6d NST RESULTS (LOPEZ) OBJECTIVE FINDINGS , Pulse: 93, , BP: 125/80 NST Indication(s): Small for dates Uterine Irritability: Yes Contractions: Irregular Frequency: x3 Duration (sec) Range: 40-70 Perceived Intensity: Mild OBJECTIVE FINDINGS Movement: Present Monitoring Mode: External Baseline: 130 BPM Variability: Moderate Decelerations: None Accelerations: Yes OTHER INFORMATION NST reviewed remotely with MFM today as reactive. Patient reports positive movement. Denies cramping, leakage of fluid, vaginal bleeding. Reports somecontractions off and on, nothing regular. Reports her OB has scheduled her for IOL on 06/06/25and that she was dilated to 1 cm and soft cervix at her appt this week. Denies RUQ pain, headaches and visual changes. Congratulated patient on baby today as this is her last appt with MFM prior to delivery. Nina Reyes RN Cosigned by Mandi Rosales MD at 06/05/2025 1:19 PM CDT Associated attestation - Mandi Rosales MD - 06/05/2025 1:19 PM CDT Non-Stress Test (NST) Keily Aly [id number] Indications: Growth Restriction BP 125/80 (BP Location: Left arm, Patient Position: Sitting, BP Cuff Size: Adult) Pulse 93 Interpretation: FHR baseline: 130 beats/minute, moderate variability, reactive, no decelerations Contractions: 2-3, with uterine irritability Recommendations: Close maternal movement monitoring while awaiting admission for delivery (scheduled tomorrow) Mandi Rosales MD MPH documented in this encounter Plan of Treatment Not on file documented as of this encounter Visit Diagnoses Not on filedocumented in this encounter Care Teams Radiology Administrator Relationship Specialty Start Date End Date Zuleyma Martinez MD [address] [place] [address] PCP - General Gastroenterology 10/13/21 documented as of this encounter
[2025-06-06 06:45] LABS: Hematocrit 31.3 % (37.0-47.0); Hemoglobin 10.3 g/dL (12.0-15.0); Immature Granulocyte Percent A 0.4 % (0-0.5); Lymphocytes Absolute Auto 2.54 K/mm3 (0.9-3.2); Mean Corpuscular HGB Conc 32.9 g/dl (32-36); Mean Corpuscular Hemoglobin 29.5 pg (26-34); Mean Corpuscular Volume 89.7 fl (80-100); Nucleated Red Blood Cells Absolute Auto 0.000 K/mm3 (0.0-0.012); Nucleated Red Blood Cells Perc 0.0 % (0.0-0.2); Platelet Count Result 129 k/mm3 (150-375); Red Blood Count 3.49 M/mm3 (4.2-5.4); White Blood Count 14.2 K/mm3 (4.5-10.0)
[2025-06-06] MEDS: LACTATED RINGERS 1,000 ML 125 ML IV CONT ×2 (07:30→09:43)
[2025-06-06] MEDS: AMPICILLIN SODIUM 2 GM in SODIUM CHLORIDE 0.9% IV 100 ML 200 ML IVPB (07:31)
[2025-06-06] MEDS: OXYTOCIN 30 UNITS/NS 500 ML 30 UNITS/500 ML BAG 6 UNITS IV CONT (07:34)
[2025-06-06 07:36] LABS: Syphilis IgG/IgM Antibody Non-Reactive (Nonreactive)
--- NOTE | 2025-06-06 08:38 | WPDHPUPDATE1 ---
History and Physical Update Update Date/Time: 06/06/25 08:38 25-year-old primipara at 37 weeks gestation with growth restriction. Induction of labor. Active management. To get epidural prior to artificial rupture membranes. Cervix 2 cm and 80%. Reassuring status. History and Physical has been reviewed, including an updated exam of the patient. There are NO changes in the patient's condition. Risks, benefits, and alternatives have been discussed and questions answered. Patient agrees to proceed with procedure.
--- NOTE | 2025-06-06 14:03 | P.PNAN_ITS ---
Anes - Initial Pre Proc Eval Date/Time: 06/06/25 14:03 Surgeon: Mikhail Nguyễn MD Pre Op Diagnosis: IOL Patient Data Age: 25 Gender: F Height: 1.63 m Weight: 74 kg Last Vital Signs Temp 37.4 C 06/06/25 12:24 Pulse 63 06/06/25 14:01 BP 109/52 L 06/06/25 14:01 Pulse Ox 100 06/06/25 14:01 O2 Del Method Room Air 06/06/25 07:00 Allergies Allergy/AdvReac Type Severity Reaction Status Date / Time nickel Allergy Rash Verified 01/18/25 13:18 Home Medications ?Medication ?Instructions ?Recorded ?Confirmed ?Type ondansetron 4 mg disintegrating 4 mg PO Q8H PRN nausea and 11/14/24 03/19/25 Rx tablet vomiting #10 tabs albuterol sulfate 90 mcg/actuation 2 puff inhalation Q4H PRN 01/18/25 03/19/25 History aerosol inhaler shortness of breath omeprazole 20 mg capsule,delayed 20 mg PO DAILY 01/18/25 03/19/25 History release vit no.95-ferrous 1 tablet PO DAILY 01/18/25 03/19/25 History fumarate 28 mg-folic acid 800 mcg tablet () nitrofurantoin 100 mg PO Q12H 7 days #14 caps 03/19/25 Rx monohydrate/macrocrystals 100 mg capsule (Macrobid) Laboratory Tests 06/06/25 06:23 WBC 14.2 H K/mm3 (4.5-10.0) RBC 3.49 L M/mm3 (4.2-5.4) Hgb 10.3 L g/dL (12.0-15.0) Hct 31.3 L % (37.0-47.0) MCV 89.7 fl (80-100) MCH 29.5 pg (26-34) MCHC 32.9 g/dl (32-36) RDW 14.6 H % (11.5-14.5) Plt Count 129 L k/mm3 (150-375) MPV 13.0 H fl (7.4-10.4) Immature Gran % (Auto) 0.4 % (0-0.5) Neut % (Auto) 73.4 H % (45.5-73.1) Lymph % (Auto) 17.9 L % (18.3-44.2) Pender % (Auto) 7.9 % (2.6-8.5) Eos % (Auto) 0.2 % (0-4.4) Baso % (Auto) 0.2 % (0.2-1.2) Lymph # (Auto) 2.54 K/mm3 (0.9-3.2) Pender # (Auto) 1.1 H K/mm3 (0.1-0.6) Eos # (Auto) 0.0 K/mm3 (0-0.3) Baso # (Auto) 0.0 K/mm3 (0.0-0.1) Abs Immat Gran (auto) 0.06 H K/mm3 (0.00-0.031) Absolute Neuts (auto) 10.4 H K/mm3 (1.3-6.7) Absolute Nucleated RBC 0.000 K/mm3 (0.0-0.012) Nucleated RBC % 0.0 % (0.0-0.2) Syphilis IgG/IgM Ab Non-reactive (Nonreactive) Blood Type O Positive Antibody Screen Negative Patient hx anesthesia problems: none Family hx anesthesia problems: none Results Review: All pre-operative results and documents have been reviewed as part of the pre- operative evaluation. [facility] Past Medical History Medical History No active medical problems Social History Social History Years smoked: 5 Smoking status: Former smoker Substance use: current Do You Feel Safe in your Home?: Yes Lack of Transportation: No Lack of Food: Never True Current Housing: I Have Housing Concerned About Future Housing: No Difficulty Paying Gas/Electric Bills: No Difficulty Paying for Meds: No Currently Unemployed: No Education: Trade/Vocational Certificate Difficulty w/ Childcare or Family Care: No Spiritual care concerns: No Anes - Eval Final PreProcedure Day of Procedure 06/06/25 14:03 Patient weight: overweight Heart: regular rate and rhythm Lungs: clear to auscultation Neurological: alert and oriented ASA classification: II Emergent: no Anesthetic plan: proceed Anesthesia type and monitoring: regional epidural and standard monitoring Results Review: All pre-operative results and documents have been reviewed as part of the pre- operative evaluation. Informed Consent: The patient's anesthetic plan and its attendant risks and benefits were discussed with the patient/family/POA. Questions were solicited and answers provided to the satisfaction of the patient/family/POA.
--- NOTE | 2025-06-06 16:41 | PM.OBPRVD ---
OB - Vaginal Delivery Note Procedure Delivery date: 06/06/25 Events: Intrauterine Growth Restriction (IUGR) Induction method: AROM and Per Pitocin Protocol Delivery monitor: External FHT and External Uterine Route of delivery: Episiotomy description: None Laceration Description: None Delivery repair: vicryl Quantitative Blood Loss (ml): 50 Anesthesia type: Epidural Complications: No immediate complications
[2025-06-06] MEDS: OXYTOCIN 30 UNITS/NS 500 ML 30 UNITS/500 ML BAG 125 UNITS IV CONT (17:10)
[2025-06-06] MEDS: IBUPROFEN 600 MG TABLET (19:23)
--- NOTE | 2025-06-06 21:16 | OBPPTRN ---
Patient transferred to post room #287via wheelchair. Support person present. Oriented to unit, room, information board, rooming in, admission packet and security measures. Patient verbalizes understanding.
[2025-06-07] MEDS: IBUPROFEN 600 MG TABLET PO ×3 (04:23→23:51)
[2025-06-07 05:10] LABS: Hematocrit 33.7 % (37.0-47.0); Hemoglobin 11.1 g/dL (12.0-15.0)
[2025-06-07 07:25] VITALS: BP 127/64; PULSE 80; RESP 18; TEMP 36.9; O2SAT 100
[2025-06-07] MEDS: ACETAMINOPHEN 325 MG TABLET 650 MG PO (08:15)
--- NOTE | 2025-06-07 08:28 | P.PNOB_ITS ---
OB - PN: Subj Subjective Date/time seen: 06/07/25 08:28 Patient comments: no complaints, pain well controlled, incisional pain, tolerating diet and flatus present OB - PN: Obj Data Labs 06/07/25 04:19 Labs: Laboratory Results - last 24 hr 06/07/25 04:19 Hgb 11.1 L Hct 33.7 L OB - PN A/P Plan day: 1 Plan: routine care Comments: No problems, routine care Time Spent With Patient Time: Total time spent is greater than 50% in coordination of care (as documented) at patient's floor/unit and/or counseling patient: Exam 2 Const: General: comfortable, no acute distress and alert Resp: Effort & Inspection: normal respiratory effort Auscultation: no crackles, no rales and no rhonchi Cardio: Rate: regular rate Heart sounds: no click, no murmurs and no rubs GI: Inspection: non-distended GI Palp: No Tenderness to palpation present (GI) Auscultation: normal bowel sounds Other: Incision - CDI Extrem: General: normal to inspection, no pedal edema and no calf tenderness
--- NOTE | 2025-06-07 09:41 | S_PTH ---
PATIENT: Keily Aly LOC: [facility]2 U#:[id number] AGE/SX: 25/F ROOM: 287 RE06/06/[address]: Mikhail Nguyễn MD : 2000 BED: 00 DIS: 06/09/2025 SPEC #: [id number] RECD: 06/07/25 11:04 STATUS: JAVIER RE #: [id number] TARYN: 06/07/25 09:[address]: Mikhail Nguyễn DEPT: [facility] Surgical RECD BY: Renetta Edwards ENTERED: 06/07/25 11:04 SP TYPE: Surgical OTHR DR: Александр TuckerMD Tissues: A - Placenta Procedures: Hematoxylin and Eosin Stain Gross and Microscopic Level 5
[2025-06-07 12:10] VITALS: BP 124/51; PULSE 68; RESP 18; TEMP 36.9; O2SAT 100
--- NOTE | 2025-06-07 14:09 | WPDANLDPN2 ---
Anes-Prog Note L&D Date/Time: 06/07/25 14:09 Comfortable throughout: labor and delivery Neuraxial method: epidural Epidural/Spinal procedure site: clean & non-tender Neuro status: Neuro function grossly intact. Cardiovascular status: normal Respiratory status: normal Airway patency: baseline Mental status: baseline Post-Op hydration status: normal Vital Signs: Last Vital Signs Temp 36.9 C 06/07/25 12:10 Pulse 68 06/07/25 12:10 Resp 18 06/07/25 12:10 BP 124/51 L 06/07/25 12:10 Pulse Ox 100 06/07/25 12:10 O2 Del Method Room Air 06/07/25 08:45 Pain score (VAS): 1 I/O: Intake & Output 06/06/25 06/07/25 06/07/25 23:59 07:59 15:59 Intake Total 240 240 Output Total 100 Balance 140 240 Post-procedural complaints: none Patient feedback: Patient satisfied with anesthetic care.
[2025-06-07 19:46] VITALS: BP 126/71; PULSE 62; RESP 18; TEMP 37.1; O2SAT 100
[2025-06-08] MEDS: ACETAMINOPHEN 325 MG TABLET 650 MG PO ×2 (04:30→15:47)
--- NOTE | 2025-06-08 07:24 | P.PNOB_ITS ---
OB - PN: Subj Subjective Date/time seen: 06/08/25 07:24 Interval history: pp day 2 doing well urinating without difficulty OB - PN: Obj Data Labs 06/07/25 04:19 OB - PN A/P Plan day: 2 Time Spent With Patient Time: Total time spent is greater than 50% in coordination of care (as documented) at patient's floor/unit and/or counseling patient: Review of Systems 2 Review of Systems: All systems reviewed & are unremarkable except as noted in HPI and below Exam 2 Const: General: cooperative Chest: Chest palpation & inspection: normal inspection of the chest GI: Other: incision CDI
[2025-06-08 08:40] VITALS: BP 120/66; PULSE 63; RESP 16; TEMP 37; O2SAT 100
[2025-06-08 20:12] VITALS: BP 129/71; PULSE 66; RESP 18; TEMP 36.6; O2SAT 100
[2025-06-08] MEDS: IBUPROFEN 600 MG TABLET PO (22:30)
[2025-06-09 08:50] VITALS: BP 143/76; PULSE 73; RESP 18; TEMP 36.4; O2SAT 100
[2025-06-09] MEDS: ONDANSETRON HCL ODT 4 MG TABLET (09:00)
[2025-06-09] MEDS: ACETAMINOPHEN 325 MG TABLET 650 MG PO (09:00)
--- NOTE | 2025-06-09 09:00 | PC.NURSE ---
During assessment patient states that overnight she was experiencing chills, nausea, diarrhea and body aches. This morning she is feeling a bit better but states that she still fells unwell. Blood pressure was slightly elevated (143/76). She states that she did not take pain medication when needed because she was afraid it would make her sick. She is currently rating her pain 4/10. Patient was given Tylenol PO in addition to Zofran 4mg at this time. Patients bleeding is scant, fundus firm at 1 below the umbilicus. She denies seeing any spots or blurred vision.
--- NOTE | 2025-06-09 11:52 | P.PNOB_ITS ---
OB - PN: Subj Subjective Date/time seen: 06/09/25 11:52 Interval history: pp day 2 doing well urinating without difficulty Patient comments: no complaints, pain well controlled and tolerating diet OB - PN: Obj Data Labs 06/07/25 04:19 OB - PN A/P Plan day: 2 Plan: routine care and discharge home Time Spent With Patient Time: Total time spent is greater than 50% in coordination of care (as documented) at patient's floor/unit and/or counseling patient: Exam 2 Const: General: comfortable and no acute distress Resp: Effort & Inspection: normal respiratory effort Auscultation: no rales, no rhonchi and no wheezes Cardio: Rate: regular rate Heart sounds: no click, no murmurs and no rubs GI: GI Palp: Yes Soft to palpation and No Tenderness to palpation present (GI) Auscultation: normal bowel sounds Extrem: General: normal to inspection, no pedal edema and no calf tenderness
--- NOTE | 2025-06-09 11:52 | PM.OBDSVD ---
DS: Admitting Diagnosis Discharge Date 06/09/2025 Admitting Diagnosis Term DS: Discharge Diagnosis Discharge Diagnosis (1) Term delivered: Code(s): O80 - Encounter for full-term uncomplicated delivery Status: Acute OB - DS: Summary OB Procedures : None OB Procedures Intrapartum: Spontaneous Vag Delivery OB Procedures: : None Peripartum Data Laceration Description: None Episiotomy description: None Time Spent with Patient Time attestation: Total time spent providing and/or coordinating discharge services: DS: Data Data Completed and Pending Completed studies during hospitalization: Pending at discharge 06/07/25 09:41 Surgical [PTH] Routine Discharge Plan Discharge Discharging Clinician: Mikhail Nguyễn Patient Disposition: Home Activity: pelvic rest Diet: regular Patient Instructions: Antibiotic Form Patient Language: Turkish Stand Alone Forms: General Discharge Information Follow-up/Referrals: Mikhail Nguyễn MD [Physician] - Discharge Medications: Continued ondansetron 4 mg tablet,disintegrating 4 mg PO Q8H PRN (Reason: nausea and vomiting) Qty: 10 0RF PNV no.95-ferrous fumarate-FA [] 28 mg iron- 800 mcg tablet 1 tablet PO DAILY albuterol sulfate 90 mcg/actuation HFA aerosol inhaler 2 puff INHALATION Q4H PRN (Reason: shortness of breath) omeprazole 20 mg capsule,delayed release(DR/EC) 20 mg PO DAILY nitrofurantoin monohyd/m-cryst [Macrobid] 100 mg capsule 100 mg PO Q12H 7 Days Qty: 14 0RF Rx Instructions: must administer with a meal/food Date of admission: 06/06/25 06:00 Primary Care Provider: ImaniАлександр Admitting Provider: Mikhail Nguyễn Attending physician on admission: Mikhail Nguyễn Condition: Stable
[2025-06-11 11:41] VITALS: BP 131/87; PULSE 76; RESP 18; TEMP 36.7; O2SAT 100
== END 2025-06-09 12:30 | disposition home or self-care (01) | DRG 560 ==
LOC: ANHLDR 06:03 → ANHOB2 21:17
PROVIDERS: Admitting Provider Obstetrics & Gynecology; PCP Internal Medicine; Visit Provider Obstetrics & Gynecology
DX: O36.5930 Maternal care for other known or suspected poor fetal growth, third trimester, not applicable or unspecified (principal); Z3A.37 37 weeks gestation of pregnancy; Z37.0 Single live birth
CPT/HCPCS: 36415; 85014; 85018; 85025; 86593; 86850; 86900; 86901; 88307; A9270; J0290; J2590; J2795; J7120